=== PATIENT | male | born 1960 | race American Indian/Alaskan Native ===

== ENCOUNTER 2018-07-01 13:34 | Inpatient (IN) | payer MEDICARE ==
--- NOTE | 2018-07-01 13:43 | Emergency Department Report ---
ED General Adult HPI - General Stated complaint: HYPERTENSION Time Seen by Provider: 07/01/18 13:37 Source: patient, EMS Mode of arrival: Stretcher Limitations: No Limitations - History of Present Illness Initial comments: She is a 57-year-old male presents emergency room with complaints of high blood pressure. Patient states he was at dialysis and then notices blood pressure was elevated and he was sent to the emergency for evaluation and treatment. Patient denies chest pain or shortness of breath. Patient denies abdominal pain. Patient denies fever and chills. -: Sudden Improves with: none Worsens with: none Associated Symptoms: denies other symptoms. denies: confusion, chest pain, cough, diaphoresis, fever/chills, headaches, loss of appetite, malaise, nausea/vomiting, rash, seizure, shortness of breath, syncope, weakness Treatments Prior to Arrival: none - Related Data Home Medications Medication Instructions Recorded Confirmed Last Taken Apixaban [Eliquis] 5 mg PO BID 07/01/18 07/01/18 Unknown Pravastatin [Pravachol (Nf)] 40 mg PO QHS 07/01/18 07/01/18 Unknown cloNIDine-TTS PATCH [Catapres-Tts 1 patch TD Q7D 07/01/18 07/01/18 Unknown Patch] Previous Rx's Medication Instructions Recorded Last Taken Type Amiodarone [Cordarone 200 MG TAB] 200 mg PO DAILY #30 tablet 02/17/17 Unknown Rx Allergies Allergy/AdvReac Type Severity Reaction Status Date / Time piroxicam Allergy Unknown Verified 02/15/17 15:58 ED Review of Systems ROS: Stated complaint: HYPERTENSION Other details as noted in HPI Constitutional: denies: chills, fever Eyes: denies: eye pain, eye discharge, vision change ENT: denies: ear pain, throat pain Respiratory: denies: cough, shortness of breath, wheezing Cardiovascular: denies: chest pain, palpitations Endocrine: no symptoms reported Gastrointestinal: denies: abdominal pain, nausea, diarrhea Genitourinary: denies: urgency, dysuria Musculoskeletal: denies: back pain, joint swelling, arthralgia Skin: denies: rash, lesions Neurological: denies: headache, weakness, paresthesias Psychiatric: denies: anxiety, depression Hematological/Lymphatic: denies: easy bleeding, easy bruising ED Past Medical Hx - Past Medical History Previous Medical History?: Yes Hx Hypertension: No Hx CVA: No Hx Heart Attack/AMI: No Hx Congestive Heart Failure: Yes Hx Diabetes: Yes Hx Deep Vein Thrombosis: No Hx Pulmonary Embolism: No Hx GERD: No Hx Liver Disease: No Hx Renal Disease: Yes Hx Sickle Cell Disease: No Hx Arthritis: No Hx Headaches / Migraines: No Hx Seizures: No Hx Kidney Stones: No Hx Psychiatric Treatment: No Hx Asthma: No Hx COPD: No Hx Tuberculosis: No Hx Dementia: No Hx HIV: No Additional medical history: afib - Surgical History Past Surgical History?: Yes Hx Coronary Stent: No Hx Open Heart Surgery: No Hx Pacemaker: No Hx Internal Defibrillator: No Hx Cholecystectomy: No Hx Appendectomy: No Hx Breast Surgery: No Additional Surgical History: Right chest permacath, retinal detachment repair - Family History Family history: hypertension - Social History Smoking Status: Never Smoker Substance Use Type: None - Medications Home Medications: Home Medications Medication Instructions Recorded Confirmed Last Taken Type Amiodarone [Cordarone 200 MG TAB] 200 mg PO DAILY #30 tablet 02/17/17 07/01/18 Unknown Rx Apixaban [Eliquis] 5 mg PO BID 07/01/18 07/01/18 Unknown History Pravastatin [Pravachol (Nf)] 40 mg PO QHS 07/01/18 07/01/18 Unknown History cloNIDine-TTS PATCH [Catapres-Tts 1 patch TD Q7D 07/01/18 07/01/18 Unknown History Patch] ED Physical Exam - General Limitations: No Limitations General appearance: alert, in no apparent distress - Head Head exam: Present: atraumatic, normocephalic - Eye Eye exam: Present: normal appearance - ENT ENT exam: Present: mucous membranes dry - Neck Neck exam: Present: normal inspection - Respiratory Respiratory exam: Present: normal lung sounds bilaterally. Absent: respiratory distress - Cardiovascular Cardiovascular Exam: Present: regular rate, normal rhythm. Absent: systolic murmur, diastolic murmur, rubs, gallop - GI/Abdominal GI/Abdominal exam: Present: soft, normal bowel sounds - Rectal Rectal exam: Present: deferred - Extremities Exam Extremities exam: Present: normal inspection - Back Exam Back exam: Present: normal inspection - Neurological Exam Neurological exam: Present: alert, oriented X3 - Psychiatric Psychiatric exam: Present: normal affect, normal mood - Skin Skin exam: Present: warm, dry, intact, normal color. Absent: rash ED Course Vital Signs 07/01/18 07/01/18 07/01/18 13:40 13:49 13:50 Temperature 98.7 F Pulse Rate 76 77 Respiratory 20 12 Rate Blood Pressure 247/137 247/137 O2 Sat by Pulse 98 100 Oximetry - Reevaluation(s) Reevaluation #1: Blood pressure has improved., 170/90. Labs pertinent for hyperglycemia and DKA. Patient started on DKA protocol 07/01/18 14:58 discussed results with patient. Patient to be admitted to the hospitalist service. Patient agrees with the plan of care. 07/01/18 15:38 - Consultations Consultation #1: Hospitalist consult for admission. Hospitalist to admit patient and assume care of patient. Hospitalist to place orders and consult nephrology 07/01/18 15:39 ED Medical Decision Making - Lab Data Result diagrams: 07/01/18 13:50 07/01/18 15:09 - EKG Data -: EKG Interpreted by [facility] EKG shows normal: sinus rhythm, intervals, QRS complexes, ST-T waves - EKG Data Interpretation: LVH, other (left axis deviation) - Medical Decision Making Patient is a 57-year-old male presents emergency room with complaints of elevated blood pressure and blood sugar. Patient was sent over here by his dialysis clinic. Patient to be admitted to hospitalist service. Labs consistent with DKA due to elevated sugar and low bicarbonate and elevated gap. . Patient's EKG is negative for STEMI. Patient's troponin is elevated most like secondary to patient's chronic kidney disease. Patient did not get dialysis today and will require dialysis. - Differential Diagnosis hbp. hypertensive rebecca. hd. Noncompliant. dka. hyperglycemia Critical Care Time: Yes Critical care attestation.: If time is entered above; I have spent that time in minutes in the direct care of this critically ill patient, excluding procedure time. Critical Care Time: 45 minutes ED Disposition Clinical Impression: Hypertensive emergency, End stage renal disease, Elevated troponin I level DKA (diabetic ketoacidoses) Qualifiers: Diabetes mellitus type: type 2 Diabetes mellitus complication detail: without coma Qualified Code(s): E11.10 - Type 2 diabetes mellitus with ketoacidosis without coma Disposition: OP ADMIT IP TO THIS HOSP Is pt being admited?: Yes Does the pt Need Aspirin: No Condition: Critical Time of Disposition: 14:59
[2018-07-01] MEDS ORDERED: APRESOLINE IV ONE (13:47)
[2018-07-01 14:04] LABS: Hematocrit 37.8 % (35.5-45.6); Hemoglobin 11.7 gm/dl (11.8-15.2); Mean Corpuscular HGB Conc 31 % (32-34); Mean Corpuscular Volume 93 fl (84-94); Platelet Count 165 K/mm3 (140-440); Red Blood Count 4.06 M/mm3 (3.65-5.03); Red Cell Distribution Width 15.7 % (13.2-15.2)
[2018-07-01 14:27] LABS: Creatine Kinase MB 5.7 ng/mL (0.0-4.0)
[2018-07-01 14:28] LABS: Albumin 3.9 g/dL (3.9-5); Calcium 9.3 mg/dL (8.4-10.2)
[2018-07-01] MEDS ORDERED: D50W (25GM) Syringe IV PRN ×3 (14:54→23:36)
[2018-07-01] MEDS ORDERED: NACL 0.9% 1000 ML 1,000 ML IV ONE ×2 (14:54→18:00)
[2018-07-01] MEDS ORDERED: HumuLIN R 100 UNITS in NACL 0.9% 99 ML IV SCH ×2 (15:00→18:00)
[2018-07-01 15:04] LABS: Chol/HDL Ratio 3.12 %
[2018-07-01 15:49] LABS: Calcium 9.5 mg/dL (8.4-10.2)
[2018-07-01] MEDS ORDERED: SODIUM CHLORIDE FLUSH SYRINGE 10 ML IV PRN (16:45)
[2018-07-01] MEDS ORDERED: DILAUDID IV PRN (16:45)
[2018-07-01] MEDS ORDERED: ZOFRAN IV PRN (16:45)
[2018-07-01] MEDS ORDERED: TYLENOL PO PRN (16:45)
[2018-07-01] MEDS ORDERED: PERCOCET 5/325 PO PRN (16:45)
--- NOTE | 2018-07-01 16:45 | History and Physical Report ---
History of Present Illness Date of examination: 07/01/18 Date of admission: 07/01/18 Chief complaint: Feeling very weak and tired Blurred vision Eating excessively Feels hungry all the time and feels thirsty all the time History of present illness: 57-year-old -[place] male with past medical history significant for insulin-dependent diabetes hypertension and end-stage renal disease comes in for feeling very weak and shortness of breath. Patient has been doing his dialysis on a regular basis. Patient is not taking his insulin regularly. Patient feels very thirsty and weak. No fever or chills. In the ER his blood sugar was in the mid 750s. Past Medical History Previous Medical History?: Yes. Hx Congestive Heart Failure: Yes Hx Diabetes: Yes Hx Renal Disease: Yes Additional medical history: afib Surgical History Past Surgical History?: Yes Additional Surgical History: Right ct permacat. Family history: hypertension Social History Smoking Status: Never Smoker Substance Use Type: None [id number] [id number] Home Medications: Home Medications Medication Instructions Recorded Confirmed Last Taken Type Amiodarone [Cordarone 200 MG TAB] 200 mg PO DAILY #30 tablet 02/17/17 07/01/18 Unknown Rx Apixaban [Eliquis] 5 mg PO BID 07/01/18 07/01/18 Unknown History Pravastatin [Pravachol (Nf)] 40 mg PO QHS 07/01/18 07/01/18 Unknown History cloNIDine-TTS PATCH [Catapres-Tts 1 patch TD Q7D 07/01/18 07/01/18 Unknown History Patch] Review of Systems ROS: Stated complaint: HYPERTENSION Other details as noted in HPI Constitutional: denies: chills, fever Eyes: denies: eye pain, eye discharge, vision change ENT: denies: ear pain, throat pain Respiratory: denies: cough, shortness of breath, wheezing Cardiovascular: denies: chest pain, palpitations Endocrine: no symptoms reported Gastrointestinal: denies: abdominal pain, nausea, diarrhea Genitourinary: denies: urgency, dysuria Musculoskeletal: denies: back pain, joint swelling, arthralgia Skin: denies: rash, lesions Neurological: denies: headache, weakness, paresthesias Psychiatric: denies: anxiety, depression Hematological/Lymphatic: denies: easy bleeding, easy bruising Medications and Allergies Allergies Allergy/AdvReac Type Severity Reaction Status Date / Time piroxicam Allergy Unknown Verified 02/15/17 15:58 Home Medications Medication Instructions Recorded Confirmed Last Taken Type Amiodarone [Cordarone 200 MG TAB] 200 mg PO DAILY #30 tablet 02/17/17 07/01/18 Unknown Rx Apixaban [Eliquis] 5 mg PO BID 07/01/18 07/01/18 Unknown History Pravastatin [Pravachol (Nf)] 40 mg PO QHS 07/01/18 07/01/18 Unknown History cloNIDine-TTS PATCH [Catapres-Tts 1 patch TD Q7D 07/01/18 07/01/18 Unknown History Patch] Active Meds: Active Medications Dextrose (D50w (25gm) Syringe) 0 ml IV PRN PRN PRN Reason: Hypoglycemia Insulin Human Regular 100 (units/ Sodium Chloride) 100 mls @ 1 mls/hr IV TITR [facility]; Protocol Exam - Constitutional Vitals: Temp Pulse Resp BP Pulse Ox 98.7 F 77 12 247/137 100 07/01/18 13:40 07/01/18 13:50 07/01/18 13:49 07/01/18 13:50 07/01/18 13:49 General appearance: Present: no acute distress, well-nourished - EENT Eyes: Present: PERRL ENT: hearing intact, clear oral mucosa - Neck Neck: Present: supple, normal ROM - Respiratory Respiratory effort: normal Respiratory: bilateral: CTA - Cardiovascular Heart rate: 76 Rhythm: regular Heart Sounds: Present: S1 & S2. Absent: rub, click - Extremities Extremities: no ischemia, pulses intact, pulses symmetrical, No edema Peripheral Pulses: within normal limits - Abdominal General gastrointestinal: Present: soft, non-tender, non-distended, normal bowel sounds Male genitourinary: Present: normal - Rectal Rectal Exam: deferred - Integumentary Integumentary: Present: clear, warm, dry - Musculoskeletal Musculoskeletal: gait normal, strength equal bilaterally - Psychiatric Psychiatric: appropriate mood/affect, intact judgment & insight - Neurologic Neurologic: CNII-XII intact, moves all extremities - Allied Health Allied health notes reviewed: nursing, case management Results - Labs CBC & Chem 7: 07/01/18 13:50 07/01/18 15:09 Labs: Laboratory Last Values WBC 4.4 K/mm3 (4.5-11.0) L 07/01/18 13:50 RBC 4.06 M/mm3 (3.65-5.03) 07/01/18 13:50 Hgb 11.7 gm/dl (11.8-15.2) L 07/01/18 13:50 Hct 37.8 % (35.5-45.6) 07/01/18 13:50 MCV 93 fl (84-94) 07/01/18 13:50 MCH 29 pg (28-32) 07/01/18 13:50 MCHC 31 % (32-34) L 07/01/18 13:50 RDW 15.7 % (13.2-15.2) H 07/01/18 13:50 Plt Count 165 K/mm3 (140-440) 07/01/18 13:50 Sodium 133 mmol/L (137-145) L 07/01/18 15:09 Potassium 4.7 mmol/L (3.6-5.0) 07/01/18 15:09 Chloride 94.7 mmol/L (98-107) L 07/01/18 15:09 Carbon Dioxide 23 mmol/L (22-30) 07/01/18 15:09 Anion Gap 20 mmol/L 07/01/18 15:09 BUN 36 mg/dL (9-20) H 07/01/18 15:09 Creatinine 4.5 mg/dL (0.8-1.5) H 07/01/18 15:09 Estimated GFR 16 ml/min 07/01/18 15:09 BUN/Creatinine Ratio 8 % 07/01/18 15:09 Glucose 764 mg/dL (75-100) H* 07/01/18 15:09 POC Glucose > 500 (70-105) H 07/01/18 13:42 Calcium 9.5 mg/dL (8.4-10.2) 07/01/18 15:09 Phosphorus 3.50 mg/dL (2.5-4.5) 07/01/18 15:09 Magnesium 2.20 mg/dL (1.7-2.3) 07/01/18 15:09 Total Bilirubin 0.40 mg/dL (0.1-1.2) 07/01/18 13:50 AST 23 units/L (5-40) 07/01/18 13:50 ALT 13 units/L (7-56) 07/01/18 13:50 Alkaline Phosphatase 84 units/L (35-129) 07/01/18 13:50 Total Creatine Kinase 179 units/L (55-170) H 07/01/18 13:50 CK-MB (CK-2) 5.7 ng/mL (0.0-4.0) H 07/01/18 13:50 CK-MB (CK-2) Rel Index 3.1 (0-4) 07/01/18 13:50 Troponin T 0.193 ng/mL (0.00-0.029) H* 07/01/18 13:50 Total Protein 7.4 g/dL (6.3-8.2) 07/01/18 13:50 Albumin 3.9 g/dL (3.9-5) 07/01/18 13:50 Albumin/Globulin Ratio 1.1 % 07/01/18 13:50 Triglycerides 182 mg/dL (2-149) H 07/01/18 13:50 Cholesterol 178 mg/dL (50-199) 07/01/18 13:50 LDL Cholesterol Direct 101 mg/dL (50-130) 07/01/18 13:50 HDL Cholesterol 57 mg/dL (40-59) 07/01/18 13:50 Cholesterol/HDL Ratio 3.12 % 07/01/18 13:50 - Imaging and Cardiology EKG: report reviewed (NSR LAFB LVH with secondary repolarization abnormality Ant q waves) Assessment and Plan Advance Directives: Yes (full code) VTE prophylaxis?: Chemical Plan of care discussed with patient/family: Yes - Patient Problems (1) Hyperosmolar non-ketotic state in patient with type 2 diabetes mellitus Current Visit: Yes Status: Acute Plan to address problem: IV Insulin and IV fluids per DKA protocol (2) ESRD (end stage renal disease) on dialysis Current Visit: Yes Status: Chronic Plan to address problem: Cont HD (3) HTN (hypertension) Current Visit: Yes Status: Chronic Qualifiers: Hypertension type: essential hypertension Qualified Code(s): I10 - Essential (primary) hypertension Plan to address problem: Cont antihypertensives (4) HLD (hyperlipidemia) Current Visit: Yes Status: Chronic Qualifiers: Hyperlipidemia type: mixed hyperlipidemia Qualified Code(s): E78.2 - Mixed hyperlipidemia Plan to address problem: Cont Statins (5) Elevated troponin I level Current Visit: Yes Status: Acute Plan to address problem: Sec to ESRd (6) DVT prophylaxis Current Visit: No Status: Acute Plan to address problem: Cont Heparin and Gi ptophylaxis
[2018-07-01 17:36] LABS: Calcium 9.4 mg/dL (8.4-10.2)
[2018-07-01] MEDS ORDERED: CATAPRES-TTS PATCH TD SCH (18:00)
[2018-07-01] MEDS ORDERED: NACL 0.9% 1000 ML 1,000 ML ONE (19:30)
[2018-07-01] MEDS: CORDARONE PO SCH (19:44)
[2018-07-01 21:03] LABS: Calcium 8.8 mg/dL (8.4-10.2)
[2018-07-01] MEDS: KCL 10MEQ/100ML 10 MEQ/100 ML BAG IV SCH ×3 (21:44→23:55)
[2018-07-01] MEDS ORDERED: D5W/0.45% NACL/KCL 20 MEQ 20 MEQ/1,000 ML BAG IV SCH (23:00)
[2018-07-01 23:11] LABS: Calcium 9.1 mg/dL (8.4-10.2)
[2018-07-02] MEDS ORDERED: APRESOLINE IV ONE
[2018-07-02] MEDS ORDERED: APRESOLINE ONE (00:04)
[2018-07-02] MEDS: ELIQUIS PO SCH ×3 (01:24→22:23)
[2018-07-02] MEDS: PRAVACHOL PO SCH ×2 (01:24→22:23)
[2018-07-02] MEDS: KCL 10MEQ/100ML 10 MEQ/100 ML BAG IV SCH (01:25)
[2018-07-02] MEDS: SODIUM CHLORIDE FLUSH SYRINGE 10 ML IV SCH ×3 (01:25→22:24)
[2018-07-02 06:27] LABS: Basophils % (Auto) 0.5 % (0.0-1.8); Eosinophils # (Auto) 0.1 K/mm3 (0.0-0.4); Eosinophils % (Auto) 1.8 % (0.0-4.3); Hematocrit 37.4 % (35.5-45.6); Hemoglobin 11.8 gm/dl (11.8-15.2); Lymphocytes % (Auto) 18.1 % (13.4-35.0); Mean Corpuscular HGB Conc 32 % (32-34); Mean Corpuscular Volume 91 fl (84-94); Monocytes # (Auto) 0.4 K/mm3 (0.0-0.8); Monocytes % (Auto) 6.5 % (0.0-7.3); Platelet Count 177 K/mm3 (140-440); Red Blood Count 4.12 M/mm3 (3.65-5.03); Red Cell Distribution Width 15.7 % (13.2-15.2)
[2018-07-02 06:49] LABS: Calcium 9.2 mg/dL (8.4-10.2)
[2018-07-02] MEDS: HumuLIN R SUB-Q SCH ×4 (08:44→22:29)
--- NOTE | 2018-07-02 09:02 | Consultation ---
History of Present Illness - History of Present Illness Thank you for the consultation ! Patient was evaluated today My assessment and plan are as follows; End-stage renal disease: Patient is currently on maintenance hemodialysis and will need to be dialyzed 3 times a week Upon admission sodium 133 with a blood sugar of 764 corrected sodium in mid 140s, Anemia in end-stage renal disease: To monitor and follow current hemoglobin is around 11.7 Mild leukopenia white cell count 4.4 thousand, Admitted with the hyperosmolar nonketotic state History of fall poorly controlled long-standing diabetes admitted with blood sugar of more than 700 Has had uncontrolled hypertension at the dialysis facility? Compliance with diet ? Blood pressure is well controlled here Medications needs follow-up Abnormal troponin patient is high risk due to end-stage renal disease, may benefit from cardiology evaluation Secondary hyperparathyroidism and bone mineral disorder to monitor and follow Patient was adequately counseled and educated regarding multiple renal related issues. Renal prognosis remains guarded at this time All renal related questions were answered and simple Maori pertinent lab studies as well as imaging results were also discussed with patient We will continue to follow and make recommendations from renal standpoint. Thank you for the consultation Author: Jovanny Bhardwaj M.D. [facility], [address] [place] [address] Tel; [phone] Source of information: From patient as well as old chart History of present illness Patient is a 57-year-old -Filipino male who is currently in hemodialysis and was admitted with uncontrolled diabetes blood sugar was more than 750, patient stated that she was having some difficulty getting his insulin. Due to elevated blood sugar he was also having periods of dry mouth as well as frequency of urination no compressive and dizziness chest pain pressure or shortness of breath. Patient has been admitted for management of uncontrolled diabetes, nonketotic hyperosmolar state he does suffer from blindness and does have history of long-standing diabetes patient currently dialyzes at [facility] 3 times a week he was also noted to have uncontrolled hypertension is currently on anticoagulation for atrial fibrillation Past medical history significant for: End-stage renal disease Anemia and end-stage renal disease Secondary hyperparathyroidism Atrial fibrillation Chronic anticoagulation Legally blind Current allergies: Piroxicam Home medications present medication: Reviewed Social history: Reviewed from the chart Family history: Reviewed from the chart Review of system: Uncontrolled blood sugar blood pressure was elevated frequency of urination dry mouth All other review of systems negative. Physical examination Vitals: Reviewed General: No acute distress HEENT: Oral mucosa moist no pallor or icterus Neck: Supple without any JVD thyromegaly or nodular mass Chest: Clear to auscultation Heart: Regular rate and rhythm S1-S2 heard no S3-S4 Abdomen: Soft nontender, bowel sounds present no renal bruit no suprapubic masses no CVA tenderness noted Extremity: Minimal edema dry skin no peripheral cyanosis Endocrine: Thyroid not enlarged Psychiatric: No agitation and aggression noted Musculoskeletal: No joint effusion noted Labs and x-rays: Reviewed from this admission Medications and Allergies Allergies Allergy/AdvReac Type Severity Reaction Status Date / Time piroxicam Allergy Unknown Verified 02/15/17 15:58 Home Medications Medication Instructions Recorded Confirmed Last Taken Type Apixaban [Eliquis] 5 mg PO BID 07/01/18 07/01/18 Unknown History cloNIDine-TTS PATCH [Catapres-Tts 1 patch TD Q7D 07/01/18 07/01/18 Unknown History Patch] Amiodarone [Cordarone 200 MG TAB] 200 mg PO DAILY #30 tablet 07/03/18 Unknown Rx Lisinopril [Zestril TAB] 20 mg PO QDAY #30 tablet 07/03/18 Unknown Rx Pravastatin [Pravachol (Nf)] 40 mg PO QHS #30 tablet 07/03/18 Unknown Rx hydrALAZINE [Apresoline TAB] 25 mg PO Q8HR #90 tab 07/03/18 Unknown Rx Active Meds: Active Medications Acetaminophen (Tylenol) 650 mg PO Q4H PRN PRN Reason: Pain MILD(1-3)/Fever >100.5/PEREZ Amiodarone HCl (Cordarone) 200 mg PO DAILY [facility] Last Admin: 07/01/18 19:44 Dose: 200 mg Documented by: Apixaban (Eliquis) 5 mg PO BID [facility]; Protocol Last Admin: 07/02/18 01:24 Dose: 5 mg Documented by: Clonidine HCl (Catapres-Tts Patch) 0.1 mg TD Q7D [facility] Last Admin: 07/01/18 19:43 Dose: 0.1 mg Documented by: Dextrose (D50w (25gm) Syringe) 0 ml IV PRN PRN PRN Reason: Hypoglycemia Dextrose (D50w (25gm) Syringe) 50 ml IV PRN PRN PRN Reason: Hypoglycemia Hydromorphone HCl (Dilaudid) 0.5 mg IV Q3H PRN PRN Reason: Pain , Severe (7-10) Insulin Human Regular 100 (units/ Sodium Chloride) 100 mls @ 1 mls/hr IV TITR [facility]; Protocol Last Titration: 07/01/18 21:03 Dose: 8 units/hr, 8 mls/hr Documented by: Potassium Chloride/Dextrose/Sod Cl (D5w/0.45% Nacl/Kcl 20 Meq) 20 meq in 1,000 mls @ 75 mls/hr IV DIRECT [facility] Last Admin: 07/02/18 01:26 Dose: 75 mls/hr Documented by: Insulin Human Isoph/Insulin Regular (Humulin 70/30) 20 unit SUB-Q BIDDIAB [facility] Insulin Human Regular (Humulin R) 0 units SUB-Q ACHS [facility]; Protocol Last Admin: 07/02/18 08:44 Dose: 4 units Documented by: Ondansetron HCl (Zofran) 4 mg IV Q8H PRN PRN Reason: Nausea And Vomiting Oxycodone/Acetaminophen (Percocet 5/325) 1 tab PO Q6H PRN PRN Reason: Pain, Moderate (4-6) Pravastatin Sodium (Pravachol) 40 mg PO QHS [facility] Last Admin: 07/02/18 01:24 Dose: 40 mg Documented by: Sodium Chloride (Sodium Chloride Flush Syringe 10 Ml) 10 ml IV BID [facility] Last Admin: 07/02/18 01:25 Dose: 10 ml Documented by: Sodium Chloride (Sodium Chloride Flush Syringe 10 Ml) 10 ml IV PRN PRN PRN Reason: LINE FLUSH Exam - Vital Signs Vital signs: Vital Signs Temp Pulse Resp BP Pulse Ox 98.7 F 76 20 247/137 98 07/01/18 13:40 07/01/18 13:40 07/01/18 13:40 07/01/18 13:40 07/01/18 13:40 Results - Lab Results 07/02/18 05:58 07/03/18 06:19 Most recent lab results Calcium 9.0 mg/dL (8.4-10.2) 07/02/18 07:19 Phosphorus 3.60 mg/dL (2.5-4.5) 07/01/18 16:59 Magnesium 2.30 mg/dL (1.7-2.3) 07/01/18 16:59
[2018-07-02 09:46] LABS: Blood Urea Nitrogen TNR mg/dL (9-20)
[2018-07-02 09:47] LABS: BUN/Creatinine Ratio TNR; Calcium TNR mg/dL (8.4-10.2); Hemolysis Index TNR
[2018-07-02] MEDS: CORDARONE PO SCH (12:39)
--- NOTE | 2018-07-02 15:11 | Progress Note ---
Assessment and Plan Assessment and plan: Diabetes mellitus his hyperglycemia, suspected HHS - Patient is treated with insulin drip initially and later transitioned to long- acting insulin and sliding scale insulin - Accu check, ADA diet, adjust insulin as needed End-stage renal disease on hemodialysis -Continue hemodialysis -Nephrology is following Uncontrolled hypertension -adjusted his blood pressure medications - We'll monitor History of A. fib - Eliquis and amiodarone Disposition - according to the clinical course History Interval history: Patient was seen and evaluated this morning, Patient is legally blind. Didn't have any complaints. Hospitalist Physical - Physical exam Narrative exam: Not in cardiopulmonary distress. legally blind. The patient appeared well nourished and normally developed. Vital signs as documented. Head exam is unremarkable. No scleral icterus . Neck is without jugular venous distension, thyromegaly, or carotid bruits. Lungs are clear to auscultation. Cardiac exam reveals regular rate and Rhythm. Abdominal exam reveals normal bowel sounds, no masses, no organomegaly and no aortic enlargement. Extremities are nonedematous and both femoral and pedal pulses are normal. MANAGEMENT RECRUITER: Alert and oriented 3. No focal weakness. - Constitutional Vitals: Temp Pulse Resp BP Pulse Ox 98.2 F 80 18 197/110 98 07/02/18 09:32 07/02/18 09:29 07/02/18 09:29 07/02/18 09:29 07/02/18 09:29 General appearance: Present: no acute distress, well-nourished Results - Labs CBC & Chem 7: 07/02/18 05:58 07/02/18 10:15 Labs: Laboratory Last Values WBC 5.6 K/mm3 (4.5-11.0) 07/02/18 05:58 RBC 4.12 M/mm3 (3.65-5.03) 07/02/18 05:58 Hgb 11.8 gm/dl (11.8-15.2) 07/02/18 05:58 Hct 37.4 % (35.5-45.6) 07/02/18 05:58 MCV 91 fl (84-94) 07/02/18 05:58 MCH 29 pg (28-32) 07/02/18 05:58 MCHC 32 % (32-34) 07/02/18 05:58 RDW 15.7 % (13.2-15.2) H 07/02/18 05:58 Plt Count 177 K/mm3 (140-440) 07/02/18 05:58 Lymph % (Auto) 18.1 % (13.4-35.0) 07/02/18 05:58 Grand % (Auto) 6.5 % (0.0-7.3) 07/02/18 05:58 Eos % (Auto) 1.8 % (0.0-4.3) 07/02/18 05:58 Baso % (Auto) 0.5 % (0.0-1.8) 07/02/18 05:58 Lymph # 1.0 K/mm3 (1.2-5.4) L 07/02/18 05:58 Grand # 0.4 K/mm3 (0.0-0.8) 07/02/18 05:58 Eos # 0.1 K/mm3 (0.0-0.4) 07/02/18 05:58 Baso # 0.0 K/mm3 (0.0-0.1) 07/02/18 05:58 Seg Neutrophils % 73.1 % (40.0-70.0) H 07/02/18 05:58 Seg Neutrophils # 4.1 K/mm3 (1.8-7.7) 07/02/18 05:58 Sodium 137 mmol/L (137-145) 07/02/18 10:15 Potassium 4.6 mmol/L (3.6-5.0) 07/02/18 10:15 Chloride 105.6 mmol/L (98-107) 07/02/18 10:15 Carbon Dioxide 18 mmol/L (22-30) L 07/02/18 10:15 Anion Gap 18 mmol/L 07/02/18 10:15 BUN 35 mg/dL (9-20) H 07/02/18 10:15 Creatinine 4.3 mg/dL (0.8-1.5) H 07/02/18 10:15 Estimated GFR 17 ml/min 07/02/18 10:15 BUN/Creatinine Ratio 8 % 07/02/18 10:15 Glucose 370 mg/dL (75-100) H 07/02/18 10:15 POC Glucose 310 (70-105) H 07/02/18 05:53 Hemoglobin A1c 15.4 % (4-6) H 07/01/18 16:59 Calcium 9.0 mg/dL (8.4-10.2) 07/02/18 10:15 Phosphorus 3.60 mg/dL (2.5-4.5) 07/01/18 16:59 Magnesium 2.30 mg/dL (1.7-2.3) 07/01/18 16:59 Total Bilirubin 0.40 mg/dL (0.1-1.2) 07/01/18 13:50 AST 23 units/L (5-40) 07/01/18 13:50 ALT 13 units/L (7-56) 07/01/18 13:50 Alkaline Phosphatase 84 units/L (35-129) 07/01/18 13:50 Total Creatine Kinase 179 units/L (55-170) H 07/01/18 13:50 CK-MB (CK-2) 5.7 ng/mL (0.0-4.0) H 07/01/18 13:50 CK-MB (CK-2) Rel Index 3.1 (0-4) 07/01/18 13:50 Troponin T 0.193 ng/mL (0.00-0.029) H* 07/01/18 13:50 Total Protein 7.4 g/dL (6.3-8.2) 07/01/18 13:50 Albumin 3.9 g/dL (3.9-5) 07/01/18 13:50 Albumin/Globulin Ratio 1.1 % 07/01/18 13:50 Triglycerides 182 mg/dL (2-149) H 07/01/18 13:50 Cholesterol 178 mg/dL (50-199) 07/01/18 13:50 LDL Cholesterol Direct 101 mg/dL (50-130) 07/01/18 13:50 HDL Cholesterol 57 mg/dL (40-59) 07/01/18 13:50 Cholesterol/HDL Ratio 3.12 % 07/01/18 13:50
[2018-07-02] MEDS: NORVASC PO SCH (15:36)
[2018-07-02] MEDS: APRESOLINE PO SCH ×2 (15:36→22:23)
[2018-07-02] MEDS ORDERED: HumuLIN R IV ONE (17:47)
[2018-07-03 07:13] LABS: Calcium 9.1 mg/dL (8.4-10.2)
[2018-07-03] MEDS ORDERED: NACL 0.9% 100 ML IV PRN (08:49)
--- NOTE | 2018-07-03 08:49 | Progress Note ---
Subjective Interval history: Patient was seen today for follow-up of multiple renal related issues No complaints of any chest pain pressure or shortness of breath blood sugar better, wants dialysis today Interdisciplinary notes that also reviewed Events of 24 hours vitals labs intake output medications were reviewed Past medical history: Reviewed Family history: Reviewed Social history: Reviewed Allergies: Reviewed Physical examination: Vitals: Reviewed HEENT: No pallor or icterus oral mucosa moist Neck: Supple no JVD no thyromegaly Chest: Bilateral clear to auscultation anteriorly Heart: Regular rate and rhythm S1-S2 heard no S3-S4 Abdomen: Soft nontender no voluntary guarding rigidity rebound Extremity: Dry skin less than 1+ peripheral edema Psychiatric: No evidence of agitation and aggression noted Dermatology: No petechial rashes Labs and x-rays: Reviewed from today Assessment and plan End-stage renal disease: Patient is currently being dialyzed at [facility] he will receive his hemodialysis treatment today Admitted with hyperosmolar nonketotic state with symptoms of hyperglycemia and dry mild polyuria which is currently improving with some IV fluid dialysis and treatment Anemia and end-stage renal disease: To monitor and follow Secondary hyperparathyroidism patient needs ongoing monitoring and follow-up Uncontrolled diabetes: Counseled and educated, patient stated that she was having some problem getting his insulin in outpatient setting Hypertension: Adequately controlled currently Mild metabolic acidosis that should correct with hemodialysis today As of this admission today his hemoglobin is around 11.8 as of yesterday potassium 4.1 bicarbonate 20 calcium is 9.1 with phosphorus of 3.6 Patient is overall stable and can be considered for discharge from renal standpoint He can resume his outpatient dialysis in the outpatient setting Adequately counseled and educated regarding multiple related issues Laboratory studies, pertinent for discussed with patient All questions were answered and simple Haitian We'll continue to follow and make recommendation for renal standpoint Objective - Vital Signs Vital signs: Vital Signs - 12hr 07/03/18 07/03/18 00:13 04:00 Temperature 98.4 F 98.2 F Pulse Rate 70 76 Respiratory 18 18 Rate Blood Pressure 162/85 Blood Pressure 152/86 [Right] O2 Sat by Pulse 100 100 Oximetry - Lab 07/02/18 05:58 07/03/18 06:19 Most recent lab results Calcium 9.1 mg/dL (8.4-10.2) 07/03/18 06:19 Phosphorus 3.60 mg/dL (2.5-4.5) 07/01/18 16:59 Magnesium 2.30 mg/dL (1.7-2.3) 07/01/18 16:59 Medications & Allergies - Medications Allergies/Adverse Reactions: Allergies piroxicam Allergy (Verified 02/15/17 15:58) Unknown Home Medications: Home Medications Medication Instructions Recorded Confirmed Last Taken Type Apixaban [Eliquis] 5 mg PO BID 07/01/18 07/01/18 Unknown History cloNIDine-TTS PATCH [Catapres-Tts 1 patch TD Q7D 07/01/18 07/01/18 Unknown History Patch] Amiodarone [Cordarone 200 MG TAB] 200 mg PO DAILY #30 tablet 07/03/18 Unknown Rx Lisinopril [Zestril TAB] 20 mg PO QDAY #30 tablet 07/03/18 Unknown Rx Pravastatin [Pravachol (Nf)] 40 mg PO QHS #30 tablet 07/03/18 Unknown Rx hydrALAZINE [Apresoline TAB] 25 mg PO Q8HR #90 tab 07/03/18 Unknown Rx Active Medications: Generic Name Dose Route Start Last Admin Trade Name Freq PRN Reason Stop Dose Admin Acetaminophen 650 mg 07/01/18 16:45 Tylenol PO Q4H PRN Pain MILD(1-3)/Fever >100.5/PEREZ Amiodarone HCl 200 mg 07/01/18 18:00 07/02/18 12:39 Cordarone PO 200 mg DAILY RICH Administration Amlodipine Besylate 10 mg 07/02/18 15:02 07/02/18 15:36 Norvasc PO 10 mg QDAY RICH Administration Apixaban 5 mg 07/01/18 22:00 07/02/18 22:23 Eliquis PO 5 mg BID RICH Administration Protocol Clonidine HCl 0.1 mg 07/01/18 18:00 07/01/18 19:43 Catapres-Tts Patch TD 0.1 mg Q7D RICH Administration Dextrose 0 ml 07/01/18 16:54 D50w (25gm) Syringe IV PRN PRN Hypoglycemia Dextrose 50 ml 07/01/18 23:36 D50w (25gm) Syringe IV PRN PRN Hypoglycemia Hydralazine HCl 100 mg 07/02/18 15:02 07/02/18 22:23 Apresoline PO 100 mg TID RICH Administration Hydromorphone HCl 0.5 mg 07/01/18 16:45 Dilaudid IV Q3H PRN Pain , Severe (7-10) Insulin Human Regular 100 100 mls @ 1 mls/hr 07/01/18 18:00 07/01/18 21:03 units/ Sodium Chloride IV 8 units/hr TITR RICH 8 mls/hr Titration Protocol 1 UNITS/HR Insulin Human Isoph/Insulin Regular 20 unit 07/02/18 09:30 07/02/18 17:13 Humulin 70/30 SUB-Q 20 unit BIDDIAB RICH Administration Insulin Human Regular 0 units 07/02/18 07:30 07/02/18 22:29 Humulin R SUB-Q Not Given ACHS RICH Protocol Ondansetron HCl 4 mg 07/01/18 16:45 Zofran IV Q8H PRN Nausea And Vomiting Oxycodone/Acetaminophen 1 tab 07/01/18 16:45 Percocet 5/325 PO Q6H PRN Pain, Moderate (4-6) Pravastatin Sodium 40 mg 07/01/18 22:00 07/02/18 22:23 Pravachol PO 40 mg QHS RICH Administration Sodium Chloride 10 ml 07/01/18 22:00 07/02/18 22:24 Sodium Chloride Flush Syringe 10 Ml IV 10 ml BID RICH Administration Sodium Chloride 10 ml 07/01/18 16:45 Sodium Chloride Flush Syringe 10 Ml IV PRN PRN LINE FLUSH
[2018-07-03] MEDS: CORDARONE PO SCH (09:28)
[2018-07-03] MEDS: NORVASC PO SCH (09:28)
[2018-07-03] MEDS: APRESOLINE PO SCH (09:28)
[2018-07-03] MEDS: HumuLIN R SUB-Q SCH (09:29)
[2018-07-03] MEDS: SODIUM CHLORIDE FLUSH SYRINGE 10 ML IV SCH (09:29)
[2018-07-03] MEDS: ELIQUIS PO SCH (09:30)
[2018-07-03 14:10] LABS: Hepatitis B Surface Antigen Non-Reactive (Negative); Hepatitis C Virus Antibody Non-Reactive (NonReactive)
[2018-07-03 16:24] VITALS: BP 156/91
--- NOTE | 2018-07-03 16:43 | Discharge Summary ---
Providers - Providers Date of Admission: 07/01/18 16:45 Attending physician: MATA BABCOCK MD 07/01/18 Consult to Case Management [CONS] Routine Services Needed at Discharge: Home Health Services Notified:: case management 07/01/18 16:45 Consult to Physician [CONS] Routine Comment: Dr. Grover notified @ 195 Consulting Provider: KIERRA SANFORD Physician Instructions: Reason For Exam: end-stage renal disease 07/01/18 16:50 Consult to Dietitian/Nutrition [CONS] Routine Physician Instructions: Reason For Exam: Reason for Consult: Diet education Primary care physician: METAL BURRER Hospitalization Reason for admission: HHS, uncontrolled DM Condition: Stable Hospital course: Diabetes mellitus his hyperglycemia, suspected HHS;Patient is treated with insulin drip initially and later transitioned to long-acting insulin and sliding scale insulin. Diabetes was controlled and patient said he has enough of his medications and will take it as needed. End-stage renal disease on hemodialysis; nephrology was consulted and hemodialysis was done. Uncontrolled hypertension; continue home medications and adjusted his BP meds. History of A. fib; continue with eliquis and amiodarone patient said he has enough of his insulin medications at home. Patient was feeling ok. Patient was hemodynamically table at the time of discharge. patient's questions and concerns were addressed at the bedside. Disposition: -01 TO HOME OR SELFCARE Time spent for discharge: 32 minutes - Discharge Diagnoses (1) Hyperosmolar non-ketotic state in patient with type 2 diabetes mellitus Status: Acute (2) ESRD (end stage renal disease) on dialysis Status: Chronic (3) HLD (hyperlipidemia) Status: Chronic Qualifiers: Hyperlipidemia type: mixed hyperlipidemia Qualified Code(s): E78.2 - Mixed hyperlipidemia (4) HTN (hypertension) Status: Chronic Qualifiers: Hypertension type: essential hypertension Qualified Code(s): I10 - Essential (primary) hypertension (5) Diabetes Status: Acute Core Measure Documentation - Palliative Care Palliative Care/ Comfort Measures: Not Applicable - Core Measures Any of the following diagnoses?: none Exam - Physical Exam Narrative exam: Not in cardiopulmonary distress. legally blind. The patient appeared well nourished and normally developed. Vital signs as documented. Head exam is unremarkable. No scleral icterus . Neck is without jugular venous distension, thyromegaly, or carotid bruits. Lungs are clear to auscultation. Cardiac exam reveals regular rate and Rhythm. Abdominal exam reveals normal bowel sounds, no masses, no organomegaly and no aortic enlargement. Extremities are nonedematous and both femoral and pedal pulses are normal. CORPORATE QUALITY ENGINEER: Alert and oriented 3. No focal weakness. - Constitutional Vitals: Temp Pulse Resp BP Pulse Ox 98.0 F 77 16 156/91 97 07/03/18 16:23 07/03/18 16:23 07/03/18 16:23 07/03/18 16:23 07/03/18 16:23 Plan Activity: no restrictions Weight Bearing Status: Full Weight Bearing Diet: low salt, diabetic, renal Follow up with: PRIMARY CARE,MD [Primary Care Provider] - 3-5 Days Prescriptions: Pravastatin [Pravachol (Nf)] 40 mg PO QHS #30 tablet Amiodarone [Cordarone 200 MG TAB] 200 mg PO DAILY #30 tablet hydrALAZINE [Apresoline TAB] 25 mg PO Q8HR #90 tab Lisinopril [Zestril TAB] 20 mg PO QDAY #30 tablet
[2018-07-03] MEDS ORDERED: NACL 0.9 (PRIMING MACHINE ONLY DIALYSIS) MC ONE (18:01)
[2018-07-03] MEDS ORDERED: TRIPLE ANTIBIOTIC TP ONE (19:20)
== END 2018-07-03 18:00 | disposition home or self-care (01) | DRG 637 ==
LOC: ED 13:34 → CC1 16:45 → 4A 23:55
PROVIDERS: ADMIT Internal Medicine; ATTEND Internal Medicine
PROC: 5A1D70Z Performance of Urinary Filtration, Intermittent, Less than 6 Hours Per Day (ICD-10-PCS; principal; 2018-07-03)
DX: E11.00 Type 2 diabetes mellitus with hyperosmolarity without nonketotic hyperglycemic-hyperosmolar coma (NKHHC) (principal); N18.6 End stage renal disease; N25.81 Secondary hyperparathyroidism of renal origin; E87.2 Acidosis; I13.2 Hypertensive heart and chronic kidney disease with heart failure and with stage 5 chronic kidney disease, or end stage renal disease; I16.1 Hypertensive emergency; E11.22 Type 2 diabetes mellitus with diabetic chronic kidney disease; D64.9 Anemia, unspecified; E78.2 Mixed hyperlipidemia; I48.91 Unspecified atrial fibrillation; D63.1 Anemia in chronic kidney disease; D72.819 Decreased white blood cell count, unspecified; H54.8 Legal blindness, as defined in USA; I49.9 Cardiac arrhythmia, unspecified; I50.9 Heart failure, unspecified; E11.10 Type 2 diabetes mellitus with ketoacidosis without coma; Z79.899 Other long term (current) drug therapy; Z79.01 Long term (current) use of anticoagulants; Z82.49 Family history of ischemic heart disease and other diseases of the circulatory system
CPT/HCPCS: 36415; 80048; 80053; 80061; 80074; 82550; 82553; 82962; 83036; 83735; 84100; 84484; 85025; 85027; 87116; 93005; 93010; 96361; 96365; 96375; G0378; A6250; A9270-GY; J0360; J1815; J3480; J7030

== ENCOUNTER 2018-07-10 12:24 | Emergency (ER) | payer MEDICARE ==
--- NOTE | 2018-07-10 13:44 | XRay Report ---
ROUTINE CHEST, TWO VIEWS: HISTORY: Cough. The trachea, heart, mediastinal contour, lung moscoso and bony thorax are unremarkable. IMPRESSION: No acute cardiopulmonary process identified.
[2018-07-10 13:46] LABS: Basophils % (Auto) 0.8 % (0.0-1.8); Eosinophils # (Auto) 0.1 K/mm3 (0.0-0.4); Eosinophils % (Auto) 2.3 % (0.0-4.3); Hemoglobin 11.4 gm/dl (11.8-15.2); Lymphocytes # (Auto) 0.7 K/mm3 (1.2-5.4); Lymphocytes % (Auto) 18.4 % (13.4-35.0); Mean Corpuscular HGB Conc 32 % (32-34); Mean Corpuscular Volume 90 fl (84-94); Monocytes # (Auto) 0.5 K/mm3 (0.0-0.8); Monocytes % (Auto) 12.4 % (0.0-7.3); Platelet Count 178 K/mm3 (140-440); Red Blood Count 3.98 M/mm3 (3.65-5.03); Red Cell Distribution Width 15.4 % (13.2-15.2)
[2018-07-10 13:58] LABS: Calcium 9.1 mg/dL (8.4-10.2)
--- NOTE | 2018-07-10 14:23 | Emergency Department Report ---
- General Chief Complaint: Upper Respiratory Infection Stated Complaint: COUGH/HIGH BLOOD SUGAR Time Seen by Provider: 07/10/18 12:34 Source: EMS Mode of arrival: Stretcher Limitations: No Limitations - History of Present Illness Initial Comments: 57-year-old male with a past medical history of end-stage due for dialysis, diabetes and atrial fibrillation presents to hospital with presents to the hospital pain about cough 1 week. Cough is productive of yellowish sputum. Patient complains a lot of chest congestion. He denies pain, fever, or shortness of breath. He did not get a pneumonia or flu shot this. He was due for dialysis today he came here instead. His facilities maintenance manager is Dr. Bhardwaj - Related Data Home Medications Medication Instructions Recorded Confirmed Last Taken Apixaban [Eliquis] 5 mg PO BID 07/01/18 07/01/18 Unknown cloNIDine-TTS PATCH [Catapres-Tts 1 patch TD Q7D 07/01/18 07/01/18 Unknown Patch] Previous Rx's Medication Instructions Recorded Last Taken Type Amiodarone [Cordarone 200 MG TAB] 200 mg PO DAILY #30 tablet 07/03/18 Unknown Rx Lisinopril [Zestril TAB] 20 mg PO QDAY #30 tablet 07/03/18 Unknown Rx Pravastatin [Pravachol (Nf)] 40 mg PO QHS #30 tablet 07/03/18 Unknown Rx hydrALAZINE [Apresoline TAB] 25 mg PO Q8HR #90 tab 07/03/18 Unknown Rx Azithromycin [Zithromax TAB] 250 mg PO QDAY #4 tablet 07/10/18 Unknown Rx Benzonatate [Tessalon Perles] 100 mg PO Q8HR PRN #30 capsule 07/10/18 Unknown Rx Allergies Allergy/AdvReac Type Severity Reaction Status Date / Time piroxicam Allergy Unknown Verified 02/15/17 15:58 ED Review of Systems ROS: Stated complaint: COUGH/HIGH BLOOD SUGAR Other details as noted in HPI Comment: All other systems reviewed and negative ED Past Medical Hx - Past Medical History Hx Hypertension: Yes Hx CVA: No Hx Heart Attack/AMI: No Hx Congestive Heart Failure: Yes Hx Diabetes: Yes Hx Deep Vein Thrombosis: No Hx Pulmonary Embolism: No Hx GERD: Yes Hx Liver Disease: No Hx Renal Disease: Yes Hx Sickle Cell Disease: No Hx Arthritis: No Hx Headaches / Migraines: No Hx Seizures: No Hx Kidney Stones: No Hx Psychiatric Treatment: No Hx Asthma: No Hx COPD: No Hx Tuberculosis: No Hx Dementia: No Hx HIV: No Additional medical history: afib - Surgical History Hx Coronary Stent: No Hx Open Heart Surgery: No Hx Pacemaker: No Hx Internal Defibrillator: No Hx Cholecystectomy: No Hx Appendectomy: No Hx Breast Surgery: No Additional Surgical History: Right chest permacath, retinal detachment repair - Social History Smoking Status: Never Smoker - Medications Home Medications: Home Medications Medication Instructions Recorded Confirmed Last Taken Type Apixaban [Eliquis] 5 mg PO BID 07/01/18 07/01/18 Unknown History cloNIDine-TTS PATCH [Catapres-Tts 1 patch TD Q7D 07/01/18 07/01/18 Unknown History Patch] Amiodarone [Cordarone 200 MG TAB] 200 mg PO DAILY #30 tablet 07/03/18 Unknown Rx Lisinopril [Zestril TAB] 20 mg PO QDAY #30 tablet 07/03/18 Unknown Rx Pravastatin [Pravachol (Nf)] 40 mg PO QHS #30 tablet 07/03/18 Unknown Rx hydrALAZINE [Apresoline TAB] 25 mg PO Q8HR #90 tab 07/03/18 Unknown Rx Azithromycin [Zithromax TAB] 250 mg PO QDAY #4 tablet 07/10/18 Unknown Rx Benzonatate [Tessalon Perles] 100 mg PO Q8HR PRN #30 capsule 07/10/18 Unknown Rx ED Physical Exam - General Limitations: No Limitations - Other Other exam information: General: No limitations, patient is alert in no acute distress Head exam: Atraumatic, normocephalic Eyes exam: Patient has extremely poor vision in his right eye and Only see shadows and is unable to see out of that eye ENT: Moist mucous membrane, normal oropharynx Neck exam: Normal inspection, full range of motion, no meningismus nontender Respiratory exam: Mild rhonchi right(, no wheezing, tachypnea, accessory muscle use, or crackles Cardiovascular: Normal rate and rhythm Abdomen: Soft, nondistended, and nontender, with normal bowel sounds, no rebound, or guarding Extremity: Full range of motion normal inspection no deformity Back: Normal Inspection, full range of motion, no tenderness Neurologic: Alert, oriented x3, cranial nerves intact, no motor or sensory deficit Psychiatric: normal affect, normal mood Skin: Warm, dry, intact ED Course Vital Signs 07/10/18 07/10/18 07/10/18 12:32 12:38 12:46 Temperature 98.3 F Pulse Rate 75 Respiratory 16 Rate Blood Pressure 127/76 Blood Pressure 127/76 [Right] O2 Sat by Pulse 97 95 98 Oximetry 07/10/18 07/10/18 13:00 14:48 Temperature Pulse Rate Respiratory Rate Blood Pressure 144/81 176/93 Blood Pressure [Right] O2 Sat by Pulse 95 99 Oximetry - Consultations Consultation #1: 07/10/18 16:15 Case was discussed with Dr. Carballo national expansion recruiter facilities maintenance manager for Dr. Bhardwaj. Advised that patient should call his dialysis center today to arrange for dialysis. Nurse dialed the number for the patient and provided a phone for him to contact the dialysis center prior to closure to arrange for follow-up dialysis. ED Medical Decision Making - Lab Data Result diagrams: 07/10/18 13:19 07/10/18 13:28 Lab Results 07/10/18 07/10/18 07/10/18 Range/Units 13:02 13:19 13:28 WBC 3.8 L (4.5-11.0) K/mm3 RBC 3.98 (3.65-5.03) M/mm3 Hgb 11.4 L (11.8-15.2) gm/dl Hct 36.0 (35.5-45.6) % MCV 90 (84-94) fl MCH 29 (28-32) pg MCHC 32 (32-34) % RDW 15.4 H (13.2-15.2) % Plt Count 178 (140-440) K/mm3 Lymph % (Auto) 18.4 (13.4-35.0) % Harlan % (Auto) 12.4 H (0.0-7.3) % Eos % (Auto) 2.3 (0.0-4.3) % Baso % (Auto) 0.8 (0.0-1.8) % Lymph # 0.7 L (1.2-5.4) K/mm3 Harlan # 0.5 (0.0-0.8) K/mm3 Eos # 0.1 (0.0-0.4) K/mm3 Baso # 0.0 (0.0-0.1) K/mm3 Seg Neutrophils % 66.1 (40.0-70.0) % Seg Neutrophils # 2.5 (1.8-7.7) K/mm3 VBG pH (7.320-7.420) Sodium 137 (137-145) mmol/L Potassium 4.3 (3.6-5.0) mmol/L Chloride 101.1 (98-107) mmol/L Carbon Dioxide 23 (22-30) mmol/L Anion Gap 17 mmol/L BUN 40 H (9-20) mg/dL Creatinine 4.0 H (0.8-1.5) mg/dL Estimated GFR 19 ml/min BUN/Creatinine Ratio 10 % Glucose 289 H (75-100) mg/dL POC Glucose 305 H (70-105) Calcium 9.1 (8.4-10.2) mg/dL 07/10/18 Range/Units 13:28 WBC (4.5-11.0) K/mm3 RBC (3.65-5.03) M/mm3 Hgb (11.8-15.2) gm/dl Hct (35.5-45.6) % MCV (84-94) fl MCH (28-32) pg MCHC (32-34) % RDW (13.2-15.2) % Plt Count (140-440) K/mm3 Lymph % (Auto) (13.4-35.0) % Harlan % (Auto) (0.0-7.3) % Eos % (Auto) (0.0-4.3) % Baso % (Auto) (0.0-1.8) % Lymph # (1.2-5.4) K/mm3 Harlan # (0.0-0.8) K/mm3 Eos # (0.0-0.4) K/mm3 Baso # (0.0-0.1) K/mm3 Seg Neutrophils % (40.0-70.0) % Seg Neutrophils # (1.8-7.7) K/mm3 VBG pH 7.366 (7.320-7.420) Sodium (137-145) mmol/L Potassium (3.6-5.0) mmol/L Chloride (98-107) mmol/L Carbon Dioxide (22-30) mmol/L Anion Gap mmol/L BUN (9-20) mg/dL Creatinine (0.8-1.5) mg/dL Estimated GFR ml/min BUN/Creatinine Ratio % Glucose (75-100) mg/dL POC Glucose (70-105) Calcium (8.4-10.2) mg/dL - Radiology Data Radiology results: report reviewed Chest x-ray: No acute findings - Medical Decision Making Patient received azithromycin and Tessalon Perles in the ED with improvement in symptoms. Case discussed with Dr. Carballo. Patient called his dialysis center was told to come in tomorrow. Patient glucose is trending downward and he took his medications for diabetes and hypertension prior to arrival - Differential Diagnosis pneumonia, bronchitis, CHF, viral syndrome Critical Care Time: No Critical care attestation.: If time is entered above; I have spent that time in minutes in the direct care of this critically ill patient, excluding procedure time. ED Disposition Clinical Impression: Cough, ESRD on dialysis, Diabetes, HTN (hypertension) Disposition: TO HOME OR SELFCARE Is pt being admited?: No Condition: Stable Instructions: Upper Respiratory Infection (ED), Diabetes Mellitus Type 2 in Adults (ED), Hypertension (ED) Additional Instructions: You have been placed on antibiotics to cover for atypical pneumonia but you likely have an upper respiratory tract infection. Please take the medications as described. Go for tomorrow as discussed with your dialysis Center. Return if symptoms worsen as indicated by your discharge instructions. Prescriptions: Azithromycin [Zithromax TAB] 250 mg PO QDAY #4 tablet Benzonatate [Tessalon Perles] 100 mg PO Q8HR PRN #30 capsule PRN Reason: Cough Referrals: PRIMARY MD ROLANDO [Primary Care Provider] - 3-5 Days KIERRA BHARDWAJ MD [Staff Physician] - 3-5 Days Time of Disposition: 16:42
[2018-07-10] MEDS ORDERED: TESSALON PERLES PO ONE (14:38)
[2018-07-10] MEDS ORDERED: ZITHROMAX PO ONE (14:47)
[2018-07-10 16:28] VITALS: BP 199/103
== END 2018-07-10 18:17 | disposition home or self-care (01) ==
LOC: ED 12:24
DX: R05 Cough (principal); R09.89 Other specified symptoms and signs involving the circulatory and respiratory systems; I10 Essential (primary) hypertension; E11.22 Type 2 diabetes mellitus with diabetic chronic kidney disease; I13.2 Hypertensive heart and chronic kidney disease with heart failure and with stage 5 chronic kidney disease, or end stage renal disease; I50.9 Heart failure, unspecified; N18.6 End stage renal disease; Z99.2 Dependence on renal dialysis; K21.9 Gastro-esophageal reflux disease without esophagitis; I48.91 Unspecified atrial fibrillation; Z79.899 Other long term (current) drug therapy; Z88.8 Allergy status to other drugs, medicaments and biological substances
CPT/HCPCS: 36415; 71046; 80048; 82805; 82962; 85025

== ENCOUNTER 2019-05-08 09:51 | Inpatient (IN) | payer MEDICARE ==
[2019-05-08] MEDS ORDERED: CLINDAMYCIN 600 MG/50 mL 600 MG/50 ML BAG IV ONE (11:08)
--- NOTE | 2019-05-08 11:11 | Emergency Department Report ---
- General Chief complaint: Wound/Laceration Stated complaint: LEFT FOOT PAIN Time Seen by Provider: 05/08/19 11:07 Source: patient Mode of arrival: Ambulatory Limitations: No Limitations - History of Present Illness Initial comments: 58-year-old -[place] male with a history of diabetes, hypertension and end-stage renal disease with dialysis comes in for an ulcer to his left great toe times a few days. Patient reports that he had went to see his doctor which is her surgeon Dr. Haq and she is symptom to the emergency room for reevaluation. Patient states he is currently on no antibiotics for his foot ulcer. Patient reports that he goes to dialysis Friday and Friday last is Fer size on Friday and will go secondary to holidays. Patient reports that he is sees Dr. Bhardwaj on [address] and came straight in [place]. Patient states he is on the machine 3.5 hours. Patient denies any fevers. Onset/Timin -: days(s) Tetanus Up to Date: no Location: L foot Severity scale (0 -10): 0 Associated symptoms: denies other symptoms Treatments Prior to Arrival: bandages - Related Data Home Medications Medication Instructions Recorded Confirmed Last Taken Apixaban [Eliquis] 5 mg PO BID 07/01/18 07/29/18 Unknown cloNIDine-TTS PATCH [Catapres-Tts 1 patch TD Q7D 07/01/18 07/29/18 Unknown 0.1MG Patch] Insulin Aspart (Nf) [NovoLOG 100 10 unit SQ AC 07/31/18 07/31/18 Unknown UNITS/ML VIAL] Previous Rx's Medication Instructions Recorded Last Taken Type Amiodarone [Cordarone 200 MG TAB] 200 mg PO DAILY #30 tablet 07/03/18 Unknown Rx Lisinopril [Zestril TAB] 20 mg PO QDAY #30 tablet 07/03/18 Unknown Rx Pravastatin [Pravachol (Nf)] 40 mg PO QHS #30 tablet 07/03/18 Unknown Rx hydrALAZINE [Apresoline TAB] 25 mg PO Q8HR #90 tab 07/03/18 Unknown Rx Insulin Glargine [Lantus] 30 units SQ QHS #1 vial 07/31/18 Unknown Rx amLODIPine 5 mg PO QDAY #30 tablet 07/31/18 Unknown Rx Allergies Allergy/AdvReac Type Severity Reaction Status Date / Time piroxicam Allergy Unknown Verified 02/15/17 15:58 Abscess Boil HPI - HPI Chief Complaint: Wound/Laceration Stated Complaint: LEFT FOOT PAIN Time Seen by Provider: 05/08/19 11:07 Home Medications: Home Medications Medication Instructions Recorded Confirmed Last Taken Apixaban [Eliquis] 5 mg PO BID 07/01/18 07/29/18 Unknown cloNIDine-TTS PATCH [Catapres-Tts 1 patch TD Q7D 07/01/18 07/29/18 Unknown 0.1MG Patch] Insulin Aspart (Nf) [NovoLOG 100 10 unit SQ AC 07/31/18 07/31/18 Unknown UNITS/ML VIAL] Previous Rx's Medication Instructions Recorded Last Taken Type Amiodarone [Cordarone 200 MG TAB] 200 mg PO DAILY #30 tablet 07/03/18 Unknown Rx Lisinopril [Zestril TAB] 20 mg PO QDAY #30 tablet 07/03/18 Unknown Rx Pravastatin [Pravachol (Nf)] 40 mg PO QHS #30 tablet 07/03/18 Unknown Rx hydrALAZINE [Apresoline TAB] 25 mg PO Q8HR #90 tab 07/03/18 Unknown Rx Insulin Glargine [Lantus] 30 units SQ QHS #1 vial 07/31/18 Unknown Rx amLODIPine 5 mg PO QDAY #30 tablet 07/31/18 Unknown Rx Allergies/Adverse Reactions: Allergies Allergy/AdvReac Type Severity Reaction Status Date / Time piroxicam Allergy Unknown Verified 02/15/17 15:58 ED Review of Systems ROS: Stated complaint: LEFT FOOT PAIN Other details as noted in HPI Comment: All other systems reviewed and negative ED Past Medical Hx - Past Medical History Hx Hypertension: Yes Hx CVA: No Hx Heart Attack/AMI: No Hx Congestive Heart Failure: Yes Hx Diabetes: Yes Hx Deep Vein Thrombosis: No Hx Pulmonary Embolism: No Hx GERD: Yes Hx Liver Disease: No Hx Renal Disease: Yes Hx Sickle Cell Disease: No Hx Arthritis: No Hx Headaches / Migraines: No Hx Seizures: No Hx Kidney Stones: No Hx Psychiatric Treatment: No Hx Asthma: No Hx COPD: No Hx Tuberculosis: No Hx Dementia: No Hx HIV: No Additional medical history: afib - Surgical History Hx Coronary Stent: No Hx Open Heart Surgery: No Hx Pacemaker: No Hx Internal Defibrillator: No Hx Cholecystectomy: No Hx Appendectomy: No Hx Breast Surgery: No Additional Surgical History: Right chest permacath, retinal detachment repair - Social History Smoking Status: Never Smoker - Medications Home Medications: Home Medications Medication Instructions Recorded Confirmed Last Taken Type Apixaban [Eliquis] 5 mg PO BID 07/01/18 07/29/18 Unknown History cloNIDine-TTS PATCH [Catapres-Tts 1 patch TD Q7D 07/01/18 07/29/18 Unknown History 0.1MG Patch] Amiodarone [Cordarone 200 MG TAB] 200 mg PO DAILY #30 tablet 07/03/18 07/29/18 Unknown Rx Lisinopril [Zestril TAB] 20 mg PO QDAY #30 tablet 07/03/18 07/29/18 Unknown Rx Pravastatin [Pravachol (Nf)] 40 mg PO QHS #30 tablet 07/03/18 07/29/18 Unknown Rx hydrALAZINE [Apresoline TAB] 25 mg PO Q8HR #90 tab 07/03/18 07/29/18 Unknown Rx Insulin Aspart (Nf) [NovoLOG 100 10 unit SQ AC 07/31/18 07/31/18 Unknown History UNITS/ML VIAL] Insulin Glargine [Lantus] 30 units SQ QHS #1 vial 07/31/18 Unknown Rx amLODIPine 5 mg PO QDAY #30 tablet 07/31/18 Unknown Rx ED Physical Exam - General Limitations: No Limitations General appearance: alert, in no apparent distress - Head Head exam: Present: atraumatic, normocephalic - ENT ENT exam: Present: mucous membranes moist - Neurological Exam Neurological exam: Present: alert, oriented X3 - Psychiatric Psychiatric exam: Present: normal affect, normal mood - Expanded Skin Exam Expanded Distribution of rash: LLE (great toe) Description of rash: Present: crusting, other (dry eschar with underlying greenish thick film) ED Course Vital Signs 05/08/19 09:55 Temperature 98.3 F Pulse Rate 89 Respiratory 18 Rate Blood Pressure 146/79 O2 Sat by Pulse 99 Oximetry ED Medical Decision Making - Lab Data Result diagrams: 05/08/19 12:14 05/08/19 12:14 - Radiology Data Radiology results: report reviewed Ordering Physician: TUNG MANDUJANO Date of Service: 05/08/19 Procedure(s): XR toe(s) 2+V LT Accession Number(s): [id number] cc: TUNG MANDUJANO Fluoro Time In Minutes: LEFT FIRST TOE 5 VIEWS INDICATION / CLINICAL INFORMATION: left great toe ulcer COMPARISON: None available. FINDINGS: BONES and JOINT(S): No acute fracture or subluxation. No significant arthritis or suspicious destructive bony changes are seen. SOFT TISSUES: There is a questionable ulceration along the plantar surface of the first toe measuring 1.3 cm and located at the level of the interphalangeal joint. Mild edema is seen throughout the first toe. No soft tissue gas is seen. There is generalized atherosclerosis. ADDITIONAL FINDINGS: None. IMPRESSION: Questionable ulceration of the left first toe as above without radiographic evidence of osteomyelitis. Signer Name: Henrik Mcgee MD Signed: 05/08/2019 11:52 AM Workstation Name: [id number] Transcribed By: [place] Dictated By: Henrik Mcgee MD Electronically Authenticated By: Henrik Mcgee MD Signed Date/Time: 05/08/19 1152 DD/ 1151 TD/TT: - Medical Decision Making 58-year-old -[place] male with a history of diabetes, hypertension and end-stage renal disease with dialysis comes in for an ulcer to his left great toe times a few days. Patient reports that he had went to see his doctor which is her surgeon Dr. Haq and she is symptom to the emergency room for reevaluation. Patient states he is currently on no antibiotics for his foot ulcer. Dr. Clark for consult from surgery for debridement. Spoke with Dr. Carballo tire builder manager contract for Dr. Elaine to inform patient will be in patient and will need dialysis tomorrow. Patient has been started with vancomycin and Unasyn. Inform Dr. Kendrick of admission. Critical care attestation.: If time is entered above; I have spent that time in minutes in the direct care of this critically ill patient, excluding procedure time. ED Disposition Clinical Impression: Diabetic infection of left foot, Diabetic foot ulcer, ESRD (end stage renal disease) on dialysis Disposition: OP ADMIT IP TO THIS HOSP Condition: Stable Instructions: Diabetes Mellitus Type 2 in Adults (ED) Referrals: PRIMARY CARE, [Primary Care Provider] - 3-5 Days
--- NOTE | 2019-05-08 11:57 | XRay Report ---
LEFT FIRST TOE 5 VIEWS INDICATION / CLINICAL INFORMATION: left great toe ulcer COMPARISON: None available. FINDINGS: BONES and JOINT(S): No acute fracture or subluxation. No significant arthritis or suspicious destruct chan bony changes are seen. SOFT TISSUES: There is a questionable ulceration along the plantar surface of the first toe measuring 1.3 cm and located at the level of the interphalangeal joint. Mild edema is seen throughout the firs t toe. No soft tissue gas is seen. There is generalized atherosclerosis. ADDITIONAL FINDINGS: None. IMPRESSION: Questionable ulceration of the left first toe as above without radiographic evidence of osteomyelitis . Signer Name: Henrik Mcgee MD Signed: 05/08/2019 11:52 AM Workstation Name: [id number]
--- NOTE | 2019-05-08 12:24 | Event Note ---
Face to Face: For this encounter I have reviewed the PA/SECURITY OPERATIONS SPECIALIST documentation, treatment plan, medical decision making, and I had face to face time with this patient. I evaluated Mr. Gaines alongside my colleague Cristina Bhanu. Mr. Gaines has history of end-stage renal disease and diabetes mellitus. His PCP Dr. Benavidez referred him to the emergency department for evaluation of a left foot ulcer. His back pad inspector is Dr. Bhardwaj. On exam at the medial aspect of the left great toe he has a large 2 cm x 6 eschar. He has copious amount of purulence exuding from underneath and lateral to the eschar. I recommended consultation with general surgeon mass communications instructor as well as personal back pad inspector. He will be admitted to the hospital service. Also initiated antibiotic therapy. Radiographs images personally viewed by me, no fracture no radiographic evidence of osteomyelitis.
[2019-05-08 13:02] LABS: Hematocrit 29.8 % (35.5-45.6); Hemoglobin 9.6 gm/dl (11.8-15.2); Mean Corpuscular HGB Conc 32 % (32-34); Mean Corpuscular Volume 91 fl (84-94); Platelet Count 299 K/mm3 (140-440); Red Blood Count 3.26 M/mm3 (3.65-5.03); Red Cell Distribution Width 15.7 % (13.2-15.2)
[2019-05-08] MEDS ORDERED: VANCOMYCIN/NS 1 GM/250 ML 1 GM/250 ML BAG IV ONE (13:10)
[2019-05-08] MEDS ORDERED: AMPICILLIN/SULBACTA 3GM/100ML 3 GM/100 ML BAG IV ONE (13:10)
[2019-05-08 13:42] LABS: Albumin 3.4 g/dL (3.9-5); Anisocytosis Few; BUN/Creatinine Ratio 7; Band Neutrophils # (Manual) 0.2 K/mm3; Basophils % (Manual) 0 % (0.0-1.8); Blood Urea Nitrogen 38 mg/dL (9-20); Calcium 9.1 mg/dL (8.4-10.2); Hemolysis Index 2; Macrocytosis Few; Platelet Estimate Consistent w Auto; Total Cells Counted 100
[2019-05-08 13:45] LABS: Alanine Aminotransferase < 5 units/L (7-56); Bilirubin,Direct < 0.2 mg/dL (0-0.2)
--- NOTE | 2019-05-08 15:05 | Consultation ---
History of Present Illness - Reason for Consult Consult date: 05/08/19 end stage renal disease Requesting physician: AMERICA JOHN - History of Present Illness 58-year-old -[place]ag[place] male with a history of diabetes, hypertension and end-stage renal disease with dialysis comes in for an ulcer to his left great toe times a few days. Patient reports that he had went to see his doctor which is her surgeon Dr. Haq and she is symptom to the emergency room for reevaluation. Patient states he is currently on no antibiotics for his foot ulcer. Patient reports that he goes to dialysis Friday and Friday last is Fer size on Friday and will go secondary to holidays. Patient reports that he is sees Dr. Bhardwaj on [address] and came straight in [place]. Patient states he is on the machine 3.5 hours. Patient denies any fevers. ROS: Stated complaint: LEFT FOOT PAIN Other details as noted in HPI Comment: All other systems reviewed and negative - Past Medical History Hx Hypertension: Yes Hx CVA: No Hx Heart Attack/AMI: No Hx Congestive Heart Failure: Yes Hx Diabetes: Yes Hx Deep Vein Thrombosis: No Hx Pulmonary Embolism: No Hx GERD: Yes Hx Liver Disease: No Hx Renal Disease: Yes Hx Sickle Cell Disease: No Hx Arthritis: No Hx Headaches / Migraines: No Hx Seizures: No Hx Kidney Stones: No Hx Psychiatric Treatment: No Hx Asthma: No Hx COPD: No Hx Tuberculosis: No Hx Dementia: No Hx HIV: No Additional medical history: afib - Surgical History Hx Coronary Stent: No Hx Open Heart Surgery: No Hx Pacemaker: No Hx Internal Defibrillator: No Hx Cholecystectomy: No Hx Appendectomy: No Hx Breast Surgery: No Additional Surgical History: Right chest permacath, retinal detachment repair - Social History Smoking Status: Never Smoker Medications and Allergies Allergies Allergy/AdvReac Type Severity Reaction Status Date / Time piroxicam Allergy Unknown Verified 02/15/17 15:58 Home Medications Medication Instructions Recorded Confirmed Last Taken Type Apixaban [Eliquis] 5 mg PO BID 07/01/18 07/29/18 Unknown History cloNIDine-TTS PATCH [Catapres-Tts 1 patch TD Q7D 07/01/18 07/29/18 Unknown History 0.1MG Patch] Amiodarone [Cordarone 200 MG TAB] 200 mg PO DAILY #30 tablet 07/03/18 07/29/18 Unknown Rx Lisinopril [Zestril TAB] 20 mg PO QDAY #30 tablet 07/03/18 07/29/18 Unknown Rx Pravastatin [Pravachol (Nf)] 40 mg PO QHS #30 tablet 07/03/18 07/29/18 Unknown Rx hydrALAZINE [Apresoline TAB] 25 mg PO Q8HR #90 tab 07/03/18 07/29/18 Unknown Rx Insulin Aspart (Nf) [NovoLOG 100 10 unit SQ AC 07/31/18 07/31/18 Unknown History UNITS/ML VIAL] Insulin Glargine [Lantus] 30 units SQ QHS #1 vial 07/31/18 Unknown Rx amLODIPine 5 mg PO QDAY #30 tablet 07/31/18 Unknown Rx Exam - Vital Signs Vital signs: Vital Signs Temp Pulse Resp BP Pulse Ox 98.3 F 89 18 146/79 99 05/08/19 09:55 05/08/19 09:55 05/08/19 09:55 05/08/19 09:55 05/08/19 09:55 - Physical Exam Narrative exam: - General Limitations: No Limitations General appearance: alert, in no apparent distress - Head Head exam: Present: atraumatic, normocephalic - ENT ENT exam: Present: mucous membranes moist - Neurological Exam Neurological exam: Present: alert, oriented X3 - Psychiatric Psychiatric exam: Present: normal affect, normal mood - Expanded Skin Exam Expanded Distribution of rash: LLE (great toe) Description of rash: Present: crusting, other (dry eschar with underlying greenish thick film) Results - Lab Results 05/08/19 12:14 05/08/19 12:14 Most recent lab results Calcium 9.1 mg/dL (8.4-10.2) 05/08/19 12:14 Assessment and Plan Impression: * ESRD * accelerated HTN * Sec Hyperparathyroidism * anemia in esrd * Type 2 DM Plan: * HD q TTHSAT * stress compliance with meds and hd regiment * strict i.os * renal diet * ok to dc home today, follow up hd tomorrow
--- NOTE | 2019-05-08 21:11 | History and Physical Report ---
History of Present Illness Date of examination: 05/08/19 Date of admission: 05/08/19 14:42 Chief complaint: Left foot abscess History of present illness: 58-year-old -[place]ian male with a history of diabetes, hypertension and end-stage renal disease with dialysis comes in for an ulcer to his left great toe for a few days--- approximately 10 days. Patient reports that he had went to see his doctor who is his surgeon and was sent to emergency room for ree valuation. Patient states he is currently on no antibiotics for his foot ulcer. Patient reports that he goes to dialysis Friday and Friday. His last dialysis was on Friday and will go Friday secondary to holidays. Patient reports that he sees Dr. Bhardwaj on 05/24 Patient states he is on the machine 3.5 hours. Patient denies any fevers. No chills. Purulent discharge from the wound on the right great toe Past Medical History Hypertension: Yes Congestive Heart Failure: Yes Diabetes: Yes GERD: Yes Renal Disease: Yes Additional medical history: afib Surgical History Additional Surgical History: Right chest permacath, retinal detachment repair Social History Smoking Status: Never Smoker - Medications Home Medications: Home Medications Medication Instructions Recorded Confirmed Last Taken Type Apixaban [Eliquis] 5 mg PO BID 07/01/18 07/29/18 Unknown History cloNIDine-TTS PATCH [Catapres-Tts 1 patch TD Q7D 07/01/18 07/29/18 Unknown History 0.1MG Patch] Amiodarone [Cordarone 200 MG TAB] 200 mg PO DAILY #30 tablet 07/03/18 07/29/18 Unknown Rx Lisinopril [Zestril TAB] 20 mg PO QDAY #30 tablet 07/03/18 07/29/18 Unknown Rx Pravastatin [Pravachol (Nf)] 40 mg PO QHS #30 tablet 07/03/18 07/29/18 Unknown Rx hydrALAZINE [Apresoline TAB] 25 mg PO Q8HR #90 tab 07/03/18 07/29/18 Unknown Rx Insulin Aspart (Nf) [NovoLOG 100 10 unit SQ AC 07/31/18 07/31/18 Unknown History UNITS/ML VIAL] Insulin Glargine [Lantus] 30 units SQ QHS #1 vial 07/31/18 Unknown Rx amLODIPine 5 mg PO QDAY #30 tablet 07/31/18 Unknown Rx Review of Systems ROS: Stated complaint: LEFT FOOT PAIN and open ulcer on the right great toe as she is admitted 8. We'll Other details as noted in HPI Comment: All other systems reviewed and negative Medications and Allergies Allergies Allergy/AdvReac Type Severity Reaction Status Date / Time piroxicam Allergy Unknown Verified 02/15/17 15:58 Home Medications Medication Instructions Recorded Confirmed Last Taken Type Apixaban [Eliquis] 5 mg PO BID 07/01/18 05/08/19 Unknown History cloNIDine-TTS PATCH [Catapres-Tts 1 patch TD Q7D 07/01/18 05/08/19 Unknown History 0.1MG Patch] Amiodarone [Cordarone 200 MG TAB] 200 mg PO DAILY #30 tablet 07/03/18 05/08/19 Unknown Rx Lisinopril [Zestril TAB] 20 mg PO QDAY #30 tablet 07/03/18 05/08/19 Unknown Rx Pravastatin [Pravachol (Nf)] 40 mg PO QHS #30 tablet 07/03/18 05/08/19 Unknown Rx hydrALAZINE [Apresoline TAB] 25 mg PO Q8HR #90 tab 07/03/18 05/08/19 Unknown Rx Insulin Aspart (Nf) [NovoLOG 100 10 unit SQ AC 07/31/18 05/08/19 Unknown History UNITS/ML VIAL] Insulin Glargine [Lantus] 30 units SQ QHS #1 vial 07/31/18 05/08/19 Unknown Rx amLODIPine 5 mg PO QDAY #30 tablet 07/31/18 05/08/19 Unknown Rx Exam - Constitutional Vitals: Temp Pulse Resp BP Pulse Ox 98.2 F 76 18 179/92 96 05/08/19 17:31 05/08/19 17:31 05/08/19 17:31 05/08/19 17:31 05/08/19 17:31 General appearance: Present: no acute distress, well-nourished - EENT Eyes: Present: PERRL ENT: hearing intact, clear oral mucosa - Neck Neck: Present: supple, normal ROM - Respiratory Respiratory effort: normal Respiratory: bilateral: CTA - Cardiovascular Heart rate: 78 Rhythm: regular Heart Sounds: Present: S1 & S2. Absent: rub, click - Extremities Extremities: no ischemia, pulses intact, pulses symmetrical, No edema, abnormal (right great toe ulcer 4 cm x 2 cm with a depth of 2 mm. Purulent discharge present from the wound.) Extremity abnormal: other (left foot ulcer for centimeters 2 cm with 2 mm depth, purulent discharge present) Peripheral Pulses: within normal limits - Abdominal General gastrointestinal: Present: soft, non-tender, non-distended, normal bowel sounds Male genitourinary: Present: normal - Integumentary Integumentary: Present: clear, warm, dry - Musculoskeletal Musculoskeletal: gait normal, strength equal bilaterally - Psychiatric Psychiatric: appropriate mood/affect, intact judgment & insight - Neurologic Neurologic: CNII-XII intact, moves all extremities Results - Labs CBC & Chem 7: 05/08/19 12:14 05/08/19 12:14 Labs: Laboratory Last Values WBC 8.1 K/mm3 (4.5-11.0) 05/08/19 12:14 RBC 3.26 M/mm3 (3.65-5.03) L 05/08/19 12:14 Hgb 9.6 gm/dl (11.8-15.2) L 05/08/19 12:14 Hct 29.8 % (35.5-45.6) L 05/08/19 12:14 MCV 91 fl (84-94) 05/08/19 12:14 MCH 30 pg (28-32) 05/08/19 12:14 MCHC 32 % (32-34) 05/08/19 12:14 RDW 15.7 % (13.2-15.2) H 05/08/19 12:14 Plt Count 299 K/mm3 (140-440) 05/08/19 12:14 Add Manual Diff Complete 05/08/19 12:14 Total Counted 100 05/08/19 12:14 Seg Neuts % (Manual) 74.0 % (40.0-70.0) H 05/08/19 12:14 Band Neutrophils % 2.0 % 05/08/19 12:14 Lymphocytes % (Manual) 17.0 % (13.4-35.0) 05/08/19 12:14 Reactive Lymphs % (Man) 0 % 05/08/19 12:14 Monocytes % (Manual) 5.0 % (0.0-7.3) 05/08/19 12:14 Eosinophils % (Manual) 2.0 % (0.0-4.3) 05/08/19 12:14 Basophils % (Manual) 0 % (0.0-1.8) 05/08/19 12:14 Metamyelocytes % 0 % 05/08/19 12:14 Myelocytes % 0 % 05/08/19 12:14 Promyelocytes % 0 % 05/08/19 12:14 Blast Cells % 0 % 05/08/19 12:14 Nucleated RBC % Not Reportable 05/08/19 12:14 Seg Neutrophils # Man 6.0 K/mm3 (1.8-7.7) 05/08/19 12:14 Band Neutrophils # 0.2 K/mm3 05/08/19 12:14 Lymphocytes # (Manual) 1.4 K/mm3 (1.2-5.4) 05/08/19 12:14 Abs React Lymphs (Man) 0.0 K/mm3 05/08/19 12:14 Monocytes # (Manual) 0.4 K/mm3 (0.0-0.8) 05/08/19 12:14 Eosinophils # (Manual) 0.2 K/mm3 (0.0-0.4) 05/08/19 12:14 Basophils # (Manual) 0.0 K/mm3 (0.0-0.1) 05/08/19 12:14 Metamyelocytes # 0.0 K/mm3 05/08/19 12:14 Myelocytes # 0.0 K/mm3 05/08/19 12:14 Promyelocytes # 0.0 K/mm3 05/08/19 12:14 Blast Cells # 0.0 K/mm3 05/08/19 12:14 WBC Morphology Not Reportable 05/08/19 12:14 Hypersegmented Neuts Not Reportable 05/08/19 12:14 Hyposegmented Neuts Not Reportable 05/08/19 12:14 Hypogranular Neuts Not Reportable 05/08/19 12:14 Smudge Cells Not Reportable 05/08/19 12:14 Toxic Granulation Not Reportable 05/08/19 12:14 Toxic Vacuolation Not Reportable 05/08/19 12:14 Dohle Bodies Not Reportable 05/08/19 12:14 Pelger-Huet Anomaly Not Reportable 05/08/19 12:14 Pita Rods Not Reportable 05/08/19 12:14 Platelet Estimate Consistent w auto 05/08/19 12:14 Clumped Platelets Not Reportable 05/08/19 12:14 Plt Clumps, EDTA Not Reportable 05/08/19 12:14 Large Platelets Not Reportable 05/08/19 12:14 Giant Platelets Not Reportable 05/08/19 12:14 Platelet Satelliting Not Reportable 05/08/19 12:14 Plt Morphology Comment Not Reportable 05/08/19 12:14 RBC Morphology Not Reportable 05/08/19 12:14 Dimorphic RBCs Not Reportable 05/08/19 12:14 Polychromasia Not Reportable 05/08/19 12:14 Hypochromasia Not Reportable 05/08/19 12:14 Poikilocytosis Not Reportable 05/08/19 12:14 Anisocytosis Few 05/08/19 12:14 Microcytosis Not Reportable 05/08/19 12:14 Macrocytosis Few 05/08/19 12:14 Spherocytes Not Reportable 05/08/19 12:14 Pappenheimer Bodies Not Reportable 05/08/19 12:14 Sickle Cells Not Reportable 05/08/19 12:14 Target Cells Not Reportable 05/08/19 12:14 Tear Drop Cells Not Reportable 05/08/19 12:14 Ovalocytes Not Reportable 05/08/19 12:14 Helmet Cells Not Reportable 05/08/19 12:14 [place] Bodies Not Reportable 05/08/19 12:14 [place] Rings Not Reportable 05/08/19 12:14 [place] Cells Not Reportable 05/08/19 12:14 Bite Cells Not Reportable 05/08/19 12:14 Crenated Cell Not Reportable 05/08/19 12:14 Elliptocytes Not Reportable 05/08/19 12:14 Acanthocytes (Spur) Not Reportable 05/08/19 12:14 Rouleaux Not Reportable 05/08/19 12:14 Hemoglobin C Crystals Not Reportable 05/08/19 12:14 Schistocytes Not Reportable 05/08/19 12:14 Malaria parasites Not Reportable 05/08/19 12:14 Tushar Bodies Not Reportable 05/08/19 12:14 Hem Pathologist Commnt No 05/08/19 12:14 Sodium 140 mmol/L (137-145) 05/08/19 12:14 Potassium 3.8 mmol/L (3.6-5.0) 05/08/19 12:14 Chloride 100.5 mmol/L (98-107) 05/08/19 12:14 Carbon Dioxide 24 mmol/L (22-30) 05/08/19 12:14 Anion Gap 19 mmol/L 05/08/19 12:14 BUN 38 mg/dL (9-20) H 05/08/19 12:14 Creatinine 5.8 mg/dL (0.8-1.5) H 05/08/19 12:14 Estimated GFR 12 ml/min 05/08/19 12:14 BUN/Creatinine Ratio 7 % 05/08/19 12:14 Glucose 214 mg/dL (75-100) H 05/08/19 12:14 Calcium 9.1 mg/dL (8.4-10.2) 05/08/19 12:14 Total Bilirubin 0.20 mg/dL (0.1-1.2) 05/08/19 12:14 Direct Bilirubin < 0.2 mg/dL (0-0.2) 05/08/19 12:14 Indirect Bilirubin 0.0 mg/dL 05/08/19 12:14 AST 11 units/L (5-40) 05/08/19 12:14 ALT < 5 units/L (7-56) L 05/08/19 12:14 Alkaline Phosphatase 92 units/L (35-129) 05/08/19 12:14 Total Protein 8.1 g/dL (6.3-8.2) 05/08/19 12:14 Albumin 3.4 g/dL (3.9-5) L 05/08/19 12:14 Albumin/Globulin Ratio 0.7 % 05/08/19 12:14 Short CBC 05/08/19 Range/Units 12:14 WBC 8.1 (4.5-11.0) K/mm3 Hgb 9.6 L (11.8-15.2) gm/dl Hct 29.8 L (35.5-45.6) % Plt Count 299 (140-440) K/mm3 BMP 05/08/19 12:14 Sodium 140 Potassium 3.8 Chloride 100.5 Carbon Dioxide 24 BUN 38 H Creatinine 5.8 H Glucose 214 H Calcium 9.1 Liver Function 05/08/19 Range/Units 12:14 Total Bilirubin 0.20 (0.1-1.2) mg/dL Direct Bilirubin < 0.2 (0-0.2) mg/dL AST 11 (5-40) units/L ALT < 5 L (7-56) units/L Alkaline Phosphatase 92 (35-129) units/L Albumin 3.4 L (3.9-5) g/dL - Imaging and Cardiology Imaging and Cardiology: Left foot x-ray IMPRESSION: Questionable ulceration of the left first toe as above without radiographic evidence of osteomyelitis. Assessment and Plan Advance Directives: Yes (full code) VTE prophylaxis?: Chemical Plan of care discussed with patient/family: Yes - Patient Problems (1) Diabetic infection of left foot Current Visit: Yes Status: Acute Plan to address problem: Needs debridement Initiated on IV clindamycin ID consult requested Wound cultures sent (2) Paroxysmal atrial fibrillation Current Visit: No Status: Chronic Plan to address problem: Patient on amiodarone and on ELIQUIS (3) Insulin dependent diabetes mellitus Current Visit: Yes Status: Chronic Plan to address problem: Continue home insulin and coverage and adjust insulin dosage as per primary team Check hemoglobin A1c (4) HTN (hypertension) Current Visit: No Status: Chronic Qualifiers: Plan to address problem: Continue antihypertensives (5) HLD (hyperlipidemia) Current Visit: No Status: Chronic Qualifiers: Hyperlipidemia type: mixed hyperlipidemia Qualified Code(s): E78.2 - Mixed hyperlipidemia Plan to address problem: Continue statins (6) Arrhythmia Current Visit: Yes Status: Chronic Qualifiers: Atrial fibrillation type: paroxysmal Plan to address problem: Continue amiodarone (7) ESRD (end stage renal disease) on dialysis Current Visit: No Status: Chronic Plan to address problem: Continue hemodialysis as per schedule Due for dialysis on Friday/Friday (8) Anemia Current Visit: Yes Status: Chronic Qualifiers: Anemia type: due to chronic kidney disease Plan to address problem: Secondary to chronic kidney disease (9) DVT prophylaxis Current Visit: No Status: Acute Plan to address problem: Patient on ELIQUIS and GI prophylaxis
[2019-05-08] MEDS ORDERED: ONDANSETRON 4 MG/2 ML INJ IV PRN (21:40)
[2019-05-08] MEDS ORDERED: HYDROmorphone 1 MG/1 ML INJ IV PRN (21:40)
[2019-05-08] MEDS ORDERED: METOCLOPRAMIDE 10 MG/2 ML INJ IV PRN ×2 (21:40→22:02)
[2019-05-08] MEDS ORDERED: ACETAMINOPHEN 325 MG TAB PO PRN (21:40)
[2019-05-08] MEDS ORDERED: cloNIDine TTS 0.1 MG/24 HR PATCH TD SCH (22:00)
[2019-05-08] MEDS: FAMOTIDINE 10 MG TAB PO SCH (22:12)
[2019-05-08] MEDS: APIXABAN 5 MG TAB PO SCH (22:12)
[2019-05-08] MEDS: hydrALAZINE 25 MG TAB PO SCH (22:15)
[2019-05-08] MEDS: amLODIPine 5 MG TAB PO SCH (22:16)
[2019-05-08] MEDS: PRAVASTATIN 40 MG TAB PO SCH (22:26)
[2019-05-08] MEDS: LISINOPRIL 20 MG TAB PO SCH (22:27)
[2019-05-08] MEDS: AMIODARONE 200 MG TAB PO SCH (22:27)
[2019-05-08] MEDS: INSULIN LISPRO 100 UNIT/ML SUB-Q SCH (23:45)
[2019-05-08] MEDS: INSULIN GLARGINE 100 UNITS/ML SUB-Q SCH (23:46)
[2019-05-09] MEDS: hydrALAZINE 25 MG TAB PO SCH ×3 (05:40→22:10)
[2019-05-09 07:19] LABS: Hematocrit 28.3 % (35.5-45.6); Hemoglobin 9.3 gm/dl (11.8-15.2); Mean Corpuscular HGB Conc 33 % (32-34); Mean Corpuscular Volume 90 fl (84-94); Platelet Count 304 K/mm3 (140-440); Red Blood Count 3.13 M/mm3 (3.65-5.03); Red Cell Distribution Width 15.7 % (13.2-15.2)
[2019-05-09] MEDS ORDERED: INSULIN ASPART 10 UNIT SQ SCH (07:30)
[2019-05-09 07:39] LABS: Albumin 3.5 g/dL (3.9-5); Calcium 9.1 mg/dL (8.4-10.2)
[2019-05-09] MEDS: INSULIN LISPRO 100 UNIT/ML SUB-Q SCH ×7 (08:34→22:35)
[2019-05-09] MEDS: APIXABAN 5 MG TAB PO SCH ×2 (09:42→22:10)
[2019-05-09] MEDS: AMIODARONE 200 MG TAB PO SCH (09:42)
[2019-05-09] MEDS: FAMOTIDINE 10 MG TAB PO SCH ×2 (09:42→22:10)
[2019-05-09] MEDS: amLODIPine 5 MG TAB PO SCH (09:43)
[2019-05-09] MEDS: LISINOPRIL 20 MG TAB PO SCH (09:43)
[2019-05-09] MEDS ORDERED: CLINDAMYCIN 600 MG/50 mL 600 MG/50 ML BAG IV SCH (10:00)
--- NOTE | 2019-05-09 10:58 | Consultation ---
History of Present Illness - Reason for Consult Consult date: 05/09/19 - History of Present Illness Review of Systems: Bold if positive, otherwise negative General: fevers, chills, body aches HEENT: visual disturbance, diplopia, eye pain Respiratory: cough, sputum, hemoptysis, shortness of breath Cardiovascular: chest pain, syncope Gastrointestinal: nausea, vomiting, diarrhea, abdominal pain Genitourinary: dysuria, hematuria, flank pain Musculoskeletal: neck pain, back pain, joint pain, edema Neurologic: headaches, seizures Hematologic: easy bruising or bleeding Endocrine: night sweats, acute weight loss Skin: rash, jaundice, redness Psychiatric: suicidal, homicidal ideation Constitutional: Alert, cooperative. No acute distress Head, Ears, Nose: Normocephalic, atraumatic. External ears, nose normal Eyes: Conjunctivae/corneas clear. No icterus. No ptosis. Neck: Supple, no meningeal signs Oral: dentition fair, no thrush Cardiovascular: S1, S2 normal. Respiratory: Good air entry, clear to auscultation bilaterally GI: Soft, non-tender; uterus Musculoskeletal: No pedal edema, no cyanosis. b/l leg wounds Skin: no rash Hem/Lymphatic: No palpable cervical or supraclavicular nodes. No lymphangitis Psych: Mood ok. Affect normal Neurological: Awake, alert, oriented. paraplegic Cultures: Blood culture 05/02/2019 no growth so far Assessment: Recs: Will follow. Thanks for consultation Misty Orosco MD Infectious Diseases Superintendent Operating [facility] ([facility]) M [phone] O [phone] Medications and Allergies Allergies Allergy/AdvReac Type Severity Reaction Status Date / Time piroxicam Allergy Unknown Verified 02/15/17 15:58 Home Medications Medication Instructions Recorded Confirmed Last Taken Type Apixaban [Eliquis] 5 mg PO BID 07/01/18 05/08/19 Unknown History cloNIDine-TTS PATCH [Catapres-Tts 1 patch TD Q7D 07/01/18 05/08/19 Unknown History 0.1MG Patch] Amiodarone [Cordarone 200 MG TAB] 200 mg PO DAILY #30 tablet 07/03/18 05/08/19 Unknown Rx Lisinopril [Zestril TAB] 20 mg PO QDAY #30 tablet 07/03/18 05/08/19 Unknown Rx Pravastatin [Pravachol (Nf)] 40 mg PO QHS #30 tablet 07/03/18 05/08/19 Unknown Rx hydrALAZINE [Apresoline TAB] 25 mg PO Q8HR #90 tab 07/03/18 05/08/19 Unknown Rx Insulin Aspart (Nf) [NovoLOG 100 10 unit SQ AC 07/31/18 05/08/19 Unknown History UNITS/ML VIAL] Insulin Glargine [Lantus] 30 units SQ QHS #1 vial 07/31/18 05/08/19 Unknown Rx amLODIPine 5 mg PO QDAY #30 tablet 07/31/18 05/08/19 Unknown Rx Active Meds: Active Medications Acetaminophen (Tylenol) 650 mg PO Q4H PRN PRN Reason: Pain MILD(1-3)/Fever >100.5/PEREZ Amiodarone HCl (Cordarone) 200 mg PO DAILY [facility] Last Admin: 05/09/19 09:42 Dose: 200 mg Documented by: Amlodipine Besylate (Amlodipine) 5 mg PO QDAY [facility] Last Admin: 05/09/19 09:43 Dose: 5 mg Documented by: Apixaban (Eliquis) 5 mg PO BID [facility]; Protocol Last Admin: 05/09/19 09:42 Dose: 5 mg Documented by: Clonidine HCl (Catapres-Tts Patch) 0.1 mg TD Sa [facility] Last Admin: 05/08/19 22:33 Dose: 0.1 mg Documented by: Famotidine (Pepcid) 10 mg PO BID [facility] Last Admin: 05/09/19 09:42 Dose: 10 mg Documented by: Heparin Sodium (Porcine) (Heparin) 5,000 unit SUB-Q Q12HR [facility] Hydralazine HCl (Apresoline) 25 mg PO Q8HR [facility] Last Admin: 05/09/19 05:40 Dose: 25 mg Documented by: Hydromorphone HCl (Dilaudid) 0.5 mg IV Q3H PRN PRN Reason: Pain , Severe (7-10) Clindamycin HCl (Cleocin 600 Mg/50 Ml) 600 mg in 50 mls @ 100 mls/hr IV Q8HR [facility]; Protocol Insulin Glargine (Lantus) 30 units SUB-Q QHS [facility] Last Admin: 05/08/19 23:46 Dose: 30 units Documented by: Insulin Human Lispro (Humalog) 0 unit SUB-Q ACHS [facility]; Protocol Last Admin: 05/09/19 08:35 Dose: 4 unit Documented by: Insulin Human Lispro (Humalog) 10 unit SUB-Q AC [facility] Last Admin: 05/09/19 08:34 Dose: 10 unit Documented by: Lisinopril (Zestril) 20 mg PO QDAY [facility] Last Admin: 05/09/19 09:43 Dose: 20 mg Documented by: Metoclopramide HCl (Reglan) 5 mg IV Q6H PRN PRN Reason: Nausea And Vomiting Ondansetron HCl (Zofran) 4 mg IV Q3H PRN PRN Reason: Nausea And Vomiting Oxycodone/Acetaminophen (Percocet 5/325) 1 tab PO Q6H PRN PRN Reason: Pain, Moderate (4-6) Pravastatin Sodium (Pravachol) 40 mg PO QHS [facility] Last Admin: 05/08/19 22:26 Dose: 40 mg Documented by: Sodium Chloride (Sodium Chloride Flush Syringe 10 Ml) 10 ml IV BID [facility] Last Admin: 05/09/19 09:46 Dose: 10 ml Documented by: Sodium Chloride (Sodium Chloride Flush Syringe 10 Ml) 10 ml IV PRN PRN PRN Reason: LINE FLUSH Physical Examination - Constitutional Vitals: Vital Signs Temp Pulse Resp BP Pulse Ox 98.2 F 80 20 130/75 99 05/09/19 05:15 05/09/19 09:43 05/09/19 05:15 05/09/19 09:43 05/09/19 05:15 Temperature -Last 24 Hours Temperature 98.2 F Temperature 98.2 F Temperature 98.3 F Results - Labs CBC & Chem 7: 05/09/19 06:25 05/09/19 06:25 Labs: Abnormal lab results 05/08/19 05/08/19 05/08/19 Range/Units 12:14 12:14 22:03 RBC 3.26 L (3.65-5.03) M/mm3 Hgb 9.6 L (11.8-15.2) gm/dl Hct 29.8 L (35.5-45.6) % RDW 15.7 H (13.2-15.2) % Seg Neuts % (Manual) 74.0 H (40.0-70.0) % Carbon Dioxide (22-30) mmol/L BUN 38 H (9-20) mg/dL Creatinine 5.8 H (0.8-1.5) mg/dL Glucose 214 H (75-100) mg/dL POC Glucose (70-105) Hemoglobin A1c 8.9 H (4-6) % ALT < 5 L (7-56) units/L Albumin 3.4 L (3.9-5) g/dL 05/08/19 05/09/19 05/09/19 Range/Units 23:46 06:25 06:25 RBC 3.13 L (3.65-5.03) M/mm3 Hgb 9.3 L (11.8-15.2) gm/dl Hct 28.3 L (35.5-45.6) % RDW 15.7 H (13.2-15.2) % Seg Neuts % (Manual) (40.0-70.0) % Carbon Dioxide 20 L (22-30) mmol/L BUN 49 H (9-20) mg/dL Creatinine 6.1 H (0.8-1.5) mg/dL Glucose 239 H (75-100) mg/dL POC Glucose 366 H (70-105) Hemoglobin A1c (4-6) % ALT 6 L (7-56) units/L Albumin 3.5 L (3.9-5) g/dL 05/09/19 Range/Units 08:36 RBC (3.65-5.03) M/mm3 Hgb (11.8-15.2) gm/dl Hct (35.5-45.6) % RDW (13.2-15.2) % Seg Neuts % (Manual) (40.0-70.0) % Carbon Dioxide (22-30) mmol/L BUN (9-20) mg/dL Creatinine (0.8-1.5) mg/dL Glucose (75-100) mg/dL POC Glucose 269 H (70-105) Hemoglobin A1c (4-6) % ALT (7-56) units/L Albumin (3.9-5) g/dL
[2019-05-09] MEDS: HEPARIN 5,000 UNIT/1 ML VIAL SUB-Q SCH ×2 (11:31→22:11)
--- NOTE | 2019-05-09 12:30 | Event Note ---
Date: 05/09/19 Received consultation for left great toe wound of unknown duration. ESRD. Patient is not sepsis. Wound cx + GNR. XR no osteo. stop clindamycin, start renally adjusted cefepime. Dr Winter to see tomorrow.
--- NOTE | 2019-05-09 12:48 | Consultation ---
History of Present Illness Consult date: 05/09/19 Chief complaint: toe wound - History of present illness History of present illness: 58 yo M with DM, neuropathy presents to ER with left great toe wound. He states he was sent to ER by PCP. He does not know how the wound has been there. His family members stated that the patient had been wearing white socks and they noticed bloody drainage on the sock. This alerted them to the wound. It could have been there for >2-3 weeks. The patient states he has no feeling in that area. No f/c, cp, sob. He has never had wounds like this before. Past History Past Medical History: diabetes, dialysis, ESRD, hypertension, hyperlipidemia, other (neuropathy) Social history: no significant social history Family history: no significant family history Medications and Allergies Allergies Allergy/AdvReac Type Severity Reaction Status Date / Time piroxicam Allergy Unknown Verified 02/15/17 15:58 Home Medications Medication Instructions Recorded Confirmed Last Taken Type Apixaban [Eliquis] 5 mg PO BID 07/01/18 05/08/19 Unknown History cloNIDine-TTS PATCH [Catapres-Tts 1 patch TD Q7D 07/01/18 05/08/19 Unknown History 0.1MG Patch] Amiodarone [Cordarone 200 MG TAB] 200 mg PO DAILY #30 tablet 07/03/18 05/08/19 Unknown Rx Lisinopril [Zestril TAB] 20 mg PO QDAY #30 tablet 07/03/18 05/08/19 Unknown Rx Pravastatin [Pravachol (Nf)] 40 mg PO QHS #30 tablet 07/03/18 05/08/19 Unknown Rx hydrALAZINE [Apresoline TAB] 25 mg PO Q8HR #90 tab 07/03/18 05/08/19 Unknown Rx Insulin Aspart (Nf) [NovoLOG 100 10 unit SQ AC 07/31/18 05/08/19 Unknown History UNITS/ML VIAL] Insulin Glargine [Lantus] 30 units SQ QHS #1 vial 07/31/18 05/08/19 Unknown Rx amLODIPine 5 mg PO QDAY #30 tablet 07/31/18 05/08/19 Unknown Rx Active Meds: Active Medications Acetaminophen (Tylenol) 650 mg PO Q4H PRN PRN Reason: Pain MILD(1-3)/Fever >100.5/PEREZ Amiodarone HCl (Cordarone) 200 mg PO DAILY COUNTS INCLUDE 234 BEDS AT THE [facility] Last Admin: 05/09/19 09:42 Dose: 200 mg Documented by: Amlodipine Besylate (Amlodipine) 5 mg PO QDAY COUNTS INCLUDE 234 BEDS AT THE [facility] Last Admin: 05/09/19 09:43 Dose: 5 mg Documented by: Apixaban (Eliquis) 5 mg PO BID COUNTS INCLUDE 234 BEDS AT THE [facility]; Protocol Last Admin: 05/09/19 09:42 Dose: 5 mg Documented by: Clonidine HCl (Catapres-Tts Patch) 0.1 mg TD Sa COUNTS INCLUDE 234 BEDS AT THE [facility] Last Admin: 05/08/19 22:33 Dose: 0.1 mg Documented by: Famotidine (Pepcid) 10 mg PO BID COUNTS INCLUDE 234 BEDS AT THE [facility] Last Admin: 05/09/19 09:42 Dose: 10 mg Documented by: Heparin Sodium (Porcine) (Heparin) 5,000 unit SUB-Q Q12HR COUNTS INCLUDE 234 BEDS AT THE [facility] Last Admin: 05/09/19 11:31 Dose: 5,000 unit Documented by: Hydralazine HCl (Apresoline) 25 mg PO Q8HR COUNTS INCLUDE 234 BEDS AT THE [facility] Last Admin: 05/09/19 05:40 Dose: 25 mg Documented by: Hydromorphone HCl (Dilaudid) 0.5 mg IV Q3H PRN PRN Reason: Pain , Severe (7-10) Cefepime HCl (Cefepime/Ns 1 Gm/100 Ml) 1 gm in 100 mls @ 200 mls/hr IV Q24HR COUNTS INCLUDE 234 BEDS AT THE [facility]; Protocol Insulin Glargine (Lantus) 30 units SUB-Q QHS COUNTS INCLUDE 234 BEDS AT THE [facility] Last Admin: 05/08/19 23:46 Dose: 30 units Documented by: Insulin Human Lispro (Humalog) 0 unit SUB-Q ACHS COUNTS INCLUDE 234 BEDS AT THE [facility]; Protocol Last Admin: 05/09/19 08:35 Dose: 4 unit Documented by: Insulin Human Lispro (Humalog) 10 unit SUB-Q [facility] Last Admin: 05/09/19 08:34 Dose: 10 unit Documented by: Lisinopril (Zestril) 20 mg PO QDAY COUNTS INCLUDE 234 BEDS AT THE [facility] Last Admin: 05/09/19 09:43 Dose: 20 mg Documented by: Metoclopramide HCl (Reglan) 5 mg IV Q6H PRN PRN Reason: Nausea And Vomiting Ondansetron HCl (Zofran) 4 mg IV Q3H PRN PRN Reason: Nausea And Vomiting Oxycodone/Acetaminophen (Percocet 5/325) 1 tab PO Q6H PRN PRN Reason: Pain, Moderate (4-6) Pravastatin Sodium (Pravachol) 40 mg PO QHS COUNTS INCLUDE 234 BEDS AT THE [facility] Last Admin: 05/08/19 22:26 Dose: 40 mg Documented by: Sodium Chloride (Sodium Chloride Flush Syringe 10 Ml) 10 ml IV BID COUNTS INCLUDE 234 BEDS AT THE [facility] Last Admin: 05/09/19 09:46 Dose: 10 ml Documented by: Sodium Chloride (Sodium Chloride Flush Syringe 10 Ml) 10 ml IV PRN PRN PRN Reason: LINE FLUSH Review of Systems All systems: negative (10 pt ROS performed and negative except for that listed in HPI) Exam Vital Signs Temp Pulse Resp BP Pulse Ox 98.3 F 89 18 146/79 99 05/08/19 09:55 05/08/19 09:55 05/08/19 09:55 05/08/19 09:55 05/08/19 09:55 Narrative exam: Gen: AAOx3. NAD ENT: no scleral icterus CV: s1, S2+ resp; even and unlabored Abd: soft Ext: R great toe wound on lateral aspect foot. Necrotic eschar covering entire area with minimal purulent drainage. Foot is cool and distal pulses are not palpable. Minimal sensation to entire foot. Results - Labs 05/09/19 06:25 05/09/19 06:25 Abnormal lab results 05/08/19 05/08/19 05/08/19 Range/Units 12:14 12:14 22:03 RBC 3.26 L (3.65-5.03) M/mm3 Hgb 9.6 L (11.8-15.2) gm/dl Hct 29.8 L (35.5-45.6) % RDW 15.7 H (13.2-15.2) % Seg Neuts % (Manual) 74.0 H (40.0-70.0) % Carbon Dioxide (22-30) mmol/L BUN 38 H (9-20) mg/dL Creatinine 5.8 H (0.8-1.5) mg/dL Glucose 214 H (75-100) mg/dL POC Glucose (70-105) Hemoglobin A1c 8.9 H (4-6) % ALT < 5 L (7-56) units/L Albumin 3.4 L (3.9-5) g/dL 05/08/19 05/09/19 05/09/19 Range/Units 23:46 06:25 06:25 RBC 3.13 L (3.65-5.03) M/mm3 Hgb 9.3 L (11.8-15.2) gm/dl Hct 28.3 L (35.5-45.6) % RDW 15.7 H (13.2-15.2) % Seg Neuts % (Manual) (40.0-70.0) % Carbon Dioxide 20 L (22-30) mmol/L BUN 49 H (9-20) mg/dL Creatinine 6.1 H (0.8-1.5) mg/dL Glucose 239 H (75-100) mg/dL POC Glucose 366 H (70-105) Hemoglobin A1c (4-6) % ALT 6 L (7-56) units/L Albumin 3.5 L (3.9-5) g/dL 05/09/19 05/09/19 05/09/19 Range/Units 08:36 11:10 12:37 RBC (3.65-5.03) M/mm3 Hgb (11.8-15.2) gm/dl Hct (35.5-45.6) % RDW (13.2-15.2) % Seg Neuts % (Manual) (40.0-70.0) % Carbon Dioxide (22-30) mmol/L BUN (9-20) mg/dL Creatinine (0.8-1.5) mg/dL Glucose (75-100) mg/dL POC Glucose 269 H 48 L 119 H (70-105) Hemoglobin A1c (4-6) % ALT (7-56) units/L Albumin (3.9-5) g/dL Diabetes panel 05/08/19 05/08/19 05/09/19 Range/Units 12:14 22:03 06:25 Sodium 140 137 (137-145) mmol/L Potassium 3.8 4.4 (3.6-5.0) mmol/L Chloride 100.5 99.8 (98-107) mmol/L Carbon Dioxide 24 20 L (22-30) mmol/L BUN 38 H 49 H (9-20) mg/dL Creatinine 5.8 H 6.1 H (0.8-1.5) mg/dL Glucose 214 H 239 H (75-100) mg/dL Hemoglobin A1c 8.9 H (4-6) % Calcium 9.1 9.1 (8.4-10.2) mg/dL AST 11 10 (5-40) units/L ALT < 5 L 6 L (7-56) units/L Alkaline Phosphatase 92 90 (35-129) units/L Total Protein 8.1 7.7 (6.3-8.2) g/dL Albumin 3.4 L 3.5 L (3.9-5) g/dL Calcium panel 05/08/19 05/09/19 Range/Units 12:14 06:25 Calcium 9.1 9.1 (8.4-10.2) mg/dL Albumin 3.4 L 3.5 L (3.9-5) g/dL Pituitary panel 05/08/19 05/09/19 Range/Units 12:14 06:25 Sodium 140 137 (137-145) mmol/L Potassium 3.8 4.4 (3.6-5.0) mmol/L Chloride 100.5 99.8 (98-107) mmol/L Carbon Dioxide 24 20 L (22-30) mmol/L BUN 38 H 49 H (9-20) mg/dL Creatinine 5.8 H 6.1 H (0.8-1.5) mg/dL Glucose 214 H 239 H (75-100) mg/dL Calcium 9.1 9.1 (8.4-10.2) mg/dL Adrenal panel 05/08/19 05/09/19 Range/Units 12:14 06:25 Sodium 140 137 (137-145) mmol/L Potassium 3.8 4.4 (3.6-5.0) mmol/L Chloride 100.5 99.8 (98-107) mmol/L Carbon Dioxide 24 20 L (22-30) mmol/L BUN 38 H 49 H (9-20) mg/dL Creatinine 5.8 H 6.1 H (0.8-1.5) mg/dL Glucose 214 H 239 H (75-100) mg/dL Calcium 9.1 9.1 (8.4-10.2) mg/dL Total Bilirubin 0.20 0.20 (0.1-1.2) mg/dL AST 11 10 (5-40) units/L ALT < 5 L 6 L (7-56) units/L Alkaline Phosphatase 92 90 (35-129) units/L Total Protein 8.1 7.7 (6.3-8.2) g/dL Albumin 3.4 L 3.5 L (3.9-5) g/dL - Imaging Additional studies: XRAY L toe Assessment and Plan 58 yo M with 1. infected left great toe wound 2. DM Plan: 1. continue abx per ID 2. arterial duplex b/l LE 3. Will need debridement of wound, however will need arterial studies performed prior to any debridement to determine healing potential. 4. offloading 5. wound care consult 6. follow up wound cultures Thank you, please call with questions
[2019-05-09] MEDS ORDERED: ALBUMIN HUMAN 25% (25 GM/100 ML) INJ IV PRN (13:30)
[2019-05-09] MEDS ORDERED: SODIUM CHLORIDE 0.9% 100 ML IV PRN ×2 (13:30→18:12)
--- NOTE | 2019-05-09 13:30 | Progress Note ---
Assessment and Plan Impression: * ESRD * accelerated HTN * peripheral vascular disease * foot ulcer * Sec Hyperparathyroidism * anemia in esrd * Type 2 DM Plan: * HD q MWF, plans for hd in am * surgery input noted, needs pvd workup and I&D of foot wound * ID following * stress compliance with meds and hd regiment * strict i.os * renal diet Subjective Date of service: 05/09/19 Principal diagnosis: pvd Interval history: resting in bed today Objective - Exam Narrative Exam: - General Limitations: No Limitations General appearance: alert, in no apparent distress - Head Head exam: Present: atraumatic, normocephalic - ENT ENT exam: Present: mucous membranes moist - Neurological Exam Neurological exam: Present: alert, oriented X3 - Psychiatric Psychiatric exam: Present: normal affect, normal mood - Expanded Skin Exam Expanded Distribution of rash: LLE (great toe) Description of rash: Present: crusting, other (dry eschar with underlying greenish thick film) - Vital Signs Vital signs: Vital Signs - 12hr 05/09/19 05/09/19 05/09/19 05:15 05:40 09:39 Temperature 98.2 F Pulse Rate 79 80 Respiratory 20 Rate Blood Pressure 144/82 144/82 130/75 O2 Sat by Pulse 99 Oximetry 05/09/19 05/09/19 09:43 11:24 Temperature 97.7 F Pulse Rate 80 73 Respiratory 18 Rate Blood Pressure 130/75 120/63 O2 Sat by Pulse 98 Oximetry - Lab 05/09/19 06:25 05/09/19 06:25 Most recent lab results Calcium 9.1 mg/dL (8.4-10.2) 05/09/19 06:25 Medications & Allergies - Medications Allergies/Adverse Reactions: Allergies piroxicam Allergy (Verified 02/15/17 15:58) Unknown Home Medications: Home Medications Medication Instructions Recorded Confirmed Last Taken Type Apixaban [Eliquis] 5 mg PO BID 07/01/18 05/08/19 Unknown History cloNIDine-TTS PATCH [Catapres-Tts 1 patch TD Q7D 07/01/18 05/08/19 Unknown History 0.1MG Patch] Amiodarone [Cordarone 200 MG TAB] 200 mg PO DAILY #30 tablet 07/03/18 05/08/19 Unknown Rx Lisinopril [Zestril TAB] 20 mg PO QDAY #30 tablet 07/03/18 05/08/19 Unknown Rx Pravastatin [Pravachol (Nf)] 40 mg PO QHS #30 tablet 07/03/18 05/08/19 Unknown Rx hydrALAZINE [Apresoline TAB] 25 mg PO Q8HR #90 tab 07/03/18 05/08/19 Unknown Rx Insulin Aspart (Nf) [NovoLOG 100 10 unit SQ AC 07/31/18 05/08/19 Unknown History UNITS/ML VIAL] Insulin Glargine [Lantus] 30 units SQ QHS #1 vial 07/31/18 05/08/19 Unknown Rx amLODIPine 5 mg PO QDAY #30 tablet 07/31/18 05/08/19 Unknown Rx Active Medications: Generic Name Dose Route Start Last Admin Trade Name Freq PRN Reason Stop Dose Admin Acetaminophen 650 mg 05/08/19 21:40 Tylenol PO Q4H PRN Pain MILD(1-3)/Fever >100.5/PEREZ Amiodarone HCl 200 mg 05/08/19 22:00 05/09/19 09:42 Cordarone PO 200 mg DAILY RICH Administration Amlodipine Besylate 5 mg 05/08/19 22:00 05/09/19 09:43 Amlodipine PO 5 mg QDAY RICH Administration Apixaban 5 mg 05/08/19 22:00 05/09/19 09:42 Eliquis PO 5 mg BID RICH Administration Protocol Clonidine HCl 0.1 mg 05/08/19 22:00 05/08/19 22:33 Catapres-Tts Patch TD 0.1 mg Sa RICH Administration Famotidine 10 mg 05/08/19 22:00 05/09/19 09:42 Pepcid PO 10 mg BID RICH Administration Heparin Sodium (Porcine) 5,000 unit 05/09/19 10:00 05/09/19 11:31 Heparin SUB-Q 5,000 unit Q12HR RICH Administration Hydralazine HCl 25 mg 05/08/19 22:00 05/09/19 05:40 Apresoline PO 25 mg Q8HR RICH Administration Hydromorphone HCl 0.5 mg 05/08/19 21:40 Dilaudid IV Q3H PRN Pain , Severe (7-10) Cefepime HCl 1 gm in 100 mls @ 200 mls/hr 05/09/19 13:00 Cefepime/Ns 1 Gm/100 Ml IV Q24HR [facility] Protocol Insulin Glargine 30 units 05/08/19 22:00 05/08/19 23:46 Lantus SUB-Q 30 units QHS RICH Administration Insulin Human Lispro 0 unit 05/08/19 22:00 05/09/19 08:35 Humalog SUB-Q 4 unit ACHS RICH Administration Protocol Insulin Human Lispro 10 unit 05/09/19 07:30 05/09/19 08:34 Humalog SUB-Q 10 unit AC RICH Administration Lisinopril 20 mg 05/08/19 22:00 05/09/19 09:43 Zestril PO 20 mg QDAY RICH Administration Metoclopramide HCl 5 mg 05/08/19 22:02 Reglan IV Q6H PRN Nausea And Vomiting Ondansetron HCl 4 mg 05/08/19 21:40 Zofran IV Q3H PRN Nausea And Vomiting Oxycodone/Acetaminophen 1 tab 05/08/19 21:40 Percocet 5/325 PO Q6H PRN Pain, Moderate (4-6) Pravastatin Sodium 40 mg 05/08/19 22:00 05/08/19 22:26 Pravachol PO 40 mg QHS RICH Administration Sodium Chloride 10 ml 05/08/19 22:00 05/09/19 09:46 Sodium Chloride Flush Syringe 10 Ml IV 10 ml BID RICH Administration Sodium Chloride 10 ml 05/08/19 21:40 Sodium Chloride Flush Syringe 10 Ml IV PRN PRN LINE FLUSH
--- NOTE | 2019-05-09 13:41 | Progress Note ---
Assessment and Plan / Diabetic infection of left foot Needs debridement, GS consulted ID consult requested, Wound cultures noted Wound cx + GNR. XR no osteo. stop clindamycin, started renally adjusted cefepime. / Paroxysmal atrial fibrillation Patient on amiodarone and on ELIQUIS / Insulin dependent diabetes mellitus Continue home insulin and coverage and adjust insulin dosage as per primary team hemoglobin A1c - 8.9 / HTN (hypertension), Continue antihypertensives /HLD (hyperlipidemia), Continue statins / ESRD (end stage renal disease) on dialysis Continue hemodialysis as per schedule Due for dialysis on Friday/Friday / Anemia, Secondary to chronic kidney disease, Monitor h/h / DVT prophylaxis Patient on ELIQUIS and GI prophylaxis Subjective Date of service: 05/09/19 Principal diagnosis: pvd Interval history: Patient seen and examined. Medical records and medication list reviewed. No acute event overnight noted by the RN. Patient denies any chest pain or difficulty breathing. Patient is tolerating diet. Complaints left great toe pain Discussed plan of care at bedside with patient. Objective - Exam Narrative Exam: - Extremities Extremities: no ischemia, pulses intact, pulses symmetrical, No edema, abnormal (right great toe ulcer 4 cm x 2 cm with a depth of 2 mm. Purulent discharge present from the wound.) Extremity abnormal: other (left foot ulcer for centimeters 2 cm with 2 mm depth, purulent discharge present) Peripheral Pulses: within normal limits - Constitutional Vitals: Vital Signs - 12hr 05/09/19 05/09/19 05/09/19 05:15 05:40 09:39 Temperature 98.2 F Pulse Rate 79 80 Respiratory 20 Rate Blood Pressure 144/82 144/82 130/75 O2 Sat by Pulse 99 Oximetry 05/09/19 05/09/19 09:43 11:24 Temperature 97.7 F Pulse Rate 80 73 Respiratory 18 Rate Blood Pressure 130/75 120/63 O2 Sat by Pulse 98 Oximetry General appearance: Present: no acute distress - EENT Eyes: PERRL, EOM intact ENT: hearing intact, clear oral mucosa Ears: bilateral: normal - Neck Neck: supple, normal ROM - Respiratory Respiratory effort: normal Respiratory: bilateral: CTA - Cardiovascular Rhythm: regular Heart Sounds: Present: S1 & S2. Absent: gallop, rub - Gastrointestinal General gastrointestinal: Present: soft, non-tender, non-distended, normal bowel sounds - Genitourinary Male genitourinary: normal - Integumentary Integumentary: clear, warm, dry - Musculoskeletal Musculoskeletal: 1, strength equal bilaterally - Neurologic Neurologic: moves all extremities - Psychiatric Psychiatric: memory intact, appropriate mood/affect, intact judgment & insight - Labs CBC & Chem 7: 05/09/19 06:25 05/09/19 06:25 Labs: Abnormal lab results 05/08/19 05/08/19 05/08/19 Range/Units 12:14 12:14 22:03 RBC (3.65-5.03) M/mm3 Hgb (11.8-15.2) gm/dl Hct (35.5-45.6) % RDW (13.2-15.2) % Seg Neuts % (Manual) 74.0 H (40.0-70.0) % Carbon Dioxide (22-30) mmol/L BUN 38 H (9-20) mg/dL Creatinine 5.8 H (0.8-1.5) mg/dL Glucose 214 H (75-100) mg/dL POC Glucose (70-105) Hemoglobin A1c 8.9 H (4-6) % ALT < 5 L (7-56) units/L Albumin 3.4 L (3.9-5) g/dL 05/08/19 05/09/19 05/09/19 Range/Units 23:46 06:25 06:25 RBC 3.13 L (3.65-5.03) M/mm3 Hgb 9.3 L (11.8-15.2) gm/dl Hct 28.3 L (35.5-45.6) % RDW 15.7 H (13.2-15.2) % Seg Neuts % (Manual) (40.0-70.0) % Carbon Dioxide 20 L (22-30) mmol/L BUN 49 H (9-20) mg/dL Creatinine 6.1 H (0.8-1.5) mg/dL Glucose 239 H (75-100) mg/dL POC Glucose 366 H (70-105) Hemoglobin A1c (4-6) % ALT 6 L (7-56) units/L Albumin 3.5 L (3.9-5) g/dL 05/09/19 05/09/19 05/09/19 Range/Units 08:36 11:10 12:37 RBC (3.65-5.03) M/mm3 Hgb (11.8-15.2) gm/dl Hct (35.5-45.6) % RDW (13.2-15.2) % Seg Neuts % (Manual) (40.0-70.0) % Carbon Dioxide (22-30) mmol/L BUN (9-20) mg/dL Creatinine (0.8-1.5) mg/dL Glucose (75-100) mg/dL POC Glucose 269 H 48 L 119 H (70-105) Hemoglobin A1c (4-6) % ALT (7-56) units/L Albumin (3.9-5) g/dL
[2019-05-09] MEDS: CEFEPIME/NS 1 GM/100 ML 1 GM/100 ML BAG IV SCH (16:00)
[2019-05-09 22:07] LABS: Hepatitis B Surface Antigen Non-Reactive (Negative); Hepatitis C Virus Antibody Non-Reactive (NonReactive)
[2019-05-09] MEDS: PRAVASTATIN 40 MG TAB PO SCH (22:10)
[2019-05-09] MEDS: INSULIN GLARGINE 100 UNITS/ML SUB-Q SCH (22:34)
[2019-05-10] MEDS: hydrALAZINE 25 MG TAB PO SCH ×3 (05:56→22:19)
[2019-05-10] MEDS: INSULIN LISPRO 100 UNIT/ML SUB-Q SCH ×8 (09:15→22:20)
[2019-05-10] MEDS: FAMOTIDINE 10 MG TAB PO SCH ×2 (09:35→22:22)
[2019-05-10] MEDS: CEFEPIME/NS 1 GM/100 ML 1 GM/100 ML BAG IV SCH (09:37)
--- NOTE | 2019-05-10 09:40 | Progress Note ---
Assessment and Plan Impression: * ESRD * Accelerated HTN: BP at goal * Peripheral vascular disease * Foot ulcer * Secondary Hyperparathyroidism * Anemia in esrd * Type 2 DM Plan: * will continue HD MWF, due today * if patient is discharged in next 1-2 days, may need extra HD session off schedule as his dialysis unit changed HD schedule this week for Thanksgiving * Surgery input appreciated,follow up PVD workup and potential I&D of foot wound * ID following, recommendations appreciated * Epogen with HD for goal hemoglobin 10-11; no IV iron given infection * Continue current BP regimen * Renal diet * Renally dose medications * Avoid nephrotoxins * Strict i/os Subjective Date of service: 05/10/19 Principal diagnosis: pvd Interval history: No acute events noted overnight. Denies any complaints this AM. Waiting to hear about plan for foot infection. No dyspnea, no chest pain. Objective - Exam Narrative Exam: General appearance: alert, pleasant, in no apparent distress, chronically ill appearing Head: atraumatic, normocephalic ENT: mucous membranes moist CV: regular rate and rhythm, S1/S2, no edema Lungs: clear to auscultation bilaterally Neuro: alert, oriented X3, no focal deficits noted Psych: normal affect, normal mood Skin: rash of LLE (great toe) with crusting, dry eschar noted - Vital Signs Vital signs: Vital Signs - 12hr 05/09/19 05/09/19 05/10/19 22:00 22:10 04:47 Pulse Rate 74 75 Respiratory 17 Rate Respiratory 17 Rate [Denies] Blood Pressure 113/63 148/80 O2 Sat by Pulse 99 Oximetry 05/10/19 05:56 Pulse Rate 75 Respiratory Rate Respiratory Rate [Denies] Blood Pressure 139/80 O2 Sat by Pulse Oximetry - Lab 05/09/19 06:25 05/09/19 06:25 Most recent lab results Calcium 9.1 mg/dL (8.4-10.2) 05/09/19 06:25 Medications & Allergies - Medications Allergies/Adverse Reactions: Allergies piroxicam Allergy (Verified 02/15/17 15:58) Unknown Home Medications: Home Medications Medication Instructions Recorded Confirmed Last Taken Type Apixaban [Eliquis] 5 mg PO BID 07/01/18 05/08/19 Unknown History cloNIDine-TTS PATCH [Catapres-Tts 1 patch TD Q7D 07/01/18 05/08/19 Unknown History 0.1MG Patch] Amiodarone [Cordarone 200 MG TAB] 200 mg PO DAILY #30 tablet 07/03/18 05/08/19 Unknown Rx Lisinopril [Zestril TAB] 20 mg PO QDAY #30 tablet 07/03/18 05/08/19 Unknown Rx Pravastatin [Pravachol (Nf)] 40 mg PO QHS #30 tablet 07/03/18 05/08/19 Unknown Rx hydrALAZINE [Apresoline TAB] 25 mg PO Q8HR #90 tab 07/03/18 05/08/19 Unknown Rx Insulin Aspart (Nf) [NovoLOG 100 10 unit SQ AC 07/31/18 05/08/19 Unknown History UNITS/ML VIAL] Insulin Glargine [Lantus] 30 units SQ QHS #1 vial 07/31/18 05/08/19 Unknown Rx amLODIPine 5 mg PO QDAY #30 tablet 07/31/18 05/08/19 Unknown Rx Active Medications: Generic Name Dose Route Start Last Admin Trade Name Freq PRN Reason Stop Dose Admin Acetaminophen 650 mg 05/08/19 21:40 Tylenol PO Q4H PRN Pain MILD(1-3)/Fever >100.5/PEREZ Albumin Human 25 gm 05/09/19 13:30 Alburx 25% (Albumin) IV PATEL PRN Hypotension Amiodarone HCl 200 mg 05/08/19 22:00 05/09/19 09:42 Cordarone PO 200 mg DAILY RICH Administration Amlodipine Besylate 5 mg 05/08/19 22:00 05/09/19 09:43 Amlodipine PO 5 mg QDAY RICH Administration Apixaban 5 mg 05/08/19 22:00 05/09/19 22:10 Eliquis PO 5 mg BID RICH Administration Protocol Clonidine HCl 0.1 mg 05/08/19 22:00 05/08/19 22:33 Catapres-Tts Patch TD 0.1 mg Sa RICH Administration Epoetin Chet 10,000 unit 05/09/19 13:30 Procrit IV PATEL PRN hemodialysis Famotidine 10 mg 05/08/19 22:00 05/10/19 09:35 Pepcid PO 10 mg BID RICH Administration Heparin Sodium (Porcine) 5,000 unit 05/09/19 10:00 05/09/19 22:11 Heparin SUB-Q 5,000 unit Q12HR RICH Administration Hydralazine HCl 25 mg 05/08/19 22:00 05/10/19 05:56 Apresoline PO 25 mg Q8HR RICH Administration Hydromorphone HCl 0.5 mg 05/08/19 21:40 Dilaudid IV Q3H PRN Pain , Severe (7-10) Cefepime HCl 1 gm in 100 mls @ 200 mls/hr 05/09/19 13:00 05/10/19 09:37 Cefepime/Ns 1 Gm/100 Ml IV 200 mls/hr Q24HR RICH Administration Protocol Sodium Chloride 100 mls @ 999 mls/hr 05/09/19 13:30 Nacl 0.9% IV PATEL PRN Hypotension Sodium Chloride 100 mls @ 999 mls/hr 05/09/19 18:12 Nacl 0.9% IV PATEL PRN Hypotension Insulin Glargine 30 units 05/08/19 22:00 05/09/19 22:34 Lantus SUB-Q 30 units QHS RICH Administration Insulin Human Lispro 0 unit 05/08/19 22:00 05/09/19 22:35 Humalog SUB-Q 2 unit ACHS RICH Administration Protocol Insulin Human Lispro 10 unit 05/09/19 07:30 05/10/19 09:15 Humalog SUB-Q 10 unit AC RICH Administration Lisinopril 20 mg 05/08/19 22:00 05/09/19 09:43 Zestril PO 20 mg QDAY RICH Administration Metoclopramide HCl 5 mg 05/08/19 22:02 Reglan IV Q6H PRN Nausea And Vomiting Ondansetron HCl 4 mg 05/08/19 21:40 Zofran IV Q3H PRN Nausea And Vomiting Oxycodone/Acetaminophen 1 tab 05/08/19 21:40 Percocet 5/325 PO Q6H PRN Pain, Moderate (4-6) Pravastatin Sodium 40 mg 05/08/19 22:00 05/09/19 22:10 Pravachol PO 40 mg QHS RICH Administration Sodium Chloride 10 ml 05/08/19 22:00 05/10/19 09:37 Sodium Chloride Flush Syringe 10 Ml IV 10 ml BID RICH Administration Sodium Chloride 10 ml 05/08/19 21:40 Sodium Chloride Flush Syringe 10 Ml IV PRN PRN LINE FLUSH
--- NOTE | 2019-05-10 10:34 | Consultation ---
History of Present Illness - Reason for Consult Consult date: 05/10/19 - History of Present Illness 58 yo M PMHx Dm2, HTn, ESRD on HD admitted for a left grea toe ulcer. The family is unclear as to how long it has been there, only that they noticed blood on the sock at home approximately 10 days prior to admission. He went to see his surgeon who directed him to the emergency room. He was not given any antibiotics prior to being admitted for the wound. He otherwise denies fevers, sweats, ch ills. Afebrile since admission with a normal white count. Currently on cefepime. Cultures with GNRx2 pending identification. Seen in dialysis Imaging personally reviewed: Toe XR: ulceration of L great toe, no evidence of osteomyelitis. Review of systems: Bold if positive; otherwise negative GENERAL: fever, chills, weight loss, fatigue, night sweats EYES: blurry vision, eye pain HENT: headache, hearing loss, sore throat, dysphagia, sinus pain CARDIO: chest pain, palpitations, orthopnea PULM: shortness of breath, wheezing, cough, sputum, hemoptysis GI: nausea, vomiting, diarrhea, abdominal pain, blood in stool : urinary frequency, urgency, dysuria, urethral discharge MSK: joint pain, back pain, swelling SKIN: rash, redness HEME: easy bruising, bleeding Past History Past Medical History: diabetes, dialysis, ESRD, hypertension, hyperlipidemia, other (neuropathy) Social history: no significant social history Family history: no significant family history Medications and Allergies Allergies Allergy/AdvReac Type Severity Reaction Status Date / Time piroxicam Allergy Unknown Verified 02/15/17 15:58 Home Medications Medication Instructions Recorded Confirmed Last Taken Type Apixaban [Eliquis] 5 mg PO BID 07/01/18 05/08/19 Unknown History cloNIDine-TTS PATCH [Catapres-Tts 1 patch TD Q7D 07/01/18 05/08/19 Unknown History 0.1MG Patch] Amiodarone [Cordarone 200 MG TAB] 200 mg PO DAILY #30 tablet 07/03/18 05/08/19 Unknown Rx Lisinopril [Zestril TAB] 20 mg PO QDAY #30 tablet 07/03/18 05/08/19 Unknown Rx Pravastatin [Pravachol (Nf)] 40 mg PO QHS #30 tablet 07/03/18 05/08/19 Unknown Rx hydrALAZINE [Apresoline TAB] 25 mg PO Q8HR #90 tab 07/03/18 05/08/19 Unknown Rx Insulin Aspart (Nf) [NovoLOG 100 10 unit SQ AC 07/31/18 05/08/19 Unknown History UNITS/ML VIAL] Insulin Glargine [Lantus] 30 units SQ QHS #1 vial 07/31/18 05/08/19 Unknown Rx amLODIPine 5 mg PO QDAY #30 tablet 07/31/18 05/08/19 Unknown Rx Active Meds: Active Medications Acetaminophen (Tylenol) 650 mg PO Q4H PRN PRN Reason: Pain MILD(1-3)/Fever >100.5/PEREZ Albumin Human (Alburx 25% (Albumin)) 25 gm IV PATEL PRN PRN Reason: Hypotension Amiodarone HCl (Cordarone) 200 mg PO DAILY [facility] Last Admin: 05/09/19 09:42 Dose: 200 mg Documented by: Amlodipine Besylate (Amlodipine) 5 mg PO QDAY [facility] Last Admin: 05/09/19 09:43 Dose: 5 mg Documented by: Apixaban (Eliquis) 5 mg PO BID [facility]; Protocol Last Admin: 05/09/19 22:10 Dose: 5 mg Documented by: Clonidine HCl (Catapres-Tts Patch) 0.1 mg TD Sa [facility] Last Admin: 05/08/19 22:33 Dose: 0.1 mg Documented by: Epoetin Chet (Procrit) 10,000 unit IV PATEL PRN PRN Reason: hemodialysis Famotidine (Pepcid) 10 mg PO BID [facility] Last Admin: 05/10/19 09:35 Dose: 10 mg Documented by: Heparin Sodium (Porcine) (Heparin) 5,000 unit SUB-Q Q12HR [facility] Last Admin: 05/09/19 22:11 Dose: 5,000 unit Documented by: Hydralazine HCl (Apresoline) 25 mg PO Q8HR [facility] Last Admin: 05/10/19 05:56 Dose: 25 mg Documented by: Hydromorphone HCl (Dilaudid) 0.5 mg IV Q3H PRN PRN Reason: Pain , Severe (7-10) Cefepime HCl (Cefepime/Ns 1 Gm/100 Ml) 1 gm in 100 mls @ 200 mls/hr IV Q24HR [facility]; Protocol Last Admin: 05/10/19 09:37 Dose: 200 mls/hr Documented by: Sodium Chloride (Nacl 0.9%) 100 mls @ 999 mls/hr IV PATEL PRN PRN Reason: Hypotension Sodium Chloride (Nacl 0.9%) 100 mls @ 999 mls/hr IV PATEL PRN PRN Reason: Hypotension Insulin Glargine (Lantus) 30 units SUB-Q QHS [facility] Last Admin: 05/09/19 22:34 Dose: 30 units Documented by: Insulin Human Lispro (Humalog) 0 unit SUB-Q ACHS [facility]; Protocol Last Admin: 05/09/19 22:35 Dose: 2 unit Documented by: Insulin Human Lispro (Humalog) 10 unit SUB-Q AC [facility] Last Admin: 05/10/19 09:15 Dose: 10 unit Documented by: Lisinopril (Zestril) 20 mg PO QDAY [facility] Last Admin: 05/09/19 09:43 Dose: 20 mg Documented by: Metoclopramide HCl (Reglan) 5 mg IV Q6H PRN PRN Reason: Nausea And Vomiting Ondansetron HCl (Zofran) 4 mg IV Q3H PRN PRN Reason: Nausea And Vomiting Oxycodone/Acetaminophen (Percocet 5/325) 1 tab PO Q6H PRN PRN Reason: Pain, Moderate (4-6) Pravastatin Sodium (Pravachol) 40 mg PO QHS [facility] Last Admin: 05/09/19 22:10 Dose: 40 mg Documented by: Sodium Chloride (Sodium Chloride Flush Syringe 10 Ml) 10 ml IV BID [facility] Last Admin: 05/10/19 09:37 Dose: 10 ml Documented by: Sodium Chloride (Sodium Chloride Flush Syringe 10 Ml) 10 ml IV PRN PRN PRN Reason: LINE FLUSH Physical Examination - Physical Exam Narrative exam: General Normal appearance, well developed, no acute distress Eyes - PERRLA, EOM intact ENT - Moist mucous membranes, no lymphadenopathy Neck - No noticeable or palpable swelling, redness or rash around throat or on face Lymph Nodes - No lymphadenopathy Cardiovascular - RRR no m/r/g, no JVD, no carotid bruits Lungs - Clear to auscultation, no use of accessory muscles, no crackles or wheezes. Skin - No rashes, skin warm and dry, no erythematous areas Abdomen - Normal bowel sounds, abdomen soft and nontender Extremities - No edema, cyanosis or clubbing Musculoskeletal - L great toe ulceration Neurological Alert and oriented x 3, CN 2-12 grossly intact. - Constitutional Vitals: Vital Signs Temp Pulse Resp BP Pulse Ox 98.4 F 75 17 139/80 99 05/09/19 20:45 05/10/19 05:56 05/09/19 22:00 05/10/19 05:56 05/10/19 04:47 Temperature -Last 24 Hours Temperature 98.4 F Temperature 97.7 F Results - Labs CBC & Chem 7: 05/09/19 06:25 05/09/19 06:25 Labs: Abnormal lab results 05/09/19 05/09/19 05/09/19 Range/Units 11:10 12:37 16:22 POC Glucose 48 L 119 H 156 H (70-105) 05/09/19 05/10/19 Range/Units 20:57 07:51 POC Glucose 150 H 214 H (70-105) Assessment and Plan Cultures Blood culture 05/08/19 no growth to date Wound culture 05/08/19 GNR#1, GNR#2 Assessment: 58 yo M PMHx DM2, ESRD on HD admitted with great toe ulceration, possible osteomyelitis. 1. L great toe ulceration - concern for osteomyelitis. Would obtain MRI to determine if bone involvement as this would extend antibiotic course significantly. Continue cefepime for polymicrobial GNR infection pending ID and MICs of isolates. Pending potential debridement by Dr. Clakr 2. DM2 - Tight glycemic control for optimal wound healing. 3. ESRD on HD - renally dose antibiotics as appropriate. Recs: - continue cefepime 2g q24h - obtain MRI of the L great toe - follow up cultures - follow up debridement. [facility] M: [phone] O: [phone] F: [phone]
--- NOTE | 2019-05-10 12:43 | Progress Note ---
Assessment and Plan 58 yo M with 1. infected left great toe wound 2. DM Plan: 1. continue abx per ID 2. arterial duplex b/l LE - performed today at bedside. Vascular surgery consult 3. Discussed wound debridement with patient. Consent obtained. Will plan for debridement at bedside tomorrow. 4. offloading 5. wound care consult 6. follow up wound cultures Thank you, please call with questions Subjective Date of service: 05/10/19 Narrative: Patient seen and examined. He has no complaints. Objective Vital Signs - 12hr 05/10/19 05/10/19 04:47 05:56 Pulse Rate 75 75 Blood Pressure 148/80 139/80 O2 Sat by Pulse 99 Oximetry - General physical appearance Narrative Exam: Gen: Awake, alert, oriented 3. No apparent distress CV: S1, S2 present Respiratory: No audible wheezes Extremities: left lower extremity dressing clean dry and intact - Labs 05/09/19 06:25 05/09/19 06:25
--- NOTE | 2019-05-10 13:01 | Vascular Lab Report ---
DUPLEX DOPPLER LOWER EXTREMITY ARTERIAL, BILATERAL INDICATION: PAD, left toe wound. TECHNIQUE: Arterial duplex examination of both lower extremities performed using B-mode, color flow and spectral Doppler assessment. FINDINGS: There are scattered atherosclerotic plaque RIGHT: Common Femoral Artery: PSV 79 cm/sec. Triphasic waveform. Proximal SFA: PSV 113 cm/sec. Triphasic waveform. Mid SFA: PSV 88 cm/sec. Triphasic waveform. Distal SFA: PSV 103 cm/sec. Triphasic waveform. Popliteal artery: PSV 98 cm/sec. Triphasic waveform. Posterior tibial artery: PSV 69 cm/sec. Triphasic waveform. Dorsalis Pedis Artery: PSV 93 cm/sec. Biphasic waveform. LEFT: Common Femoral Artery: PSV 107 cm/sec. Triphasic waveform. Proximal SFA: PSV 111 cm/sec. Triphasic waveform. Mid SFA: PSV 106 cm/sec. Triphasic waveform. Distal SFA: PSV 90 cm/sec. Triphasic waveform. Popliteal artery: PSV 82 cm/sec. Triphasic waveform. Posterior tibial artery: PSV 98 cm/sec. Biphasic waveform. Dorsalis Pedis Artery: PSV 22 cm/sec. Monophasic waveform. IMPRESSION: 1. There is evidence of distal disease in the runoff vessels bilaterally prominent on the left. This is based mostly upon waveforms changes. No discrete velocity elevation is identified. Ankle-Brachial Index (SYBIL): * Calcified arteries > 1.4 * Normal = 0.9-1.4 * Mild PAD = 0.7-0.89 * Moderate PAD = 0.51-0.69 * Severe PAD < 0.5 Doppler Waveform: * Triphasic is normal. * Biphasic is abnormal if clear transition from triphasic signal along vascular tree. * Monophasic is abnormal. Signer Name: Vimal Barrios MD Signed: 05/10/2019 12:56 PM Workstation Name: [id number]
[2019-05-10] MEDS ORDERED: SODIUM CHLORIDE*PRIMING MACHINE ONLY FOR DIALYSIS MC ONE ×2 (14:16→14:56)
--- NOTE | 2019-05-10 14:20 | Progress Note ---
Assessment and Plan / Diabetic infection of left foot Needs debridement, GS consulted - plan for I and D tomorrow ID consult requested, Wound cultures noted Wound cx + GNR. XR no osteo. stop clindamycin, started renally adjusted cefepime. Ordered for MRI foot for possible osteo / Paroxysmal atrial fibrillation Patient on amiodarone and on ELIQUIS - hold eliquis for I and D tomorrow / Insulin dependent diabetes mellitus Continue home insulin and coverage and adjust insulin dosage hemoglobin A1c - 8.9 / HTN (hypertension), Continue antihypertensives /HLD (hyperlipidemia), Continue statins / ESRD (end stage renal disease) on dialysis Continue hemodialysis as per schedule Due for dialysis on Friday/Friday / Anemia, Secondary to chronic kidney disease, Monitor h/h /Legally blind, supportive care / DVT prophylaxis Patient on ELIQUIS and GI prophylaxis Brief history: Patient with a history of end-stage renal disease on hemodialysis, diabetes and peripheral vascular disease who presents with nonhealing left first toe wound for 2 weeks. Arterial ultrasound demonstrates monophasic tibial flow - vascular consulted. Cx growing gm -ve rods, MRI foot ordered. Plan for debridement tomorrow. Subjective Date of service: 05/10/19 Principal diagnosis: pvd Interval history: Patient seen and examined. Medical records and medication list reviewed. No acute event overnight noted by the RN. Patient denies any chest pain or difficulty breathing. Patient is tolerating diet. Complaints left great toe pain, getting HD, MRI foot pending Discussed plan of care at bedside with patient. Objective - Exam Narrative Exam: - Extremities Extremities: no ischemia, pulses intact, pulses symmetrical, No edema, abnormal (right great toe ulcer 4 cm x 2 cm with a depth of 2 mm. Purulent discharge present from the wound.) Extremity abnormal: other (left foot ulcer for centimeters 2 cm with 2 mm depth, purulent discharge present) Peripheral Pulses: within normal limits General appearance: Present: no acute distress - EENT Eyes: EOM intact, legally blind ENT: hearing intact, clear oral mucosa Ears: bilateral: normal - Neck Neck: supple, normal ROM - Respiratory Respiratory effort: normal Respiratory: bilateral: CTA - Cardiovascular Rhythm: regular Heart Sounds: Present: S1 & S2. Absent: gallop, rub - Gastrointestinal General gastrointestinal: Present: soft, non-tender, non-distended, normal bowel sounds - Genitourinary Male genitourinary: normal - Integumentary Integumentary: clear, warm, dry - Musculoskeletal Musculoskeletal: 1, strength equal bilaterally - Neurologic Neurologic: moves all extremities - Psychiatric Psychiatric: memory intact, appropriate mood/affect, intact judgment & insight - Constitutional Vitals: Vital Signs - 12hr 05/10/19 05/10/19 05/10/19 04:47 05:56 12:50 Temperature 97.8 F Pulse Rate 75 75 72 Respiratory 18 Rate Blood Pressure 148/80 139/80 136/77 O2 Sat by Pulse 99 Oximetry 05/10/19 05/10/19 05/10/19 13:00 13:15 13:30 Temperature Pulse Rate 73 74 75 Respiratory Rate Blood Pressure 151/85 142/79 131/46 O2 Sat by Pulse Oximetry - Labs CBC & Chem 7: 05/09/19 06:25 05/09/19 06:25 Labs: Abnormal lab results 05/09/19 05/09/19 05/10/19 Range/Units 16:22 20:57 07:51 POC Glucose 156 H 150 H 214 H (70-105) 05/10/19 Range/Units 11:42 POC Glucose 204 H (70-105)
[2019-05-10] MEDS: APIXABAN 5 MG TAB PO SCH (15:07)
[2019-05-10] MEDS: HEPARIN 5,000 UNIT/1 ML VIAL SUB-Q SCH (16:13)
[2019-05-10] MEDS: EPOETIN ALFA 10,000 UNIT/1 ML INJ IV PRN (16:16)
--- NOTE | 2019-05-10 16:55 | Consultation ---
History of Present Illness - Reason for Consult Consult date: 05/10/19 peripheral vascular disease with nonhealing wound - History of Present Illness Patient with a history of end-stage renal disease on hemodialysis, diabetes and peripheral vascular disease who presents with nonhealing left first toe wound for 2 weeks. Arterial ultrasound demonstrates monophasic tibial flow. Past History Past Medical History: diabetes, dialysis, ESRD, hypertension, hyperlipidemia, PVD, other (neuropathy) Past Surgical History: Other (left upper arm AV fistula) Social history: no significant social history Family history: no significant family history Medications and Allergies Allergies Allergy/AdvReac Type Severity Reaction Status Date / Time piroxicam Allergy Unknown Verified 02/15/17 15:58 Home Medications Medication Instructions Recorded Confirmed Last Taken Type Apixaban [Eliquis] 5 mg PO BID 07/01/18 05/08/19 Unknown History cloNIDine-TTS PATCH [Catapres-Tts 1 patch TD Q7D 07/01/18 05/08/19 Unknown History 0.1MG Patch] Amiodarone [Cordarone 200 MG TAB] 200 mg PO DAILY #30 tablet 07/03/18 05/08/19 Unknown Rx Lisinopril [Zestril TAB] 20 mg PO QDAY #30 tablet 07/03/18 05/08/19 Unknown Rx Pravastatin [Pravachol (Nf)] 40 mg PO QHS #30 tablet 07/03/18 05/08/19 Unknown Rx hydrALAZINE [Apresoline TAB] 25 mg PO Q8HR #90 tab 07/03/18 05/08/19 Unknown Rx Insulin Aspart (Nf) [NovoLOG 100 10 unit SQ AC 07/31/18 05/08/19 Unknown History UNITS/ML VIAL] Insulin Glargine [Lantus] 30 units SQ QHS #1 vial 07/31/18 05/08/19 Unknown Rx amLODIPine 5 mg PO QDAY #30 tablet 07/31/18 05/08/19 Unknown Rx Active Meds: Active Medications Acetaminophen (Tylenol) 650 mg PO Q4H PRN PRN Reason: Pain MILD(1-3)/Fever >100.5/PEREZ Albumin Human (Alburx 25% (Albumin)) 25 gm IV PATEL PRN PRN Reason: Hypotension Amiodarone HCl (Cordarone) 200 mg PO DAILY [facility] Last Admin: 05/09/19 09:42 Dose: 200 mg Documented by: Amlodipine Besylate (Amlodipine) 5 mg PO QDAY [facility] Last Admin: 05/09/19 09:43 Dose: 5 mg Documented by: Clonidine HCl (Catapres-Tts Patch) 0.1 mg TD Sa [facility] Last Admin: 05/08/19 22:33 Dose: 0.1 mg Documented by: Epoetin Chet (Procrit) 10,000 unit IV PATEL PRN PRN Reason: hemodialysis Last Admin: 05/10/19 16:16 Dose: 10,000 unit Documented by: Famotidine (Pepcid) 10 mg PO BID [facility] Last Admin: 05/10/19 09:35 Dose: 10 mg Documented by: Hydralazine HCl (Apresoline) 25 mg PO Q8HR [facility] Last Admin: 05/10/19 05:56 Dose: 25 mg Documented by: Hydromorphone HCl (Dilaudid) 0.5 mg IV Q3H PRN PRN Reason: Pain , Severe (7-10) Cefepime HCl (Cefepime/Ns 1 Gm/100 Ml) 1 gm in 100 mls @ 200 mls/hr IV Q24HR [facility]; Protocol Last Admin: 05/10/19 09:37 Dose: 200 mls/hr Documented by: Sodium Chloride (Nacl 0.9%) 100 mls @ 999 mls/hr IV PATEL PRN PRN Reason: Hypotension Insulin Glargine (Lantus) 30 units SUB-Q QHS [facility] Last Admin: 05/09/19 22:34 Dose: 30 units Documented by: Insulin Human Lispro (Humalog) 0 unit SUB-Q ACHS [facility]; Protocol Last Admin: 05/10/19 15:07 Dose: Not Given Documented by: Insulin Human Lispro (Humalog) 10 unit SUB-Q [facility] Last Admin: 05/10/19 14:18 Dose: Not Given Documented by: Lisinopril (Zestril) 20 mg PO QDAY [facility] Last Admin: 05/09/19 09:43 Dose: 20 mg Documented by: Metoclopramide HCl (Reglan) 5 mg IV Q6H PRN PRN Reason: Nausea And Vomiting Ondansetron HCl (Zofran) 4 mg IV Q3H PRN PRN Reason: Nausea And Vomiting Oxycodone/Acetaminophen (Percocet 5/325) 1 tab PO Q6H PRN PRN Reason: Pain, Moderate (4-6) Pravastatin Sodium (Pravachol) 40 mg PO QHS [facility] Last Admin: 05/09/19 22:10 Dose: 40 mg Documented by: Sodium Chloride (Sodium Chloride Flush Syringe 10 Ml) 10 ml IV BID [facility] Last Admin: 05/10/19 09:37 Dose: 10 ml Documented by: Sodium Chloride (Sodium Chloride Flush Syringe 10 Ml) 10 ml IV PRN PRN PRN Reason: LINE FLUSH Review of Systems All systems: negative Exam - Constitutional Vitals: Temp Pulse Resp BP Pulse Ox 97.8 F 77 18 97/60 99 05/10/19 12:50 05/10/19 15:15 05/10/19 12:50 05/10/19 15:15 05/10/19 04:47 General appearance: Present: no acute distress - EENT ENT: hearing intact - Neck Neck: Present: supple - Respiratory Respiratory effort: normal - Extremities Extremities: abnormal Peripheral Pulses: abnormal - Abdominal Male genitourinary: Present: deferred - Rectal Rectal Exam: deferred - Psychiatric Psychiatric: appropriate mood/affect, cooperative Results - Labs CBC & Chem 7: 05/09/19 06:25 05/09/19 06:25 Labs: Abnormal lab results 05/09/19 05/10/19 05/10/19 Range/Units 20:57 07:51 11:42 POC Glucose 150 H 214 H 204 H (70-105) Assessment and Plan Patient scheduled for land bedside debridement tomorrow. Patient made nothing by mouth after midnight for angiography with possible revascularization tomorrow as well.
[2019-05-10] MEDS: amLODIPine 5 MG TAB PO SCH (17:15)
[2019-05-10] MEDS: AMIODARONE 200 MG TAB PO SCH (17:15)
[2019-05-10] MEDS: LISINOPRIL 20 MG TAB PO SCH (17:15)
[2019-05-10] MEDS ORDERED: INSULIN LISPRO 100 UNIT/ML SUB-Q SCH (17:47)
[2019-05-10] MEDS: INSULIN GLARGINE 100 UNITS/ML SUB-Q SCH (22:21)
[2019-05-10] MEDS: PRAVASTATIN 40 MG TAB PO SCH (22:22)
[2019-05-11] MEDS: hydrALAZINE 25 MG TAB PO SCH ×3 (05:37→21:56)
[2019-05-11 07:22] LABS: Hematocrit 30.9 % (35.5-45.6); Hemoglobin 9.9 gm/dl (11.8-15.2); Mean Corpuscular HGB Conc 32 % (32-34); Mean Corpuscular Volume 91 fl (84-94); Platelet Count 305 K/mm3 (140-440); Red Cell Distribution Width 15.8 % (13.2-15.2)
[2019-05-11] MEDS: INSULIN LISPRO 100 UNIT/ML SUB-Q SCH ×7 (07:30→21:57)
[2019-05-11] MEDS ORDERED: HEPARIN 10,000 UNITS/10 ML VIAL ONE (09:41)
[2019-05-11] MEDS ORDERED: HEPARIN/NS 5000 UNIT/500ML 1,000 ML IR ONE (09:41)
[2019-05-11] MEDS ORDERED: LIDOCAINE 1%/EPINEPHRINE 1:100,000 VIAL (20 ML) INFILTRATI ONE (09:41)
[2019-05-11] MEDS ORDERED: SODIUM CHLORIDE 0.9% 250ML 250 ML ONE (09:58)
[2019-05-11] MEDS ORDERED: HEPARIN 5,000 UNIT/1 ML VIAL SUB-Q SCH (10:00)
[2019-05-11] MEDS: MIDAZOLAM 2 MG/2 ML INJ ONE ×4 (10:13→11:01)
[2019-05-11] MEDS: fentaNYL 100 MCG/2 ML INJ ONE ×4 (10:13→11:01)
[2019-05-11] MEDS ORDERED: MIDAZOLAM 2 MG/2 ML INJ ONE (10:27)
[2019-05-11] MEDS ORDERED: fentaNYL 100 MCG/2 ML INJ ONE (10:27)
[2019-05-11] MEDS ORDERED: NITROGLYCERIN SYRINGE 6 ML ONE (10:53)
[2019-05-11] MEDS ORDERED: CLOPIDOGREL 300 MG TAB ONE (11:11)
[2019-05-11] MEDS ORDERED: ALUM-MAG HYDROXIDE-SIMETHICONE 200-200-20MG/5ML ORAL LIQD 30 ML ONE (11:12)
[2019-05-11] MEDS ORDERED: CLOPIDOGREL 300 MG TAB PO ONE (11:19)
--- NOTE | 2019-05-11 11:22 | Operative Report ---
Operative Report Operative Report: EXAM: 1. Ultrasound guided access of the right common femoral artery 2. Angiography of the right lower extremity 3. Selection of the abdominal aorta with angiography 4. Selection of the left external iliac artery, superficial femoral artery, popliteal artery and posterior tibial artery with angiography 5. Placement of a 5 mm spider EPD in the left posterior tibial artery 6. Atherectomy of the left tibioperoneal trunk and proximal posterior tibial artery with a Hawkone S device with angioplasty with a 4 mm x 80 mm iNPACT DCB 7. Closure of the right common femoral artery with 6 Fr proglide DATE: 05/11/19 WATCH ELECTRICIAN: LALITA ALONZO MD INDICATION: Critical limb ischemia of the left lower extremity MEDICATIONS: Please see nursing report for full details. DEVICES: 5 mm spider embolic protection device 4 mm x 80 mm iNPACT DCB Hawkone S device CONTRAST: Please see finishing lab technician report for full details PROCEDURE: The risks, benefits, and alternatives were discussed the patient; written informed consent was obtained. The patient was brought to the angiography suite and his groins were prepped and draped in a sterile fashion. Ultrasound was used to evaluate the right common femoral artery which was patent. Under direct ultrasound guidance, the right common femoral artery was accessed with a 21-gauge micropuncture needle. 0.018 inch wire was passed into the aorta. Needle was exchanged for transitional dilator. Wire was exchanged for 0.035 inch wire. Transitional dilator was exchanged for a 5 Angolan sheath. Digital subtraction angiography was performed demonstrating an appropriate puncture, above the bifurcation and below the inferior epigastric artery. The right external iliac artery, common femoral artery, superficial femoral artery (proximally), and profunda femoral artery were patent. The abdominal aorta was selected and digital subtraction angiography was performed demonstrating patency of the abdominal aorta, bilateral common iliac arteries, internal iliac arteries, and external iliac arteries. The left external iliac artery, superficial femoral artery, and popliteal artery were selected and digital subtraction angiography was performed. Digital subtraction angiography demonstrated patency of the left common femoral artery, profunda femoral artery, superficial femoral artery, and popliteal artery. The tibial peroneal trunk had a focal 50% narrowing along the midportion, and the anterior tibial artery was occluded after approximately 15 cm and multifocal 99% dulce rowings. The anterior tibial artery was reconstituted from the peroneal artery at the level of the distal calf and was atretic. The dorsalis pedis reconstitution was atretic. The peroneal artery had a 60% ostial stenosis. Rest the peroneal artery was grossly patent except for one or two 30% narrowings distally. The posterior tibial artery had a ostial 80-90% stenosis for a few centimeters. The rest the posterior tibial artery was patent except for one or two 30% narrowings distally. At this point, I decided the patient required intervention. The patient was heparinized. Sheath was exchanged for 6 Angolan 90 cm [place] destination positioned in the left popliteal artery. The posterior tibial artery was selected and digital subtraction angiography was performed confirming position. 5 mm spider embolic protection device was deployed in the proximal to midportion of the vessel. Atherectomy was then performed of the tibioperoneal trunk and proximal posterior tibial artery with a [employer] S device. After less than 30% residual narrowing was obtained, a 4 mm x 80 mm iNPACT DCB was inflated and brought to 3 ike for 3 minutes. Digital subtraction angiography was performed demonstrating a nonflow limiting tiny dissection in the proximal posterior tibial artery, but otherwise excellent flow with no residual narrowing in the tibio peroneal trunk or proximal posterior tibial artery. The embolic protection device was then retrieved. Nitroglycerin was administered. Digital subtraction angiography was performed demonstrating no change in the runoff. There is no embolization. At this point, all wires, catheters, and sheaths retracted to the right external iliac artery and the site was closed with a 6 Angolan Pro-glide device. Patient tolerated the procedure well. No immediate postprocedural complication. Pressure bandage applied. FINDINGS: Please see procedure note above. IMPRESSION: Successful atherectomy and angioplasty of the left tibial peroneal trunk and posterior tibial artery.
--- NOTE | 2019-05-11 11:25 | Post Operative Note ---
Date of procedure: 05/11/19 Pre-op diagnosis: CLI LLE Post-op diagnosis: same Findings: Occlusion of the left anterior tibial artery with reconstitution from the peroneal artery with atretic dorsalis pedis. Tibioperoneal trunk with 50% narrowing. Peroneal artery with 60% ostial steno sis. Posterior tibial artery with 80-90% ostial stenosis. Procedure: 1. Ultrasound guided access of the right common femoral artery 2. Angiography of the right lower extremity 3. Selection of the abdominal aorta with angiography 4. Selection of the left external iliac artery, superficial femoral artery, popliteal artery and posterior tibial artery with angiography 5. Placement of a 5 mm spider EPD in the left posterior tibial artery 6. Atherectomy of the left tibioperoneal trunk and proximal posterior tibial artery with a [id number] S device with angioplasty with a 4 mm x 80 mm iNPACT DCB 7. Closure of the right common femoral artery with 6 Fr proglide Anesthesia: local (w/ conscious sedation) Surgeon: LALITA ALONZO Estimated blood loss: minimal Condition: stable Disposition: floor
--- NOTE | 2019-05-11 11:44 | Progress Note ---
Assessment and Plan Cultures Blood culture 05/08/19 no growth to date Wound culture 05/08/19 K pneumoniae, S marcescens, P aeruginosa Assessment: 58 yo M PMHx DM2, ESRD on HD admitted with great toe ulceration, possible osteomyelitis. 1. L great toe ulceration - concern for osteomyelitis. Would obtain MRI to determine if bone involvement as this would extend antibiotic course significantly. Continue cefepime for polymicrobial GNR infection pending ID and MICs of isolates. Pending potential debridement by Dr. Clark 2. DM2 - Tight glycemic control for optimal wound healing. 3. ESRD on HD - renally dose antibiotics as appropriate. Recs: - continue cefepime 2g q24h - obtain MRI of the L great toe - duration pending MRI and debridement findings. - follow up debridement. [facility] ([facility] M: [phone] O: [phone] F: [phone] Subjective Date of service: 05/11/19 Principal diagnosis: pvd Interval history: Feels well, no complaints today. Afebrile, normal white count. Objective - Exam Narrative Exam: General Normal appearance, well developed, no acute distress Eyes - PERRLA, EOM intact ENT - Moist mucous membranes, no lymphadenopathy Neck - No noticeable or palpable swelling, redness or rash around throat or on face Lymph Nodes - No lymphadenopathy Cardiovascular - RRR no m/r/g, no JVD, no carotid bruits Lungs - Clear to auscultation, no use of accessory muscles, no crackles or wheezes. Skin - No rashes, skin warm and dry, no erythematous areas Abdomen - Normal bowel sounds, abdomen soft and nontender Extremities - No edema, cyanosis or clubbing Musculoskeletal - L great toe ulceration Neurological Alert and oriented x 3, CN 2-12 grossly intact. - Constitutional Vitals: Vital Signs Temp Pulse Resp BP Pulse Ox 98.9 F 84 18 132/78 97 05/11/19 05:36 05/11/19 05:37 05/11/19 05:36 05/11/19 05:37 05/11/19 05:36 Temperature -Last 24 Hours Temperature 98.9 F Temperature 98.8 F Temperature 98.6 F Temperature 98.4 F Temperature 97.8 F - Labs CBC & Chem 7: 05/11/19 06:43 05/09/19 06:25 Labs: Abnormal lab results 05/10/19 05/10/19 05/10/19 Range/Units 11:42 17:21 21:36 RBC (3.65-5.03) M/mm3 Hgb (11.8-15.2) gm/dl Hct (35.5-45.6) % RDW (13.2-15.2) % POC Glucose 204 H 146 H 181 H (70-105) 05/11/19 05/11/19 Range/Units 06:43 08:19 RBC 3.40 L (3.65-5.03) M/mm3 Hgb 9.9 L (11.8-15.2) gm/dl Hct 30.9 L (35.5-45.6) % RDW 15.8 H (13.2-15.2) % POC Glucose 234 H (70-105)
[2019-05-11] MEDS ORDERED: LIDOCAINE (4%) 40 MG/ML TOPICAL SOLN 50 ML BOTTLE TP ONE (12:00)
--- NOTE | 2019-05-11 12:24 | Progress Note ---
Assessment and Plan Assessment and plan: Patient with a history of end-stage renal disease on hemodialysis, diabetes and peripheral vascular disease who presents with nonhealing left first toe wound for 2 weeks. Arterial ultrasound demonstrates monophasic tibial flow - vascular consulted. Cx growing gm -ve rods, MRI foot ordered. Diabetic infection of left foot Needs debridement, GS consulted - plan for I and D tomorrow ID consult requested, Wound cultures noted Wound cx + GNR. XR no osteo. stop clindamycin, started renally adjusted cef epime. Peripheral arterial disease s/p angioplasty today Paroxysmal atrial fibrillation Patient on amiodarone and on ELIQUIS - hold eliquis for I and D tomorrow Insulin dependent diabetes mellitus Continue home insulin and coverage and adjust insulin dosage hemoglobin A1c - 8.9 HTN (hypertension), Continue antihypertensives HLD (hyperlipidemia), Continue statins ESRD (end stage renal disease) on dialysis Continue hemodialysis as per schedule Due for dialysis on Friday/Friday Anemia, Secondary to chronic kidney disease, Monitor h/h Legally blind, supportive care DVT prophylaxis Patient on ELIQUIS and GI prophylaxis History Interval history: vascular procedure today Hospitalist Physical - Physical exam Narrative exam: Gen: Not in acute distress, lying in bed HEENT: Normocephalic, atraumatic Neck: supple, no JVD Heart: S1 and S2 reg, no murmurs, rubs or gallop Lungs: Clear to auscultation bilaterally, Abd: soft, non tender, non distended, normal BS, Ext: No edema, no clubbing, no cyanosis Neuro: Awake, alert, oriented X 3, - Constitutional Vitals: Temp Pulse Resp BP Pulse Ox 98.9 F 84 18 132/78 97 05/11/19 05:36 05/11/19 05:37 05/11/19 05:36 05/11/19 05:37 05/11/19 05:36 General appearance: Present: no acute distress Results - Labs CBC & Chem 7: 05/11/19 06:43 05/09/19 06:25 Labs: Laboratory Last Values WBC 6.4 K/mm3 (4.5-11.0) 05/11/19 06:43 RBC 3.40 M/mm3 (3.65-5.03) L 05/11/19 06:43 Hgb 9.9 gm/dl (11.8-15.2) L 05/11/19 06:43 Hct 30.9 % (35.5-45.6) L 05/11/19 06:43 MCV 91 fl (84-94) 05/11/19 06:43 MCH 29 pg (28-32) 05/11/19 06:43 MCHC 32 % (32-34) 05/11/19 06:43 RDW 15.8 % (13.2-15.2) H 05/11/19 06:43 Plt Count 305 K/mm3 (140-440) 05/11/19 06:43 Lymph % (Auto) Chicken Tender 05/09/19 06:25 Hood % (Auto) Chicken Tender 05/09/19 06:25 Eos % (Auto) Chicken Tender 05/09/19 06:25 Baso % (Auto) Chicken Tender 05/09/19 06:25 Lymph # Chicken Tender 05/09/19 06:25 Hood # Chicken Tender 05/09/19 06:25 Eos # Chicken Tender 05/09/19 06:25 Baso # Chicken Tender 05/09/19 06:25 Add Manual Diff Complete 05/08/19 12:14 Total Counted 100 05/08/19 12:14 Seg Neutrophils % Chicken Tender 05/09/19 06:25 Seg Neuts % (Manual) 74.0 % (40.0-70.0) H 05/08/19 12:14 Band Neutrophils % 2.0 % 05/08/19 12:14 Lymphocytes % (Manual) 17.0 % (13.4-35.0) 05/08/19 12:14 Reactive Lymphs % (Man) 0 % 05/08/19 12:14 Monocytes % (Manual) 5.0 % (0.0-7.3) 05/08/19 12:14 Eosinophils % (Manual) 2.0 % (0.0-4.3) 05/08/19 12:14 Basophils % (Manual) 0 % (0.0-1.8) 05/08/19 12:14 Metamyelocytes % 0 % 05/08/19 12:14 Myelocytes % 0 % 05/08/19 12:14 Promyelocytes % 0 % 05/08/19 12:14 Blast Cells % 0 % 05/08/19 12:14 Nucleated RBC % Not Reportable 05/08/19 12:14 Seg Neutrophils # Chicken Tender 05/09/19 06:25 Seg Neutrophils # Man 6.0 K/mm3 (1.8-7.7) 05/08/19 12:14 Band Neutrophils # 0.2 K/mm3 05/08/19 12:14 Lymphocytes # (Manual) 1.4 K/mm3 (1.2-5.4) 05/08/19 12:14 Abs React Lymphs (Man) 0.0 K/mm3 05/08/19 12:14 Monocytes # (Manual) 0.4 K/mm3 (0.0-0.8) 05/08/19 12:14 Eosinophils # (Manual) 0.2 K/mm3 (0.0-0.4) 05/08/19 12:14 Basophils # (Manual) 0.0 K/mm3 (0.0-0.1) 05/08/19 12:14 Metamyelocytes # 0.0 K/mm3 05/08/19 12:14 Myelocytes # 0.0 K/mm3 05/08/19 12:14 Promyelocytes # 0.0 K/mm3 05/08/19 12:14 Blast Cells # 0.0 K/mm3 05/08/19 12:14 WBC Morphology Not Reportable 05/08/19 12:14 Hypersegmented Neuts Not Reportable 05/08/19 12:14 Hyposegmented Neuts Not Reportable 05/08/19 12:14 Hypogranular Neuts Not Reportable 05/08/19 12:14 Smudge Cells Not Reportable 05/08/19 12:14 Toxic Granulation Not Reportable 05/08/19 12:14 Toxic Vacuolation Not Reportable 05/08/19 12:14 Dohle Bodies Not Reportable 05/08/19 12:14 Pelger-Huet Anomaly Not Reportable 05/08/19 12:14 Pita Rods Not Reportable 05/08/19 12:14 Platelet Estimate Consistent w auto 05/08/19 12:14 Clumped Platelets Not Reportable 05/08/19 12:14 Plt Clumps, EDTA Not Reportable 05/08/19 12:14 Large Platelets Not Reportable 05/08/19 12:14 Giant Platelets Not Reportable 05/08/19 12:14 Platelet Satelliting Not Reportable 05/08/19 12:14 Plt Morphology Comment Not Reportable 05/08/19 12:14 RBC Morphology Not Reportable 05/08/19 12:14 Dimorphic RBCs Not Reportable 05/08/19 12:14 Polychromasia Not Reportable 05/08/19 12:14 Hypochromasia Not Reportable 05/08/19 12:14 Poikilocytosis Not Reportable 05/08/19 12:14 Anisocytosis Few 05/08/19 12:14 Microcytosis Not Reportable 05/08/19 12:14 Macrocytosis Few 05/08/19 12:14 Spherocytes Not Reportable 05/08/19 12:14 Pappenheimer Bodies Not Reportable 05/08/19 12:14 Sickle Cells Not Reportable 05/08/19 12:14 Target Cells Not Reportable 05/08/19 12:14 Tear Drop Cells Not Reportable 05/08/19 12:14 Ovalocytes Not Reportable 05/08/19 12:14 Helmet Cells Not Reportable 05/08/19 12:14 Salgado-Delmar Bodies Not Reportable 05/08/19 12:14 Bone Gap Rings Not Reportable 05/08/19 12:14 [place] Cells Not Reportable 05/08/19 12:14 Bite Cells Not Reportable 05/08/19 12:14 Crenated Cell Not Reportable 05/08/19 12:14 Elliptocytes Not Reportable 05/08/19 12:14 Acanthocytes (Spur) Not Reportable 05/08/19 12:14 Rouleaux Not Reportable 05/08/19 12:14 Hemoglobin C Crystals Not Reportable 05/08/19 12:14 Schistocytes Not Reportable 05/08/19 12:14 Malaria parasites Not Reportable 05/08/19 12:14 Tushar Bodies Not Reportable 05/08/19 12:14 Hem Pathologist Commnt No 05/08/19 12:14 PT 13.1 Sec. (12.2-14.9) 05/11/19 06:43 INR 1.00 (0.87-1.13) 05/11/19 06:43 Sodium 137 mmol/L (137-145) 05/09/19 06:25 Potassium 4.4 mmol/L (3.6-5.0) 05/09/19 06:25 Chloride 99.8 mmol/L (98-107) 05/09/19 06:25 Carbon Dioxide 20 mmol/L (22-30) L 05/09/19 06:25 Anion Gap 22 mmol/L 05/09/19 06:25 BUN 49 mg/dL (9-20) H 05/09/19 06:25 Creatinine 6.1 mg/dL (0.8-1.5) H 05/09/19 06:25 Estimated GFR 12 ml/min 05/09/19 06:25 BUN/Creatinine Ratio 8 % 05/09/19 06:25 Glucose 239 mg/dL (75-100) H 05/09/19 06:25 POC Glucose 234 (70-105) H 05/11/19 08:19 Hemoglobin A1c 8.9 % (4-6) H 05/08/19 22:03 Calcium 9.1 mg/dL (8.4-10.2) 05/09/19 06:25 Total Bilirubin 0.20 mg/dL (0.1-1.2) 05/09/19 06:25 Direct Bilirubin < 0.2 mg/dL (0-0.2) 05/08/19 12:14 Indirect Bilirubin 0.0 mg/dL 05/08/19 12:14 AST 10 units/L (5-40) 05/09/19 06:25 ALT 6 units/L (7-56) L 05/09/19 06:25 Alkaline Phosphatase 90 units/L (35-129) 05/09/19 06:25 Total Protein 7.7 g/dL (6.3-8.2) 05/09/19 06:25 Albumin 3.5 g/dL (3.9-5) L 05/09/19 06:25 Albumin/Globulin Ratio 0.8 % 05/09/19 06:25 Hepatitis A IgM Ab Non-reactive (NonReactive) 05/09/19 21:14 Hep Bs Antigen Non-reactive (Negative) 05/09/19 21:14 Hep B Core IgM Ab Non-reactive (NonReactive) 05/09/19 21:14 Hepatitis C Antibody Non-reactive (NonReactive) 05/09/19 21:14 Active Medications - Current Medications Current Medications: Generic Name Dose Route Start Last Admin Trade Name Freq PRN Reason Stop Dose Admin Acetaminophen 650 mg 05/08/19 21:40 Tylenol PO Q4H PRN Pain MILD(1-3)/Fever >100.5/PEREZ Albumin Human 25 gm 11/24/19 13:30 Alburx 25% (Albumin) IV PATEL PRN Hypotension Amiodarone HCl 200 mg 05/08/19 22:00 05/10/19 17:15 Cordarone PO 200 mg DAILY RICH Administration Amlodipine Besylate 5 mg 05/08/19 22:00 05/10/19 17:15 Amlodipine PO 5 mg QDAY RICH Administration Apixaban 5 mg 05/11/19 14:00 Eliquis PO Q12HR [facility] Protocol Clonidine HCl 0.1 mg 05/08/19 22:00 05/08/19 22:33 Catapres-Tts Patch TD 0.1 mg Sa RICH Administration Clopidogrel Bisulfate 75 mg 05/12/19 10:00 Plavix PO QDAY RICH Epoetin Chet 10,000 unit 05/09/19 13:30 05/10/19 16:16 Procrit IV 10,000 unit PATEL PRN Administration hemodialysis Famotidine 10 mg 05/08/19 22:00 05/10/19 22:22 Pepcid PO 10 mg BID RICH Administration Hydralazine HCl 25 mg 05/08/19 22:00 05/11/19 05:37 Apresoline PO 25 mg Q8HR RICH Administration Hydromorphone HCl 0.5 mg 05/08/19 21:40 Dilaudid IV Q3H PRN Pain , Severe (7-10) Cefepime HCl 1 gm in 100 mls @ 200 mls/hr 05/09/19 13:00 05/10/19 09:37 Cefepime/Ns 1 Gm/100 Ml IV 200 mls/hr Q24HR RICH Administration Protocol Sodium Chloride 100 mls @ 999 mls/hr 05/09/19 18:12 Nacl 0.9% IV PATEL PRN Hypotension Insulin Glargine 30 units 05/08/19 22:00 05/10/19 22:21 Lantus SUB-Q 30 units QHS RICH Administration Insulin Human Lispro 0 unit 05/08/19 22:00 05/11/19 07:30 Humalog SUB-Q 3 unit ACHS RICH Administration Protocol Insulin Human Lispro 5 unit 05/10/19 18:00 05/10/19 18:01 Humalog SUB-Q 5 unit AC RICH Administration Lisinopril 20 mg 05/08/19 22:00 05/10/19 17:15 Zestril PO 20 mg QDAY RICH Administration Metoclopramide HCl 5 mg 05/08/19 22:02 Reglan IV Q6H PRN Nausea And Vomiting Ondansetron HCl 4 mg 05/08/19 21:40 Zofran IV Q3H PRN Nausea And Vomiting Oxycodone/Acetaminophen 1 tab 05/08/19 21:40 Percocet 5/325 PO Q6H PRN Pain, Moderate (4-6) Pantoprazole Sodium 20 mg 05/11/19 12:00 Protonix PO QDAY RICH Pravastatin Sodium 40 mg 05/08/19 22:00 05/10/19 22:22 Pravachol PO 40 mg QHS RICH Administration Sodium Chloride 10 ml 05/08/19 22:00 05/10/19 22:23 Sodium Chloride Flush Syringe 10 Ml IV 10 ml BID RICH Administration Sodium Chloride 10 ml 05/08/19 21:40 Sodium Chloride Flush Syringe 10 Ml IV PRN PRN LINE FLUSH Nutrition/Malnutrition Assess - Dietary Evaluation Nutrition/Malnutrition Findings: Nutrition Notes Start: 05/09/19 10:58 Freq: Status: Active Protocol: Document 05/09/19 10:58 LP (Rec: 05/09/19 11:07 LP [id number]) Nutrition Notes Need for Assessment generated from: template fitter Initial or Follow up Assessment Current Diagnosis CKD (stage V CKD),Diabetes, Hypertension,Heart Failure Other Pertinent Diagnosis on HD, toe wound Current Diet Renal Labs/Tests BUN 49 Cr 6.1 A1c8.9 BG 239,269 Pertinent Medications Reviewed Height 5 ft 11 in Weight 84.7 kg Usual Body Weight 3 kg Wheeler Body Weight (kg) 78.18 BMI 26.0 Subjective/Other Information Screen for skin risk (19). 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 Denies wt changes. Pt states he would like more food . Pt denies need for diet education. Burn Absent Trauma Absent Current % PO Good (75-100%) Minimum of two criteria No physical signs of malnutrition #1 Nutrition Diagnosis Increased nutrient needs ( specify in comment below) Comments: Protein Etiology Wound healing As Evidenced by Signs and Symptoms Pt has toe wound Is patient on ventilator? No Is Patient Ambulatory and/or Out of Bed No REE-([facility]-confined to bed) [phone] Calculation Used for Recommendations Miguel Frost Additional Notes Protein needs are 85-102g (1-1 .2g/kg) Fluid needs are 1ml/kcal Nutrition Intervention Change Diet Order: Renal consistent CHO Add Supplement/Snack (indicate name/kcal Double protein and non starchy /protein ) vegetables each meal. Goal #1 Meet at least 80% of kcal and protein needs Goal #2 Wound healing Anticipated Discharge Needs: Renal consistent CHO Follow-Up By: 05/12/19 Additional Comments Follow for intakes
--- NOTE | 2019-05-11 13:47 | Progress Note ---
Assessment and Plan Impression: * ESRD on HD * Accelerated HTN: BP at goal * Peripheral vascular disease * Foot ulcer * Secondary Hyperparathyroidism * Anemia in ESRD * Type 2 DM Plan: * continue HD MWF, due tomorrow * if patient is discharged in next 1-2 days, may need extra HD session off schedule as his dialysis unit changed HD schedule this week for Thanksgiving * Surgery input appreciated, follow up PVD workup and potential I&D of foot wound * ID following, recommendations appreciated * Epogen with HD for goal hemoglobin 10-11; no IV iron given infection * Continue current BP regimen * Renal diet * Renally dose medications * Avoid nephrotoxins * Strict i/os Subjective Date of service: 05/11/19 Principal diagnosis: pvd Interval history: Had vascular procedure done this AM. Still feels groggy this afternoon but in good spirits. Denies any complaints currently. No dyspnea, no chest pain. No issues with dialysis. Objective - Exam Narrative Exam: General appearance: alert, pleasant, in no apparent distress Head: atraumatic, normocephalic ENT: mucous membranes moist CV: regular rate and rhythm, S1/S2, no edema Lungs: clear to auscultation bilaterally Neuro: alert, oriented X3, no focal deficits noted Psych: normal affect, normal mood Skin: lower extremity bandage/wrapping noted - Vital Signs Vital signs: Vital Signs - 12hr 05/11/19 05/11/19 05:36 05:37 Temperature 98.9 F Pulse Rate 84 84 Respiratory 18 Rate Blood Pressure 132/78 132/78 O2 Sat by Pulse 97 Oximetry - Lab 05/11/19 06:43 05/09/19 06:25 Most recent lab results Calcium 9.1 mg/dL (8.4-10.2) 05/09/19 06:25 Medications & Allergies - Medications Allergies/Adverse Reactions: Allergies piroxicam Allergy (Verified 05/11/19 08:34) Unknown Home Medications: Home Medications Medication Instructions Recorded Confirmed Last Taken Type Apixaban [Eliquis] 5 mg PO BID 07/01/18 05/08/19 Unknown History cloNIDine-TTS PATCH [Catapres-Tts 1 patch TD Q7D 07/01/18 05/08/19 Unknown History 0.1MG Patch] Amiodarone [Cordarone 200 MG TAB] 200 mg PO DAILY #30 tablet 07/03/18 05/08/19 Unknown Rx Lisinopril [Zestril TAB] 20 mg PO QDAY #30 tablet 07/03/18 05/08/19 Unknown Rx Pravastatin [Pravachol (Nf)] 40 mg PO QHS #30 tablet 07/03/18 05/08/19 Unknown Rx hydrALAZINE [Apresoline TAB] 25 mg PO Q8HR #90 tab 07/03/18 05/08/19 Unknown Rx Insulin Aspart (Nf) [NovoLOG 100 10 unit SQ AC 07/31/18 05/08/19 Unknown History UNITS/ML VIAL] Insulin Glargine [Lantus] 30 units SQ QHS #1 vial 07/31/18 05/08/19 Unknown Rx amLODIPine 5 mg PO QDAY #30 tablet 07/31/18 05/08/19 Unknown Rx Clopidogrel [Plavix] 75 mg PO QDAY #30 tablet 05/11/19 Unknown Rx Pantoprazole [Protonix TAB] 20 mg PO QDAY #30 tablet. 05/11/19 Unknown Rx Active Medications: Generic Name Dose Route Start Last Admin Trade Name Freq PRN Reason Stop Dose Admin Acetaminophen 650 mg 05/08/19 21:40 Tylenol PO Q4H PRN Pain MILD(1-3)/Fever >100.5/PEREZ Albumin Human 25 gm 05/09/19 13:30 Alburx 25% (Albumin) IV PATEL PRN Hypotension Amiodarone HCl 200 mg 05/08/19 22:00 05/10/19 17:15 Cordarone PO 200 mg DAILY RICH Administration Amlodipine Besylate 5 mg 05/08/19 22:00 05/10/19 17:15 Amlodipine PO 5 mg QDAY RICH Administration Apixaban 5 mg 05/11/19 14:00 Eliquis PO Q12HR RICH Protocol Clonidine HCl 0.1 mg 05/08/19 22:00 05/08/19 22:33 Catapres-Tts Patch TD 0.1 mg Sa RICH Administration Clopidogrel Bisulfate 75 mg 05/12/19 10:00 Plavix PO QDAY RICH Epoetin Chet 10,000 unit 05/09/19 13:30 05/10/19 16:16 Procrit IV 10,000 unit PATEL PRN Administration hemodialysis Famotidine 10 mg 05/08/19 22:00 05/10/19 22:22 Pepcid PO 10 mg BID RICH Administration Hydralazine HCl 25 mg 05/08/19 22:00 05/11/19 05:37 Apresoline PO 25 mg Q8HR RICH Administration Hydromorphone HCl 0.5 mg 05/08/19 21:40 Dilaudid IV Q3H PRN Pain , Severe (7-10) Cefepime HCl 1 gm in 100 mls @ 200 mls/hr 05/09/19 13:00 05/10/19 09:37 Cefepime/Ns 1 Gm/100 Ml IV 200 mls/hr Q24HR RICH Administration Protocol Sodium Chloride 100 mls @ 999 mls/hr 05/09/19 18:12 Nacl 0.9% IV PATEL PRN Hypotension Insulin Glargine 30 units 05/08/19 22:00 05/10/19 22:21 Lantus SUB-Q 30 units QHS RICH Administration Insulin Human Lispro 0 unit 05/08/19 22:00 05/11/19 07:30 Humalog SUB-Q 3 unit ACHS RICH Administration Protocol Insulin Human Lispro 5 unit 05/10/19 18:00 05/10/19 18:01 Humalog SUB-Q 5 unit AC RICH Administration Lisinopril 20 mg 05/08/19 22:00 05/10/19 17:15 Zestril PO 20 mg QDAY RICH Administration Metoclopramide HCl 5 mg 05/08/19 22:02 Reglan IV Q6H PRN Nausea And Vomiting Ondansetron HCl 4 mg 05/08/19 21:40 Zofran IV Q3H PRN Nausea And Vomiting Oxycodone/Acetaminophen 1 tab 05/08/19 21:40 Percocet 5/325 PO Q6H PRN Pain, Moderate (4-6) Pantoprazole Sodium 20 mg 05/11/19 12:00 Protonix PO QDAY RICH Pravastatin Sodium 40 mg 05/08/19 22:00 05/10/19 22:22 Pravachol PO 40 mg QHS RICH Administration Sodium Chloride 10 ml 05/08/19 22:00 05/10/19 22:23 Sodium Chloride Flush Syringe 10 Ml IV 10 ml BID RICH Administration Sodium Chloride 10 ml 05/08/19 21:40 Sodium Chloride Flush Syringe 10 Ml IV PRN PRN LINE FLUSH
[2019-05-11] MEDS: PANTOPRAZOLE 20 MG TAB PO SCH (14:09)
[2019-05-11] MEDS: CEFEPIME/NS 1 GM/100 ML 1 GM/100 ML BAG IV SCH (14:09)
[2019-05-11] MEDS: amLODIPine 5 MG TAB PO SCH (14:11)
[2019-05-11] MEDS: AMIODARONE 200 MG TAB PO SCH (14:12)
[2019-05-11] MEDS: APIXABAN 5 MG TAB PO SCH ×2 (14:12→21:55)
[2019-05-11] MEDS: FAMOTIDINE 10 MG TAB PO SCH ×2 (14:34→21:55)
[2019-05-11] MEDS: LISINOPRIL 20 MG TAB PO SCH (14:35)
--- NOTE | 2019-05-11 17:57 | Procedure Note ---
Date of procedure: 05/11/19 Pre-op diagnosis: necrotic, infected left great toe wound Post-op diagnosis: same Procedure: excisional debridement of necrotic left great toe wound Findings: Time out performed. 4% topical lidocaine applied to the wound and left on for several minutes. The area was then prepped with sterile fashion with betadine. The necrotic skin and subcutaneous tissue was excised with a forecep and 15 blade. The entire eschar was removed. There was pinpoint bleeding from the wound bed which was healthy in appearance. No purulent drainage. No tunneling. No tendon or bone exposed. The wound was cleansed with wound cleanser and pressure held to achieve hemostasis. Once hemostasis was ensures, the wound was covered with alginate, dry 4x4 gauze and wrapped with kerlix. The patient tolerated the procedure well. All sharps were disposed of appropriately. Wound measurement predebridement: 7.6x3.8x0.1cm Wound mesurement post debridement: 7.6x3.8x0.5cm Anesthesia: local (topical 4% lidocaine) Surgeon: FATEMEH KIM Estimated blood loss: minimal Pathology: none Condition: stable Disposition: no change
--- NOTE | 2019-05-11 18:03 | Event Note ---
Date: 05/11/19 Patient s/p LLE angiogram with revascularization by Dr. Crain today. He is also s/p debridement of left great toe wound. MRI pending per ID to r/o osteomyelitis and determine course of abx. From surgical standpoint, patient is stable for dc. I discussed follow up in the wound care center upon discharge and will have appointment set up for him prior to dc. The patient will benefit from hyperbaric oxygen therapy as outpatient. Patient is agreeable.
[2019-05-11] MEDS: INSULIN GLARGINE 100 UNITS/ML SUB-Q SCH (21:56)
[2019-05-11] MEDS: PRAVASTATIN 40 MG TAB PO SCH (21:58)
[2019-05-12] MEDS: oxyCODONE /ACETAMINOPHEN 5-325MG TAB PO PRN ×2 (00:11→15:53)
[2019-05-12] MEDS: hydrALAZINE 25 MG TAB PO SCH ×3 (06:27→21:13)
[2019-05-12] MEDS: INSULIN LISPRO 100 UNIT/ML SUB-Q SCH ×7 (07:30→22:57)
[2019-05-12] MEDS: LISINOPRIL 20 MG TAB PO SCH (10:00)
[2019-05-12] MEDS: amLODIPine 5 MG TAB PO SCH (10:00)
[2019-05-12] MEDS: CLOPIDOGREL 75 MG TAB PO SCH (10:00)
[2019-05-12] MEDS: APIXABAN 5 MG TAB PO SCH ×2 (10:00→21:12)
[2019-05-12] MEDS: FAMOTIDINE 10 MG TAB PO SCH ×2 (10:00→21:12)
[2019-05-12] MEDS: AMIODARONE 200 MG TAB PO SCH (10:00)
[2019-05-12] MEDS: PANTOPRAZOLE 20 MG TAB PO SCH (10:00)
--- NOTE | 2019-05-12 11:07 | Progress Note ---
Assessment and Plan Impression: * ESRD on HD * Accelerated HTN: BP at goal * Peripheral vascular disease * Foot ulcer * Secondary Hyperparathyroidism * Anemia in ESRD * Type 2 DM Plan: * continue HD MWF, due today, seen on HD * UF as tolerated * Surgery input appreciated, follow up PVD workup and potential I&D of foot wound * ID following, recommendations appreciated * Epogen with HD for goal hemoglobin 10-11; no IV iron given infection * Continue current BP regimen * Renal diet * Renally dose medications * Avoid nephrotoxins * Strict i/os Subjective Date of service: 05/12/19 Principal diagnosis: pvd Interval history: Had vascular procedure yesterday, feels well since procedure. Seen on HD this AM. No dyspnea, no chest pain. No issues with dialysis including cramping and dizziness. Objective - Exam Narrative Exam: General appearance: alert, pleasant, in no apparent distress Head: atraumatic, normocephalic ENT: mucous membranes moist CV: regular rate and rhythm, S1/S2, no edema Lungs: clear to auscultation bilaterally Neuro: alert, oriented X3, no focal deficits noted Psych: normal affect, normal mood Skin: lower extremity bandage/wrapping noted - Vital Signs Vital signs: Vital Signs - 12hr 05/12/19 05/12/19 04:54 06:27 Temperature 98.4 F Pulse Rate 74 74 Respiratory 20 Rate Blood Pressure 144/80 144/80 O2 Sat by Pulse 98 Oximetry Qb 400ml/min vai AVF - Lab 05/11/19 06:43 05/09/19 06:25 Most recent lab results Calcium 9.1 mg/dL (8.4-10.2) 05/09/19 06:25 Medications & Allergies - Medications Allergies/Adverse Reactions: Allergies piroxicam Allergy (Verified 05/11/19 08:34) Unknown Home Medications: Home Medications Medication Instructions Recorded Confirmed Last Taken Type Apixaban [Eliquis] 5 mg PO BID 07/01/18 05/08/19 Unknown History cloNIDine-TTS PATCH [Catapres-Tts 1 patch TD Q7D 07/01/18 05/08/19 Unknown History 0.1MG Patch] Amiodarone [Cordarone 200 MG TAB] 200 mg PO DAILY #30 tablet 07/03/18 05/08/19 Unknown Rx Lisinopril [Zestril TAB] 20 mg PO QDAY #30 tablet 07/03/18 05/08/19 Unknown Rx Pravastatin [Pravachol (Nf)] 40 mg PO QHS #30 tablet 07/03/18 05/08/19 Unknown Rx hydrALAZINE [Apresoline TAB] 25 mg PO Q8HR #90 tab 07/03/18 05/08/19 Unknown Rx Insulin Aspart (Nf) [NovoLOG 100 10 unit SQ AC 07/31/18 05/08/19 Unknown History UNITS/ML VIAL] Insulin Glargine [Lantus] 30 units SQ QHS #1 vial 07/31/18 05/08/19 Unknown Rx amLODIPine 5 mg PO QDAY #30 tablet 07/31/18 05/08/19 Unknown Rx Clopidogrel [Plavix] 75 mg PO QDAY #30 tablet 05/11/19 Unknown Rx Pantoprazole [Protonix TAB] 20 mg PO QDAY #30 tablet. 05/11/19 Unknown Rx Active Medications: Generic Name Dose Route Start Last Admin Trade Name Freq PRN Reason Stop Dose Admin Acetaminophen 650 mg 05/08/19 21:40 Tylenol PO Q4H PRN Pain MILD(1-3)/Fever >100.5/PEREZ Albumin Human 25 gm 05/09/19 13:30 Alburx 25% (Albumin) IV PATEL PRN Hypotension Amiodarone HCl 200 mg 05/08/19 22:00 05/11/19 14:12 Cordarone PO 200 mg DAILY RICH Administration Amlodipine Besylate 5 mg 05/08/19 22:00 05/11/19 14:11 Amlodipine PO 5 mg QDAY RICH Administration Apixaban 5 mg 05/11/19 14:00 05/11/19 21:55 Eliquis PO 5 mg Q12HR RICH Administration Protocol Clonidine HCl 0.1 mg 05/08/19 22:00 05/08/19 22:33 Catapres-Tts Patch TD 0.1 mg Sa RICH Administration Clopidogrel Bisulfate 75 mg 05/12/19 10:00 Plavix PO QDAY RICH Epoetin Chet 10,000 unit 05/09/19 13:30 05/10/19 16:16 Procrit IV 10,000 unit PATEL PRN Administration hemodialysis Famotidine 10 mg 05/08/19 22:00 05/11/19 21:55 Pepcid PO 10 mg BID RICH Administration Hydralazine HCl 25 mg 05/08/19 22:00 05/12/19 06:27 Apresoline PO 25 mg Q8HR RICH Administration Hydromorphone HCl 0.5 mg 05/08/19 21:40 Dilaudid IV Q3H PRN Pain , Severe (7-10) Cefepime HCl 1 gm in 100 mls @ 200 mls/hr 05/09/19 13:00 05/11/19 14:09 Cefepime/Ns 1 Gm/100 Ml IV 200 mls/hr Q24HR RICH Administration Protocol Sodium Chloride 100 mls @ 999 mls/hr 05/09/19 18:12 Nacl 0.9% IV PATEL PRN Hypotension Insulin Glargine 30 units 05/08/19 22:00 05/11/19 21:56 Lantus SUB-Q 30 units QHS RICH Administration Insulin Human Lispro 0 unit 05/08/19 22:00 05/12/19 07:30 Humalog SUB-Q 2 unit ACHS RICH Administration Protocol Insulin Human Lispro 5 unit 05/10/19 18:00 05/11/19 16:30 Humalog SUB-Q 5 unit AC RICH Administration Lisinopril 20 mg 05/08/19 22:00 05/11/19 14:35 Zestril PO 20 mg QDAY RICH Administration Metoclopramide HCl 5 mg 05/08/19 22:02 Reglan IV Q6H PRN Nausea And Vomiting Ondansetron HCl 4 mg 05/08/19 21:40 Zofran IV Q3H PRN Nausea And Vomiting Oxycodone/Acetaminophen 1 tab 05/08/19 21:40 05/12/19 00:11 Percocet 5/325 PO 1 tab Q6H PRN Administration Pain, Moderate (4-6) Pantoprazole Sodium 20 mg 05/11/19 12:00 05/11/19 14:09 Protonix PO 20 mg QDAY RICH Administration Pravastatin Sodium 40 mg 05/08/19 22:00 05/11/19 21:58 Pravachol PO 40 mg QHS RICH Administration Sodium Chloride 10 ml 05/08/19 22:00 05/11/19 21:58 Sodium Chloride Flush Syringe 10 Ml IV 10 ml BID RICH Administration Sodium Chloride 10 ml 05/08/19 21:40 Sodium Chloride Flush Syringe 10 Ml IV PRN PRN LINE FLUSH
--- NOTE | 2019-05-12 12:20 | Progress Note ---
Assessment and Plan Cultures Blood culture 05/08/19 no growth to date Wound culture 05/08/19 K pneumoniae, S marcescens, P aeruginosa Assessment: 58 yo M PMHx DM2, ESRD on HD admitted with great toe ulceration, possible osteomyelitis. 1. L great toe ulceration - concern for osteomyelitis. Would obtain MRI to determine if bone involvement as this would extend antibiotic course significantly. Continue cefepime for polymicrobial GNR infection pending ID and MICs of isolates. s/p debridement by Dr. Clark 2. DM2 - Tight glycemic control for optimal wound healing. 3. ESRD on HD - renally dose antibiotics as appropriate. Recs: - continue cefepime 2g q24h - follow up MRI of the L great toe - duration pending MRI and debridement findings. [facility] ([facility] M: [phone] O: [phone] F: [phone] Subjective Date of service: 05/12/19 Principal diagnosis: pvd Interval history: Feels well, no complaints today. Afebrile, normal white count. Seen in dialysis Objective - Exam Narrative Exam: General Normal appearance, well developed, no acute distress Eyes - PERRLA, EOM intact ENT - Moist mucous membranes, no lymphadenopathy Neck - No noticeable or palpable swelling, redness or rash around throat or on face Lymph Nodes - No lymphadenopathy Cardiovascular - RRR no m/r/g, no JVD, no carotid bruits Lungs - Clear to auscultation, no use of accessory muscles, no crackles or wheezes. Skin - No rashes, skin warm and dry, no erythematous areas Abdomen - Normal bowel sounds, abdomen soft and nontender Extremities - No edema, cyanosis or clubbing Musculoskeletal - L great toe ulceration Neurological Alert and oriented x 3, CN 2-12 grossly intact. - Constitutional Vitals: Vital Signs Temp Pulse Resp BP Pulse Ox 98.5 F 72 18 141/76 98 05/12/19 09:45 05/12/19 11:30 05/12/19 09:45 05/12/19 11:30 05/12/19 04:54 Temperature -Last 24 Hours Temperature 98.5 F Temperature 98.4 F Temperature 97.4 F Temperature 98.1 F - Labs CBC & Chem 7: 05/11/19 06:43 05/09/19 06:25 Labs: Abnormal lab results 05/11/19 05/11/19 05/11/19 Range/Units 13:36 17:19 21:23 POC Glucose 167 H 251 H 151 H (70-105) 05/12/19 Range/Units 08:07 POC Glucose 162 H (70-105)
--- NOTE | 2019-05-12 12:50 | Progress Note ---
Assessment and Plan Assessment and plan: Patient with a history of end-stage renal disease on hemodialysis, diabetes and peripheral vascular disease who presents with nonhealing left first toe wound for 2 weeks. Arterial ultrasound demonstrates monophasic tibial flow - vascular consulted. Cx growing gm -ve rods, MRI foot ordered. Diabetic infection of left foot ID consult requested, Wound cultures noted Wound cx + GNR. XR no osteo. stop clindamycin, started renally adjusted cefepime. Peripheral arterial disease s/p angioplasty 05/11 Paroxysmal atrial fibrillation Patient on amiodarone and on ELIQUIS - Insulin dependent diabetes mellitus Continue home insulin and coverage and adjust insulin dosage hemoglobin A1c - 8.9 HTN (hypertension), Continue antihypertensives HLD (hyperlipidemia), Continue statins ESRD (end stage renal disease) on dialysis Continue hemodialysis as per schedule Seen in doalysis unit today Anemia, Secondary to chronic kidney disease, Monitor h/h Legally blind, supportive care DVT prophylaxis Patient on ELIQUIS and GI prophylaxis History Interval history: vascular procedure yesterday, 05/11 Hospitalist Physical - Physical exam Narrative exam: Gen: Not in acute distress, lying in bed HEENT: Normocephalic, atraumatic Neck: supple, no JVD Heart: S1 and S2 reg, no murmurs, rubs or gallop Lungs: Clear to auscultation bilaterally, Abd: soft, non tender, non distended, normal BS, Ext: Dressing over left foot ulcer, no clubbing, no cyanosis Neuro: Awake, alert, oriented X 3, - Constitutional Vitals: Temp Pulse Resp BP Pulse Ox 98.5 F 72 18 141/76 98 05/12/19 09:45 05/12/19 11:30 05/12/19 09:45 05/12/19 11:30 05/12/19 04:54 General appearance: Present: no acute distress Results - Labs CBC & Chem 7: 05/11/19 06:43 05/09/19 06:25 Labs: Laboratory Last Values WBC 6.4 K/mm3 (4.5-11.0) 05/11/19 06:43 RBC 3.40 M/mm3 (3.65-5.03) L 05/11/19 06:43 Hgb 9.9 gm/dl (11.8-15.2) L 05/11/19 06:43 Hct 30.9 % (35.5-45.6) L 05/11/19 06:43 MCV 91 fl (84-94) 05/11/19 06:43 MCH 29 pg (28-32) 05/11/19 06:43 MCHC 32 % (32-34) 05/11/19 06:43 RDW 15.8 % (13.2-15.2) H 05/11/19 06:43 Plt Count 305 K/mm3 (140-440) 05/11/19 06:43 Lymph % (Auto) Management Retail Intern 05/09/19 06:25 [place] % (Auto) Management Retail Intern 05/09/19 06:25 Eos % (Auto) Management Retail Intern 05/09/19 06:25 Baso % (Auto) Management Retail Intern 05/09/19 06:25 Lymph # Management Retail Intern 05/09/19 06:25 [place] # Management Retail Intern 05/09/19 06:25 Eos # Management Retail Intern 05/09/19 06:25 Baso # Management Retail Intern 05/09/19 06:25 Add Manual Diff Complete 05/08/19 12:14 Total Counted 100 05/08/19 12:14 Seg Neutrophils % Management Retail Intern 05/09/19 06:25 Seg Neuts % (Manual) 74.0 % (40.0-70.0) H 05/08/19 12:14 Band Neutrophils % 2.0 % 05/08/19 12:14 Lymphocytes % (Manual) 17.0 % (13.4-35.0) 05/08/19 12:14 Reactive Lymphs % (Man) 0 % 05/08/19 12:14 Monocytes % (Manual) 5.0 % (0.0-7.3) 05/08/19 12:14 Eosinophils % (Manual) 2.0 % (0.0-4.3) 05/08/19 12:14 Basophils % (Manual) 0 % (0.0-1.8) 05/08/19 12:14 Metamyelocytes % 0 % 05/08/19 12:14 Myelocytes % 0 % 05/08/19 12:14 Promyelocytes % 0 % 05/08/19 12:14 Blast Cells % 0 % 05/08/19 12:14 Nucleated RBC % Not Reportable 05/08/19 12:14 Seg Neutrophils # Management Retail Intern 05/09/19 06:25 Seg Neutrophils # Man 6.0 K/mm3 (1.8-7.7) 05/08/19 12:14 Band Neutrophils # 0.2 K/mm3 05/08/19 12:14 Lymphocytes # (Manual) 1.4 K/mm3 (1.2-5.4) 05/08/19 12:14 Abs React Lymphs (Man) 0.0 K/mm3 05/08/19 12:14 Monocytes # (Manual) 0.4 K/mm3 (0.0-0.8) 05/08/19 12:14 Eosinophils # (Manual) 0.2 K/mm3 (0.0-0.4) 05/08/19 12:14 Basophils # (Manual) 0.0 K/mm3 (0.0-0.1) 05/08/19 12:14 Metamyelocytes # 0.0 K/mm3 05/08/19 12:14 Myelocytes # 0.0 K/mm3 05/08/19 12:14 Promyelocytes # 0.0 K/mm3 05/08/19 12:14 Blast Cells # 0.0 K/mm3 05/08/19 12:14 WBC Morphology Not Reportable 05/08/19 12:14 Hypersegmented Neuts Not Reportable 05/08/19 12:14 Hyposegmented Neuts Not Reportable 05/08/19 12:14 Hypogranular Neuts Not Reportable 05/08/19 12:14 Smudge Cells Not Reportable 05/08/19 12:14 Toxic Granulation Not Reportable 05/08/19 12:14 Toxic Vacuolation Not Reportable 05/08/19 12:14 Dohle Bodies Not Reportable 05/08/19 12:14 Pelger-Huet Anomaly Not Reportable 05/08/19 12:14 Pita Rods Not Reportable 05/08/19 12:14 Platelet Estimate Consistent w auto 05/08/19 12:14 Clumped Platelets Not Reportable 05/08/19 12:14 Plt Clumps, EDTA Not Reportable 05/08/19 12:14 Large Platelets Not Reportable 05/08/19 12:14 Giant Platelets Not Reportable 05/08/19 12:14 Platelet Satelliting Not Reportable 05/08/19 12:14 Plt Morphology Comment Not Reportable 05/08/19 12:14 RBC Morphology Not Reportable 05/08/19 12:14 Dimorphic RBCs Not Reportable 05/08/19 12:14 Polychromasia Not Reportable 05/08/19 12:14 Hypochromasia Not Reportable 05/08/19 12:14 Poikilocytosis Not Reportable 05/08/19 12:14 Anisocytosis Few 05/08/19 12:14 Microcytosis Not Reportable 05/08/19 12:14 Macrocytosis Few 05/08/19 12:14 Spherocytes Not Reportable 05/08/19 12:14 Pappenheimer Bodies Not Reportable 05/08/19 12:14 Sickle Cells Not Reportable 05/08/19 12:14 Target Cells Not Reportable 05/08/19 12:14 Tear Drop Cells Not Reportable 05/08/19 12:14 Ovalocytes Not Reportable 05/08/19 12:14 Helmet Cells Not Reportable 05/08/19 12:14 Salgado-Yetter Bodies Not Reportable 05/08/19 12:14 Bynum Rings Not Reportable 05/08/19 12:14 Azalea Cells Not Reportable 05/08/19 12:14 Bite Cells Not Reportable 05/08/19 12:14 Crenated Cell Not Reportable 05/08/19 12:14 Elliptocytes Not Reportable 05/08/19 12:14 Acanthocytes (Spur) Not Reportable 05/08/19 12:14 Rouleaux Not Reportable 05/08/19 12:14 Hemoglobin C Crystals Not Reportable 05/08/19 12:14 Schistocytes Not Reportable 05/08/19 12:14 Malaria parasites Not Reportable 05/08/19 12:14 Tushar Bodies Not Reportable 05/08/19 12:14 Hem Pathologist Commnt No 05/08/19 12:14 PT 13.1 Sec. (12.2-14.9) 05/11/19 06:43 INR 1.00 (0.87-1.13) 05/11/19 06:43 Sodium 137 mmol/L (137-145) 05/09/19 06:25 Potassium 4.4 mmol/L (3.6-5.0) 05/09/19 06:25 Chloride 99.8 mmol/L (98-107) 05/09/19 06:25 Carbon Dioxide 20 mmol/L (22-30) L 05/09/19 06:25 Anion Gap 22 mmol/L 05/09/19 06:25 BUN 49 mg/dL (9-20) H 05/09/19 06:25 Creatinine 6.1 mg/dL (0.8-1.5) H 05/09/19 06:25 Estimated GFR 12 ml/min 05/09/19 06:25 BUN/Creatinine Ratio 8 % 05/09/19 06:25 Glucose 239 mg/dL (75-100) H 05/09/19 06:25 POC Glucose 162 (70-105) H 05/12/19 08:07 Hemoglobin A1c 8.9 % (4-6) H 05/08/19 22:03 Calcium 9.1 mg/dL (8.4-10.2) 05/09/19 06:25 Total Bilirubin 0.20 mg/dL (0.1-1.2) 05/09/19 06:25 Direct Bilirubin < 0.2 mg/dL (0-0.2) 05/08/19 12:14 Indirect Bilirubin 0.0 mg/dL 05/08/19 12:14 AST 10 units/L (5-40) 05/09/19 06:25 ALT 6 units/L (7-56) L 05/09/19 06:25 Alkaline Phosphatase 90 units/L (35-129) 05/09/19 06:25 Total Protein 7.7 g/dL (6.3-8.2) 05/09/19 06:25 Albumin 3.5 g/dL (3.9-5) L 05/09/19 06:25 Albumin/Globulin Ratio 0.8 % 05/09/19 06:25 Hepatitis A IgM Ab Non-reactive (NonReactive) 05/09/19 21:14 Hep Bs Antigen Non-reactive (Negative) 05/09/19 21:14 Hep B Core IgM Ab Non-reactive (NonReactive) 05/09/19 21:14 Hepatitis C Antibody Non-reactive (NonReactive) 05/09/19 21:14 Active Medications - Current Medications Current Medications: Generic Name Dose Route Start Last Admin Trade Name Freq PRN Reason Stop Dose Admin Acetaminophen 650 mg 05/08/19 21:40 Tylenol PO Q4H PRN Pain MILD(1-3)/Fever >100.5/PEREZ Albumin Human 25 gm 05/09/19 13:30 Alburx 25% (Albumin) IV PATEL PRN Hypotension Amiodarone HCl 200 mg 05/08/19 22:00 05/11/19 14:12 Cordarone PO 200 mg DAILY RICH Administration Amlodipine Besylate 5 mg 05/08/19 22:00 05/11/19 14:11 Amlodipine PO 5 mg QDAY RICH Administration Apixaban 5 mg 05/11/19 14:00 05/11/19 21:55 Eliquis PO 5 mg Q12HR RICH Administration Protocol Clonidine HCl 0.1 mg 05/08/19 22:00 05/08/19 22:33 Catapres-Tts Patch TD 0.1 mg Sa RICH Administration Clopidogrel Bisulfate 75 mg 05/12/19 10:00 Plavix PO QDAY RICH Epoetin Chet 10,000 unit 05/09/19 13:30 05/10/19 16:16 Procrit IV 10,000 unit PATEL PRN Administration hemodialysis Famotidine 10 mg 05/08/19 22:00 05/11/19 21:55 Pepcid PO 10 mg BID RICH Administration Hydralazine HCl 25 mg 05/08/19 22:00 05/12/19 06:27 Apresoline PO 25 mg Q8HR RICH Administration Hydromorphone HCl 0.5 mg 05/08/19 21:40 Dilaudid IV Q3H PRN Pain , Severe (7-10) Cefepime HCl 1 gm in 100 mls @ 200 mls/hr 05/09/19 13:00 05/11/19 14:09 Cefepime/Ns 1 Gm/100 Ml IV 200 mls/hr Q24HR RICH Administration Protocol Sodium Chloride 100 mls @ 999 mls/hr 05/09/19 18:12 Nacl 0.9% IV PATEL PRN Hypotension Insulin Glargine 30 units 05/08/19 22:00 05/11/19 21:56 Lantus SUB-Q 30 units QHS RICH Administration Insulin Human Lispro 0 unit 05/08/19 22:00 05/12/19 07:30 Humalog SUB-Q 2 unit ACHS RICH Administration Protocol Insulin Human Lispro 5 unit 05/10/19 18:00 05/11/19 16:30 Humalog SUB-Q 5 unit AC RICH Administration Lisinopril 20 mg 05/08/19 22:00 05/11/19 14:35 Zestril PO 20 mg QDAY RICH Administration Metoclopramide HCl 5 mg 05/08/19 22:02 Reglan IV Q6H PRN Nausea And Vomiting Ondansetron HCl 4 mg 05/08/19 21:40 Zofran IV Q3H PRN Nausea And Vomiting Oxycodone/Acetaminophen 1 tab 05/08/19 21:40 05/12/19 00:11 Percocet 5/325 PO 1 tab Q6H PRN Administration Pain, Moderate (4-6) Pantoprazole Sodium 20 mg 05/11/19 12:00 05/11/19 14:09 Protonix PO 20 mg QDAY RICH Administration Pravastatin Sodium 40 mg 05/08/19 22:00 05/11/19 21:58 Pravachol PO 40 mg QHS RICH Administration Sodium Chloride 10 ml 05/08/19 22:00 05/11/19 21:58 Sodium Chloride Flush Syringe 10 Ml IV 10 ml BID RICH Administration Sodium Chloride 10 ml 05/08/19 21:40 Sodium Chloride Flush Syringe 10 Ml IV PRN PRN LINE FLUSH Nutrition/Malnutrition Assess - Dietary Evaluation Nutrition/Malnutrition Findings: Nutrition Notes Start: 05/09/19 10:58 Freq: Status: Active Protocol: Document 05/12/19 09:28 LP (Rec: 05/12/19 09:36 LP [id number]) Nutrition Notes Initial or Follow up Reassessment Current Diagnosis CKD (stage V CKD),Diabetes, Hypertension,Heart Failure Other Pertinent Diagnosis on HD, toe wound Current Diet Renal Labs/Tests Reviewed Pertinent Medications Reviewed Height 5 ft 11 in Weight 87.5 kg [place] Body Weight (kg) 78.18 BMI 26.9 Subjective/Other Information Pt eating well, consuming 100% of meals. Percent of energy/protein needs met: 100% / 100% Burn Absent Trauma Absent Current % PO Good (75-100%) Minimum of two criteria No physical signs of malnutrition #1 Nutrition Diagnosis Increased nutrient needs ( specify in comment below) Diagnosis Progress(for reassessment Continues documentation) Is patient on ventilator? No Is Patient Ambulatory and/or Out of Bed No REE-([facility] [place]-confined to bed) [phone] Calculation Used for Recommendations [facility] Additional Notes Protein needs are 85-102g (1-1 .2g/kg) Fluid needs are 1ml/kcal Nutrition Intervention Change Diet Order: Renal consistent CHO Add Supplement/Snack (indicate name/kcal Double protein and non starchy /protein ) vegetables each meal. Goal #1 Continue to meet at least 80% of kcal and protein needs Goal #2 Wound healing Anticipated Discharge Needs: Renal consistent CHO Follow-Up By: 05/19/19 Additional Comments Follow for stable intakes, wound healing
[2019-05-12] MEDS ORDERED: SODIUM CHLORIDE*PRIMING MACHINE ONLY FOR DIALYSIS MC ONE (12:55)
[2019-05-12] MEDS: EPOETIN ALFA 10,000 UNIT/1 ML INJ IV PRN (13:28)
[2019-05-12] MEDS: CEFEPIME/NS 1 GM/100 ML 1 GM/100 ML BAG IV SCH (15:07)
[2019-05-12] MEDS: PRAVASTATIN 40 MG TAB PO SCH (22:57)
[2019-05-12] MEDS: INSULIN GLARGINE 100 UNITS/ML SUB-Q SCH (22:58)
[2019-05-13] MEDS: oxyCODONE /ACETAMINOPHEN 5-325MG TAB PO PRN ×2 (02:22→14:59)
[2019-05-13] MEDS: hydrALAZINE 25 MG TAB PO SCH ×3 (05:18→21:45)
[2019-05-13] MEDS: INSULIN LISPRO 100 UNIT/ML SUB-Q SCH ×7 (08:06→21:47)
[2019-05-13] MEDS: PANTOPRAZOLE 20 MG TAB PO SCH (10:21)
[2019-05-13] MEDS: APIXABAN 5 MG TAB PO SCH ×2 (10:21→21:46)
[2019-05-13] MEDS: LISINOPRIL 20 MG TAB PO SCH (10:21)
[2019-05-13] MEDS: FAMOTIDINE 10 MG TAB PO SCH ×2 (10:21→21:54)
[2019-05-13] MEDS: CLOPIDOGREL 75 MG TAB PO SCH (10:21)
[2019-05-13] MEDS: CEFEPIME/NS 1 GM/100 ML 1 GM/100 ML BAG IV SCH (10:22)
[2019-05-13] MEDS: amLODIPine 5 MG TAB PO SCH (10:22)
[2019-05-13] MEDS: AMIODARONE 200 MG TAB PO SCH (10:22)
--- NOTE | 2019-05-13 13:56 | Progress Note ---
Assessment and Plan Assessment and plan: Patient with a history of end-stage renal disease on hemodialysis, diabetes and peripheral vascular disease who presents with nonhealing left first toe wound for 2 weeks. Arterial ultrasound demonstrates monophasic tibial flow - vascular consulted. Cx growing gm -ve rods, MRI foot ordered. Diabetic infection of left foot ID consult requested, Wound cultures noted Wound cx + GNR. XR no osteo. stop clindamycin, started renally adjusted cefepime. For MRI foot Peripheral arterial disease s/p angioplasty 05/11 Paroxysmal atrial fibrillation Patient on amiodarone and on ELIQUIS - Insulin dependent diabetes mellitus Continue home insulin and coverage and adjust insulin dosage hemoglobin A1c - 8.9 HTN (hypertension), Continue antihypertensives HLD (hyperlipidemia), Continue statins ESRD (end stage renal disease) on dialysis Continue hemodialysis as per schedule Anemia, Secondary to chronic kidney disease, Monitor h/h Legally blind, supportive care DVT prophylaxis Patient on ELIQUIS and GI prophylaxis History Interval history: vascular procedure 05/11 Hospitalist Physical - Physical exam Narrative exam: Gen: Not in acute distress, lying in bed HEENT: Normocephalic, atraumatic Neck: supple, no JVD Heart: S1 and S2 reg, no murmurs, rubs or gallop Lungs: Clear to auscultation bilaterally, Abd: soft, non tender, non distended, normal BS, Ext: Dressing over left foot ulcer, no clubbing, no cyanosis Neuro: Awake, alert, oriented X 3, - Constitutional Vitals: Temp Pulse Resp BP Pulse Ox 99.5 F 86 22 144/76 95 05/13/19 11:59 05/13/19 11:59 05/13/19 11:59 05/13/19 11:59 05/13/19 11:59 General appearance: Present: no acute distress Results - Labs CBC & Chem 7: 05/11/19 06:43 05/09/19 06:25 Labs: Laboratory Last Values WBC 6.4 K/mm3 (4.5-11.0) 05/11/19 06:43 RBC 3.40 M/mm3 (3.65-5.03) L 05/11/19 06:43 Hgb 9.9 gm/dl (11.8-15.2) L 05/11/19 06:43 Hct 30.9 % (35.5-45.6) L 05/11/19 06:43 MCV 91 fl (84-94) 05/11/19 06:43 MCH 29 pg (28-32) 05/11/19 06:43 MCHC 32 % (32-34) 05/11/19 06:43 RDW 15.8 % (13.2-15.2) H 05/11/19 06:43 Plt Count 305 K/mm3 (140-440) 05/11/19 06:43 Lymph % (Auto) Director Center 05/09/19 06:25 [place] % (Auto) Director Center 05/09/19 06:25 Eos % (Auto) Director Center 05/09/19 06:25 Baso % (Auto) Director Center 05/09/19 06:25 Lymph # Director Center 05/09/19 06:25 [place] # Director Center 05/09/19 06:25 Eos # Director Center 05/09/19 06:25 Baso # Director Center 05/09/19 06:25 Add Manual Diff Complete 05/08/19 12:14 Total Counted 100 05/08/19 12:14 Seg Neutrophils % Director Center 05/09/19 06:25 Seg Neuts % (Manual) 74.0 % (40.0-70.0) H 05/08/19 12:14 Band Neutrophils % 2.0 % 05/08/19 12:14 Lymphocytes % (Manual) 17.0 % (13.4-35.0) 05/08/19 12:14 Reactive Lymphs % (Man) 0 % 05/08/19 12:14 Monocytes % (Manual) 5.0 % (0.0-7.3) 05/08/19 12:14 Eosinophils % (Manual) 2.0 % (0.0-4.3) 05/08/19 12:14 Basophils % (Manual) 0 % (0.0-1.8) 05/08/19 12:14 Metamyelocytes % 0 % 05/08/19 12:14 Myelocytes % 0 % 05/08/19 12:14 Promyelocytes % 0 % 05/08/19 12:14 Blast Cells % 0 % 05/08/19 12:14 Nucleated RBC % Not Reportable 05/08/19 12:14 Seg Neutrophils # Director Center 05/09/19 06:25 Seg Neutrophils # Man 6.0 K/mm3 (1.8-7.7) 05/08/19 12:14 Band Neutrophils # 0.2 K/mm3 05/08/19 12:14 Lymphocytes # (Manual) 1.4 K/mm3 (1.2-5.4) 05/08/19 12:14 Abs React Lymphs (Man) 0.0 K/mm3 05/08/19 12:14 Monocytes # (Manual) 0.4 K/mm3 (0.0-0.8) 05/08/19 12:14 Eosinophils # (Manual) 0.2 K/mm3 (0.0-0.4) 05/08/19 12:14 Basophils # (Manual) 0.0 K/mm3 (0.0-0.1) 05/08/19 12:14 Metamyelocytes # 0.0 K/mm3 05/08/19 12:14 Myelocytes # 0.0 K/mm3 05/08/19 12:14 Promyelocytes # 0.0 K/mm3 05/08/19 12:14 Blast Cells # 0.0 K/mm3 05/08/19 12:14 WBC Morphology Not Reportable 05/08/19 12:14 Hypersegmented Neuts Not Reportable 05/08/19 12:14 Hyposegmented Neuts Not Reportable 05/08/19 12:14 Hypogranular Neuts Not Reportable 05/08/19 12:14 Smudge Cells Not Reportable 05/08/19 12:14 Toxic Granulation Not Reportable 05/08/19 12:14 Toxic Vacuolation Not Reportable 05/08/19 12:14 Dohle Bodies Not Reportable 05/08/19 12:14 Pelger-Huet Anomaly Not Reportable 05/08/19 12:14 Pita Rods Not Reportable 05/08/19 12:14 Platelet Estimate Consistent w auto 05/08/19 12:14 Clumped Platelets Not Reportable 05/08/19 12:14 Plt Clumps, EDTA Not Reportable 05/08/19 12:14 Large Platelets Not Reportable 05/08/19 12:14 Giant Platelets Not Reportable 05/08/19 12:14 Platelet Satelliting Not Reportable 05/08/19 12:14 Plt Morphology Comment Not Reportable 05/08/19 12:14 RBC Morphology Not Reportable 05/08/19 12:14 Dimorphic RBCs Not Reportable 05/08/19 12:14 Polychromasia Not Reportable 05/08/19 12:14 Hypochromasia Not Reportable 05/08/19 12:14 Poikilocytosis Not Reportable 05/08/19 12:14 Anisocytosis Few 05/08/19 12:14 Microcytosis Not Reportable 05/08/19 12:14 Macrocytosis Few 05/08/19 12:14 Spherocytes Not Reportable 05/08/19 12:14 Pappenheimer Bodies Not Reportable 05/08/19 12:14 Sickle Cells Not Reportable 05/08/19 12:14 Target Cells Not Reportable 05/08/19 12:14 Tear Drop Cells Not Reportable 05/08/19 12:14 Ovalocytes Not Reportable 05/08/19 12:14 Helmet Cells Not Reportable 05/08/19 12:14 [place] Bodies Not Reportable 05/08/19 12:14 [place] Rings Not Reportable 05/08/19 12:14 Azalea Cells Not Reportable 05/08/19 12:14 Bite Cells Not Reportable 05/08/19 12:14 Crenated Cell Not Reportable 05/08/19 12:14 Elliptocytes Not Reportable 05/08/19 12:14 Acanthocytes (Spur) Not Reportable 05/08/19 12:14 Rouleaux Not Reportable 05/08/19 12:14 Hemoglobin C Crystals Not Reportable 05/08/19 12:14 Schistocytes Not Reportable 05/08/19 12:14 Malaria parasites Not Reportable 05/08/19 12:14 Tushar Bodies Not Reportable 05/08/19 12:14 Hem Pathologist Commnt No 05/08/19 12:14 PT 13.1 Sec. (12.2-14.9) 05/11/19 06:43 INR 1.00 (0.87-1.13) 05/11/19 06:43 Sodium 137 mmol/L (137-145) 05/09/19 06:25 Potassium 4.4 mmol/L (3.6-5.0) 05/09/19 06:25 Chloride 99.8 mmol/L (98-107) 05/09/19 06:25 Carbon Dioxide 20 mmol/L (22-30) L 05/09/19 06:25 Anion Gap 22 mmol/L 05/09/19 06:25 BUN 49 mg/dL (9-20) H 05/09/19 06:25 Creatinine 6.1 mg/dL (0.8-1.5) H 05/09/19 06:25 Estimated GFR 12 ml/min 05/09/19 06:25 BUN/Creatinine Ratio 8 % 05/09/19 06:25 Glucose 239 mg/dL (75-100) H 05/09/19 06:25 POC Glucose 96 (70-105) 05/13/19 11:25 Hemoglobin A1c 8.9 % (4-6) H 05/08/19 22:03 Calcium 9.1 mg/dL (8.4-10.2) 05/09/19 06:25 Total Bilirubin 0.20 mg/dL (0.1-1.2) 05/09/19 06:25 Direct Bilirubin < 0.2 mg/dL (0-0.2) 05/08/19 12:14 Indirect Bilirubin 0.0 mg/dL 05/08/19 12:14 AST 10 units/L (5-40) 05/09/19 06:25 ALT 6 units/L (7-56) L 05/09/19 06:25 Alkaline Phosphatase 90 units/L (35-129) 05/09/19 06:25 Total Protein 7.7 g/dL (6.3-8.2) 05/09/19 06:25 Albumin 3.5 g/dL (3.9-5) L 05/09/19 06:25 Albumin/Globulin Ratio 0.8 % 05/09/19 06:25 Hepatitis A IgM Ab Non-reactive (NonReactive) 05/09/19 21:14 Hep Bs Antigen Non-reactive (Negative) 05/09/19 21:14 Hep B Core IgM Ab Non-reactive (NonReactive) 05/09/19 21:14 Hepatitis C Antibody Non-reactive (NonReactive) 05/09/19 21:14 Active Medications - Current Medications Current Medications: Generic Name Dose Route Start Last Admin Trade Name Freq PRN Reason Stop Dose Admin Acetaminophen 650 mg 05/08/19 21:40 Tylenol PO Q4H PRN Pain MILD(1-3)/Fever >100.5/PEREZ Albumin Human 25 gm 05/09/19 13:30 Alburx 25% (Albumin) IV PATEL PRN Hypotension Amiodarone HCl 200 mg 05/08/19 22:00 05/13/19 10:22 Cordarone PO 200 mg DAILY RICH Administration Amlodipine Besylate 5 mg 05/08/19 22:00 05/13/19 10:22 Amlodipine PO 5 mg QDAY RICH Administration Apixaban 5 mg 05/11/19 14:00 05/13/19 10:21 Eliquis PO 5 mg Q12HR RICH Administration Protocol Clonidine HCl 0.1 mg 05/08/19 22:00 05/08/19 22:33 Catapres-Tts Patch TD 0.1 mg Sa RICH Administration Clopidogrel Bisulfate 75 mg 05/12/19 10:00 05/13/19 10:21 Plavix PO 75 mg QDAY [facility] Administration Epoetin Chet 10,000 unit 05/09/19 13:30 05/12/19 13:28 Procrit IV 10,000 unit PATEL PRN Administration hemodialysis Famotidine 10 mg 05/08/19 22:00 05/13/19 10:21 Pepcid PO 10 mg BID RICH Administration Hydralazine HCl 25 mg 05/08/19 22:00 05/13/19 05:18 Apresoline PO 25 mg Q8HR RICH Administration Hydromorphone HCl 0.5 mg 05/08/19 21:40 Dilaudid IV Q3H PRN Pain , Severe (7-10) Cefepime HCl 1 gm in 100 mls @ 200 mls/hr 05/09/19 13:00 05/13/19 10:22 Cefepime/Ns 1 Gm/100 Ml IV 200 mls/hr Q24HR [facility] Administration Protocol Sodium Chloride 100 mls @ 999 mls/hr 05/09/19 18:12 Nacl 0.9% IV PATEL PRN Hypotension Insulin Glargine 30 units 05/08/19 22:00 05/12/19 22:58 Lantus SUB-Q 30 units QHS RICH Administration Insulin Human Lispro 0 unit 05/08/19 22:00 05/13/19 13:22 Humalog SUB-Q Not Given ACHS [facility] Protocol Insulin Human Lispro 5 unit 05/10/19 18:00 05/13/19 13:22 Humalog SUB-Q Not Given AC [facility] Lisinopril 20 mg 05/08/19 22:00 05/13/19 10:21 Zestril PO 20 mg QDAY RICH Administration Metoclopramide HCl 5 mg 05/08/19 22:02 Reglan IV Q6H PRN Nausea And Vomiting Ondansetron HCl 4 mg 05/08/19 21:40 05/12/19 17:43 Zofran IV 4 mg Q3H PRN Administration Nausea And Vomiting Oxycodone/Acetaminophen 1 tab 05/08/19 21:40 05/13/19 02:22 Percocet 5/325 PO 1 tab Q6H PRN Administration Pain, Moderate (4-6) Pantoprazole Sodium 20 mg 05/11/19 12:00 05/13/19 10:21 Protonix PO 20 mg QDAY RICH Administration Pravastatin Sodium 40 mg 05/08/19 22:00 05/12/19 22:57 Pravachol PO 40 mg QHS RICH Administration Sodium Chloride 10 ml 05/08/19 22:00 05/13/19 10:22 Sodium Chloride Flush Syringe 10 Ml IV 10 ml BID RICH Administration Sodium Chloride 10 ml 05/08/19 21:40 Sodium Chloride Flush Syringe 10 Ml IV PRN PRN LINE FLUSH Nutrition/Malnutrition Assess - Dietary Evaluation Nutrition/Malnutrition Findings: Nutrition Notes Start: 05/09/19 10:58 Freq: Status: Active Protocol: Document 05/12/19 09:28 LP (Rec: 05/12/19 09:36 LP [id number]) Nutrition Notes Initial or Follow up Reassessment Current Diagnosis CKD (stage V CKD),Diabetes, Hypertension,Heart Failure Other Pertinent Diagnosis on HD, toe wound Current Diet Renal Labs/Tests Reviewed Pertinent Medications Reviewed Height 5 ft 11 in Weight 87.5 kg [place] Body Weight (kg) 78.18 BMI 26.9 Subjective/Other Information Pt eating well, consuming 100% of meals. Percent of energy/protein needs met: 100% / 100% Burn Absent Trauma Absent Current % PO Good (75-100%) Minimum of two criteria No physical signs of malnutrition #1 Nutrition Diagnosis Increased nutrient needs ( specify in comment below) Diagnosis Progress(for reassessment Continues documentation) Is patient on ventilator? No Is Patient Ambulatory and/or Out of Bed No REE-([facility]-confined to bed) [phone] Calculation Used for Recommendations [facility] Additional Notes Protein needs are 85-102g (1-1 .2g/kg) Fluid needs are 1ml/kcal Nutrition Intervention Change Diet Order: Renal consistent CHO Add Supplement/Snack (indicate name/kcal Double protein and non starchy /protein ) vegetables each meal. Goal #1 Continue to meet at least 80% of kcal and protein needs Goal #2 Wound healing Anticipated Discharge Needs: Renal consistent CHO Follow-Up By: 05/19/19 Additional Comments Follow for stable intakes, wound healing
--- NOTE | 2019-05-13 16:39 | Progress Note ---
Assessment and Plan Impression: * ESRD on HD * Accelerated HTN: BP at goal * Peripheral vascular disease * Foot ulcer * Secondary Hyperparathyroidism * Anemia in ESRD * Type 2 DM Plan: * continue HD MWF, due tomorrow * UF as tolerated * Surgery input appreciated, follow up PVD workup and potential I&D of foot wound * ID following, recommendations appreciated * Epogen with HD for goal hemoglobin 10-11; no IV iron given infection * Continue current BP regimen * Renal diet * Renally dose medications * Avoid nephrotoxins * Strict i/os Subjective Date of service: 05/13/19 Principal diagnosis: pvd Interval history: Doing well today; awaiting MRI but likely not to be done today. No dyspnea, no chest pain. No issues with dialysis including cramping and dizziness. Objective - Exam Narrative Exam: General appearance: alert, pleasant, in no apparent distress Head: atraumatic, normocephalic ENT: mucous membranes moist CV: regular rate and rhythm, S1/S2, no edema Lungs: clear to auscultation bilaterally Neuro: alert, oriented X3, no focal deficits noted Psych: normal affect, normal mood Skin: lower extremity bandage/wrapping noted - Vital Signs Vital signs: Vital Signs - 12hr 05/13/19 05/13/19 05/13/19 05:09 05:18 10:20 Temperature 99.5 F 98.3 F Pulse Rate 84 84 87 Respiratory 20 18 Rate Blood Pressure 156/83 153/83 155/82 O2 Sat by Pulse 96 100 Oximetry 05/13/19 05/13/19 05/13/19 10:21 11:59 14:03 Temperature 99.5 F Pulse Rate 87 86 86 Respiratory 22 Rate Blood Pressure 155/82 144/76 144/76 O2 Sat by Pulse 95 Oximetry - Lab 05/11/19 06:43 05/09/19 06:25 Most recent lab results Calcium 9.1 mg/dL (8.4-10.2) 05/09/19 06:25 Medications & Allergies - Medications Allergies/Adverse Reactions: Allergies piroxicam Allergy (Verified 05/11/19 08:34) Unknown Home Medications: Home Medications Medication Instructions Recorded Confirmed Last Taken Type Apixaban [Eliquis] 5 mg PO BID 07/01/18 05/08/19 Unknown History cloNIDine-TTS PATCH [Catapres-Tts 1 patch TD Q7D 07/01/18 05/08/19 Unknown History 0.1MG Patch] Amiodarone [Cordarone 200 MG TAB] 200 mg PO DAILY #30 tablet 07/03/18 05/08/19 Unknown Rx Lisinopril [Zestril TAB] 20 mg PO QDAY #30 tablet 07/03/18 05/08/19 Unknown Rx Pravastatin [Pravachol (Nf)] 40 mg PO QHS #30 tablet 07/03/18 05/08/19 Unknown Rx hydrALAZINE [Apresoline TAB] 25 mg PO Q8HR #90 tab 07/03/18 05/08/19 Unknown Rx Insulin Aspart (Nf) [NovoLOG 100 10 unit SQ AC 07/31/18 05/08/19 Unknown History UNITS/ML VIAL] Insulin Glargine [Lantus] 30 units SQ QHS #1 vial 07/31/18 05/08/19 Unknown Rx amLODIPine 5 mg PO QDAY #30 tablet 07/31/18 05/08/19 Unknown Rx Clopidogrel [Plavix] 75 mg PO QDAY #30 tablet 05/11/19 Unknown Rx Pantoprazole [Protonix TAB] 20 mg PO QDAY #30 tablet. 05/11/19 Unknown Rx Active Medications: Generic Name Dose Route Start Last Admin Trade Name Freq PRN Reason Stop Dose Admin Acetaminophen 650 mg 05/08/19 21:40 Tylenol PO Q4H PRN Pain MILD(1-3)/Fever >100.5/PEREZ Albumin Human 25 gm 05/09/19 13:30 Alburx 25% (Albumin) IV PATEL PRN Hypotension Amiodarone HCl 200 mg 05/08/19 22:00 05/13/19 10:22 Cordarone PO 200 mg DAILY RICH Administration Amlodipine Besylate 5 mg 05/08/19 22:00 05/13/19 10:22 Amlodipine PO 5 mg QDAY RICH Administration Apixaban 5 mg 05/11/19 14:00 05/13/19 10:21 Eliquis PO 5 mg Q12HR RICH Administration Protocol Clonidine HCl 0.1 mg 05/08/19 22:00 05/08/19 22:33 Catapres-Tts Patch TD 0.1 mg Sa RICH Administration Clopidogrel Bisulfate 75 mg 05/12/19 10:00 05/13/19 10:21 Plavix PO 75 mg QDAY RICH Administration Epoetin Chet 10,000 unit 05/09/19 13:30 05/12/19 13:28 Procrit IV 10,000 unit PATEL PRN Administration hemodialysis Famotidine 10 mg 05/08/19 22:00 05/13/19 10:21 Pepcid PO 10 mg BID RICH Administration Hydralazine HCl 25 mg 05/08/19 22:00 05/13/19 14:03 Apresoline PO 25 mg Q8HR RICH Administration Hydromorphone HCl 0.5 mg 05/08/19 21:40 Dilaudid IV Q3H PRN Pain , Severe (7-10) Cefepime HCl 1 gm in 100 mls @ 200 mls/hr 05/09/19 13:00 05/13/19 10:22 Cefepime/Ns 1 Gm/100 Ml IV 200 mls/hr Q24HR RICH Administration Protocol Sodium Chloride 100 mls @ 999 mls/hr 05/09/19 18:12 Nacl 0.9% IV PATEL PRN Hypotension Insulin Glargine 30 units 05/08/19 22:00 05/12/19 22:58 Lantus SUB-Q 30 units QHS RICH Administration Insulin Human Lispro 0 unit 05/08/19 22:00 05/13/19 13:22 [facility]alog [facility]Q [facility] Protocol Insulin Human Lispro 5 unit 05/10/19 18:00 05/13/19 13:22 Humalog SUB-Q Not Given [facility] Lisinopril 20 mg 05/08/19 22:00 05/13/19 10:21 Zestril PO 20 mg QDAY [facility] Administration Metoclopramide HCl 5 mg 05/08/19 22:02 Reglan IV Q6H PRN Nausea And Vomiting Ondansetron HCl 4 mg 05/08/19 21:40 05/12/19 17:43 Zofran IV 4 mg Q3H PRN Administration Nausea And Vomiting Oxycodone/Acetaminophen 1 tab 05/08/19 21:40 05/13/19 14:59 Percocet 5/325 PO 1 tab Q6H PRN Administration Pain, Moderate (4-6) Pantoprazole Sodium 20 mg 05/11/19 12:00 05/13/19 10:21 Protonix PO 20 mg QDAY [facility] Administration Pravastatin Sodium 40 mg 05/08/19 22:00 05/12/19 22:57 Pravachol PO 40 mg QHS RICH Administration Sodium Chloride 10 ml 05/08/19 22:00 05/13/19 10:22 Sodium Chloride Flush Syringe 10 Ml IV 10 ml BID RICH Administration Sodium Chloride 10 ml 05/08/19 21:40 Sodium Chloride Flush Syringe 10 Ml IV PRN PRN LINE FLUSH
[2019-05-13] MEDS: INSULIN GLARGINE 100 UNITS/ML SUB-Q SCH (21:47)
[2019-05-13] MEDS: PRAVASTATIN 40 MG TAB PO SCH (21:57)
[2019-05-14] MEDS: hydrALAZINE 25 MG TAB PO SCH ×3 (06:58→22:13)
[2019-05-14] MEDS: INSULIN LISPRO 100 UNIT/ML SUB-Q SCH ×7 (07:30→22:17)
--- NOTE | 2019-05-14 08:51 | Progress Note ---
Assessment and Plan Impression: * ESRD on HD * Accelerated HTN: BP has been at goal, little high today * Peripheral vascular disease * Foot ulcer * Secondary Hyperparathyroidism * Anemia in ESRD * Type 2 DM Plan: * continue HD MWF, due today * UF as tolerated * Surgery input appreciated, follow up PVD workup and potential I&D of foot wound. Awaiting MRI- avoid use of gadolinium due to risk of NSF * ID following, recommendations appreciated * Epogen with HD for goal hemoglobin 10-11; no IV iron given infection * Continue current BP regimen, will monitor BP * Renal diet * Renally dose medications * Avoid nephrotoxins * Strict i/os Subjective Date of service: 05/14/19 Principal diagnosis: pvd Interval history: Doing well today; awaiting MRI still. No dyspnea, no chest pain. No issues with dialysis including cramping and dizziness. About to eat breakfast, good appetite. Objective - Exam Narrative Exam: General appearance: alert, pleasant, in no apparent distress Head: atraumatic, normocephalic ENT: mucous membranes moist CV: regular rate and rhythm, S1/S2, no edema Lungs: clear to auscultation bilaterally Neuro: alert, oriented X3, no focal deficits noted Psych: normal affect, normal mood Skin: lower extremity bandage/wrapping noted - Vital Signs Vital signs: Vital Signs - 12hr 05/13/19 05/13/19 05/14/19 21:35 21:45 05:42 Temperature 97.7 F 97.7 F Pulse Rate 75 88 78 Respiratory 16 16 Rate Blood Pressure 144/84 144/84 166/94 O2 Sat by Pulse 100 98 Oximetry 05/14/19 06:58 Temperature Pulse Rate 96 H Respiratory Rate Blood Pressure 166/94 O2 Sat by Pulse Oximetry - Lab 05/11/19 06:43 05/09/19 06:25 Most recent lab results Calcium 9.1 mg/dL (8.4-10.2) 05/09/19 06:25 Medications & Allergies - Medications Allergies/Adverse Reactions: Allergies piroxicam Allergy (Verified 05/11/19 08:34) Unknown Home Medications: Home Medications Medication Instructions Recorded Confirmed Last Taken Type Apixaban [Eliquis] 5 mg PO BID 07/01/18 05/08/19 Unknown History cloNIDine-TTS PATCH [Catapres-Tts 1 patch TD Q7D 07/01/18 05/08/19 Unknown H istory 0.1MG Patch] Amiodarone [Cordarone 200 MG TAB] 200 mg PO DAILY #30 tablet 07/03/18 05/08/19 Unknown Rx Lisinopril [Zestril TAB] 20 mg PO QDAY #30 tablet 07/03/18 05/08/19 Unknown Rx Pravastatin [Pravachol (Nf)] 40 mg PO QHS #30 tablet 07/03/18 05/08/19 Unknown Rx hydrALAZINE [Apresoline TAB] 25 mg PO Q8HR #90 tab 07/03/18 05/08/19 Unknown Rx Insulin Aspart (Nf) [NovoLOG 100 10 unit SQ AC 07/31/18 05/08/19 Unknown History UNITS/ML VIAL] Insulin Glargine [Lantus] 30 units SQ QHS #1 vial 07/31/18 05/08/19 Unknown Rx amLODIPine 5 mg PO QDAY #30 tablet 07/31/18 05/08/19 Unknown Rx Clopidogrel [Plavix] 75 mg PO QDAY #30 tablet 05/11/19 Unknown Rx Pantoprazole [Protonix TAB] 20 mg PO QDAY #30 tablet. 05/11/19 Unknown Rx Active Medications: Generic Name Dose Route Start Last Admin Trade Name Freq PRN Reason Stop Dose Admin Acetaminophen 650 mg 05/08/19 21:40 Tylenol PO Q4H PRN Pain MILD(1-3)/Fever >100.5/PEREZ Albumin Human 25 gm 05/09/19 13:30 Alburx 25% (Albumin) IV PATEL PRN Hypotension Amiodarone HCl 200 mg 05/08/19 22:00 05/13/19 10:22 Cordarone PO 200 mg DAILY RICH Administration Amlodipine Besylate 5 mg 05/08/19 22:00 05/13/19 10:22 Amlodipine PO 5 mg QDAY RICH Administration Apixaban 5 mg 05/11/19 14:00 05/13/19 21:46 Eliquis PO 5 mg Q12HR RICH Administration Protocol Clonidine HCl 0.1 mg 05/08/19 22:00 05/08/19 22:33 Catapres-Tts Patch TD 0.1 mg Sa RICH Administration Clopidogrel Bisulfate 75 mg 05/12/19 10:00 05/13/19 10:21 Plavix PO 75 mg QDAY RICH Administration Epoetin Chet 10,000 unit 05/09/19 13:30 05/12/19 13:28 Procrit IV 10,000 unit PATEL PRN Administration hemodialysis Famotidine 10 mg 05/08/19 22:00 05/13/19 21:54 Pepcid PO 10 mg BID RICH Administration Hydralazine HCl 25 mg 05/08/19 22:00 05/14/19 06:58 Apresoline PO 25 mg Q8HR RICH Administration Hydromorphone HCl 0.5 mg 05/08/19 21:40 Dilaudid IV Q3H PRN Pain , Severe (7-10) Cefepime HCl 1 gm in 100 mls @ 200 mls/hr 05/09/19 13:00 05/13/19 10:22 Cefepime/Ns 1 Gm/100 Ml IV 200 mls/hr Q24HR [facility] Administration Protocol Sodium Chloride 100 mls @ 999 mls/hr 05/09/19 18:12 Nacl 0.9% IV PATEL PRN Hypotension Insulin Glargine 30 units 05/08/19 22:00 05/13/19 21:47 Lantus SUB-Q Not Given QHS [facility] Insulin Human Lispro 0 unit 05/08/19 22:00 05/13/19 21:47 Humalog SUB-Q Not Given [facility] Protocol Insulin Human Lispro 5 unit 05/10/19 18:00 05/13/19 17:26 Humalog SUB-Q Not Given [facility] Lisinopril 20 mg 05/08/19 22:00 05/13/19 10:21 Zestril PO 20 mg QDAY [facility] Administration Metoclopramide HCl 5 mg 05/08/19 22:02 Reglan IV Q6H PRN Nausea And Vomiting Ondansetron HCl 4 mg 05/08/19 21:40 05/12/19 17:43 Zofran IV 4 mg Q3H PRN Administration Nausea And Vomiting Oxycodone/Acetaminophen 1 tab 05/08/19 21:40 05/13/19 14:59 Percocet 5/325 PO 1 tab Q6H PRN Administration Pain, Moderate (4-6) Pantoprazole Sodium 20 mg 05/11/19 12:00 05/13/19 10:21 Protonix PO 20 mg QDAY [facility] Administration Pravastatin Sodium 40 mg 05/08/19 22:00 05/13/19 21:57 Pravachol PO 40 mg QHS RICH Administration Sodium Chloride 10 ml 05/08/19 22:00 05/13/19 21:48 Sodium Chloride Flush Syringe 10 Ml IV 10 ml BID RICH Administration Sodium Chloride 10 ml 05/08/19 21:40 Sodium Chloride Flush Syringe 10 Ml IV PRN PRN LINE FLUSH
[2019-05-14] MEDS: APIXABAN 5 MG TAB PO SCH ×2 (09:09→22:13)
[2019-05-14] MEDS: CLOPIDOGREL 75 MG TAB PO SCH (09:09)
[2019-05-14] MEDS: CEFEPIME/NS 1 GM/100 ML 1 GM/100 ML BAG IV SCH (09:09)
[2019-05-14] MEDS: FAMOTIDINE 10 MG TAB PO SCH ×2 (09:09→22:12)
[2019-05-14] MEDS: amLODIPine 5 MG TAB PO SCH (09:10)
[2019-05-14] MEDS: AMIODARONE 200 MG TAB PO SCH (09:10)
[2019-05-14] MEDS: LISINOPRIL 20 MG TAB PO SCH (09:10)
[2019-05-14] MEDS: PANTOPRAZOLE 20 MG TAB PO SCH (09:10)
--- NOTE | 2019-05-14 09:17 | Progress Note ---
Assessment and Plan Cultures Blood culture 05/08/19 no growth to date Wound culture 05/08/19 K pneumoniae, S marcescens, P aeruginosa Assessment: 58 yo M PMHx DM2, ESRD on HD admitted with great toe ulceration, possible osteomyelitis. 1. L great toe ulceration - concern for osteomyelitis. Would obtain MRI to determine if bone involvement as this would extend antibiotic course significantly. Continue cefepime for polymicrobial GNR infection pending ID and MICs of isolates. s/p debridement by Dr. Clark 2. DM2 - Tight glycemic control for optimal wound healing. 3. ESRD on HD - renally dose antibiotics as appropriate. Recs: - continue cefepime 2g q24h - Awaiting MRI of the L great toe - duration pending MRI and debridement findings. [facility] ([facility] M: [phone] O: [phone] F: [phone] Subjective Date of service: 05/14/19 Principal diagnosis: pvd Interval history: Feels well, no complaints today. Afebrile, normal white count. Objective - Exam Narrative Exam: General Normal appearance, well developed, no acute distress Eyes - PERRLA, EOM intact ENT - Moist mucous membranes, no lymphadenopathy Neck - No noticeable or palpable swelling, redness or rash around throat or on face Lymph Nodes - No lymphadenopathy Cardiovascular - RRR no m/r/g, no JVD, no carotid bruits Lungs - Clear to auscultation, no use of accessory muscles, no crackles or wheezes. Skin - No rashes, skin warm and dry, no erythematous areas Abdomen - Normal bowel sounds, abdomen soft and nontender Extremities - No edema, cyanosis or clubbing Musculoskeletal - L great toe ulceration Neurological Alert and oriented x 3, CN 2-12 grossly intact. - Constitutional Vitals: Vital Signs Temp Pulse Resp BP Pulse Ox 97.7 F 96 H 16 166/94 98 05/14/19 05:42 05/14/19 06:58 05/14/19 05:42 05/14/19 06:58 05/14/19 05:42 Temperature -Last 24 Hours Temperature 97.7 F Temperature 97.7 F Temperature 99.5 F Temperature 99.5 F Temperature 98.3 F - Labs CBC & Chem 7: 05/11/19 06:43 05/09/19 06:25 Labs: Abnormal lab results 05/14/19 Range/Units 07:35 POC Glucose 66 L (70-105)
--- NOTE | 2019-05-14 10:32 | Progress Note ---
Assessment and Plan Assessment and plan: Patient with a history of end-stage renal disease on hemodialysis, diabetes and peripheral vascular disease who presents with nonhealing left first toe wound for 2 weeks. Arterial ultrasound demonstrates monophasic tibial flow - vascular consulted. Cx growing gm -ve rods, MRI foot ordered. Diabetic infection of left foot ID consult requested, Wound cultures noted Wound cx + GNR. XR no osteo. stop clindamycin, started renally adjusted cefepime. For MRI foot Peripheral arterial disease s/p angioplasty 05/11 Paroxysmal atrial fibrillation Patient on amiodarone and on ELIQUIS - Insulin dependent diabetes mellitus Continue home insulin and coverage and adjust insulin dosage hemoglobin A1c - 8.9 HTN (hypertension), Continue antihypertensives HLD (hyperlipidemia), Continue statins ESRD (end stage renal disease) on dialysis Continue hemodialysis as per schedule Anemia, Secondary to chronic kidney disease, Monitor h/h Legally blind, supportive care DVT prophylaxis Patient on ELIQUIS and GI prophylaxis History Interval history: Foot ulcer No SOB currently Hospitalist Physical - Physical exam Narrative exam: Gen: Not in acute distress, lying in bed HEENT: Normocephalic, atraumatic Neck: supple, no JVD Heart: S1 and S2 reg, no murmurs, rubs or gallop Lungs: Clear to auscultation bilaterally, Abd: soft, non tender, non distended, normal BS, Ext: Dressing over left foot ulcer, no clubbing, no cyanosis Neuro: Awake, alert, oriented X 3, - Constitutional Vitals: Temp Pulse Resp BP Pulse Ox 97.7 F 96 H 16 166/94 98 05/14/19 05:42 05/14/19 06:58 05/14/19 05:42 05/14/19 06:58 05/14/19 05:42 General appearance: Present: no acute distress Results - Labs CBC & Chem 7: 05/11/19 06:43 05/09/19 06:25 Labs: Laboratory Last Values WBC 6.4 K/mm3 (4.5-11.0) 05/11/19 06:43 RBC 3.40 M/mm3 (3.65-5.03) L 05/11/19 06:43 Hgb 9.9 gm/dl (11.8-15.2) L 05/11/19 06:43 Hct 30.9 % (35.5-45.6) L 05/11/19 06:43 MCV 91 fl (84-94) 05/11/19 06:43 MCH 29 pg (28-32) 05/11/19 06:43 MCHC 32 % (32-34) 05/11/19 06:43 RDW 15.8 % (13.2-15.2) H 05/11/19 06:43 Plt Count 305 K/mm3 (140-440) 05/11/19 06:43 Lymph % (Auto) Handle Assembler 05/09/19 06:25 [place] % (Auto) Handle Assembler 05/09/19 06:25 Eos % (Auto) Handle Assembler 05/09/19 06:25 Baso % (Auto) Handle Assembler 05/09/19 06:25 Lymph # Handle Assembler 05/09/19 06:25 [place] # Handle Assembler 05/09/19 06:25 Eos # Handle Assembler 05/09/19 06:25 Baso # Handle Assembler 05/09/19 06:25 Add Manual Diff Complete 05/08/19 12:14 Total Counted 100 05/08/19 12:14 Seg Neutrophils % Handle Assembler 05/09/19 06:25 Seg Neuts % (Manual) 74.0 % (40.0-70.0) H 05/08/19 12:14 Band Neutrophils % 2.0 % 05/08/19 12:14 Lymphocytes % (Manual) 17.0 % (13.4-35.0) 05/08/19 12:14 Reactive Lymphs % (Man) 0 % 05/08/19 12:14 Monocytes % (Manual) 5.0 % (0.0-7.3) 05/08/19 12:14 Eosinophils % (Manual) 2.0 % (0.0-4.3) 05/08/19 12:14 Basophils % (Manual) 0 % (0.0-1.8) 05/08/19 12:14 Metamyelocytes % 0 % 05/08/19 12:14 Myelocytes % 0 % 05/08/19 12:14 Promyelocytes % 0 % 05/08/19 12:14 Blast Cells % 0 % 05/08/19 12:14 Nucleated RBC % Not Reportable 05/08/19 12:14 Seg Neutrophils # Handle Assembler 05/09/19 06:25 Seg Neutrophils # Man 6.0 K/mm3 (1.8-7.7) 05/08/19 12:14 Band Neutrophils # 0.2 K/mm3 05/08/19 12:14 Lymphocytes # (Manual) 1.4 K/mm3 (1.2-5.4) 05/08/19 12:14 Abs React Lymphs (Man) 0.0 K/mm3 05/08/19 12:14 Monocytes # (Manual) 0.4 K/mm3 (0.0-0.8) 05/08/19 12:14 Eosinophils # (Manual) 0.2 K/mm3 (0.0-0.4) 05/08/19 12:14 Basophils # (Manual) 0.0 K/mm3 (0.0-0.1) 05/08/19 12:14 Metamyelocytes # 0.0 K/mm3 05/08/19 12:14 Myelocytes # 0.0 K/mm3 05/08/19 12:14 Promyelocytes # 0.0 K/mm3 05/08/19 12:14 Blast Cells # 0.0 K/mm3 05/08/19 12:14 WBC Morphology Not Reportable 05/08/19 12:14 Hypersegmented Neuts Not Reportable 05/08/19 12:14 Hyposegmented Neuts Not Reportable 05/08/19 12:14 Hypogranular Neuts Not Reportable 05/08/19 12:14 Smudge Cells Not Reportable 05/08/19 12:14 Toxic Granulation Not Reportable 05/08/19 12:14 Toxic Vacuolation Not Reportable 05/08/19 12:14 Dohle Bodies Not Reportable 05/08/19 12:14 Pelger-Huet Anomaly Not Reportable 05/08/19 12:14 Pita Rods Not Reportable 05/08/19 12:14 Platelet Estimate Consistent w auto 05/08/19 12:14 Clumped Platelets Not Reportable 05/08/19 12:14 Plt Clumps, EDTA Not Reportable 05/08/19 12:14 Large Platelets Not Reportable 05/08/19 12:14 Giant Platelets Not Reportable 05/08/19 12:14 Platelet Satelliting Not Reportable 05/08/19 12:14 Plt Morphology Comment Not Reportable 05/08/19 12:14 RBC Morphology Not Reportable 05/08/19 12:14 Dimorphic RBCs Not Reportable 05/08/19 12:14 Polychromasia Not Reportable 05/08/19 12:14 Hypochromasia Not Reportable 05/08/19 12:14 Poikilocytosis Not Reportable 05/08/19 12:14 Anisocytosis Few 05/08/19 12:14 Microcytosis Not Reportable 05/08/19 12:14 Macrocytosis Few 05/08/19 12:14 Spherocytes Not Reportable 05/08/19 12:14 Pappenheimer Bodies Not Reportable 05/08/19 12:14 Sickle Cells Not Reportable 05/08/19 12:14 Target Cells Not Reportable 05/08/19 12:14 Tear Drop Cells Not Reportable 05/08/19 12:14 Ovalocytes Not Reportable 05/08/19 12:14 Helmet Cells Not Reportable 05/08/19 12:14 [place] Bodies Not Reportable 05/08/19 12:14 [place] Rings Not Reportable 05/08/19 12:14 [place] Cells Not Reportable 05/08/19 12:14 Bite Cells Not Reportable 05/08/19 12:14 Crenated Cell Not Reportable 05/08/19 12:14 Elliptocytes Not Reportable 05/08/19 12:14 Acanthocytes (Spur) Not Reportable 05/08/19 12:14 Rouleaux Not Reportable 05/08/19 12:14 Hemoglobin C Crystals Not Reportable 05/08/19 12:14 Schistocytes Not Reportable 05/08/19 12:14 Malaria parasites Not Reportable 05/08/19 12:14 T[place]ar Bodies Not Reportable 05/08/19 12:14 Hem Pathologist Commnt No 05/08/19 12:14 PT 13.1 Sec. (12.2-14.9) 05/11/19 06:43 INR 1.00 (0.87-1.13) 05/11/19 06:43 Sodium 137 mmol/L (137-145) 05/09/19 06:25 Potassium 4.4 mmol/L (3.6-5.0) 05/09/19 06:25 Chloride 99.8 mmol/L (98-107) 05/09/19 06:25 Carbon Dioxide 20 mmol/L (22-30) L 05/09/19 06:25 Anion Gap 22 mmol/L 05/09/19 06:25 BUN 49 mg/dL (9-20) H 05/09/19 06:25 Creatinine 6.1 mg/dL (0.8-1.5) H 05/09/19 06:25 Estimated GFR 12 ml/min 05/09/19 06:25 BUN/Creatinine Ratio 8 % 05/09/19 06:25 Glucose 239 mg/dL (75-100) H 05/09/19 06:25 POC Glucose 66 (70-105) L 05/14/19 07:35 Hemoglobin A1c 8.9 % (4-6) H 05/08/19 22:03 Calcium 9.1 mg/dL (8.4-10.2) 05/09/19 06:25 Total Bilirubin 0.20 mg/dL (0.1-1.2) 05/09/19 06:25 Direct Bilirubin < 0.2 mg/dL (0-0.2) 05/08/19 12:14 Indirect Bilirubin 0.0 mg/dL 05/08/19 12:14 AST 10 units/L (5-40) 05/09/19 06:25 ALT 6 units/L (7-56) L 05/09/19 06:25 Alkaline Phosphatase 90 units/L (35-129) 05/09/19 06:25 Total Protein 7.7 g/dL (6.3-8.2) 05/09/19 06:25 Albumin 3.5 g/dL (3.9-5) L 05/09/19 06:25 Albumin/Globulin Ratio 0.8 % 05/09/19 06:25 Hepatitis A IgM Ab Non-reactive (NonReactive) 05/09/19 21:14 Hep Bs Antigen Non-reactive (Negative) 05/09/19 21:14 Hep B Core IgM Ab Non-reactive (NonReactive) 05/09/19 21:14 Hepatitis C Antibody Non-reactive (NonReactive) 05/09/19 21:14 Active Medications - Current Medications Current Medications: Generic Name Dose Route Start Last Admin Trade Name Freq PRN Reason Stop Dose Admin Acetaminophen 650 mg 05/08/19 21:40 Tylenol PO Q4H PRN Pain MILD(1-3)/Fever >100.5/PEREZ Albumin Human 25 gm 05/09/19 13:30 Alburx 25% (Albumin) IV PATEL PRN Hypotension Amiodarone HCl 200 mg 05/08/19 22:00 05/14/19 09:10 Cordarone PO 200 mg DAILY RICH Administration Amlodipine Besylate 5 mg 05/08/19 22:00 05/14/19 09:10 Amlodipine PO 5 mg QDAY RICH Administration Apixaban 5 mg 05/11/19 14:00 05/14/19 09:09 Eliquis PO 5 mg Q12HR RICH Administration Protocol Clonidine HCl 0.1 mg 05/08/19 22:00 05/08/19 22:33 Catapres-Tts Patch TD 0.1 mg Sa RICH Administration Clopidogrel Bisulfate 75 mg 05/12/19 10:00 05/14/19 09:09 Plavix PO 75 mg QDAY REPLACED BY [facility] Administration Epoetin Chet 10,000 unit 05/09/19 13:30 05/12/19 13:28 Procrit IV 10,000 unit PATEL PRN Administration hemodialysis Famotidine 10 mg 05/08/19 22:00 05/14/19 09:09 Pepcid PO 10 mg BID RICH Administration Hydralazine HCl 25 mg 05/08/19 22:00 05/14/19 06:58 Apresoline PO 25 mg Q8HR RICH Administration Hydromorphone HCl 0.5 mg 05/08/19 21:40 Dilaudid IV Q3H PRN Pain , Severe (7-10) Cefepime HCl 1 gm in 100 mls @ 200 mls/hr 05/09/19 13:00 05/14/19 09:09 Cefepime/Ns 1 Gm/100 Ml IV 200 mls/hr Q24HR REPLACED BY [facility] Administration Protocol Sodium Chloride 100 mls @ 999 mls/hr 05/09/19 18:12 Nacl 0.9% IV PATEL PRN Hypotension Insulin Glargine 30 units 05/08/19 22:00 05/13/19 21:47 Lantus SUB-Q Not Given QHS REPLACED BY [facility] Insulin Human Lispro 0 unit 05/08/19 22:00 05/14/19 07:30 Humalog SUB-Q Not Given ACHS REPLACED BY [facility] Protocol Insulin Human Lispro 5 unit 05/10/19 18:00 05/14/19 07:30 Humalog SUB-Q Not Given AC REPLACED BY [facility] Lisinopril 20 mg 05/08/19 22:00 05/14/19 09:10 Zestril PO 20 mg QDAY RICH Administration Metoclopramide HCl 5 mg 05/08/19 22:02 Reglan IV Q6H PRN Nausea And Vomiting Ondansetron HCl 4 mg 05/08/19 21:40 05/12/19 17:43 Zofran IV 4 mg Q3H PRN Administration Nausea And Vomiting Oxycodone/Acetaminophen 1 tab 05/08/19 21:40 05/13/19 14:59 Percocet 5/325 PO 1 tab Q6H PRN Administration Pain, Moderate (4-6) Pantoprazole Sodium 20 mg 05/11/19 12:00 05/14/19 09:10 Protonix PO 20 mg QDAY RICH Administration Pravastatin Sodium 40 mg 05/08/19 22:00 05/13/19 21:57 Pravachol PO 40 mg QHS RICH Administration Sodium Chloride 10 ml 05/08/19 22:00 05/14/19 09:12 Sodium Chloride Flush Syringe 10 Ml IV 10 ml BID RICH Administration Sodium Chloride 10 ml 05/08/19 21:40 Sodium Chloride Flush Syringe 10 Ml IV PRN PRN LINE FLUSH Nutrition/Malnutrition Assess - Dietary Evaluation Nutrition/Malnutrition Findings: Nutrition Notes Start: 05/09/19 10:58 Freq: Status: Active Protocol: Document 05/12/19 09:28 LP (Rec: 05/12/19 09:36 LP [id number]) Nutrition Notes Initial or Follow up Reassessment Current Diagnosis CKD (stage V CKD),Diabetes, Hypertension,Heart Failure Other Pertinent Diagnosis on HD, toe wound Current Diet Renal Labs/Tests Reviewed Pertinent Medications Reviewed Height 5 ft 11 in Weight 87.5 kg [place] Body Weight (kg) 78.18 BMI 26.9 Subjective/Other Information Pt eating well, consuming 100% of meals. Percent of energy/protein needs met: 100% / 100% Burn Absent Trauma Absent Current % PO Good (75-100%) Minimum of two criteria No physical signs of malnutrition #1 Nutrition Diagnosis Increased nutrient needs ( specify in comment below) Diagnosis Progress(for reassessment Continues documentation) Is patient on ventilator? No Is Patient Ambulatory and/or Out of Bed No REE-([facility]-confined to bed) 2069.97 Calculation Used for Recommendations [facility] Additional Notes Protein needs are 85-102g (1-1 .2g/kg) Fluid needs are 1ml/kcal Nutrition Intervention Change Diet Order: Renal consistent CHO Add Supplement/Snack (indicate name/kcal Double protein and non starchy /protein ) vegetables each meal. Goal #1 Continue to meet at least 80% of kcal and protein needs Goal #2 Wound healing Anticipated Discharge Needs: Renal consistent CHO Follow-Up By: 05/19/19 Additional Comments Follow for stable intakes, wound healing
[2019-05-14] MEDS: EPOETIN ALFA 10,000 UNIT/1 ML INJ IV PRN (13:45)
[2019-05-14] MEDS ORDERED: SODIUM CHLORIDE*PRIMING MACHINE ONLY FOR DIALYSIS MC ONE (14:00)
--- NOTE | 2019-05-14 17:02 | Magnetic Resonance Report ---
MRI LEFT FOOT WITHOUT CONTRAST INDICATION / CLINICAL INFORMATION: Possible osteo of L 1st toe. TECHNIQUE: Multiplanar, multisequence MR images were obtained. Images of the left forefoot were obtained. COMPARISON: Left toe radiographs on 05/08/2019 FINDINGS: BONES: No significant bone marrow edema. No fracture. No osseous lesion. JOINTS: No significant arthritis. No significant joint effusion or synovitis. SUBCUTANEOUS SOFT TISSUES: No fluid collection identified. Questionable ulceration of the medial grea t toe. MUSCLES: No significant abnormality. FLEXOR TENDONS: There is increased signal in the intrinsic flexor foot musculature. EXTENSOR TENDONS: No significant abnormality. LIGAMENTS: No significant abnormality. ADDITIONAL FINDINGS: None. IMPRESSION: 1. No MRI findings to suggest osteomyelitis. No soft tissue fluid collection identified. 2. Increased signal in the intrinsic foot musculature which is typically due to neuropathic change. Signer Name: Americo Mays MD Signed: 05/14/2019 4:57 PM Workstation Name: [id number]
[2019-05-14] MEDS: PRAVASTATIN 40 MG TAB PO SCH (22:14)
[2019-05-14] MEDS: INSULIN GLARGINE 100 UNITS/ML SUB-Q SCH (22:14)
[2019-05-14] MEDS ORDERED: cloNIDine TTS 0.1 MG/24 HR PATCH TD SCH (23:00)
[2019-05-15] MEDS: hydrALAZINE 25 MG TAB PO SCH ×3 (05:45→22:14)
[2019-05-15] MEDS: INSULIN LISPRO 100 UNIT/ML SUB-Q SCH ×7 (09:21→22:14)
--- NOTE | 2019-05-15 10:24 | Progress Note ---
Assessment and Plan Assessment and plan: Patient with a history of end-stage renal disease on hemodialysis, diabetes and peripheral vascular disease who presents with nonhealing left first toe wound for 2 weeks. Arterial ultrasound demonstrates monophasic tibial flow - vascular consulted. Cx growing gm -ve rods, MRI foot ordered. Diabetic infection of left foot ID consult requested, Wound cultures noted Wound cx + GNR. XR no osteo. On Cefepime. MRI foot negative for osteomyelitis Peripheral arterial disease s/p angioplasty 05/11 Paroxysmal atrial fibrillation Patient on amiodarone and on ELIQUIS - Insulin dependent diabetes mellitus Continue home insulin and coverage and adjust insulin dosage hemoglobin A1c - 8.9 HTN (hypertension), Continue antihypertensives HLD (hyperlipidemia), Continue statins ESRD (end stage renal disease) on dialysis Continue hemodialysis as per schedule Anemia, Secondary to chronic kidney disease, Monitor h/h Legally blind, supportive care DVT prophylaxis Patient on ELIQUIS and GI prophylaxis History Interval history: Foot ulcer No SOB currently Hospitalist Physical - Physical exam Narrative exam: Gen: Not in acute distress, lying in bed HEENT: Normocephalic, atraumatic Neck: supple, no JVD Heart: S1 and S2 reg, no murmurs, rubs or gallop Lungs: Clear to auscultation bilaterally, Abd: soft, non tender, non distended, normal BS, Ext: Dressing over left foot ulcer, no clubbing, no cyanosis Neuro: Awake, alert, oriented X 3, - Constitutional Vitals: Temp Pulse Resp BP Pulse Ox 98.8 F 77 20 150/78 94 05/15/19 05:48 05/15/19 05:48 05/15/19 05:48 05/15/19 05:48 05/15/19 05:48 General appearance: Present: no acute distress Results - Labs CBC & Chem 7: 05/11/19 06:43 05/09/19 06:25 Labs: Laboratory Last Values WBC 6.4 K/mm3 (4.5-11.0) 05/11/19 06:43 RBC 3.40 M/mm3 (3.65-5.03) L 05/11/19 06:43 Hgb 9.9 gm/dl (11.8-15.2) L 05/11/19 06:43 Hct 30.9 % (35.5-45.6) L 05/11/19 06:43 MCV 91 fl (84-94) 05/11/19 06:43 MCH 29 pg (28-32) 05/11/19 06:43 MCHC 32 % (32-34) 05/11/19 06:43 RDW 15.8 % (13.2-15.2) H 05/11/19 06:43 Plt Count 305 K/mm3 (140-440) 05/11/19 06:43 Lymph % (Auto) Sales And Catering Coordinator 05/09/19 06:25 Labette % (Auto) Sales And Catering Coordinator 05/09/19 06:25 Eos % (Auto) Sales And Catering Coordinator 05/09/19 06:25 Baso % (Auto) Sales And Catering Coordinator 05/09/19 06:25 Lymph # Sales And Catering Coordinator 05/09/19 06:25 Labette # Sales And Catering Coordinator 05/09/19 06:25 Eos # Sales And Catering Coordinator 05/09/19 06:25 Baso # Sales And Catering Coordinator 05/09/19 06:25 Add Manual Diff Complete 05/08/19 12:14 Total Counted 100 05/08/19 12:14 Seg Neutrophils % Sales And Catering Coordinator 05/09/19 06:25 Seg Neuts % (Manual) 74.0 % (40.0-70.0) H 05/08/19 12:14 Band Neutrophils % 2.0 % 05/08/19 12:14 Lymphocytes % (Manual) 17.0 % (13.4-35.0) 05/08/19 12:14 Reactive Lymphs % (Man) 0 % 05/08/19 12:14 Monocytes % (Manual) 5.0 % (0.0-7.3) 05/08/19 12:14 Eosinophils % (Manual) 2.0 % (0.0-4.3) 05/08/19 12:14 Basophils % (Manual) 0 % (0.0-1.8) 05/08/19 12:14 Metamyelocytes % 0 % 05/08/19 12:14 Myelocytes % 0 % 05/08/19 12:14 Promyelocytes % 0 % 05/08/19 12:14 Blast Cells % 0 % 05/08/19 12:14 Nucleated RBC % Not Reportable 05/08/19 12:14 Seg Neutrophils # Sales And Catering Coordinator 05/09/19 06:25 Seg Neutrophils # Man 6.0 K/mm3 (1.8-7.7) 05/08/19 12:14 Band Neutrophils # 0.2 K/mm3 05/08/19 12:14 Lymphocytes # (Manual) 1.4 K/mm3 (1.2-5.4) 05/08/19 12:14 Abs React Lymphs (Man) 0.0 K/mm3 05/08/19 12:14 Monocytes # (Manual) 0.4 K/mm3 (0.0-0.8) 05/08/19 12:14 Eosinophils # (Manual) 0.2 K/mm3 (0.0-0.4) 05/08/19 12:14 Basophils # (Manual) 0.0 K/mm3 (0.0-0.1) 05/08/19 12:14 Metamyelocytes # 0.0 K/mm3 05/08/19 12:14 Myelocytes # 0.0 K/mm3 05/08/19 12:14 Promyelocytes # 0.0 K/mm3 05/08/19 12:14 Blast Cells # 0.0 K/mm3 05/08/19 12:14 WBC Morphology Not Reportable 05/08/19 12:14 Hypersegmented Neuts Not Reportable 05/08/19 12:14 Hyposegmented Neuts Not Reportable 05/08/19 12:14 Hypogranular Neuts Not Reportable 05/08/19 12:14 Smudge Cells Not Reportable 05/08/19 12:14 Toxic Granulation Not Reportable 05/08/19 12:14 Toxic Vacuolation Not Reportable 05/08/19 12:14 Dohle Bodies Not Reportable 05/08/19 12:14 Pelger-Huet Anomaly Not Reportable 05/08/19 12:14 Pita Rods Not Reportable 05/08/19 12:14 Platelet Estimate Consistent w auto 05/08/19 12:14 Clumped Platelets Not Reportable 05/08/19 12:14 Plt Clumps, EDTA Not Reportable 05/08/19 12:14 Large Platelets Not Reportable 05/08/19 12:14 Giant Platelets Not Reportable 05/08/19 12:14 Platelet Satelliting Not Reportable 05/08/19 12:14 Plt Morphology Comment Not Reportable 05/08/19 12:14 RBC Morphology Not Reportable 05/08/19 12:14 Dimorphic RBCs Not Reportable 05/08/19 12:14 Polychromasia Not Reportable 05/08/19 12:14 Hypochromasia Not Reportable 05/08/19 12:14 Poikilocytosis Not Reportable 05/08/19 12:14 Anisocytosis Few 05/08/19 12:14 Microcytosis Not Reportable 05/08/19 12:14 Macrocytosis Few 05/08/19 12:14 Spherocytes Not Reportable 05/08/19 12:14 Pappenheimer Bodies Not Reportable 05/08/19 12:14 Sickle Cells Not Reportable 05/08/19 12:14 Target Cells Not Reportable 05/08/19 12:14 Tear Drop Cells Not Reportable 05/08/19 12:14 Ovalocytes Not Reportable 05/08/19 12:14 Helmet Cells Not Reportable 05/08/19 12:14 [place] Bodies Not Reportable 05/08/19 12:14 [place] Rings Not Reportable 05/08/19 12:14 [place] Cells Not Reportable 05/08/19 12:14 Bite Cells Not Reportable 05/08/19 12:14 Crenated Cell Not Reportable 05/08/19 12:14 Elliptocytes Not Reportable 05/08/19 12:14 Acanthocytes (Spur) Not Reportable 05/08/19 12:14 Rouleaux Not Reportable 05/08/19 12:14 Hemoglobin C Crystals Not Reportable 05/08/19 12:14 Schistocytes Not Reportable 05/08/19 12:14 Malaria parasites Not Reportable 05/08/19 12:14 Tushar Bodies Not Reportable 05/08/19 12:14 Hem Pathologist Commnt No 05/08/19 12:14 PT 13.1 Sec. (12.2-14.9) 05/11/19 06:43 INR 1.00 (0.87-1.13) 05/11/19 06:43 Sodium 137 mmol/L (137-145) 05/09/19 06:25 Potassium 4.4 mmol/L (3.6-5.0) 05/09/19 06:25 Chloride 99.8 mmol/L (98-107) 05/09/19 06:25 Carbon Dioxide 20 mmol/L (22-30) L 05/09/19 06:25 Anion Gap 22 mmol/L 05/09/19 06:25 BUN 49 mg/dL (9-20) H 05/09/19 06:25 Creatinine 6.1 mg/dL (0.8-1.5) H 05/09/19 06:25 Estimated GFR 12 ml/min 05/09/19 06:25 BUN/Creatinine Ratio 8 % 05/09/19 06:25 Glucose 239 mg/dL (75-100) H 05/09/19 06:25 POC Glucose 101 (70-105) 05/15/19 07:50 Hemoglobin A1c 8.9 % (4-6) H 05/08/19 22:03 Calcium 9.1 mg/dL (8.4-10.2) 05/09/19 06:25 Total Bilirubin 0.20 mg/dL (0.1-1.2) 05/09/19 06:25 Direct Bilirubin < 0.2 mg/dL (0-0.2) 05/08/19 12:14 Indirect Bilirubin 0.0 mg/dL 05/08/19 12:14 AST 10 units/L (5-40) 05/09/19 06:25 ALT 6 units/L (7-56) L 05/09/19 06:25 Alkaline Phosphatase 90 units/L (35-129) 05/09/19 06:25 Total Protein 7.7 g/dL (6.3-8.2) 05/09/19 06:25 Albumin 3.5 g/dL (3.9-5) L 05/09/19 06:25 Albumin/Globulin Ratio 0.8 % 05/09/19 06:25 Hepatitis A IgM Ab Non-reactive (NonReactive) 05/09/19 21:14 Hep Bs Antigen Non-reactive (Negative) 05/09/19 21:14 Hep B Core IgM Ab Non-reactive (NonReactive) 05/09/19 21:14 Hepatitis C Antibody Non-reactive (NonReactive) 05/09/19 21:14 Active Medications - Current Medications Current Medications: Generic Name Dose Route Start Last Admin Trade Name Freq PRN Reason Stop Dose Admin Acetaminophen 650 mg 05/08/19 21:40 Tylenol PO Q4H PRN Pain MILD(1-3)/Fever >100.5/PEREZ Albumin Human 25 gm 05/09/19 13:30 Alburx 25% (Albumin) IV PATEL PRN Hypotension Amiodarone HCl 200 mg 05/08/19 22:00 05/14/19 09:10 Cordarone PO 200 mg DAILY RICH Administration Amlodipine Besylate 5 mg 05/08/19 22:00 05/14/19 09:10 Amlodipine PO 5 mg QDAY RICH Administration Apixaban 5 mg 05/11/19 14:00 05/14/19 22:13 Eliquis PO 5 mg Q12HR RICH Administration Protocol Clonidine HCl 0.1 mg 05/14/19 23:00 05/14/19 22:50 Catapres-Tts Patch TD 0.1 mg Fr RICH Administration Clopidogrel Bisulfate 75 mg 05/12/19 10:00 05/14/19 09:09 Plavix PO 75 mg QDAY REPLACED BY [facility] Administration Epoetin Chet 10,000 unit 05/09/19 13:30 05/14/19 13:45 Procrit IV 10,000 unit PATEL PRN Administration hemodialysis Famotidine 10 mg 05/08/19 22:00 05/14/19 22:12 Pepcid PO 10 mg BID RICH Administration Hydralazine HCl 25 mg 05/08/19 22:00 05/15/19 05:45 Apresoline PO 25 mg Q8HR RICH Administration Hydromorphone HCl 0.5 mg 05/08/19 21:40 Dilaudid IV Q3H PRN Pain , Severe (7-10) Cefepime HCl 1 gm in 100 mls @ 200 mls/hr 05/09/19 13:00 05/14/19 09:09 Cefepime/Ns 1 Gm/100 Ml IV 200 mls/hr Q24HR RICH Administration Protocol Sodium Chloride 100 mls @ 999 mls/hr 05/09/19 18:12 Nacl 0.9% IV PATEL PRN Hypotension Insulin Glargine 30 units 05/08/19 22:00 05/14/19 22:14 Lantus SUB-Q 30 units QHS RICH Administration Insulin Human Lispro 0 unit 05/08/19 22:00 05/15/19 09:21 Humalog SUB-Q Not Given ACHS REPLACED BY [facility] Protocol Insulin Human Lispro 5 unit 05/10/19 18:00 05/15/19 09:21 Humalog SUB-Q Not Given AC REPLACED BY [facility] Lisinopril 20 mg 05/08/19 22:00 05/14/19 09:10 Zestril PO 20 mg QDAY RICH Administration Metoclopramide HCl 5 mg 05/08/19 22:02 Reglan IV Q6H PRN Nausea And Vomiting Ondansetron HCl 4 mg 05/08/19 21:40 05/12/19 17:43 Zofran IV 4 mg Q3H PRN Administration Nausea And Vomiting Oxycodone/Acetaminophen 1 tab 05/08/19 21:40 05/13/19 14:59 Percocet 5/325 PO 1 tab Q6H PRN Administration Pain, Moderate (4-6) Pantoprazole Sodium 20 mg 05/11/19 12:00 05/14/19 09:10 Protonix PO 20 mg QDAY RICH Administration Pravastatin Sodium 40 mg 05/08/19 22:00 05/14/19 22:14 Pravachol PO 40 mg QHS RICH Administration Sodium Chloride 10 ml 05/08/19 22:00 05/14/19 22:16 Sodium Chloride Flush Syringe 10 Ml IV 10 ml BID RICH Administration Sodium Chloride 10 ml 05/08/19 21:40 Sodium Chloride Flush Syringe 10 Ml IV PRN PRN LINE FLUSH Nutrition/Malnutrition Assess - Dietary Evaluation Nutrition/Malnutrition Findings: Nutrition Notes Start: 05/09/19 10:58 Freq: Status: Active Protocol: Document 05/12/19 09:28 LP (Rec: 05/12/19 09:36 LP [email or web address]) Nutrition Notes Initial or Follow up Reassessment Current Diagnosis CKD (stage V CKD),Diabetes, Hypertension,Heart Failure Other Pertinent Diagnosis on HD, toe wound Current Diet Renal Labs/Tests Reviewed Pertinent Medications Reviewed Height 5 ft 11 in Weight 87.5 kg [place] Body Weight (kg) 78.18 BMI 26.9 Subjective/Other Information Pt eating well, consuming 100% of meals. Percent of energy/protein needs met: 100% / 100% Burn Absent Trauma Absent Current % PO Good (75-100%) Minimum of two criteria No physical signs of malnutrition #1 Nutrition Diagnosis Increased nutrient needs ( specify in comment below) Diagnosis Progress(for reassessment Continues documentation) Is patient on ventilator? No Is Patient Ambulatory and/or Out of Bed No REE-([facility]-confined to bed) 2069.97 Calculation Used for Recommendations [facility] Additional Notes Protein needs are 85-102g (1-1 .2g/kg) Fluid needs are 1ml/kcal Nutrition Intervention Change Diet Order: Renal consistent CHO Add Supplement/Snack (indicate name/kcal Double protein and non starchy /protein ) vegetables each meal. Goal #1 Continue to meet at least 80% of kcal and protein needs Goal #2 Wound healing Anticipated Discharge Needs: Renal consistent CHO Follow-Up By: 05/19/19 Additional Comments Follow for stable intakes, wound healing
[2019-05-15] MEDS: CEFEPIME/NS 1 GM/100 ML 1 GM/100 ML BAG IV SCH (11:48)
[2019-05-15] MEDS: amLODIPine 5 MG TAB PO SCH (11:51)
[2019-05-15] MEDS: FAMOTIDINE 10 MG TAB PO SCH ×2 (11:51→22:14)
[2019-05-15] MEDS: CLOPIDOGREL 75 MG TAB PO SCH (11:51)
[2019-05-15] MEDS: AMIODARONE 200 MG TAB PO SCH (11:52)
[2019-05-15] MEDS: APIXABAN 5 MG TAB PO SCH ×2 (11:52→22:14)
[2019-05-15] MEDS: LISINOPRIL 20 MG TAB PO SCH (11:58)
[2019-05-15] MEDS: PANTOPRAZOLE 20 MG TAB PO SCH (12:02)
--- NOTE | 2019-05-15 15:07 | Progress Note ---
Assessment and Plan Impression: * ESRD on HD * Accelerated HTN: BP has been at goal * Peripheral vascular disease * Foot ulcer * Secondary Hyperparathyroidism * Anemia in ESRD * Type 2 DM Plan: * continue HD MWF, due on 05/17 * UF as tolerated * Surgery input appreciated, follow up PVD workup and potential I&D of foot wound. F/u MRI- avoid use of gadolinium due to risk of NSF * ID following, recommendations appreciated * Epogen with HD for goal hemoglobin 10-11; no IV iron given infection * Continue current BP regimen, will monitor BP * Renal diet * Renally dose medications * Avoid nephrotoxins * Strict i/os Subjective Date of service: 05/15/19 Principal diagnosis: pvd Interval history: Doing well today. No dyspnea, no chest pain. No issues with dialysis including cramping and dizziness yesterday. In good spirits Objective - Exam Narrative Exam: General appearance: alert, pleasant, in no apparent distress Head: atraumatic, normocephalic ENT: mucous membranes moist CV: regular rate and rhythm, S1/S2, no edema Lungs: clear to auscultation bilaterally Neuro: alert, oriented X3, no focal deficits noted Psych: normal affect, normal mood Skin: lower extremity bandage/wrapping noted - Vital Signs Vital signs: Vital Signs - 12hr 05/15/19 05/15/19 05/15/19 05:45 05:48 11:51 Temperature 98.8 F 99.0 F Pulse Rate 77 77 80 Respiratory 20 22 Rate Blood Pressure 150/78 150/78 160/91 O2 Sat by Pulse 94 98 Oximetry 05/15/19 11:58 Temperature Pulse Rate 81 Respiratory Rate Blood Pressure 160/91 O2 Sat by Pulse Oximetry - Lab 05/11/19 06:43 05/09/19 06:25 Most recent lab results Calcium 9.1 mg/dL (8.4-10.2) 05/09/19 06:25 Medications & Allergies - Medications Allergies/Adverse Reactions: Allergies piroxicam Allergy (Verified 05/11/19 08:34) Unknown Home Medications: Home Medications Medication Instructions Recorded Confirmed Last Taken Type Apixaban [Eliquis] 5 mg PO BID 07/01/18 05/08/19 Unknown History cloNIDine-TTS PATCH [Catapres-Tts 1 patch TD Q7D 07/01/18 05/08/19 Unknown History 0.1MG Patch] Amiodarone [Cordarone 200 MG TAB] 200 mg PO DAILY #30 tablet 07/03/18 05/08/19 Unknown Rx Lisinopril [Zestril TAB] 20 mg PO QDAY #30 tablet 07/03/18 05/08/19 Unknown Rx Pravastatin [Pravachol (Nf)] 40 mg PO QHS #30 tablet 07/03/18 05/08/19 Unknown Rx hydrALAZINE [Apresoline TAB] 25 mg PO Q8HR #90 tab 07/03/18 05/08/19 Unknown Rx Insulin Aspart (Nf) [NovoLOG 100 10 unit SQ AC 07/31/18 05/08/19 Unknown History UNITS/ML VIAL] Insulin Glargine [Lantus] 30 units SQ QHS #1 vial 07/31/18 05/08/19 Unknown Rx amLODIPine 5 mg PO QDAY #30 tablet 07/31/18 05/08/19 Unknown Rx Clopidogrel [Plavix] 75 mg PO QDAY #30 tablet 05/11/19 Unknown Rx Pantoprazole [Protonix TAB] 20 mg PO QDAY #30 tablet. 05/11/19 Unknown Rx Active Medications: Generic Name Dose Route Start Last Admin Trade Name Freq PRN Reason Stop Dose Admin Acetaminophen 650 mg 05/08/19 21:40 Tylenol PO Q4H PRN Pain MILD(1-3)/Fever >100.5/PEREZ Albumin Human 25 gm 05/09/19 13:30 Alburx 25% (Albumin) IV PATEL PRN Hypotension Amiodarone HCl 200 mg 05/08/19 22:00 05/15/19 11:52 Cordarone PO 200 mg DAILY RICH Administration Amlodipine Besylate 5 mg 05/08/19 22:00 05/15/19 11:51 Amlodipine PO 5 mg QDAY RICH Administration Apixaban 5 mg 05/11/19 14:00 05/15/19 11:52 Eliquis PO 5 mg Q12HR RICH Administration Protocol Clonidine HCl 0.1 mg 05/14/19 23:00 05/14/19 22:50 Catapres-Tts Patch TD 0.1 mg Fr RICH Administration Clopidogrel Bisulfate 75 mg 05/12/19 10:00 05/15/19 11:51 Plavix PO 75 mg QDAY RICH Administration Epoetin Chet 10,000 unit 05/09/19 13:30 05/14/19 13:45 Procrit IV 10,000 unit PATEL PRN Administration hemodialysis Famotidine 10 mg 05/08/19 22:00 05/15/19 11:51 Pepcid PO 10 mg BID RICH Administration Hydralazine HCl 25 mg 05/08/19 22:00 05/15/19 05:45 Apresoline PO 25 mg Q8HR RICH Administration Hydromorphone HCl 0.5 mg 05/08/19 21:40 Dilaudid IV Q3H PRN Pain , Severe (7-10) Cefepime HCl 1 gm in 100 mls @ 200 mls/hr 05/09/19 13:00 05/15/19 11:48 Cefepime/Ns 1 Gm/100 Ml IV 200 mls/hr Q24HR RICH Administration Protocol Sodium Chloride 100 mls @ 999 mls/hr 05/09/19 18:12 Nacl 0.9% IV PATEL PRN Hypotension Insulin Glargine 30 units 05/08/19 22:00 05/14/19 22:14 Lantus SUB-Q 30 units QHS RICH Administration Insulin Human Lispro 0 unit 05/08/19 22:00 05/15/19 13:27 Humalog SUB-Q 3 unit ACHS RICH Administration Protocol Insulin Human Lispro 5 unit 05/10/19 18:00 05/15/19 13:27 Humalog SUB-Q 5 unit AC RICH Administration Lisinopril 20 mg 05/08/19 22:00 05/15/19 11:58 Zestril PO 20 mg QDAY RICH Administration Metoclopramide HCl 5 mg 05/08/19 22:02 Reglan IV Q6H PRN Nausea And Vomiting Ondansetron HCl 4 mg 05/08/19 21:40 05/12/19 17:43 Zofran IV 4 mg Q3H PRN Administration Nausea And Vomiting Oxycodone/Acetaminophen 1 tab 05/08/19 21:40 05/13/19 14:59 Percocet 5/325 PO 1 tab Q6H PRN Administration Pain, Moderate (4-6) Pantoprazole Sodium 20 mg 05/11/19 12:00 05/15/19 12:02 Protonix PO 20 mg QDAY RICH Administration Pravastatin Sodium 40 mg 05/08/19 22:00 05/14/19 22:14 Pravachol PO 40 mg QHS RICH Administration Sodium Chloride 10 ml 05/08/19 22:00 05/15/19 11:54 Sodium Chloride Flush Syringe 10 Ml IV 10 ml BID RICH Administration Sodium Chloride 10 ml 05/08/19 21:40 Sodium Chloride Flush Syringe 10 Ml IV PRN PRN LINE FLUSH
[2019-05-15] MEDS: PRAVASTATIN 40 MG TAB PO SCH (22:14)
[2019-05-15] MEDS: INSULIN GLARGINE 100 UNITS/ML SUB-Q SCH (22:18)
[2019-05-16] MEDS: hydrALAZINE 25 MG TAB PO SCH ×3 (06:00→23:18)
[2019-05-16] MEDS: INSULIN LISPRO 100 UNIT/ML SUB-Q SCH ×7 (09:05→23:13)
[2019-05-16] MEDS: FAMOTIDINE 10 MG TAB PO SCH ×2 (09:28→23:10)
[2019-05-16] MEDS: APIXABAN 5 MG TAB PO SCH ×2 (09:28→23:10)
[2019-05-16] MEDS: LISINOPRIL 20 MG TAB PO SCH (09:28)
[2019-05-16] MEDS: CLOPIDOGREL 75 MG TAB PO SCH (09:28)
[2019-05-16] MEDS: amLODIPine 5 MG TAB PO SCH (09:29)
[2019-05-16] MEDS: AMIODARONE 200 MG TAB PO SCH (09:29)
[2019-05-16] MEDS: PANTOPRAZOLE 20 MG TAB PO SCH (09:29)
--- NOTE | 2019-05-16 09:52 | Progress Note ---
Assessment and Plan Cultures Blood culture 05/08/19 no growth to date Wound culture 05/08/19 K pneumoniae, S marcescens, P aeruginosa Assessment: 58 yo M PMHx DM2, ESRD on HD admitted with great toe ulceration, possible osteomyelitis. 1. L great toe ulceration - concern for osteomyelitis. Would obtain MRI to determine if bone involvement as this would extend antibiotic course significantly. Continue cefepime for polymicrobial GNR infection pending ID and MICs of isolates. s/p debridement by Dr. Clark. MRI without osteomyelitis. 2. DM2 - Tight glycemic control for optimal wound healing. 3. ESRD on HD - renally dose antibiotics as appropriate. Recs: - continue cefepime 2g q24h - Ok for discharge from infectious disease perspective. Would discharge with levofloxacin 500mg q48h to complete 10 total days of therapy from debridement. Stop date 05/20 Dr. Delatorre will be taking over tomorrow. [facility] M: [phone] O: [phone] F: [phone] Subjective Date of service: 05/16/19 Principal diagnosis: pvd Interval history: Afebrile, normal white count. Objective - Exam Narrative Exam: General Normal appearance, well developed, no acute distress Eyes - PERRLA, EOM intact ENT - Moist mucous membranes, no lymphadenopathy Neck - No noticeable or palpable swelling, redness or rash around throat or on face Lymph Nodes - No lymphadenopathy Cardiovascular - RRR no m/r/g, no JVD, no carotid bruits Lungs - Clear to auscultation, no use of accessory muscles, no crackles or wheezes. Skin - No rashes, skin warm and dry, no erythematous areas Abdomen - Normal bowel sounds, abdomen soft and nontender Extremities - No edema, cyanosis or clubbing Musculoskeletal - L great toe ulceration Neurological Alert and oriented x 3, CN 2-12 grossly intact. - Constitutional Vitals: Vital Signs Temp Pulse Resp BP Pulse Ox 98.2 F 81 16 126/77 96 05/16/19 05:01 05/16/19 09:28 05/16/19 05:01 05/16/19 09:28 05/16/19 05:01 Temperature -Last 24 Hours Temperature 98.2 F Temperature 98.7 F Temperature 99.0 F Temperature 99.0 F - Labs CBC & Chem 7: 05/11/19 06:43 05/09/19 06:25 Labs: Abnormal lab results 05/15/19 05/15/19 05/16/19 Range/Units 12:04 21:40 08:41 POC Glucose 217 H 179 H 125 H (70-105)
[2019-05-16] MEDS: CEFEPIME/NS 1 GM/100 ML 1 GM/100 ML BAG IV SCH (10:46)
[2019-05-16] MEDS: oxyCODONE /ACETAMINOPHEN 5-325MG TAB PO PRN (10:46)
--- NOTE | 2019-05-16 17:08 | Progress Note ---
Assessment and Plan Assessment and plan: Patient with a history of end-stage renal disease on hemodialysis, diabetes and peripheral vascular disease who presents with nonhealing left first toe wound for 2 weeks. Arterial ultrasound demonstrates monophasic tibial flow - vascular consulted. Cx growing gm -ve rods, MRI foot negative for osteo. Diabetic infection of left foot ID consult requested, following Wound cultures noted Wound cx + GNR. XR no osteo. On Cefepime. MRI foot negative for osteomyelitis ID to re-evaluate to determine Antibiotic choice since no osteomyelitis. Peripheral arterial disease s/p angioplasty 05/11 Paroxysmal atrial fibrillation Patient on amiodarone and on ELIQUIS - Insulin dependent diabetes mellitus Continue home insulin and coverage and adjust insulin dosage hemoglobin A1c - 8.9 HTN (hypertension), Continue antihypertensives HLD (hyperlipidemia), Continue statins ESRD (end stage renal disease) on dialysis Continue hemodialysis as per schedule Anemia, Secondary to chronic kidney disease, Monitor h/h Legally blind, supportive care DVT prophylaxis Patient on ELIQUIS and GI prophylaxis History Interval history: Foot ulcer No SOB currently Hospitalist Physical - Physical exam Narrative exam: Gen: Not in acute distress, lying in bed HEENT: Normocephalic, atraumatic Neck: supple, no JVD Heart: S1 and S2 reg, no murmurs, rubs or gallop Lungs: Clear to auscultation bilaterally, Abd: soft, non tender, non distended, normal BS, Ext: Dressing over left foot ulcer, no clubbing, no cyanosis Neuro: Awake, alert, oriented X 3, - Constitutional Vitals: Temp Pulse Resp BP Pulse Ox 98.0 F 78 16 117/74 98 05/16/19 12:09 05/16/19 12:09 05/16/19 12:09 05/16/19 12:09 05/16/19 12:09 General appearance: Present: no acute distress Results - Labs CBC & Chem 7: 05/11/19 06:43 05/09/19 06:25 Labs: Laboratory Last Values WBC 6.4 K/mm3 (4.5-11.0) 05/11/19 06:43 RBC 3.40 M/mm3 (3.65-5.03) L 05/11/19 06:43 Hgb 9.9 gm/dl (11.8-15.2) L 05/11/19 06:43 Hct 30.9 % (35.5-45.6) L 05/11/19 06:43 MCV 91 fl (84-94) 05/11/19 06:43 MCH 29 pg (28-32) 05/11/19 06:43 MCHC 32 % (32-34) 05/11/19 06:43 RDW 15.8 % (13.2-15.2) H 05/11/19 06:43 Plt Count 305 K/mm3 (140-440) 05/11/19 06:43 Lymph % (Auto) Dance Choreographer 05/09/19 06:25 Shoshone % (Auto) Dance Choreographer 05/09/19 06:25 Eos % (Auto) Dance Choreographer 05/09/19 06:25 Baso % (Auto) Dance Choreographer 05/09/19 06:25 Lymph # Dance Choreographer 05/09/19 06:25 Shoshone # Dance Choreographer 05/09/19 06:25 Eos # Dance Choreographer 05/09/19 06:25 Baso # Dance Choreographer 05/09/19 06:25 Add Manual Diff Complete 05/08/19 12:14 Total Counted 100 05/08/19 12:14 Seg Neutrophils % Dance Choreographer 05/09/19 06:25 Seg Neuts % (Manual) 74.0 % (40.0-70.0) H 05/08/19 12:14 Band Neutrophils % 2.0 % 05/08/19 12:14 Lymphocytes % (Manual) 17.0 % (13.4-35.0) 05/08/19 12:14 Reactive Lymphs % (Man) 0 % 05/08/19 12:14 Monocytes % (Manual) 5.0 % (0.0-7.3) 05/08/19 12:14 Eosinophils % (Manual) 2.0 % (0.0-4.3) 05/08/19 12:14 Basophils % (Manual) 0 % (0.0-1.8) 05/08/19 12:14 Metamyelocytes % 0 % 05/08/19 12:14 Myelocytes % 0 % 05/08/19 12:14 Promyelocytes % 0 % 05/08/19 12:14 Blast Cells % 0 % 05/08/19 12:14 Nucleated RBC % Not Reportable 05/08/19 12:14 Seg Neutrophils # Dance Choreographer 05/09/19 06:25 Seg Neutrophils # Man 6.0 K/mm3 (1.8-7.7) 05/08/19 12:14 Band Neutrophils # 0.2 K/mm3 05/08/19 12:14 Lymphocytes # (Manual) 1.4 K/mm3 (1.2-5.4) 05/08/19 12:14 Abs React Lymphs (Man) 0.0 K/mm3 05/08/19 12:14 Monocytes # (Manual) 0.4 K/mm3 (0.0-0.8) 05/08/19 12:14 Eosinophils # (Manual) 0.2 K/mm3 (0.0-0.4) 05/08/19 12:14 Basophils # (Manual) 0.0 K/mm3 (0.0-0.1) 05/08/19 12:14 Metamyelocytes # 0.0 K/mm3 05/08/19 12:14 Myelocytes # 0.0 K/mm3 05/08/19 12:14 Promyelocytes # 0.0 K/mm3 05/08/19 12:14 Blast Cells # 0.0 K/mm3 05/08/19 12:14 WBC Morphology Not Reportable 05/08/19 12:14 Hypersegmented Neuts Not Reportable 05/08/19 12:14 Hyposegmented Neuts Not Reportable 05/08/19 12:14 Hypogranular Neuts Not Reportable 05/08/19 12:14 Smudge Cells Not Reportable 05/08/19 12:14 Toxic Granulation Not Reportable 05/08/19 12:14 Toxic Vacuolation Not Reportable 05/08/19 12:14 Dohle Bodies Not Reportable 05/08/19 12:14 Pelger-Huet Anomaly Not Reportable 05/08/19 12:14 Pita Rods Not Reportable 05/08/19 12:14 Platelet Estimate Consistent w auto 05/08/19 12:14 Clumped Platelets Not Reportable 05/08/19 12:14 Plt Clumps, EDTA Not Reportable 05/08/19 12:14 Large Platelets Not Reportable 05/08/19 12:14 Giant Platelets Not Reportable 05/08/19 12:14 Platelet Satelliting Not Reportable 05/08/19 12:14 Plt Morphology Comment Not Reportable 05/08/19 12:14 RBC Morphology Not Reportable 05/08/19 12:14 Dimorphic RBCs Not Reportable 05/08/19 12:14 Polychromasia Not Reportable 05/08/19 12:14 Hypochromasia Not Reportable 05/08/19 12:14 Poikilocytosis Not Reportable 05/08/19 12:14 Anisocytosis Few 05/08/19 12:14 Microcytosis Not Reportable 05/08/19 12:14 Macrocytosis Few 05/08/19 12:14 Spherocytes Not Reportable 05/08/19 12:14 Pappenheimer Bodies Not Reportable 05/08/19 12:14 Sickle Cells Not Reportable 05/08/19 12:14 Target Cells Not Reportable 05/08/19 12:14 Tear Drop Cells Not Reportable 05/08/19 12:14 Ovalocytes Not Reportable 05/08/19 12:14 Helmet Cells Not Reportable 05/08/19 12:14 Salgado-Disautel Bodies Not Reportable 05/08/19 12:14 Waldorf Rings Not Reportable 05/08/19 12:14 Azalea Cells Not Reportable 05/08/19 12:14 Bite Cells Not Reportable 05/08/19 12:14 Crenated Cell Not Reportable 05/08/19 12:14 Elliptocytes Not Reportable 05/08/19 12:14 Acanthocytes (Spur) Not Reportable 05/08/19 12:14 Rouleaux Not Reportable 05/08/19 12:14 Hemoglobin C Crystals Not Reportable 05/08/19 12:14 Schistocytes Not Reportable 05/08/19 12:14 Malaria parasites Not Reportable 05/08/19 12:14 Tushar Bodies Not Reportable 05/08/19 12:14 Hem Pathologist Commnt No 05/08/19 12:14 PT 13.1 Sec. (12.2-14.9) 05/11/19 06:43 INR 1.00 (0.87-1.13) 05/11/19 06:43 Sodium 137 mmol/L (137-145) 05/09/19 06:25 Potassium 4.4 mmol/L (3.6-5.0) 05/09/19 06:25 Chloride 99.8 mmol/L (98-107) 05/09/19 06:25 Carbon Dioxide 20 mmol/L (22-30) L 05/09/19 06:25 Anion Gap 22 mmol/L 05/09/19 06:25 BUN 49 mg/dL (9-20) H 05/09/19 06:25 Creatinine 6.1 mg/dL (0.8-1.5) H 05/09/19 06:25 Estimated GFR 12 ml/min 05/09/19 06:25 BUN/Creatinine Ratio 8 % 05/09/19 06:25 Glucose 239 mg/dL (75-100) H 05/09/19 06:25 POC Glucose 157 (70-105) H 05/16/19 16:57 Hemoglobin A1c 8.9 % (4-6) H 05/08/19 22:03 Calcium 9.1 mg/dL (8.4-10.2) 05/09/19 06:25 Total Bilirubin 0.20 mg/dL (0.1-1.2) 05/09/19 06:25 Direct Bilirubin < 0.2 mg/dL (0-0.2) 05/08/19 12:14 Indirect Bilirubin 0.0 mg/dL 05/08/19 12:14 AST 10 units/L (5-40) 05/09/19 06:25 ALT 6 units/L (7-56) L 05/09/19 06:25 Alkaline Phosphatase 90 units/L (35-129) 05/09/19 06:25 Total Protein 7.7 g/dL (6.3-8.2) 05/09/19 06:25 Albumin 3.5 g/dL (3.9-5) L 05/09/19 06:25 Albumin/Globulin Ratio 0.8 % 05/09/19 06:25 Hepatitis A IgM Ab Non-reactive (NonReactive) 05/09/19 21:14 Hep Bs Antigen Non-reactive (Negative) 05/09/19 21:14 Hep B Core IgM Ab Non-reactive (NonReactive) 05/09/19 21:14 Hepatitis C Antibody Non-reactive (NonReactive) 05/09/19 21:14 Active Medications - Current Medications Current Medications: Generic Name Dose Route Start Last Admin Trade Name Freq PRN Reason Stop Dose Admin Acetaminophen 650 mg 05/08/19 21:40 Tylenol PO Q4H PRN Pain MILD(1-3)/Fever >100.5/PEREZ Albumin Human 25 gm 05/09/19 13:30 Alburx 25% (Albumin) IV PATEL PRN Hypotension Amiodarone HCl 200 mg 05/08/19 22:00 05/16/19 09:29 Cordarone PO 200 mg DAILY RICH Administration Amlodipine Besylate 5 mg 05/08/19 22:00 05/16/19 09:29 Amlodipine PO 5 mg QDAY RICH Administration Apixaban 5 mg 05/11/19 14:00 05/16/19 09:28 Eliquis PO 5 mg Q12HR RICH Administration Protocol Clonidine HCl 0.1 mg 05/14/19 23:00 05/14/19 22:50 Catapres-Tts Patch TD 0.1 mg Fr RICH Administration Clopidogrel Bisulfate 75 mg 05/12/19 10:00 05/16/19 09:28 Plavix PO 75 mg QDAY RICH Administration Epoetin Chet 10,000 unit 05/09/19 13:30 05/14/19 13:45 Procrit IV 10,000 unit PATEL PRN Administration hemodialysis Famotidine 10 mg 05/08/19 22:00 05/16/19 09:28 Pepcid PO 10 mg BID RICH Administration Hydralazine HCl 25 mg 05/08/19 22:00 05/16/19 14:09 Apresoline PO 25 mg Q8HR RICH Administration Hydromorphone HCl 0.5 mg 05/08/19 21:40 Dilaudid IV Q3H PRN Pain , Severe (7-10) Cefepime HCl 1 gm in 100 mls @ 200 mls/hr 05/09/19 13:00 05/16/19 10:46 Cefepime/Ns 1 Gm/100 Ml IV 200 mls/hr Q24HR RICH Administration Protocol Sodium Chloride 100 mls @ 999 mls/hr 05/09/19 18:12 Nacl 0.9% IV PATEL PRN Hypotension Insulin Glargine 30 units 05/08/19 22:00 05/15/19 22:18 Lantus SUB-Q 30 units QHS RICH Administration Insulin Human Lispro 0 unit 05/08/19 22:00 05/16/19 12:29 Humalog SUB-Q 2 unit ACHS RICH Administration Protocol Insulin Human Lispro 5 unit 05/10/19 18:00 05/16/19 12:29 Humalog SUB-Q 5 unit AC RICH Administration Lisinopril 20 mg 05/08/19 22:00 05/16/19 09:28 Zestril PO 20 mg QDAY RICH Administration Metoclopramide HCl 5 mg 05/08/19 22:02 Reglan IV Q6H PRN Nausea And Vomiting Ondansetron HCl 4 mg 05/08/19 21:40 05/12/19 17:43 Zofran IV 4 mg Q3H PRN Administration Nausea And Vomiting Oxycodone/Acetaminophen 1 tab 05/08/19 21:40 05/16/19 10:46 Percocet 5/325 PO 1 tab Q6H PRN Administration Pain, Moderate (4-6) Pantoprazole Sodium 20 mg 05/11/19 12:00 05/16/19 09:29 Protonix PO 20 mg QDAY RICH Administration Pravastatin Sodium 40 mg 05/08/19 22:00 05/15/19 22:14 Pravachol PO 40 mg QHS RICH Administration Sodium Chloride 10 ml 05/08/19 22:00 05/16/19 09:30 Sodium Chloride Flush Syringe 10 Ml IV 10 ml BID RICH Administration Sodium Chloride 10 ml 05/08/19 21:40 Sodium Chloride Flush Syringe 10 Ml IV PRN PRN LINE FLUSH Nutrition/Malnutrition Assess - Dietary Evaluation Nutrition/Malnutrition Findings: Nutrition Notes Start: 05/09/19 10:58 Freq: Status: Active Protocol: Document 05/12/19 09:28 LP (Rec: 05/12/19 09:36 LP [id number]) Nutrition Notes Initial or Follow up Reassessment Current Diagnosis CKD (stage V CKD),Diabetes, Hypertension,Heart Failure Other Pertinent Diagnosis on HD, toe wound Current Diet Renal Labs/Tests Reviewed Pertinent Medications Reviewed Height 5 ft 11 in Weight 87.5 kg [place] Body Weight (kg) 78.18 BMI 26.9 Subjective/Other Information Pt eating well, consuming 100% of meals. Percent of energy/protein needs met: 100% / 100% Burn Absent Trauma Absent Current % PO Good (75-100%) Minimum of two criteria No physical signs of malnutrition #1 Nutrition Diagnosis Increased nutrient needs ( specify in comment below) Diagnosis Progress(for reassessment Continues documentation) Is patient on ventilator? No Is Patient Ambulatory and/or Out of Bed No REE-(L[place]-St. Jeor-confined to bed) Calculation Used for Recommendations [place]-St Jeor Additional Notes Protein needs are 85-102g (1-1 .2g/kg) Fluid needs are 1ml/kcal Nutrition Intervention Change Diet Order: Renal consistent CHO Add Supplement/Snack (indicate name/kcal Double protein and non starchy /protein ) vegetables each meal. Goal #1 Continue to meet at least 80% of kcal and protein needs Goal #2 Wound healing Anticipated Discharge Needs: Renal consistent CHO Follow-Up By: 05/19/19 Additional Comments Follow for stable intakes, wound healing
[2019-05-16] MEDS: PRAVASTATIN 40 MG TAB PO SCH (23:09)
[2019-05-16] MEDS: INSULIN GLARGINE 100 UNITS/ML SUB-Q SCH (23:12)
[2019-05-17] MEDS: hydrALAZINE 25 MG TAB PO SCH ×2 (05:46→14:00)
[2019-05-17] MEDS: INSULIN LISPRO 100 UNIT/ML SUB-Q SCH ×6 (07:30→16:30)
[2019-05-17] MEDS: PANTOPRAZOLE 20 MG TAB PO SCH (10:00)
[2019-05-17] MEDS: amLODIPine 5 MG TAB PO SCH (10:00)
[2019-05-17] MEDS: CLOPIDOGREL 75 MG TAB PO SCH (10:00)
[2019-05-17] MEDS: LISINOPRIL 20 MG TAB PO SCH (10:30)
--- NOTE | 2019-05-17 11:42 | Progress Note ---
Assessment and Plan Impression: * End stage renal disease * Foot ulcer, left --MRI (May 14): no evidence of osteomyelitis --s/p Excisional debridement of necrotic left great toe wound (May 11) * Peripheral artery disease --s/p LLE revascularization (May 11) * Accelerated HTN * Type 2 DM * Secondary Hyperparathyroidism * Anemia in ESRD Plan: * Hemodialysis today - UF as tolerated * Continue MWF schedule * Continue antiHTN medications * Abx per ID * Epogen TIW prn * Renal diet * Dose medications for renal function Subjective Date of service: 05/17/19 Principal diagnosis: pvd Interval history: Patient seen on dialysis. He reports that left foot/leg pain is improved. Objective - Vital Signs Vital signs: Vital Signs - 12hr 05/17/19 05/17/19 05/17/19 05:27 05:46 08:49 Temperature 98.7 F Pulse Rate 80 80 Respiratory 18 Rate Blood Pressure 132/77 132/77 O2 Sat by Pulse 96 96 Oximetry 05/17/19 09:10 Temperature 98.7 F Pulse Rate 81 Respiratory 18 Rate Blood Pressure 136/78 O2 Sat by Pulse Oximetry - General Appearance General appearance: well-developed, well-nourished EENT: ATNC Respiratory: Present: Clear to Ascultation Cardiology: regular, S1S2 Gastrointestinal: normal Integumentary: no rash, warm and dry Neurologic: alert and oriented x3 Musculoskeletal: other (LLE bandaged) Psychiatric: cooperative - Lab 05/11/19 06:43 05/09/19 06:25 Most recent lab results Calcium 9.1 mg/dL (8.4-10.2) 05/09/19 06:25 Medications & Allergies - Medications Allergies/Adverse Reactions: Allergies piroxicam Allergy (Verified 05/11/19 08:34) Unknown Home Medications: Home Medications Medication Instructions Recorded Confirmed Last Taken Type Apixaban [Eliquis] 5 mg PO BID 07/01/18 05/08/19 Unknown History cloNIDine-TTS PATCH [Catapres-Tts 1 patch TD Q7D 07/01/18 05/08/19 Unknown History 0.1MG Patch] Amiodarone [Cordarone 200 MG TAB] 200 mg PO DAILY #30 tablet 07/03/18 05/08/19 Unknown Rx Lisinopril [Zestril TAB] 20 mg PO QDAY #30 tablet 07/03/18 05/08/19 Unknown Rx Pravastatin [Pravachol (Nf)] 40 mg PO QHS #30 tablet 07/03/18 05/08/19 Unknown Rx hydrALAZINE [Apresoline TAB] 25 mg PO Q8HR #90 tab 07/03/18 05/08/19 Unknown Rx Insulin Aspart (Nf) [NovoLOG 100 10 unit SQ AC 07/31/18 05/08/19 Unknown History UNITS/ML VIAL] Insulin Glargine [Lantus] 30 units SQ QHS #1 vial 07/31/18 05/08/19 Unknown Rx amLODIPine 5 mg PO QDAY #30 tablet 07/31/18 05/08/19 Unknown Rx Clopidogrel [Plavix] 75 mg PO QDAY #30 tablet 05/11/19 Unknown Rx Pantoprazole [Protonix TAB] 20 mg PO QDAY #30 tablet. 05/11/19 Unknown Rx Active Medications: Generic Name Dose Route Start Last Admin Trade Name Freq PRN Reason Stop Dose Admin Acetaminophen 650 mg 05/08/19 21:40 Tylenol PO Q4H PRN Pain MILD(1-3)/Fever >100.5/PEREZ Albumin Human 25 gm 05/09/19 13:30 Alburx 25% (Albumin) IV PATEL PRN Hypotension Amiodarone HCl 200 mg 05/08/19 22:00 05/16/19 09:29 Cordarone PO 200 mg DAILY RICH Administration Amlodipine Besylate 5 mg 05/08/19 22:00 05/16/19 09:29 Amlodipine PO 5 mg QDAY RICH Administration Apixaban 5 mg 05/11/19 14:00 05/16/19 23:10 Eliquis PO 5 mg Q12HR RICH Administration Protocol Clonidine HCl 0.1 mg 05/14/19 23:00 05/14/19 22:50 Catapres-Tts Patch TD 0.1 mg Fr RICH Administration Clopidogrel Bisulfate 75 mg 05/12/19 10:00 05/16/19 09:28 Plavix PO 75 mg QDAY RICH Administration Epoetin Chet 10,000 unit 05/09/19 13:30 05/14/19 13:45 Procrit IV 10,000 unit PATEL PRN Administration hemodialysis Famotidine 10 mg 05/08/19 22:00 05/16/19 23:10 Pepcid PO 10 mg BID RICH Administration Hydralazine HCl 25 mg 05/08/19 22:00 05/17/19 05:46 Apresoline PO 25 mg Q8HR RICH Administration Hydromorphone HCl 0.5 mg 05/08/19 21:40 Dilaudid IV Q3H PRN Pain , Severe (7-10) Cefepime HCl 1 gm in 100 mls @ 200 mls/hr 05/09/19 13:00 05/16/19 10:46 Cefepime/Ns 1 Gm/100 Ml IV 05/20/19 10:29 200 mls/hr Q24HR RICH Administration Protocol Sodium Chloride 100 mls @ 999 mls/hr 05/09/19 18:12 Nacl 0.9% IV PATEL PRN Hypotension Insulin Glargine 30 units 05/08/19 22:00 05/16/19 23:12 Lantus SUB-Q 30 units QHS RICH Administration Insulin Human Lispro 0 unit 05/08/19 22:00 05/17/19 07:30 [facility]-Q [facility] Protocol Insulin Human Lispro 5 unit 05/10/19 18:00 05/17/19 07:30 Humalog SUB-Q Not Given [facility] Lisinopril 20 mg 05/08/19 22:00 05/16/19 09:28 Zestril PO 20 mg QDAY RICH Administration Metoclopramide HCl 5 mg 05/08/19 22:02 Reglan IV Q6H PRN Nausea And Vomiting Ondansetron HCl 4 mg 05/08/19 21:40 05/12/19 17:43 Zofran IV 4 mg Q3H PRN Administration Nausea And Vomiting Oxycodone/Acetaminophen 1 tab 05/08/19 21:40 05/16/19 10:46 Percocet 5/325 PO 1 tab Q6H PRN Administration Pain, Moderate (4-6) Pantoprazole Sodium 20 mg 05/11/19 12:00 05/16/19 09:29 Protonix PO 20 mg QDAY RICH Administration Pravastatin Sodium 40 mg 05/08/19 22:00 05/16/19 23:09 Pravachol PO 40 mg QHS RICH Administration Sodium Chloride 10 ml 05/08/19 22:00 05/16/19 23:19 Sodium Chloride Flush Syringe 10 Ml IV 10 ml BID RICH Administration Sodium Chloride 10 ml 05/08/19 21:40 Sodium Chloride Flush Syringe 10 Ml IV PRN PRN LINE FLUSH
[2019-05-17] MEDS ORDERED: SODIUM CHLORIDE*PRIMING MACHINE ONLY FOR DIALYSIS MC ONE (12:04)
[2019-05-17] MEDS: EPOETIN ALFA 10,000 UNIT/1 ML INJ IV PRN (12:40)
--- NOTE | 2019-05-17 13:53 | Progress Note ---
Assessment and Plan 58-year-old male with wound of the left first digit. Patient has already been revascularized. Palpable posterior tibial pulse. Discussed with wound care that first digit appears desiccated. Recommend hydrating wound care. Recommend follow-up in 2 weeks. Subjective Date of service: 05/17/19 Principal diagnosis: pvd Interval history: Palpable left posterior tibial pulse. Evaluated wound, wound appears slightly desiccated. Discussed with wound care. Will need treatment that hydrates the wound as there is absorbent material on the wound. Objective - Constitutional Vitals: Vital Signs - 12hr 05/17/19 05/17/19 05/17/19 05:27 05:46 08:49 Temperature 98.7 F Pulse Rate 80 80 Respiratory 18 Rate Blood Pressure 132/77 132/77 O2 Sat by Pulse 96 96 Oximetry 05/17/19 05/17/19 05/17/19 09:10 09:15 09:30 Temperature 98.7 F Pulse Rate 81 80 82 Respiratory 18 Rate Blood Pressure 136/78 125/80 117/73 O2 Sat by Pulse Oximetry 05/17/19 05/17/19 05/17/19 09:45 10:00 10:15 Temperature Pulse Rate 80 79 79 Respiratory Rate Blood Pressure 120/70 116/69 117/70 O2 Sat by Pulse Oximetry 05/17/19 05/17/19 05/17/19 10:30 10:45 11:00 Temperature Pulse Rate 79 77 77 Respiratory Rate Blood Pressure 119/72 120/75 113/69 O2 Sat by Pulse Oximetry 05/17/19 11:15 Temperature Pulse Rate 79 Respiratory Rate Blood Pressure 110/50 O2 Sat by Pulse Oximetry General appearance: Present: no acute distress - EENT ENT: hearing intact Extremities: pulses intact (left posterior tibial pulse palpable), normal temperature, normal color, abnormal (left first digit wound) - Psychiatric Psychiatric: appropriate mood/affect, cooperative - Labs CBC & Chem 7: 05/11/19 06:43 05/09/19 06:25 Labs: Abnormal lab results 05/16/19 05/16/19 Range/Units 16:57 21:36 POC Glucose 157 H 128 H (70-105) Medications & Allergies - Medications Allergies/Adverse Reactions: Allergies piroxicam Allergy (Verified 05/11/19 08:34) Unknown Home Medications: Home Medications Medication Instructions Recorded Confirmed Last Taken Type Apixaban [Eliquis] 5 mg PO BID 07/01/18 05/08/19 Unknown History cloNIDine-TTS PATCH [Catapres-Tts 1 patch TD Q7D 07/01/18 05/08/19 Unknown History 0.1MG Patch] Amiodarone [Cordarone 200 MG TAB] 200 mg PO DAILY #30 tablet 07/03/18 05/08/19 Unknown Rx Lisinopril [Zestril TAB] 20 mg PO QDAY #30 tablet 07/03/18 05/08/19 Unknown Rx Pravastatin [Pravachol (Nf)] 40 mg PO QHS #30 tablet 07/03/18 05/08/19 Unknown Rx hydrALAZINE [Apresoline TAB] 25 mg PO Q8HR #90 tab 07/03/18 05/08/19 Unknown Rx Insulin Aspart (Nf) [NovoLOG 100 10 unit SQ AC 07/31/18 05/08/19 Unknown History UNITS/ML VIAL] Insulin Glargine [Lantus] 30 units SQ QHS #1 vial 07/31/18 05/08/19 Unknown Rx amLODIPine 5 mg PO QDAY #30 tablet 07/31/18 05/08/19 Unknown Rx Clopidogrel [Plavix] 75 mg PO QDAY #30 tablet 05/11/19 Unknown Rx Pantoprazole [Protonix TAB] 20 mg PO QDAY #30 tablet. 05/11/19 Unknown Rx Active Medications: Generic Name Dose Route Start Last Admin Trade Name Freq PRN Reason Stop Dose Admin Acetaminophen 650 mg 05/08/19 21:40 Tylenol PO Q4H PRN Pain MILD(1-3)/Fever >100.5/PEREZ Albumin Human 25 gm 05/09/19 13:30 Alburx 25% (Albumin) IV PATEL PRN Hypotension Amiodarone HCl 200 mg 05/08/19 22:00 05/16/19 09:29 Cordarone PO 200 mg DAILY RICH Administration Amlodipine Besylate 5 mg 05/08/19 22:00 05/16/19 09:29 Amlodipine PO 5 mg QDAY RICH Administration Apixaban 5 mg 05/11/19 14:00 05/16/19 23:10 Eliquis PO 5 mg Q12HR RICH Administration Protocol Clonidine HCl 0.1 mg 05/14/19 23:00 05/14/19 22:50 Catapres-Tts Patch TD 0.1 mg Fr RICH Administration Clopidogrel Bisulfate 75 mg 05/12/19 10:00 05/16/19 09:28 Plavix PO 75 mg QDAY [facility] Administration Epoetin Chet 10,000 unit 05/09/19 13:30 05/14/19 13:45 Procrit IV 10,000 unit PATEL PRN Administration hemodialysis Famotidine 10 mg 05/08/19 22:00 05/16/19 23:10 Pepcid PO 10 mg BID RICH Administration Hydralazine HCl 25 mg 05/08/19 22:00 05/17/19 05:46 Apresoline PO 25 mg Q8HR [facility] Administration Hydromorphone HCl 0.5 mg 05/08/19 21:40 Dilaudid IV Q3H PRN Pain , Severe (7-10) Cefepime HCl 1 gm in 100 mls @ 200 mls/hr 05/09/19 13:00 05/16/19 10:46 Cefepime/Ns 1 Gm/100 Ml IV 05/20/19 10:29 200 mls/hr Q24HR [facility] Administration Protocol Sodium Chloride 100 mls @ 999 mls/hr 05/09/19 18:12 Nacl 0.9% IV PATEL PRN Hypotension Insulin Glargine 30 units 05/08/19 22:00 05/16/19 23:12 Lantus SUB-Q 30 units QHS [facility] Administration Insulin Human Lispro 0 unit 05/08/19 22:00 05/17/19 07:30 Humalog SUB-Q Not Given [facility] Protocol Insulin Human Lispro 5 unit 05/10/19 18:00 05/17/19 07:30 Humalog SUB-Q Not Given [facility] Lisinopril 20 mg 05/08/19 22:00 05/16/19 09:28 Zestril PO 20 mg QDAY [facility] Administration Metoclopramide HCl 5 mg 05/08/19 22:02 Reglan IV Q6H PRN Nausea And Vomiting Ondansetron HCl 4 mg 05/08/19 21:40 05/12/19 17:43 Zofran IV 4 mg Q3H PRN Administration Nausea And Vomiting Oxycodone/Acetaminophen 1 tab 05/08/19 21:40 05/16/19 10:46 Percocet 5/325 PO 1 tab Q6H PRN Administration Pain, Moderate (4-6) Pantoprazole Sodium 20 mg 05/11/19 12:00 05/16/19 09:29 Protonix PO 20 mg QDAY RICH Administration Pravastatin Sodium 40 mg 05/08/19 22:00 05/16/19 23:09 Pravachol PO 40 mg QHS RICH Administration Sodium Chloride 10 ml 05/08/19 22:00 05/16/19 23:19 Sodium Chloride Flush Syringe 10 Ml IV 10 ml BID RICH Administration Sodium Chloride 10 ml 05/08/19 21:40 Sodium Chloride Flush Syringe 10 Ml IV PRN PRN LINE FLUSH
[2019-05-17 14:13] LABS: Hematocrit 30.6 % (35.5-45.6); Hemoglobin 9.8 gm/dl (11.8-15.2); Mean Corpuscular HGB Conc 32 % (32-34); Mean Corpuscular Volume 91 fl (84-94); Platelet Count 349 K/mm3 (140-440); Red Blood Count 3.36 M/mm3 (3.65-5.03); Red Cell Distribution Width 15.9 % (13.2-15.2)
--- NOTE | 2019-05-17 14:24 | Discharge Summary ---
Providers - Providers Date of Admission: 05/09/19 13:28 Date of discharge: 05/17/19 Attending physician: VALENTÍN SHORT 05/08/19 14:35 Consult to Physician [CONS] Urgent Comment: Consulting Provider: FATEMEH KIM Physician Instructions: Reason For Exam: diabetic ulcer on left toe 05/08/19 21:40 Consult to Physician [CONS] Routine Comment: Consulting Provider: KIERRA SANFORD Physician Instructions: Reason For Exam: ESRD 05/09/19 09:42 Consult to Physician [CONS] Routine Comment: Consulting Provider: EDER CAGLE Physician Instructions: Reason For Exam: Lt Great toe ulcer 05/10/19 07:20 Consult to Wound/ET Nurse [CONS] Routine Reason For Exam: wound eval 05/10/19 13:05 Consult to Physician [CONS] Routine Comment: Consulting Provider: FAISAL SILVA Physician Instructions: Reason For Exam: PVD, L toe wound. ?need for angio Primary care physician: PROSTHODONTIST/OWNER Hospitalization Condition: Stable Pertinent studies: LLE MRI LE duplex US Left toe xry Hospital course: Patient with a history of end-stage renal disease on hemodialysis, diabetes and peripheral vascular disease who presents with nonhealing left first toe wound for 2 weeks. Arterial ultrasound demonstrates monophasic tibial flow - vascular consulted. Cx growing gm -ve rods, MRI foot negative for osteo. Discharge diagnosis and mx: / Diabetic infection and abscess of left foot great toe GS consulted - s/p I and D ID consult requested, Wound cultures noted Wound cx + GNR. XR no osteo. Ordered for MRI foot for possible osteo - was negative for osteo ID recommended to discharge with levofloxacin 500mg q48h to complete 10 total days of therapy from debridement. Stop date 05/20 Patient was discharged hoem in stable condition with outpt f/u /Peripheral arterial disease s/p angioplasty 05/11 / Paroxysmal atrial fibrillation Patient on amiodarone and on ELIQUIS / Insulin dependent diabetes mellitus Mx with home insulin and coverage and adjust insulin dosage hemoglobin A1c - 8.9 / HTN (hypertension), Continue antihypertensives /HLD (hyperlipidemia), Continue statins / ESRD (end stage renal disease) on dialysis Continue hemodialysis as per schedule / Anemia, Secondary to chronic kidney disease, Monitored h/h /Legally blind, provided supportive care / DVT prophylaxis Patient on ELIQUIS and GI prophylaxis Physical exam - Extremities Extremities: no ischemia, pulses intact, pulses symmetrical, No edema, abnormal (right great toe ulcer) Extremity abnormal: other (left foot ulcer for centimeters 2 cm with 2 mm depth with dressing) Peripheral Pulses: within normal limits General appearance: Present: no acute distress - EENT Eyes: EOM intact, legally blind ENT: hearing intact, clear oral mucosa Ears: bilateral: normal - Neck Neck: supple, normal ROM - Respiratory Respiratory effort: normal Respiratory: bilateral: CTA - Cardiovascular Rhythm: regular Heart Sounds: Present: S1 & S2. Absent: gallop, rub - Gastrointestinal General gastrointestinal: Present: soft, non-tender, non-distended, normal bowel sounds - Genitourinary Male genitourinary: normal - Integumentary Integumentary: clear, warm, dry - Musculoskeletal Musculoskeletal: 1, strength equal bilaterally - Neurologic Neurologic: moves all extremities - Psychiatric Psychiatric: memory intact, appropriate mood/affect, intact judgment & insight Disposition: [id number] HOME UNDER HOME [facility] Time spent for discharge: 34 minutes Core Measure Documentation - Palliative Care Palliative Care/ Comfort Measures: Not Applicable - Core Measures Any of the following diagnoses?: none Exam - Constitutional Vitals: Temp Pulse Resp BP Pulse Ox 98.7 F 79 18 110/50 96 05/17/19 09:10 05/17/19 11:15 05/17/19 09:10 05/17/19 11:15 05/17/19 08:49 Plan Activity: up only with assistance, fall precautions Weight Bearing Status: Non-Weight Bearing Diet: diabetic, renal Wound: per wound nurse instructions Special Instructions: restrict fluid intake to (1.2 L per day) Follow up with: PRIMARY CARE, [Primary Care Provider] - 3-5 Days Prescriptions: levoFLOXacin [Levaquin TAB] 500 mg PO Q48H #3 tablet Clopidogrel [Plavix] 75 mg PO QDAY #30 tablet Pantoprazole [Protonix TAB] 20 mg PO QDAY #30 tablet.
[2019-05-17 14:25] LABS: Calcium 8.7 mg/dL (8.4-10.2)
--- NOTE | 2019-05-17 14:58 | Progress Note ---
Assessment and Plan Cultures Blood culture 05/08/19 no growth to date Wound culture 05/08/19 K pneumoniae, S marcescens, P aeruginosa Assessment: 58 yo M PMHx DM2, ESRD on HD admitted with great toe ulceration: 1. L great toe ulceration - No concern for osteomyelitis based on MRI. s/p debridement by Dr. Clark. 2. DM2 - Tight glycemic control for optimal wound healing. 3. ESRD on HD - renally dose antibiotics as appropriate. Recs: - continue cefepime renally adjusted while inpatient - Ok for discharge from infectious disease perspective. Would discharge with levofloxacin 500mg q48h to complete 10 total days of therapy from debridement. Stop date 05/20 Annamarie Delatorre MD, FACP [facility] ([facility]) C: [phone] O: [phone] F: [phone] Subjective Date of service: 05/17/19 Principal diagnosis: pvd Interval history: Reports no complaints. No fever. No pain. Objective - Exam Narrative Exam: Physical Exam: Constitutional: Alert, cooperative. No acute distress Head, Ears, Nose: Normocephalic, atraumatic. External ears, nose normal Eyes: No icterus. No ptosis. Neck: Supple, no meningeal signs Cardiovascular: S1, S2 normal. Respiratory: Good air entry, clear to auscultation bilaterally GI: Soft, non-tender; bowel sounds normal. No peritoneal signs Musculoskeletal: No pedal edema, no cyanosis. Left great toe ulceration with dressing. AVF with thrill Skin: No rash or abscess Hem/Lymphatic: No palpable cervical or supraclavicular nodes. No lymphangitis Psych: Mood ok. Affect normal Neurological: Awake, alert, oriented. No gross abnormality - Constitutional Vitals: Vital Signs Temp Pulse Resp BP Pulse Ox 98.7 F 79 18 110/50 96 05/17/19 09:10 05/17/19 11:15 05/17/19 09:10 05/17/19 11:15 05/17/19 08:49 Temperature -Last 24 Hours Temperature 98.7 F Temperature 98.7 F Temperature 98.0 F Temperature 98.6 F - Labs CBC & Chem 7: 05/17/19 13:43 05/17/19 13:43 Labs: Abnormal lab results 05/16/19 05/16/19 05/17/19 Range/Units 16:57 21:36 13:43 RBC 3.36 L (3.65-5.03) M/mm3 Hgb 9.8 L (11.8-15.2) gm/dl Hct 30.6 L (35.5-45.6) % RDW 15.9 H (13.2-15.2) % Potassium (3.6-5.0) mmol/L Chloride (98-107) mmol/L Creatinine (0.8-1.5) mg/dL Glucose (75-100) mg/dL POC Glucose 157 H 128 H (70-105) 05/17/19 Range/Units 13:43 RBC (3.65-5.03) M/mm3 Hgb (11.8-15.2) gm/dl Hct (35.5-45.6) % RDW (13.2-15.2) % Potassium 3.2 L (3.6-5.0) mmol/L Chloride 97.0 L (98-107) mmol/L Creatinine 4.0 H (0.8-1.5) mg/dL Glucose 128 H (75-100) mg/dL POC Glucose (70-105)
[2019-05-17 17:39] VITALS: BP 120/66
[2019-05-17] MEDS: AMIODARONE 200 MG TAB PO SCH (18:06)
[2019-05-17] MEDS: FAMOTIDINE 10 MG TAB PO SCH (18:07)
[2019-05-17] MEDS: APIXABAN 5 MG TAB PO SCH (18:07)
[2019-05-17] MEDS: CEFEPIME/NS 1 GM/100 ML 1 GM/100 ML BAG IV SCH (18:17)
== END 2019-05-17 18:30 | disposition home health service (06) | DRG 270 ==
LOC: ED 09:51 → 3A 14:42 → OBSVTOIN 05-09 13:28
PROVIDERS: ADMIT Internal Medicine; ATTEND Internal Medicine
PROC: 5A1D70Z Performance of Urinary Filtration, Intermittent, Less than 6 Hours Per Day (ICD-10-PCS; 2019-05-10)
PROC: 0JBR0ZZ Excision of Left Foot Subcutaneous Tissue and Fascia, Open Approach (ICD-10-PCS; principal; 2019-05-11)
PROC: 04CU3ZZ Extirpation of Matter from Left Peroneal Artery, Percutaneous Approach (ICD-10-PCS; 2019-05-11)
PROC: 047S3Z1 Dilation of Left Posterior Tibial Artery using Drug-Coated Balloon, Percutaneous Approach (ICD-10-PCS; 2019-05-11)
PROC: 047U3Z1 Dilation of Left Peroneal Artery using Drug-Coated Balloon, Percutaneous Approach (ICD-10-PCS; 2019-05-11)
PROC: 04CS3ZZ Extirpation of Matter from Left Posterior Tibial Artery, Percutaneous Approach (ICD-10-PCS; 2019-05-11)
PROC: B44LZZZ Ultrasonography of Femoral Artery (ICD-10-PCS; 2019-05-11)
PROC: B41F1ZZ Fluoroscopy of Right Lower Extremity Arteries using Low Osmolar Contrast (ICD-10-PCS; 2019-05-11)
PROC: B4101ZZ Fluoroscopy of Abdominal Aorta using Low Osmolar Contrast (ICD-10-PCS; 2019-05-11)
PROC: B41J1ZZ Fluoroscopy of Other Lower Arteries using Low Osmolar Contrast (ICD-10-PCS; 2019-05-11)
PROC: B41G1ZZ Fluoroscopy of Left Lower Extremity Arteries using Low Osmolar Contrast (ICD-10-PCS; 2019-05-11)
PROC: 5A1D70Z Performance of Urinary Filtration, Intermittent, Less than 6 Hours Per Day (ICD-10-PCS; 2019-05-12)
PROC: 5A1D70Z Performance of Urinary Filtration, Intermittent, Less than 6 Hours Per Day (ICD-10-PCS; 2019-05-14)
PROC: 5A1D70Z Performance of Urinary Filtration, Intermittent, Less than 6 Hours Per Day (ICD-10-PCS; 2019-05-17)
DX: E11.51 Type 2 diabetes mellitus with diabetic peripheral angiopathy without gangrene (principal); N18.6 End stage renal disease; L02.416 Cutaneous abscess of left lower limb; L97.528 Non-pressure chronic ulcer of other part of left foot with other specified severity; I13.2 Hypertensive heart and chronic kidney disease with heart failure and with stage 5 chronic kidney disease, or end stage renal disease; N25.81 Secondary hyperparathyroidism of renal origin; E11.621 Type 2 diabetes mellitus with foot ulcer; I77.1 Stricture of artery; I48.0 Paroxysmal atrial fibrillation; E11.22 Type 2 diabetes mellitus with diabetic chronic kidney disease; D63.1 Anemia in chronic kidney disease; H54.8 Legal blindness, as defined in USA; I50.9 Heart failure, unspecified; K21.9 Gastro-esophageal reflux disease without esophagitis; E78.2 Mixed hyperlipidemia; Z99.2 Dependence on renal dialysis; Z79.4 Long term (current) use of insulin; Z79.899 Other long term (current) drug therapy
CPT/HCPCS: 36415; 37229; 75625; 75710; 76937; 80048; 80053; 80074; 80076; 82962; 83036; 85007; 85025; 85027; 85610; 87040; 87076; 87116; 87186; 93925; 96374; G0378; A9270-GY; C1714; C1760; C1769; C1884; C1887; C2623; J0295; J0692; J0885; J1644; J1815; J2250; J2405; J3010; J3370; J7030; J7050; Q9967

== ENCOUNTER 2019-06-29 09:17 | Outpatient (CLI) | payer MEDICARE ==
[2019-06-29] MEDS ORDERED: LIDOCAINE (4%) 40 MG/ML TOPICAL SOLN 50 ML BOTTLE TP ONE (10:00)
== END 2019-06-29 09:18 | disposition home or self-care (01) ==
LOC: WOUND 09:17
PROVIDERS: ATTEND Surgery
DX: E11.621 Type 2 diabetes mellitus with foot ulcer (principal); L97.522 Non-pressure chronic ulcer of other part of left foot with fat layer exposed; E11.622 Type 2 diabetes mellitus with other skin ulcer; L97.223 Non-pressure chronic ulcer of left calf with necrosis of muscle; E11.22 Type 2 diabetes mellitus with diabetic chronic kidney disease; I12.0 Hypertensive chronic kidney disease with stage 5 chronic kidney disease or end stage renal disease; N18.6 End stage renal disease; E11.51 Type 2 diabetes mellitus with diabetic peripheral angiopathy without gangrene; I11.0 Hypertensive heart disease with heart failure; I50.9 Heart failure, unspecified; E78.5 Hyperlipidemia, unspecified; I48.0 Paroxysmal atrial fibrillation; Z87.891 Personal history of nicotine dependence; Z99.2 Dependence on renal dialysis
CPT/HCPCS: 11042; 11043; G0463; 82962; 99205; 99215

== ENCOUNTER 2019-07-01 11:49 | Outpatient (CLI) | payer MEDICARE ==
--- NOTE | 2019-07-01 12:25 | XRay Report ---
CHEST 2 VIEWS INDICATION / CLINICAL INFORMATION: HBO CLEARANCE/NONPRESSURE CHRONIC ULCER OF LEFT CALFW NECROSIS OF. COMPARISON: Chest x-ray on 07/29/2018 FINDINGS: SUPPORT DEVICES: None. HEART / MEDIASTINUM: No significant abnormality. LUNGS / PLEURA: No significant pulmonary or pleural abnormality. No pneumothorax. ADDITIONAL FINDINGS: No significant additional findings. IMPRESSION: 1. No acute findings. Signer Name: Americo Masy MD Signed: 07/01/2019 12:21 PM Workstation Name: [id number]
== END 2019-07-01 11:50 | disposition home or self-care (01) ==
LOC: XRAY 11:49
PROVIDERS: ATTEND Surgery
DX: L97.223 Non-pressure chronic ulcer of left calf with necrosis of muscle (principal)
CPT/HCPCS: 71046

== ENCOUNTER 2019-07-05 08:03 | Inpatient (IN) | payer MEDICARE ==
--- NOTE | 2019-07-05 09:25 | Emergency Department Report ---
ED General Adult HPI - General Chief complaint: Hypoglycemia Stated complaint: LOW BLOOD SUGAR Time Seen by Provider: 07/05/19 09:13 Source: EMS Mode of arrival: Stretcher Limitations: No Limitations - History of Present Illness Initial comments: Patient is 58 years old male with history of end-stage renal disease on hemodialysis. Patient brought to the emergency room from dialysis center for hypoglycemia. Patient stated that when they started checking for dialysis the found that his left arm fistula is clotted and he was about to discharge home w hen he passed out. Dialysis staff check his blood sugar and it was 30. Patient stated that he ate breakfast last and he took his 10 units of NovoLog after he ate. Upon arrival to the ER patient's blood sugar is 46 patient given apple juice and peanut butter and jelly. Patient is alert and oriented 3 in no acute distress and answering all questions appropriately. -: Sudden, This morning - Related Data Home Medications Medication Instructions Recorded Confirmed Last Taken Apixaban [Eliquis] 5 mg PO BID 07/01/18 05/08/19 07/04/19 cloNIDine-TTS PATCH [Catapres-Tts 1 patch TD Q7D 07/01/18 05/08/19 07/02/19 0.1MG Patch] Insulin Aspart (Nf) [NovoLOG 100 10 unit SQ AC 07/31/18 07/05/19 07/04/19 UNITS/ML VIAL] Iron Sucrose [Venofer] 50 mg IV MO 07/05/19 07/05/19 Unknown Lidocain2.5%/Prilocai2.5% [Emla] 1 applic TP PRN 07/05/19 07/05/19 07/02/19 Mirtazapine [Remeron 15mg TAB] 15 mg PO QDAY 07/05/19 07/05/19 07/04/19 Sevelamer Carbonate [Renvela] 800 mg PO TIDWM 07/05/19 07/05/19 Unknown carvediloL [Coreg] 25 mg PO BID 07/05/19 07/05/19 07/04/19 Previous Rx's Medication Instructions Recorded Last Taken Type Amiodarone [Cordarone 200 MG TAB] 200 mg PO DAILY #30 tablet 07/03/18 07/04/19 Rx Pravastatin [Pravachol (Nf)] 40 mg PO QHS #30 tablet 07/03/18 07/04/19 Rx hydrALAZINE [Apresoline TAB] 25 mg PO Q8HR #90 tab 07/03/18 07/04/19 Rx lisinopriL [Zestril TAB] 20 mg PO QDAY #30 tablet 07/03/18 07/04/19 Rx Insulin Glargine [Lantus VIAL] 30 units SQ QHS #1 vial 07/31/18 07/04/19 Rx amLODIPine 5 mg PO QDAY #30 tablet 07/31/18 07/04/19 Rx Clopidogrel [Plavix] 75 mg PO QDAY #30 tablet 05/11/19 07/04/19 Rx Pantoprazole [Protonix TAB] 20 mg PO QDAY #30 tablet. 05/11/19 07/04/19 Rx Acetaminophen [Acetaminophen TAB] 650 mg PO Q4H PRN tablet 05/17/19 Unknown Rx levoFLOXacin [Levaquin TAB] 500 mg PO Q48H #3 tablet 05/17/19 Unknown Rx Allergies Allergy/AdvReac Type Severity Reaction Status Date / Time piroxicam Allergy Unknown Verified 05/11/19 08:34 ED Review of Systems ROS: Stated complaint: LOW BLOOD SUGAR Other details as noted in HPI Comment: All other systems reviewed and negative Constitutional: denies: chills, fever Respiratory: denies: cough, shortness of breath, SOB with exertion, SOB at rest Cardiovascular: denies: chest pain, palpitations Gastrointestinal: denies: abdominal pain, nausea, vomiting Musculoskeletal: denies: back pain Neurological: denies: headache, weakness, numbness, paresthesias, confusion, abnormal gait ED Past Medical Hx - Past Medical History Previous Medical History?: Yes Hx Hypertension: Yes Hx CVA: No Hx Heart Attack/AMI: No Hx Congestive Heart Failure: Yes Hx Diabetes: Yes (Type 2 insulin dependent) Hx Deep Vein Thrombosis: No Hx Pulmonary Embolism: No Hx GERD: Yes Hx Liver Disease: No Hx Renal Disease: Yes (MWF Hemodialysis) Hx Sickle Cell Disease: No Hx Arthritis: No Hx Headaches / Migraines: No Hx Seizures: No Hx Kidney Stones: No Hx Psychiatric Treatment: No Hx Asthma: No Hx COPD: No Hx Tuberculosis: No Hx Dementia: No Hx HIV: No Additional medical history: afib - Surgical History Past Surgical History?: Yes Hx Coronary Stent: No Hx Open Heart Surgery: No Hx Pacemaker: No Hx Internal Defibrillator: No Hx Cholecystectomy: No Hx Appendectomy: No Hx Breast Surgery: No Additional Surgical History: Right chest permacath, retinal detachment repair, LUE fistula - Social History Smoking Status: Unknown if ever smoked Substance Use Type: None - Medications Home Medications: Home Medications Medication Instructions Recorded Confirmed Last Taken Type Apixaban [Eliquis] 5 mg PO BID 07/01/18 05/08/19 07/04/19 History cloNIDine-TTS PATCH [Catapres-Tts 1 patch TD Q7D 07/01/18 05/08/19 07/02/19 History 0.1MG Patch] Amiodarone [Cordarone 200 MG TAB] 200 mg PO DAILY #30 tablet 07/03/18 05/08/19 07/04/19 Rx Pravastatin [Pravachol (Nf)] 40 mg PO QHS #30 tablet 07/03/18 05/08/19 07/04/19 Rx hydrALAZINE [Apresoline TAB] 25 mg PO Q8HR #90 tab 07/03/18 05/08/19 07/04/19 Rx lisinopriL [Zestril TAB] 20 mg PO QDAY #30 tablet 07/03/18 05/08/19 07/04/19 Rx Insulin Aspart (Nf) [NovoLOG 100 10 unit SQ AC 07/31/18 07/05/19 07/04/19 History UNITS/ML VIAL] Insulin Glargine [Lantus VIAL] 30 units SQ QHS #1 vial 07/31/18 07/05/19 07/04/19 Rx amLODIPine 5 mg PO QDAY #30 tablet 07/31/18 05/08/19 07/04/19 Rx Clopidogrel [Plavix] 75 mg PO QDAY #30 tablet 05/11/19 07/04/19 Rx Pantoprazole [Protonix TAB] 20 mg PO QDAY #30 tablet. 05/11/19 07/04/19 Rx Acetaminophen [Acetaminophen TAB] 650 mg PO Q4H PRN tablet 05/17/19 07/05/19 Unknown Rx levoFLOXacin [Levaquin TAB] 500 mg PO Q48H #3 tablet 05/17/19 Unknown Rx Iron Sucrose [Venofer] 50 mg IV MO 07/05/19 07/05/19 Unknown History Lidocain2.5%/Prilocai2.5% [Emla] 1 applic TP PRN 07/05/19 07/05/19 07/02/19 History Mirtazapine [Remeron 15mg TAB] 15 mg PO QDAY 07/05/19 07/05/19 07/04/19 History Sevelamer Carbonate [Renvela] 800 mg PO TIDWM 07/05/19 07/05/19 Unknown History carvediloL [Coreg] 25 mg PO BID 07/05/19 07/05/19 07/04/19 History ED Physical Exam - General Limitations: No Limitations General appearance: alert, in no apparent distress - Head Head exam: Present: atraumatic, normocephalic, normal inspection - ENT ENT exam: Present: normal exam, normal orophraynx, mucous membranes moist - Neck Neck exam: Present: normal inspection, full ROM. Absent: tenderness, meningismus, lymphadenopathy, thyromegaly - Respiratory Respiratory exam: Present: normal lung sounds bilaterally - Cardiovascular Cardiovascular Exam: Present: regular rate, normal rhythm, normal heart sounds - GI/Abdominal GI/Abdominal exam: Present: soft, normal bowel sounds. Absent: distended, tenderness, guarding, rebound, rigid, diminished bowel sounds, organomegaly, mass, bruit, pulsatile mass, hernia - Extremities Exam Extremities exam: Present: normal inspection, full ROM, normal capillary refill - Back Exam Back exam: Present: normal inspection, full ROM. Absent: CVA tenderness (R), CVA tenderness (L) - Neurological Exam Neurological exam: Present: alert, oriented X3 - Psychiatric Psychiatric exam: Present: normal mood - Skin Skin exam: Present: warm, intact, normal color ED Course Vital Signs 07/05/19 07/05/19 07/05/19 08:05 09:05 10:00 Temperature 98.3 F Pulse Rate 89 81 85 Respiratory 16 12 16 Rate Blood Pressure 184/106 Blood Pressure 167/89 177/96 [Right] O2 Sat by Pulse 99 100 100 Oximetry 07/05/19 07/05/19 07/05/19 11:18 11:31 11:45 Temperature Pulse Rate 77 75 80 Respiratory 14 14 14 Rate Blood Pressure 173/95 173/95 Blood Pressure [Right] O2 Sat by Pulse 96 99 99 Oximetry 07/05/19 07/05/19 07/05/19 12:00 12:15 12:31 Temperature Pulse Rate 83 77 74 Respiratory 14 12 12 Rate Blood Pressure 168/80 168/80 168/80 Blood Pressure [Right] O2 Sat by Pulse 99 100 100 Oximetry 07/05/19 07/05/19 07/05/19 12:45 13:01 13:15 Temperature Pulse Rate 76 Respiratory 11 L 15 16 Rate Blood Pressure 168/80 168/80 168/80 Blood Pressure [Right] O2 Sat by Pulse 100 100 100 Oximetry 07/05/19 07/05/19 07/05/19 13:31 13:45 14:01 Temperature Pulse Rate Respiratory 10 L 12 13 Rate Blood Pressure 168/80 168/80 187/109 Blood Pressure [Right] O2 Sat by Pulse 99 100 98 Oximetry 07/05/19 07/05/19 07/05/19 14:15 14:31 14:45 Temperature Pulse Rate Respiratory 11 L 12 13 Rate Blood Pressure 187/109 187/109 187/109 Blood Pressure [Right] O2 Sat by Pulse 99 99 99 Oximetry 07/05/19 07/05/19 07/05/19 15:00 15:15 15:31 Temperature Pulse Rate Respiratory 14 13 15 Rate Blood Pressure 200/113 200/113 200/113 Blood Pressure [Right] O2 Sat by Pulse 100 100 98 Oximetry 07/05/19 07/05/19 07/05/19 15:45 16:00 16:15 Temperature Pulse Rate Respiratory 14 14 11 L Rate Blood Pressure 200/113 193/111 193/111 Blood Pressure [Right] O2 Sat by Pulse 100 99 98 Oximetry 07/05/19 16:31 Temperature Pulse Rate Respiratory 16 Rate Blood Pressure 193/111 Blood Pressure [Right] O2 Sat by Pulse 100 Oximetry ED Medical Decision Making - Lab Data Result diagrams: 07/05/19 09:35 07/05/19 09:35 - Radiology Data Radiology results: report reviewed - Medical Decision Making Patient is 58 years old male with history of end-stage renal disease on hemodialysis. Patient brought to the emergency room from dialysis center for hypoglycemia. Patient stated that when they started checking for dialysis the found that his left arm fistula is clotted and he was about to discharge home when he passed out. Dialysis staff check his blood sugar and it was 30. Patient stated that he ate breakfast last and he took his 10 units of NovoLog after he ate. Upon arrival to the ER patient's blood sugar is 46 patient given apple juice and peanut butter and jelly. Patient is alert and oriented 3 in no acute distress and answering all questions appropriately. Patient remained stable in the ER. Left AV fistula ultrasound showed occluded fistula. I discussed the patient with Dr. Walls, furniture manager [employer] consultant for Dr. Bhardwaj, agreed with the admission and the need for the consultation for vascular surgery for new access. Dr. WALLS spoke to Dr. Crain from vascular. I discussed the patient with Dr. Kendrick, he agreed to admit the patient to medical service for further management. Critical Care Time: Yes Critical care time in (mins) excluding proc time.: 30 Critical care attestation.: If time is entered above; I have spent that time in minutes in the direct care o f this critically ill patient, excluding procedure time. ED Disposition Clinical Impression: Dialysis catheter clot or failure, End-stage renal disease needing dialysis, Hypoglycemia Disposition: OP ADMIT IP TO THIS HOSP Is pt being admited?: Yes Condition: Stable
[2019-07-05 10:08] LABS: Basophils # (Auto) 0.1 K/mm3 (0.0-0.1); Basophils % (Auto) 0.8 % (0.0-1.8); Eosinophils # (Auto) 0.1 K/mm3 (0.0-0.4); Eosinophils % (Auto) 1.9 % (0.0-4.3); Hematocrit 31.6 % (35.5-45.6); Hemoglobin 10.1 gm/dl (11.8-15.2); Lymphocytes # (Auto) 0.8 K/mm3 (1.2-5.4); Lymphocytes % (Auto) 11.3 % (13.4-35.0); Mean Corpuscular HGB Conc 32 % (32-34); Mean Corpuscular Volume 91 fl (84-94); Monocytes # (Auto) 0.7 K/mm3 (0.0-0.8); Monocytes % (Auto) 10.3 % (0.0-7.3); Platelet Count 266 K/mm3 (140-440); Red Blood Count 3.46 M/mm3 (3.65-5.03); Red Cell Distribution Width 16.7 % (13.2-15.2)
[2019-07-05 10:18] LABS: INR 1.06 (0.87-1.13)
[2019-07-05 10:28] LABS: Calcium 8.7 mg/dL (8.4-10.2)
[2019-07-05] MEDS: DEXTROSE 10% IN WATER 1,000 ML IV SCH (10:48)
--- NOTE | 2019-07-05 11:02 | Vascular Lab Report ---
VL HEMODIALYSIS ACCESS HISTORY: Left AV fistula clotted/thrombosed. TECHNIQUE: Grayscale ultrasound with color and spectral Doppler evaluation. FINDINGS: Flow velocity at the left brachial artery inflow proximal to the fistula measure 91 cm/s. Flow veloci ties at the AV fistula inflow measures 16 cm/s. The AV fistula graft is occluded in its mid and distal segments with no significant outflow. Flow velocities in the left axillary vein measures 16 cm/s. IMPRESSION: The AV fistula is occluded as described. Signer Name: Mariano Jackson Jr, MD Signed: 07/05/2019 10:57 AM Workstation Name: [id number]
--- NOTE | 2019-07-05 13:13 | Event Note ---
Date: 07/05/19 Reviewed notes. Patient had hypoglycemia earlier today requiring by mouth intake. Since patient is not NPO and has issues with hypoglycemia, I'll make plans for dialysis access intervention tomorrow. Nothing by mouth after midnight except sips of water with meds. Limited Radiology Technician tomorrow.
--- NOTE | 2019-07-05 16:47 | Consultation ---
History of Present Illness - Reason for Consult end stage renal disease - History of Present Illness 58-year-old gentleman with medical history significant for Hypertension end- stage renal disease on hemodialysisN friday AT [facility] LEFT av FISTULA ADMITTED WITH COMPLAINTS OF HYPOGLYCEMI And clotted AV access patient denies any worsening shortness of breath denies any lower extremity edema denies any fever or chill last dialysis was Fridaye denies any ongoing chest atientreports compliance with his medications he is anxious to get a kidney transplant denies any headache nausea or vomiting Past History Past Medical History: No medical history Medications and Allergies Allergies Allergy/AdvReac Type Severity Reaction Status Date / Time piroxicam Allergy Unknown Verified 05/11/19 08:34 Home Medications Medication Instructions Recorded Confirmed Last Taken Type Apixaban [Eliquis] 5 mg PO BID 07/01/18 05/08/19 07/04/19 History cloNIDine-TTS PATCH [Catapres-Tts 1 patch TD Q7D 07/01/18 05/08/19 07/02/19 History 0.1MG Patch] Amiodarone [Cordarone 200 MG TAB] 200 mg PO DAILY #30 tablet 07/03/18 05/08/19 07/04/19 Rx Pravastatin [Pravachol (Nf)] 40 mg PO QHS #30 tablet 07/03/18 05/08/19 07/04/19 Rx hydrALAZINE [Apresoline TAB] 25 mg PO Q8HR #90 tab 07/03/18 05/08/19 07/04/19 Rx lisinopriL [Zestril TAB] 20 mg PO QDAY #30 tablet 07/03/18 05/08/19 07/04/19 Rx Insulin Aspart (Nf) [NovoLOG 100 10 unit SQ AC 07/31/18 07/05/19 07/04/19 History UNITS/ML VIAL] Insulin Glargine [Lantus VIAL] 30 units SQ QHS #1 vial 07/31/18 07/05/19 07/04/19 Rx amLODIPine 5 mg PO QDAY #30 tablet 07/31/18 05/08/19 07/04/19 Rx Clopidogrel [Plavix] 75 mg PO QDAY #30 tablet 05/11/19 07/04/19 Rx Pantoprazole [Protonix TAB] 20 mg PO QDAY #30 tablet. 05/11/19 07/04/19 Rx Acetaminophen [Acetaminophen TAB] 650 mg PO Q4H PRN tablet 05/17/19 07/05/19 Unknown Rx levoFLOXacin [Levaquin TAB] 500 mg PO Q48H #3 tablet 05/17/19 Unknown Rx Iron Sucrose [Venofer] 50 mg IV MO 07/05/19 07/05/19 Unknown History Lidocain2.5%/Prilocai2.5% [Emla] 1 applic TP PRN 07/05/19 07/05/19 07/02/19 History Mirtazapine [Remeron 15mg TAB] 15 mg PO QDAY 07/05/19 07/05/19 07/04/19 History Sevelamer Carbonate [Renvela] 800 mg PO TIDWM 07/05/19 07/05/19 Unknown History carvediloL [Coreg] 25 mg PO BID 07/05/19 07/05/19 07/04/19 History Active Meds: Active Medications Dextrose (D10w) 1,000 mls @ 125 mls/hr IV DIRECT RICH Last Admin: 07/05/19 10:48 Dose: 125 mls/hr Documented by: Review of Systems Constitutional: no weight loss, no weight gain Ears, nose, mouth and throat: no ear pain, no ear discharge Cardiovascular: no chest pain, no orthopnea, no palpitations Respiratory: no cough, no cough with sputum Gastrointestinal: no abdominal pain, no nausea, no vomiting Rectal: no pain, no incontinence Musculoskeletal: no neck stiffness, no neck pain Integumentary: no deferred, no rash, no pruritis Neurological: no head injury, no transient paralysis Psychiatric: no anxiety, no memory loss Endocrine: no cold intolerance, no heat intolerance Exam - Vital Signs Vital signs: Vital Signs Temp Pulse Resp BP Pulse Ox 98.3 F 89 16 184/106 99 07/05/19 08:05 07/05/19 08:05 07/05/19 08:05 07/05/19 08:05 07/05/19 08:05 - General Appearance General appearance: well-developed, well-nourished EENT: ATNC, PERRL Neck: Present: neck supple Respiratory: Clear to Ascultation Heart: regular, S1S2 Gastrointestinal: Present: normal, normoactive bowel sounds Integumentary: no rash Neurologic: no focal deficit, alert and oriented x3, CN 3-12 intact Musculoskeletal: Present: deferred Psychiatric: mood/affect appropriate Results - Lab Results 07/05/19 09:35 07/05/19 09:35 Most recent lab results Calcium 8.7 mg/dL (8.4-10.2) 07/05/19 09:35 - Image Kidney/bladder ultrasound: other (duplex ultrasound showed occluded left AV fistula) Assessment and Plan - Patient Problems (1) Dialysis AV fistula malfunction Current Visit: Yes Status: Acute Plan to address problem: fistula malfunction Appreciates interventional radiology consultation plan for fistulogram in the a.m. (2) End-stage renal disease needing dialysis Current Visit: Yes Status: Acute Plan to address problem: end-stage renal disease we'll initiate dialysis once access is declotted (3) Hypoglycemia Current Visit: Yes Status: Acute Plan to address problem: hypoglycemia has receivedglucose improved monitor fingersticks (4) HTN (hypertension) Current Visit: No Status: Chronic Qualifiers: Plan to address problem: hypertension uncontrolled ensure medications
[2019-07-05 19:50] LABS: Hepatitis B Surface Antigen Non-Reactive (Negative); Hepatitis C Virus Antibody Non-Reactive (NonReactive)
[2019-07-05] MEDS ORDERED: ACETAMINOPHEN 325 MG TAB PO PRN ×2 (21:09→21:24)
[2019-07-05] MEDS ORDERED: hydrALAZINE 20 MG/1 ML INJ IV ONE (21:15)
[2019-07-05] MEDS ORDERED: METOCLOPRAMIDE 10 MG/2 ML INJ IV PRN ×2 (21:24→21:35)
[2019-07-05] MEDS ORDERED: ONDANSETRON 4 MG/2 ML INJ IV PRN (21:24)
[2019-07-05] MEDS: amLODIPine 5 MG TAB PO SCH (22:31)
[2019-07-05] MEDS: FAMOTIDINE 10 MG TAB PO SCH (22:31)
[2019-07-05] MEDS: hydrALAZINE 25 MG TAB PO SCH (22:31)
[2019-07-05] MEDS: APIXABAN 5 MG TAB PO SCH (22:32)
[2019-07-05] MEDS: carvediloL 25 MG TAB PO SCH (22:32)
[2019-07-05] MEDS: MIRTAZAPINE 15 MG TAB PO SCH (22:32)
[2019-07-05] MEDS: INSULIN LISPRO 100 UNIT/ML SUB-Q SCH (22:32)
[2019-07-05] MEDS: AMIODARONE 200 MG TAB PO SCH (22:52)
[2019-07-06] MEDS: DEXTROSE 10% IN WATER 1,000 ML IV SCH (01:33)
[2019-07-06] MEDS: hydrALAZINE 25 MG TAB PO SCH ×3 (06:59→22:24)
[2019-07-06] MEDS: INSULIN LISPRO 100 UNIT/ML SUB-Q SCH ×4 (08:28→22:27)
[2019-07-06 08:35] LABS: Basophils # (Auto) 0.1 K/mm3 (0.0-0.1); Eosinophils # (Auto) 0.1 K/mm3 (0.0-0.4); Eosinophils % (Auto) 2.8 % (0.0-4.3); Hematocrit 30.3 % (35.5-45.6); Hemoglobin 9.6 gm/dl (11.8-15.2); Lymphocytes # (Auto) 1.1 K/mm3 (1.2-5.4); Lymphocytes % (Auto) 20.1 % (13.4-35.0); Mean Corpuscular HGB Conc 32 % (32-34); Mean Corpuscular Volume 92 fl (84-94); Monocytes # (Auto) 0.6 K/mm3 (0.0-0.8); Monocytes % (Auto) 12.1 % (0.0-7.3); Platelet Count 252 K/mm3 (140-440); Red Cell Distribution Width 16.5 % (13.2-15.2)
[2019-07-06 08:58] LABS: Calcium 8.5 mg/dL (8.4-10.2)
[2019-07-06] MEDS: FAMOTIDINE 10 MG TAB PO SCH ×2 (10:00→22:23)
[2019-07-06] MEDS ORDERED: ceFAZolin/Water 2 GM/20 ML 2 GM/20 ML SYRINGE IV ONE (10:15)
[2019-07-06] MEDS ORDERED: SODIUM CHLORIDE 0.9% 500 ML 500 ML ONE (10:15)
[2019-07-06] MEDS ORDERED: HEPARIN/NS 5000 UNIT/500ML 1,000 ML IR ONE (10:15)
[2019-07-06] MEDS ORDERED: LIDOCAINE (2%) 20 MG/1 ML VIAL 20 ML MDV INFILTRATI ONE (10:15)
[2019-07-06] MEDS: fentaNYL 100 MCG/2 ML INJ ONE ×4 (10:45→13:04)
[2019-07-06] MEDS: MIDAZOLAM 2 MG/2 ML INJ ONE ×5 (10:45→13:04)
[2019-07-06] MEDS: HEPARIN 10,000 UNITS/10 ML VIAL ONE ×6 (10:52→13:15)
[2019-07-06] MEDS ORDERED: WATER FOR INJ Sterile (PF) 10 ML ONE (10:52)
[2019-07-06] MEDS ORDERED: ALTEPLASE 2 MG INJ ONE ×2 (10:52→11:41)
[2019-07-06] MEDS ORDERED: HEPARIN/NS 5000 UNIT/500ML 500 ML IR ONE (13:00)
[2019-07-06] MEDS ORDERED: LIDOCAINE 1%/EPINEPHRINE 1:100,000 VIAL (20 ML) INFILTRATI ONE (13:01)
--- NOTE | 2019-07-06 13:59 | Operative Report ---
Operative Report Operative Report: Exam: 1. Ultrasound-guided evaluation of the arterial inflow 2. Ultrasound-guided access of the peripheral basilic vein towards the venous outflow 3. Fistulogram 4. Infusion of 4 mg of TPA throughout the basilic vein 5. Angioplasty of the basilic vein with a 8 mm x 10 cm angioplasty balloon, and 7 mm x 4 cm angiosculpt balloon 6. Stenting of the central basilic vein with an 8 mm x 5 cm Viabahn stent-graft with postdilatation with an 8 mm x 4 cm conquest angioplasty balloon 7. Trerotola mechanical thrombectomy of the basilic vein AV fistula, cabin cleaner mechanical thrombectomy of the basilic vein AV fistula 8. Direct infusion of 2 mg of TPA with ultrasound-guided puncture of the basilic vein 9. Angioplasty of the peripheral basilic vein with a 12 mm x 60 mm angioplasty balloon 10. Rhina thrombectomy of the peripheral basilic vein 11. Ultrasound-guided puncture of the right internal jugular vein 12. Fluoroscopic-guided placement of a right internal jugular tunneled 23 cm tip to cuff hemodialysis catheter. INDICATION: THROMBOSED LEFT ARM AV FISTULA WITH END-STAGE RENAL DISEASE. DATE: 07/06/2019 MEDICATIONS: Please refer to nursing documentation for complete list of medications and heparin administration. VERSED AND FENTANYL TITRATED TO MODERATE SEDATION. THE PATIENT WAS MONITORED UNDER CONTINUOUS CARDIOPULMONARY MONITORING THROUGHOUT THE CASE. COMPLICATIONS: NONE IMMEDIATE POLITICAL SCIENCE CHAIR: LALITA ALONZO MD PROCEDURE: The procedure was discussed with the patient and the risks, benefits, and alternatives were discussed with the patient. Informed consent was obtained. The patient was transported into the angiography suite in stable condition and placed on the angiographic table. The left arm was assessed under real-time ultrasound which demonstrated a thrombosed left arm AV fistula. The patient was prepped and draped in a sterile fashion. Lidocaine was used to anesthetize the skin. Ultrasound was used to evaluate the arterial anastomosis which was patent. The first few centimeters of the arterial inflow are patent. Under ultrasound guidance, the AV fistula was pun ctured with the needle pointing towards the venous limb within part of the patent portion of the fistula. 0.018 inch wire was advanced through the needle and this was exchanged for a transitional dilator. The inner dilator and wire were removed and a 0.035 inch Armstrong wire was advanced through the transitional dilator. The dilator was exchanged for a 7 Macedonian short sheath. Angled catheter was advanced over the wire and the wire was advanced into the inferior vena cava under fluoroscopic guidance. Then the wire was removed and the Angled catheter was used to perform a pullback venogram. Digital subtraction venography was performed in the left brachiocephalic vein which demonstrated no central obstruction to flow. The catheter was pulled back until clot was encountered. 4 mg of TPA were infused through the length of the clot to the sheath as the arterial anastomosis was manually compressed. Catheter was exchanged for an 8 mm x 10 cm balloon and the basilic vein was sequentially venoplasty. Trerotola thrombectomy device was used multiple times through the venous limb. Renewable [employer] Technician thrombectomy device was then used. Intermittent Rhina thrombectomy was performed with intermittent angioplasty with 8 mm x 10 cm angioplasty balloon and 12 mm x 6 cm angioplasty balloon. I also injected 2 mg of tPA directly into some of the thrombus using a micropuncture needle. During this process, there was debulking of the thrombus which was initially occlusive throughout the AV graft, and at the end, only partially occlusive predominantly involving the central basilic vein. There was a strong pulse and a weak thrill which was restored. All the wires were removed. 4-0 Vicryl sutures were used to close the fistula access sites. Dermabond was applied. Pressure was held until hemostasis was achieved. The risks, benefits, and alternatives were discussed and informed consent was obtained. The patient was transported to the angiography suite in satisfactory/stable condition and was transported onto the angiography table. The patient's [ ] internal jugular vein was assessed with ultrasound and determined to be patent prior to procedure. The patient was prepped and draped in a sterile fashion. The puncture site was anesthetized. Under sonographic guidance, the right internal jugular vein was punctured with a 21-gauge micropuncture needle and a 0.018 inch wire was advanced into the inferior vena cava. The micropuncture needle was exchanged for a transitional dilator and the wire was retracted into the right atrium to iraida intravascular distance. The wire and inner dilator were removed. 0.035 inch wire was advanced through the transitional dilator into the inferior vena cava. A suitable exit site was identified on the patient's chest inferior and lateral to the venotomy. The site was anesthetized with local anesthetic and the track was anesthetized. Dermatotomy was made. The PermCath was attached to the tunneling device and tunneled between the dermatotomy to the venotomy. Over the 0.035 inch wire, serial dilatation was performed with ultimate placement of a peel-away sheath. The catheter was advanced through the peel- away sheath after the wire was removed and positioned centrally under fluoroscopic guidance. The peel-away sheath was removed. 4-0 Vicryl suture was used to close the venotomy and Dermabond was then applied. 2-0 Ethilon suture was used to secure the catheter at the dermatotomy. The catheter was charged with heparin 1000 units per mL of space. Biopatch and sterile dressing applied. The patient was transferred from the angiography suite back to the floor in stable condition. The patient was then transferred to dialysis. FINDINGS: Please see the procedure note for the findings. IMPRESSION: 1. Successful pharmacomechanical thrombectomy of the thrombosed left AV fistula with stenting of the peripheral dialysis access with angioplasty. 2. Successful ultrasound and fluoroscopically guided placement of a right internal jugular tunneled cuffed hemodialysis catheter. PLAN: Will evaluate and may need open revision in the next few days. Permcath use in the interim.
--- NOTE | 2019-07-06 16:08 | History and Physical Report ---
History of Present Illness Date of examination: 07/05/19 Date of admission: 07/05/19 12:10 Chief complaint: Hypoglycemia History of present illness: Patient is 58 years old male with history of end-stage renal disease on hemodialysis. Patient brought to the emergency room from dialysis center for hypoglycemia. Patient stated that when they started checking for dialysis the found that his left arm fistula is clotted and he was about to discharge home when he passed out. Dialysis staff check his blood sugar and it was 30. Patient stated that he ate breakfast last and he took his 10 units of NovoLog after he ate. Upon arrival to the ER patient's blood sugar is 46 patient given apple juice and peanut butter and jelly. Patient is alert and oriented 3 in no acute distress and answering all questions appropriately. Past Medical History Previous Medical History?: Yes Hypertension: Yes Congestive Heart Failure: Yes Diabetes: Yes (Type 2 insulin dependent) GERD: Yes Renal Disease: Yes (MWF Hemodialysis) Additional medical history: afib Surgical History Past Surgical History?: Yes Additional Surgical History: Right chest permacath, retinal detachment repair, LUE fistula Social History Smoking Status: Unknown if ever smoked Substance Use Type: None Family History Htn Medications Home Medications: Home Medications Medication Instructions Recorded Confirmed Last Taken Type Apixaban [Eliquis] 5 mg PO BID 07/01/18 05/08/19 07/04/19 History cloNIDine-TTS PATCH [Catapres-Tts 1 patch TD Q7D 07/01/18 05/08/19 07/02/19 History 0.1MG Patch] Amiodarone [Cordarone 200 MG TAB] 200 mg PO DAILY #30 tablet 07/03/18 05/08/19 07/04/19 Rx Pravastatin [Pravachol (Nf)] 40 mg PO QHS #30 tablet 07/03/18 05/08/19 07/04/19 Rx hydrALAZINE [Apresoline TAB] 25 mg PO Q8HR #90 tab 07/03/18 05/08/19 07/04/19 Rx lisinopriL [Zestril TAB] 20 mg PO QDAY #30 tablet 07/03/18 05/08/19 07/04/19 Rx Insulin Aspart (Nf) [NovoLOG 100 10 unit SQ AC 07/31/18 07/05/19 07/04/19 History UNITS/ML VIAL] Insulin Glargine [Lantus VIAL] 30 units SQ QHS #1 vial 07/31/18 07/05/19 07/04/19 Rx amLODIPine 5 mg PO QDAY #30 tablet 07/31/18 05/08/19 07/04/19 Rx Clopidogrel [Plavix] 75 mg PO QDAY #30 tablet 05/11/19 07/04/19 Rx Pantoprazole [Protonix TAB] 20 mg PO QDAY #30 tablet. 05/11/19 07/04/19 Rx Acetaminophen [Acetaminophen TAB] 650 mg PO Q4H PRN tablet 05/17/19 07/05/19 Unknown Rx levoFLOXacin [Levaquin TAB] 500 mg PO Q48H #3 tablet 05/17/19 Unknown Rx Iron Sucrose [Venofer] 50 mg IV MO 07/05/19 07/05/19 Unknown History Lidocain2.5%/Prilocai2.5% [Emla] 1 applic TP PRN 07/05/19 07/05/19 07/02/19 History Mirtazapine [Remeron 15mg TAB] 15 mg PO QDAY 07/05/19 07/05/19 07/04/19 History Sevelamer Carbonate [Renvela] 800 mg PO TIDWM 07/05/19 07/05/19 Unknown History carvediloL [Coreg] 25 mg PO BID 07/05/19 07/05/19 07/04/19 History Review of Systems ROS: Stated complaint: LOW BLOOD SUGAR Other details as noted in HPI Comment: All other systems reviewed and negative Constitutional: denies: chills, fever Respiratory: denies: cough, shortness of breath, SOB with exertion, SOB at rest Cardiovascular: denies: chest pain, palpitations Gastrointestinal: denies: abdominal pain, nausea, vomiting Musculoskeletal: denies: back pain Neurological: denies: headache, weakness, numbness, paresthesias, confusion, abnormal gait Past History Past Medical History: No medical history, diabetes, ESRD, GERD, hypertension, hy perlipidemia Past Surgical History: Other (AV Fistula l arm) Social history: no significant social history, lives with family, full code Family history: hypertension Medications and Allergies Allergies Allergy/AdvReac Type Severity Reaction Status Date / Time piroxicam Allergy Unknown Verified 05/11/19 08:34 Home Medications Medication Instructions Recorded Confirmed Last Taken Type Pravastatin [Pravachol (Nf)] 40 mg PO QHS #30 tablet 07/03/18 07/05/19 07/04/19 Rx Insulin Aspart (Nf) [NovoLOG 100 10 unit SQ AC 07/31/18 07/05/19 07/04/19 History UNITS/ML VIAL] Insulin Glargine [Lantus VIAL] 30 units SQ QHS #1 vial 07/31/18 07/05/19 07/04/19 Rx Clopidogrel [Plavix] 75 mg PO QDAY #30 tablet 05/11/19 07/05/19 07/04/19 Rx Pantoprazole [Protonix TAB] 20 mg PO QDAY #30 tablet. 05/11/19 07/05/19 07/04/19 Rx Acetaminophen [Acetaminophen TAB] 650 mg PO Q4H PRN tablet 05/17/19 07/05/19 Unknown Rx Iron Sucrose [Venofer] 50 mg IV MO 07/05/19 07/05/19 Unknown History Lidocain2.5%/Prilocai2.5% [Emla] 1 applic TP PRN 07/05/19 07/05/19 07/02/19 History Mirtazapine [Remeron 15mg TAB] 15 mg PO QDAY 07/05/19 07/05/19 07/04/19 History Sevelamer Carbonate [Renvela] 800 mg PO TIDWM 07/05/19 07/05/19 Unknown History Amiodarone [Cordarone 200 MG TAB] 200 mg PO DAILY #30 tablet 07/11/19 Unknown Rx Apixaban [Eliquis] 5 mg PO BID #60 tab 07/11/19 Unknown Rx Aspirin EC [Halfprin EC] 81 mg PO QDAY #30 tablet 07/11/19 Unknown Rx Famotidine [Pepcid] 10 mg PO BID tablet 07/11/19 Unknown Rx Lispro Insulin [HumaLOG] 0 unit SUB-Q ACHS units 07/11/19 Unknown Rx amLODIPine 5 mg PO QDAY #30 tablet 07/11/19 Unknown Rx carvediloL [Coreg] 25 mg PO BID #60 tab 07/11/19 Unknown Rx cloNIDine-TTS PATCH [Catapres-Tts 1 patch TD Q7D #4 patch 07/11/19 Unknown Rx 0.1MG Patch] hydrALAZINE [Apresoline TAB] 25 mg PO Q8HR #90 tab 07/11/19 Unknown Rx lisinopriL [Zestril TAB] 20 mg PO QDAY #30 tablet 07/11/19 Unknown Rx oxyCODONE /ACETAMINOPHEN [Percocet 1 tab PO Q4HR #12 tab 07/11/19 Unknown Rx 5/325] Active Meds: Active Medications Acetaminophen (Tylenol) 650 mg PO Q4H PRN PRN Reason: Pain MILD(1-3)/Fever >100.5/PEREZ Amiodarone HCl (Cordarone) 200 mg PO DAILY [facility] Last Admin: 07/05/19 22:52 Dose: 200 mg Documented by: Amlodipine Besylate (Amlodipine) 5 mg PO QDAY [facility] Last Admin: 07/05/19 22:31 Dose: 5 mg Documented by: Apixaban (Eliquis) 5 mg PO BID [facility]; Protocol Last Admin: 07/05/19 22:32 Dose: 5 mg Documented by: Carvedilol (Coreg) 25 mg PO BID [facility] Last Admin: 07/05/19 22:32 Dose: 25 mg Documented by: Clonidine HCl (Catapres-Tts Patch) 0.1 mg TD Fr [facility] Famotidine (Pepcid) 10 mg PO BID [facility] Last Admin: 07/05/19 22:31 Dose: 10 mg Documented by: Hydralazine HCl (Apresoline) 25 mg PO Q8HR [facility] Last Admin: 07/06/19 06:59 Dose: Not Given Documented by: Hydromorphone HCl (Dilaudid) 0.5 mg IV Q3H PRN PRN Reason: Pain , Severe (7-10) Dextrose (D10w) 1,000 mls @ 125 mls/hr IV DIRECT [facility] Last Admin: 07/06/19 01:33 Dose: 125 mls/hr Documented by: Insulin Human Lispro (Humalog) 0 unit SUB-Q ACHS [facility]; Protocol Last Admin: 07/06/19 08:28 Dose: 8 unit Documented by: Lisinopril (Zestril) 20 mg PO QDAY [facility] Metoclopramide HCl (Reglan) 2.5 mg IV Q6H PRN PRN Reason: Nausea And Vomiting Mirtazapine (Remeron) 15 mg PO QDAY@2200 [facility] Last Admin: 07/05/19 22:32 Dose: 15 mg Documented by: Ondansetron HCl (Zofran) 4 mg IV Q8H PRN PRN Reason: Nausea And Vomiting Oxycodone/Acetaminophen (Percocet 5/325) 1 tab PO Q6H PRN PRN Reason: Pain, Moderate (4-6) Sodium Chloride (Sodium Chloride Flush Syringe 10 Ml) 10 ml IV BID [facility] Last Admin: 07/05/19 22:33 Dose: 10 ml Documented by: Sodium Chloride (Sodium Chloride Flush Syringe 10 Ml) 10 ml IV PRN PRN PRN Reason: LINE FLUSH Exam - Constitutional Vitals: Temp Pulse Resp BP Pulse Ox 98.0 F 82 20 137/76 96 07/06/19 05:18 07/06/19 08:36 07/06/19 08:36 07/06/19 05:18 07/06/19 05:18 General appearance: Present: no acute distress, well-nourished - EENT Eyes: Present: PERRL ENT: hearing intact, clear oral mucosa - Neck Neck: Present: supple, normal ROM - Respiratory Respiratory effort: normal Respiratory: bilateral: CTA - Cardiovascular Heart rate: 78 Rhythm: regular Heart Sounds: Present: S1 & S2. Absent: rub, click - Extremities Extremities: no ischemia, pulses intact, pulses symmetrical, No edema Peripheral Pulses: within normal limits - Abdominal General gastrointestinal: Present: soft, non-tender, non-distended, normal bowel sounds Male genitourinary: Present: normal - Integumentary Integumentary: Present: clear, warm, dry - Musculoskeletal Musculoskeletal: gait normal, strength equal bilaterally - Psychiatric Psychiatric: appropriate mood/affect, intact judgment & insight - Neurologic Neurologic: CNII-XII intact, moves all extremities - Allied Health Allied health notes reviewed: nursing, case management Results - Labs CBC & Chem 7: 07/06/19 07:59 07/09/19 06:33 Labs: Laboratory Last Values WBC 5.3 K/mm3 (4.5-11.0) 07/06/19 07:59 RBC 3.30 M/mm3 (3.65-5.03) L 07/06/19 07:59 Hgb 9.6 gm/dl (11.8-15.2) L 07/06/19 07:59 Hct 30.3 % (35.5-45.6) L 07/06/19 07:59 MCV 92 fl (84-94) 07/06/19 07:59 MCH 29 pg (28-32) 07/06/19 07:59 MCHC 32 % (32-34) 07/06/19 07:59 RDW 16.5 % (13.2-15.2) H 07/06/19 07:59 Plt Count 252 K/mm3 (140-440) 07/06/19 07:59 Lymph % (Auto) 20.1 % (13.4-35.0) 07/06/19 07:59 Churchill % (Auto) 12.1 % (0.0-7.3) H 07/06/19 07:59 Eos % (Auto) 2.8 % (0.0-4.3) 07/06/19 07:59 Baso % (Auto) 1.0 % (0.0-1.8) 07/06/19 07:59 Lymph # 1.1 K/mm3 (1.2-5.4) L 07/06/19 07:59 Churchill # 0.6 K/mm3 (0.0-0.8) 07/06/19 07:59 Eos # 0.1 K/mm3 (0.0-0.4) 07/06/19 07:59 Baso # 0.1 K/mm3 (0.0-0.1) 07/06/19 07:59 Seg Neutrophils % 64.0 % (40.0-70.0) 07/06/19 07:59 Seg Neutrophils # 3.4 K/mm3 (1.8-7.7) 07/06/19 07:59 PT 13.9 Sec. (12.2-14.9) 07/05/19 09:35 INR 1.06 (0.87-1.13) 07/05/19 09:35 Sodium 135 mmol/L (137-145) L 07/06/19 07:59 Potassium 4.4 mmol/L (3.6-5.0) 07/06/19 07:59 Chloride 97.9 mmol/L (98-107) L 07/06/19 07:59 Carbon Dioxide 19 mmol/L (22-30) L 07/06/19 07:59 Anion Gap 23 mmol/L 07/06/19 07:59 BUN 60 mg/dL (9-20) H 07/06/19 07:59 Creatinine 10.3 mg/dL (0.8-1.5) H 07/06/19 07:59 Estimated GFR 6 ml/min 07/06/19 07:59 BUN/Creatinine Ratio 6 % 07/06/19 07:59 Glucose 411 mg/dL (75-100) H 07/06/19 07:59 POC Glucose 258 (70-105) H 07/06/19 10:03 Hemoglobin A1c 6.7 % (4-6) H 07/06/19 07:59 Calcium 8.5 mg/dL (8.4-10.2) 07/06/19 07:59 Total Bilirubin 0.20 mg/dL (0.1-1.2) 07/06/19 07:59 AST 9 units/L (5-40) 07/06/19 07:59 ALT 6 units/L (7-56) L 07/06/19 07:59 Alkaline Phosphatase 96 units/L (35-129) 07/06/19 07:59 Total Protein 7.3 g/dL (6.3-8.2) 07/06/19 07:59 Albumin 3.0 g/dL (3.9-5) L 07/06/19 07:59 Albumin/Globulin Ratio 0.7 % 07/06/19 07:59 Hepatitis A IgM Ab Non-reactive (NonReactive) 07/05/19 18:52 Hep Bs Antigen Non-reactive (Negative) 07/05/19 18:52 Hep B Core IgM Ab Non-reactive (NonReactive) 07/05/19 18:52 Hepatitis C Antibody Non-reactive (NonReactive) 07/05/19 18:52 - Imaging and Cardiology EKG: report reviewed Assessment and Plan Advance Directives: Yes (FC) VTE prophylaxis?: Chemical Plan of care discussed with patient/family: Yes - Patient Problems (1) End-stage renal disease needing dialysis Status: Acute Plan to address problem: Nephrology consult for emergent HD (2) Dialysis AV fistula malfunction Status: Acute Qualifiers: Encounter type: initial encounter Qualified Code(s): T82.590A - Other mechanical complication of surgically created arteriovenous fistula, initial encounter Plan to address problem: Vascular surgery consulted (3) Hypoglycemia Status: Acute Plan to address problem: Corrected (4) Hyperkalemia Status: Acute Plan to address problem: Anti Hyperkalemia cocktail given (5) HLD (hyperlipidemia) Status: Chronic Qualifiers: Hyperlipidemia type: mixed hyperlipidemia Qualified Code(s): E78.2 - Mixed hyperlipidemia Plan to address problem: Cont statins (6) HTN (hypertension) Status: Chronic Qualifiers: Plan to address problem: Cont antihypertensives (7) DVT prophylaxis Status: Acute Plan to address problem: On Heparin
--- NOTE | 2019-07-06 17:20 | Event Note ---
Date: 07/06/19 Plan will be for operative AV graft revision tomorrow. Nothing by mouth after midnight except sips of water with metastases.
--- NOTE | 2019-07-06 17:47 | Progress Note ---
Assessment and Plan - Patient Problems (1) Dialysis AV fistula malfunction Current Visit: Yes Status: Acute Plan to address problem: fistula malfunction Appreciates interventional radiology consultation Status post fistulogram Has right IJ PermCath unable to declot access (2) End-stage renal disease needing dialysis Current Visit: Yes Status: Acute Plan to address problem: end-stage renal disease we'll initiate dialysis Has right IJ PermCath (3) Hypoglycemia Current Visit: Yes Status: Acute Plan to address problem: hypoglycemia has receivedglucose improved monitor fingersticks (4) HTN (hypertension) Current Visit: No Status: Chronic Qualifiers: Plan to address problem: hypertension uncontrolled ensure medications Subjective Interval history: 58-year-old gentleman with medical history significant for Hypertension end- stage renal disease on hemodialysisN friday AT [facility] A LEFT av FISTULA ADMITTED WITH COMPLAINTS OF HYPOGLYCEMIa And clotted AV access I attest I saw the patient on dialysis Dialysis access was unable to be declotted by vascular surgery Status post PermCath placement Objective - Vital Signs Vital signs: Vital Signs - 12hr 07/06/19 07/06/19 07/06/19 08:36 14:10 14:15 Temperature Pulse Rate 75 72 Pulse Rate [ 82 Right Radial] Respiratory 20 Rate Blood Pressure 148/84 152/92 07/06/19 07/06/19 07/06/19 14:30 14:45 15:00 Temperature Pulse Rate 72 75 73 Pulse Rate [ Right Radial] Respiratory Rate Blood Pressure 124/72 131/75 121/71 07/06/19 07/06/19 07/06/19 15:15 15:30 15:45 Temperature Pulse Rate 67 68 68 Pulse Rate [ Right Radial] Respiratory Rate Blood Pressure 105/49 110/67 94/61 07/06/19 07/06/19 07/06/19 16:00 16:06 16:15 Temperature 98.2 F Pulse Rate 79 75 79 Pulse Rate [ Right Radial] Respiratory 18 Rate Blood Pressure 131/69 158/88 131/69 07/06/19 07/06/19 16:30 16:45 Temperature Pulse Rate 69 70 Pulse Rate [ Right Radial] Respiratory Rate Blood Pressure 137/79 126/73 - General Appearance General appearance: well-developed, well-nourished EENT: ATNC, PERRL Neck: no JVD Respiratory: Present: Clear to Ascultation Cardiology: regular, S1S2 Gastrointestinal: normal, normoactive bowel sounds Integumentary: no rash Neurologic: alert and oriented x3, CN 3-12 intact Musculoskeletal: deferred Psychiatric: mood/affect appropriate - Lab 07/06/19 07:59 07/06/19 07:59 Most recent lab results Calcium 8.5 mg/dL (8.4-10.2) 07/06/19 07:59 - Imaging Chest x-ray: image reviewed (I reviewed chest x-ray) Medications & Allergies - Medications Allergies/Adverse Reactions: Allergies piroxicam Allergy (Verified 05/11/19 08:34) Unknown Home Medications: Home Medications Medication Instructions Recorded Confirmed Last Taken Type Apixaban [Eliquis] 5 mg PO BID 07/01/18 07/05/19 07/04/19 History cloNIDine-TTS PATCH [Catapres-Tts 1 patch TD Q7D 07/01/18 07/05/19 07/02/19 History 0.1MG Patch] Amiodarone [Cordarone 200 MG TAB] 200 mg PO DAILY #30 tablet 07/03/18 07/05/19 07/04/19 Rx Pravastatin [Pravachol (Nf)] 40 mg PO QHS #30 tablet 07/03/18 07/05/19 07/04/19 Rx hydrALAZINE [Apresoline TAB] 25 mg PO Q8HR #90 tab 07/03/18 07/05/19 07/04/19 Rx lisinopriL [Zestril TAB] 20 mg PO QDAY #30 tablet 07/03/18 07/05/19 07/04/19 Rx Insulin Aspart (Nf) [NovoLOG 100 10 unit SQ AC 07/31/18 07/05/19 07/04/19 History UNITS/ML VIAL] Insulin Glargine [Lantus VIAL] 30 units SQ QHS #1 vial 07/31/18 07/05/19 07/04/19 Rx amLODIPine 5 mg PO QDAY #30 tablet 07/31/18 07/05/19 07/04/19 Rx Clopidogrel [Plavix] 75 mg PO QDAY #30 tablet 05/11/19 07/05/19 07/04/19 Rx Pantoprazole [Protonix TAB] 20 mg PO QDAY #30 tablet. 05/11/19 07/05/1907/04/20 Rx Acetaminophen [Acetaminophen TAB] 650 mg PO Q4H PRN tablet 05/17/19 07/05/19 Unknown Rx levoFLOXacin [Levaquin TAB] 500 mg PO Q48H #3 tablet 05/17/19 07/05/19 Unknown Rx Iron Sucrose [Venofer] 50 mg IV MO 07/05/19 07/05/19 Unknown History Lidocain2.5%/Prilocai2.5% [Emla] 1 applic TP PRN 07/05/19 07/05/19 07/02/19 History Mirtazapine [Remeron 15mg TAB] 15 mg PO QDAY 07/05/19 07/05/19 07/04/19 History Sevelamer Carbonate [Renvela] 800 mg PO TIDWM 07/05/19 07/05/19 Unknown History carvediloL [Coreg] 25 mg PO BID 07/05/19 07/05/19 07/04/19 History Active Medications: Generic Name Dose Route Start Last Admin Trade Name Freq PRN Reason Stop Dose Admin Acetaminophen 650 mg 07/05/19 21:09 Tylenol PO Q4H PRN Pain MILD(1-3)/Fever >100.5/PEREZ Amiodarone HCl 200 mg 07/05/19 22:00 07/05/19 22:52 Cordarone PO 200 mg DAILY RICH Administration Amlodipine Besylate 5 mg 07/05/19 22:00 07/05/19 22:31 Amlodipine PO 5 mg QDAY RICH Administration Apixaban 5 mg 07/05/19 22:00 07/05/19 22:32 Eliquis PO 5 mg BID RICH Administration Protocol Carvedilol 25 mg 07/05/19 22:00 07/05/19 22:32 Coreg PO 25 mg BID RICH Administration Clonidine HCl 0.1 mg 07/09/19 10:00 Catapres-Tts Patch TD Fr RICH Famotidine 10 mg 07/05/19 22:00 07/05/19 22:31 Pepcid PO 10 mg BID RICH Administration Hydralazine HCl 25 mg 07/05/19 22:00 07/06/19 06:59 Apresoline PO Not Given Q8HR RICH Hydromorphone HCl 0.5 mg 07/05/19 21:24 Dilaudid IV Q3H PRN Pain , Severe (7-10) Dextrose 1,000 mls @ 125 mls/hr 07/05/19 10:00 07/06/19 01:33 D10w IV 125 mls/hr DIRECT RICH Administration Insulin Human Lispro 0 unit 07/05/19 22:00 07/06/19 08:28 Humalog SUB-Q 8 unit ACHS RICH Administration Protocol Lisinopril 20 mg 07/06/19 10:00 Zestril PO QDAY RICH Metoclopramide HCl 2.5 mg 07/05/19 21:35 Reglan IV Q6H PRN Nausea And Vomiting Mirtazapine 15 mg 07/05/19 22:00 07/05/19 22:32 Remeron PO 15 mg QDAY@2200 RICH Administration Ondansetron HCl 4 mg 07/05/19 21:24 Zofran IV Q8H PRN Nausea And Vomiting Oxycodone/Acetaminophen 1 tab 07/05/19 21:24 Percocet 5/325 PO Q6H PRN Pain, Moderate (4-6) Sodium Chloride 10 ml 07/05/19 22:00 07/05/19 22:33 Sodium Chloride Flush Syringe 10 Ml IV 10 ml BID RICH Administration Sodium Chloride 10 ml 07/05/19 21:24 Sodium Chloride Flush Syringe 10 Ml IV PRN PRN LINE FLUSH
[2019-07-06] MEDS: LISINOPRIL 20 MG TAB PO SCH (20:13)
[2019-07-06] MEDS: carvediloL 25 MG TAB PO SCH ×2 (20:13→22:38)
[2019-07-06] MEDS: APIXABAN 5 MG TAB PO SCH ×3 (20:14→22:36)
[2019-07-06] MEDS: amLODIPine 5 MG TAB PO SCH (20:14)
[2019-07-06] MEDS: AMIODARONE 200 MG TAB PO SCH (20:14)
[2019-07-06] MEDS: MIRTAZAPINE 15 MG TAB PO SCH (22:23)
[2019-07-07] MEDS: hydrALAZINE 25 MG TAB PO SCH ×3 (05:46→21:49)
[2019-07-07] MEDS: INSULIN LISPRO 100 UNIT/ML SUB-Q SCH ×3 (09:20→17:20)
[2019-07-07] MEDS: AMIODARONE 200 MG TAB PO SCH (09:22)
[2019-07-07] MEDS: amLODIPine 5 MG TAB PO SCH (09:22)
[2019-07-07] MEDS: carvediloL 25 MG TAB PO SCH ×2 (09:22→21:48)
[2019-07-07 09:23] LABS: Calcium 8.7 mg/dL (8.4-10.2)
[2019-07-07] MEDS: FAMOTIDINE 10 MG TAB PO SCH ×2 (09:23→21:48)
[2019-07-07] MEDS: APIXABAN 5 MG TAB PO SCH ×2 (09:23→21:49)
[2019-07-07] MEDS: DEXTROSE 10% IN WATER 1,000 ML IV SCH (10:12)
[2019-07-07] MEDS ORDERED: SODIUM CHLORIDE 0.9% 1000 ML 1,000 ML IV SCH (11:45)
[2019-07-07] MEDS ORDERED: MIDAZOLAM 2 MG/2 ML INJ IV ONE (12:17)
--- NOTE | 2019-07-07 12:24 | Anesthesia Day of Surgery ---
Anesthesia Day of Surgery - Day of Surgery Patient Examined: Yes Patient H&P Reviewed: Yes Patient is NPO: Yes
--- NOTE | 2019-07-07 12:24 | Anesthesia Consultation ---
Anesthesia Consult and Med Hx Date of service: 07/07/19 - Airway Anesthetic Teeth Evaluation: Good ROM Head & Neck: Adequate Mental/Hyoid Distance: Adequate Mallampati Class: Class II Intubation Access Assessment: Good - Pulmonary Exam CTA: Yes - Cardiac Exam Cardiac Exam: RRR - Pre-Operative Health Status ASA Pre-Surgery Classification: ASA3 Proposed Anesthetic Plan: General - Pulmonary Hx Smoking: Yes Hx Asthma: No COPD: No Hx Pneumonia: Yes - Cardiovascular System Hx Hypertension: Yes Hx Heart Attack/AMI: No Hx Pacemaker: No Hx Internal Defibrillator: No - Central Nervous System Hx Seizures: No Hx Psychiatric Problems: No - Endocrine Hx Renal Disease: Yes (MWF Hemodialysis) Hx End Stage Renal Disease: Yes Hx Liver Disease: No - Hematic Hx Anemia: Yes Hx Sickle Cell Disease: No - Other Systems Hx Cancer: No
[2019-07-07] MEDS: LISINOPRIL 20 MG TAB PO SCH (14:25)
--- NOTE | 2019-07-07 18:12 | Progress Note ---
Assessment and Plan (1) End-stage renal disease needing dialysis Status: Acute Plan to address problem: Nephrology consult for emergent HD (2) Dialysis AV fistula malfunction Status: Acute Qualifiers: Encounter type: initial encounter Qualified Code(s): T82.590A - Other mechanical complication of surgically created arteriovenous fistula, initial encounter Plan to address problem: Vascular surgery consulted (3) Hypoglycemia Status: Acute Plan to address problem: Corrected (4) Hyperkalemia Status: Acute Plan to address problem: Anti Hyperkalemia cocktail given (5) HLD (hyperlipidemia) Status: Chronic Qualifiers: Hyperlipidemia type: mixed hyperlipidemia Qualified Code(s): E78.2 - Mixed hyperlipidemia Plan to address problem: Cont statins (6) HTN (hypertension) Status: Chronic Qualifiers: Plan to address problem: Cont antihypertensives (7) DVT prophylaxis Status: Acute Plan to address problem: On Heparin Subjective Date of service: 07/07/19 Principal diagnosis: Hyperkalemia,ESRD,AV fistula malfunction Interval history: Sx better Patient is 58 years old male with history of end-stage renal disease on hemodialysis. Patient brought to the emergency room from dialysis center for hypoglycemia. Patient stated that when they started checking for dialysis the found that his left arm fistula is clotted and he was about to discharge home when he passed out. Dialysis staff check his blood sugar and it was 30. Patient stated that he ate breakfast last and he took his 10 units of NovoLog after he ate. Upon arrival to the ER patient's blood sugar is 46 patient given apple juice and peanut butter and jelly. Patient is alert and oriented 3 in no acute distress and answering all questions appropriately. Objective - Constitutional Vitals: Vital Signs - 12hr 07/07/19 07/07/19 07/07/19 06:41 09:22 13:50 Temperature 97.9 F Pulse Rate 81 79 76 Respiratory 18 16 Rate Blood Pressure 152/82 144/79 137/76 O2 Sat by Pulse 98 99 Oximetry 07/07/19 07/07/19 14:25 16:39 Temperature 98.5 F Pulse Rate 76 78 Respiratory 20 Rate Blood Pressure 137/76 126/74 O2 Sat by Pulse 98 Oximetry General appearance: Present: no acute distress, well-nourished - EENT Eyes: PERRL, EOM intact ENT: hearing intact, clear oral mucosa Ears: bilateral: normal - Neck Neck: supple, normal ROM - Respiratory Respiratory effort: normal Respiratory: bilateral: CTA - Breasts Breasts: normal - Cardiovascular Heart rate: 78 Rhythm: regular Heart Sounds: Present: S1 & S2. Absent: gallop, rub Extremities: pulses intact, No edema, normal color, Full ROM - Gastrointestinal General gastrointestinal: Present: soft, non-tender, non-distended, normal bowel sounds - Genitourinary Male genitourinary: normal - Integumentary Integumentary: clear, warm, dry - Musculoskeletal Musculoskeletal: 1, strength equal bilaterally - Neurologic Neurologic: moves all extremities - Psychiatric Psychiatric: memory intact, appropriate mood/affect, intact judgment & insight - Labs CBC & Chem 7: 07/06/19 07:59 07/09/19 06:33 Labs: Abnormal lab results 07/06/19 07/07/19 07/07/19 Range/Units 22:04 08:15 08:47 Sodium 135 L (137-145) mmol/L Carbon Dioxide 20 L (22-30) mmol/L BUN 36 H (9-20) mg/dL Creatinine 7.6 H (0.8-1.5) mg/dL Glucose 170 H (75-100) mg/dL POC Glucose 215 H 166 H (70-105) 07/07/19 Range/Units 16:52 Sodium (137-145) mmol/L Carbon Dioxide (22-30) mmol/L BUN (9-20) mg/dL Creatinine (0.8-1.5) mg/dL Glucose (75-100) mg/dL POC Glucose 178 H (70-105)
[2019-07-07] MEDS: MIRTAZAPINE 15 MG TAB PO SCH (21:49)
--- NOTE | 2019-07-07 22:20 | Event Note ---
Date: 07/07/19 Scheduled for OR for AV graft revision today, but due to OR schedule, had to be cancelled and rescheduled for friday. NPO after MN on friday.
[2019-07-08] MEDS: INSULIN LISPRO 100 UNIT/ML SUB-Q SCH ×5 (01:31→22:20)
[2019-07-08] MEDS: hydrALAZINE 25 MG TAB PO SCH ×3 (06:07→22:14)
[2019-07-08] MEDS: HYDROmorphone 1 MG/1 ML INJ IV PRN ×2 (06:08→16:07)
[2019-07-08] MEDS ORDERED: SODIUM CHLORIDE*PRIMING MACHINE ONLY FOR DIALYSIS MC ONE (13:47)
--- NOTE | 2019-07-08 14:03 | Progress Note ---
Assessment and Plan - Patient Problems (1) Dialysis AV fistula malfunction Current Visit: Yes Status: Acute Plan to address problem: fistula malfunction Appreciates interventional radiology consultation Status post fistulogram Has right IJ PermCath unable to declot access (2) End-stage renal disease needing dialysis Current Visit: Yes Status: Acute Plan to address problem: end-stage renal disease continue dialysis Has right IJ PermCath (3) Hypoglycemia Current Visit: Yes Status: Acute Plan to address problem: hypoglycemia resolved monitor fingersticks (4) HTN (hypertension) Current Visit: No Status: Chronic Qualifiers: Plan to address problem: hypertension uncontrolled ensure medications Subjective Interval history: 58-year-old gentleman with medical history significant for Hypertension end- stage renal disease on hemodialysisN friday AT [facility] A LEFT av FISTULA ADMITTED WITH COMPLAINTS OF HYPOGLYCEMIa And clotted AV access I attest I saw the patient on dialysis Plan for Declot procedure by vascular surgery tomorrow. Status post PermCath placement Objective - Vital Signs Vital signs: Vital Signs - 12hr 07/08/19 07/08/19 07/08/19 05:55 06:07 09:30 Temperature 98.3 F 98.3 F Pulse Rate 74 74 72 Respiratory 20 18 Rate Blood Pressure 157/86 154/76 137/79 O2 Sat by Pulse 96 Oximetry 07/08/19 07/08/19 07/08/19 09:45 10:00 10:15 Temperature Pulse Rate 71 72 72 Respiratory Rate Blood Pressure 128/69 113/67 123/70 O2 Sat by Pulse Oximetry 07/08/19 07/08/19 07/08/19 10:30 10:45 11:00 Temperature Pulse Rate 72 72 72 Respiratory Rate Blood Pressure 131/74 143/76 133/75 O2 Sat by Pulse Oximetry 07/08/19 07/08/19 07/08/19 11:15 11:30 11:45 Temperature Pulse Rate 73 72 72 Respiratory Rate Blood Pressure 151/79 151/82 149/81 O2 Sat by Pulse Oximetry 07/08/19 07/08/19 07/08/19 12:00 12:15 12:30 Temperature Pulse Rate 72 72 72 Respiratory Rate Blood Pressure 158/86 163/91 162/91 O2 Sat by Pulse Oximetry 07/08/19 07/08/19 12:45 13:00 Temperature Pulse Rate 75 74 Respiratory Rate Blood Pressure 164/89 169/90 O2 Sat by Pulse Oximetry - General Appearance General appearance: well-developed, well-nourished EENT: ATNC, PERRL Neck: no JVD Respiratory: Present: Clear to Ascultation Cardiology: regular, S1S2 Gastrointestinal: normal, normoactive bowel sounds Integumentary: no rash Neurologic: no focal deficit, alert and oriented x3 Psychiatric: mood/affect appropriate - Lab 07/06/19 07:59 07/07/19 08:47 Most recent lab results Calcium 8.7 mg/dL (8.4-10.2) 07/07/19 08:47 Medications & Allergies - Medications Allergies/Adverse Reactions: Allergies piroxicam Allergy (Verified 05/11/19 08:34) Unknown Home Medications: Home Medications Medication Instructions Recorded Confirmed Last Taken Type Apixaban [Eliquis] 5 mg PO BID 07/01/18 07/05/19 07/04/19 History cloNIDine-TTS PATCH [Catapres-Tts 1 patch TD Q7D 07/01/18 07/05/19 07/02/19 History 0.1MG Patch] Amiodarone [Cordarone 200 MG TAB] 200 mg PO DAILY #30 tablet 07/03/18 07/05/19 07/04/19 Rx Pravastatin [Pravachol (Nf)] 40 mg PO QHS #30 tablet 07/03/18 07/05/19 07/04/19 Rx hydrALAZINE [Apresoline TAB] 25 mg PO Q8HR #90 tab 07/03/18 07/05/19 07/04/19 Rx lisinopriL [Zestril TAB] 20 mg PO QDAY #30 tablet 07/03/18 07/05/19 07/04/19 Rx Insulin Aspart (Nf) [NovoLOG 100 10 unit SQ AC 07/31/18 07/05/19 07/04/19 History UNITS/ML VIAL] Insulin Glargine [Lantus VIAL] 30 units SQ QHS #1 vial 07/31/18 07/05/19 07/04/19 Rx amLODIPine 5 mg PO QDAY #30 tablet 07/31/18 07/05/19 07/04/19 Rx Clopidogrel [Plavix] 75 mg PO QDAY #30 tablet 05/11/19 07/05/19 07/04/19 Rx Pantoprazole [Protonix TAB] 20 mg PO QDAY #30 tablet. 05/11/19 07/05/19 07/04/19 Rx Acetaminophen [Acetaminophen TAB] 650 mg PO Q4H PRN tablet 05/17/19 07/05/19 Unknown Rx levoFLOXacin [Levaquin TAB] 500 mg PO Q48H #3 tablet 05/17/19 07/05/19 Unknown Rx Iron Sucrose [Venofer] 50 mg IV MO 07/05/19 07/05/19 Unknown History Lidocain2.5%/Prilocai2.5% [Emla] 1 applic TP PRN 07/05/19 07/05/19 07/02/19 History Mirtazapine [Remeron 15mg TAB] 15 mg PO QDAY 07/05/19 07/05/19 07/04/19 History Sevelamer Carbonate [Renvela] 800 mg PO TIDWM 07/05/19 07/05/19 Unknown History carvediloL [Coreg] 25 mg PO BID 07/05/19 07/05/19 07/04/19 History Active Medications: Generic Name Dose Route Start Last Admin Trade Name Freq PRN Reason Stop Dose Admin Acetaminophen 650 mg 07/05/19 21:09 Tylenol PO Q4H PRN Pain MILD(1-3)/Fever >100.5/PEREZ Amiodarone HCl 200 mg 07/05/19 22:00 07/07/19 09:22 Cordarone PO 200 mg DAILY RICH Administration Amlodipine Besylate 5 mg 07/05/19 22:00 07/07/19 09:22 Amlodipine PO 5 mg QDAY RICH Administration Apixaban 5 mg 07/05/19 22:00 07/07/19 21:49 Eliquis PO Not Given BID RICH Protocol Aspirin 81 mg 07/08/19 10:00 Halfprin Ec PO QDAY RICH Carvedilol 25 mg 07/05/19 22:00 07/07/19 21:48 Coreg PO 25 mg BID RICH Administration Clonidine HCl 0.1 mg 07/09/19 10:00 Catapres-Tts Patch TD Fr RICH Famotidine 10 mg 07/05/19 22:00 07/07/19 21:48 Pepcid PO 10 mg BID RICH Administration Hydralazine HCl 25 mg 07/05/19 22:00 07/08/19 06:07 Apresoline PO 25 mg Q8HR RICH Administration Hydromorphone HCl 0.5 mg 07/05/19 21:24 07/08/19 06:08 Dilaudid IV 0.5 mg Q3H PRN Administration Pain , Severe (7-10) Dextrose 1,000 mls @ 125 mls/hr 07/05/19 10:00 07/07/19 10:12 D10w IV 125 mls/hr DIRECT RICH Administration Insulin Human Lispro 0 unit 07/05/19 22:00 07/08/19 12:12 Humalog SUB-Q Not Given ACHS [facility] Protocol Lisinopril 20 mg 07/06/19 10:00 07/07/19 14:25 Zestril PO 20 mg QDAY RICH Administration Metoclopramide HCl 2.5 mg 07/05/19 21:35 Reglan IV Q6H PRN Nausea And Vomiting Mirtazapine 15 mg 07/05/19 22:00 07/07/19 21:49 Remeron PO 15 mg QDAY@2200 RICH Administration Ondansetron HCl 4 mg 07/05/19 21:24 Zofran IV Q8H PRN Nausea And Vomiting Oxycodone/Acetaminophen 1 tab 07/05/19 21:24 Percocet 5/325 PO Q6H PRN Pain, Moderate (4-6) Sodium Chloride 10 ml 07/05/19 22:00 07/08/19 02:37 Sodium Chloride Flush Syringe 10 Ml IV 10 ml BID RICH Administration Sodium Chloride 10 ml 07/05/19 21:24 Sodium Chloride Flush Syringe 10 Ml IV PRN PRN LINE FLUSH
[2019-07-08] MEDS: carvediloL 25 MG TAB PO SCH ×2 (15:42→22:14)
[2019-07-08] MEDS: FAMOTIDINE 10 MG TAB PO SCH ×2 (15:43→22:14)
[2019-07-08] MEDS: ASPIRIN EC 81 MG TAB PO SCH (15:43)
[2019-07-08] MEDS: APIXABAN 5 MG TAB PO SCH ×2 (15:43→22:17)
[2019-07-08] MEDS: LISINOPRIL 20 MG TAB PO SCH (15:44)
[2019-07-08] MEDS: amLODIPine 5 MG TAB PO SCH (16:12)
[2019-07-08] MEDS: AMIODARONE 200 MG TAB PO SCH (16:13)
[2019-07-08] MEDS: oxyCODONE /ACETAMINOPHEN 5-325MG TAB PO PRN (22:14)
[2019-07-08] MEDS: MIRTAZAPINE 15 MG TAB PO SCH (22:16)
[2019-07-09] MEDS: hydrALAZINE 25 MG TAB PO SCH ×3 (05:57→23:22)
[2019-07-09 07:10] LABS: Calcium 9.2 mg/dL (8.4-10.2)
[2019-07-09] MEDS: INSULIN LISPRO 100 UNIT/ML SUB-Q SCH ×4 (07:26→23:20)
[2019-07-09] MEDS ORDERED: SODIUM CHLORIDE P/F VIAL 10 ML 10 ML ONE (07:29)
[2019-07-09] MEDS ORDERED: BUPIVACAINE/PF (0.5%) 5 MG/1 ML 30 ML VIAL INFILTRATI ONE ×2 (07:29→09:57)
[2019-07-09] MEDS ORDERED: LIDOCAINE (1%) 10 MG/1 ML VIAL 20 ML MDV ONE (07:29)
[2019-07-09] MEDS ORDERED: HEPARIN 10,000 UNITS/10 ML VIAL ONE (07:29)
[2019-07-09] MEDS ORDERED: rifAMPin 600 MG VIAL ONE (07:30)
[2019-07-09] MEDS ORDERED: SODIUM CHLORIDE 0.9% 250ML 250 ML ONE (07:31)
[2019-07-09] MEDS ORDERED: SODIUM CHLORIDE 0.45% 500 ML IV ONE (07:31)
[2019-07-09] MEDS ORDERED: fentaNYL 100 MCG/2 ML INJ IV PRN (07:42)
--- NOTE | 2019-07-09 07:42 | Anesthesia Day of Surgery ---
Anesthesia Day of Surgery - Day of Surgery Patient Examined: Yes Patient H&P Reviewed: Yes Patient is NPO: Yes
[2019-07-09] MEDS ORDERED: GELATIN SPONGE SIZE 100 TP ONE (07:44)
[2019-07-09] MEDS ORDERED: THROMBIN (RECOMBINANT) 5,000 UNIT VIAL TP ONE (07:44)
[2019-07-09] MEDS ORDERED: SODIUM CHLORIDE 0.9% 1000 ML 1,000 ML ONE (07:54)
[2019-07-09] MEDS ORDERED: BACTERIOSTATIC SODIUM CHLORIDE 0.9% 30 ML VIAL INFILTRATI ONE (07:55)
[2019-07-09] MEDS ORDERED: PROPOFOL 200 MG/20 ML VIAL IV ONE (07:56)
[2019-07-09] MEDS ORDERED: dexAMETHasone 20 MG/5 ML VIAL ONE (07:58)
[2019-07-09] MEDS ORDERED: ONDANSETRON 4 MG/2 ML INJ ONE (07:58)
[2019-07-09] MEDS ORDERED: GLYCOPYRROLATE 0.4 MG/2 ML INJ ONE (07:58)
[2019-07-09] MEDS ORDERED: LIDOCAINE MPF (2%) 20 MG/1 ML VIAL 5 ML ONE (07:58)
[2019-07-09] MEDS ORDERED: SODIUM CHLORIDE 0.9% 1000 ML 1,000 ML IV SCH (08:00)
[2019-07-09] MEDS ORDERED: ceFAZolin/STERILE WATER 2 GM/20 ML SYRINGE IV NR (08:25)
[2019-07-09] MEDS ORDERED: ceFAZolin/Water 2 GM/20 ML 2 GM/20 ML SYRINGE IV NR (09:00)
[2019-07-09] MEDS ORDERED: SODIUM CHLORIDE 0.9% IRR 1,500 ML BOTTLE IR ONE (09:57)
[2019-07-09] MEDS ORDERED: rifAMPin 600 MG VIAL IV ONE (09:57)
[2019-07-09] MEDS ORDERED: SODIUM CHLORIDE 0.9% IRR 1,000 ML BOTTLE IR ONE (09:57)
[2019-07-09] MEDS ORDERED: LIDOCAINE (1%) 10 MG/1 ML VIAL 20 ML MDV INFILTRATI ONE (09:57)
[2019-07-09] MEDS ORDERED: HEPARIN 10,000 UNITS/10 ML VIAL IR ONE (09:57)
[2019-07-09] MEDS ORDERED: cloNIDine TTS 0.1 MG/24 HR PATCH TD SCH (10:00)
--- NOTE | 2019-07-09 11:00 | Progress Note ---
Assessment and Plan Assessment and plan: AV fistula malfunction. Interventional radiology to perform AV graft revision today. ESRD. Continue hemodialysis per nephrology. Hypertension. Resume antihypertensive medications. Metabolic encephalopathy. Resolved. Etiology secondary to hypoglycemia. Hypoglycemia. Resolved. History Interval history: No new issues overnight. Hospitalist Physical - Constitutional Vitals: Temp Pulse Resp BP Pulse Ox 99.3 F 78 20 131/79 98 07/09/19 07:35 07/09/19 07:35 07/09/19 07:35 07/09/19 07:35 07/09/19 07:35 General appearance: Present: no acute distress, well-nourished - EENT Eyes: Present: PERRL, EOM intact ENT: hearing intact, clear oral mucosa, dentition normal - Neck Neck: Present: supple, normal ROM - Respiratory Respiratory effort: normal Respiratory: bilateral: CTA - Cardiovascular Rhythm: regular Heart Sounds: Present: S1 & S2. Absent: gallop, rub - Extremities Extremities: no ischemia, No edema, Full ROM - Abdominal General gastrointestinal: soft, non-tender, non-distended, normal bowel sounds - Integumentary Integumentary: Present: clear, warm, dry - Neurologic Neurologic: CNII-XII intact, moves all extremities Results - Labs CBC & Chem 7: 07/06/19 07:59 07/09/19 06:33 Labs: Laboratory Last Values WBC 5.3 K/mm3 (4.5-11.0) 07/06/19 07:59 RBC 3.30 M/mm3 (3.65-5.03) L 07/06/19 07:59 Hgb 9.6 gm/dl (11.8-15.2) L 07/06/19 07:59 Hct 30.3 % (35.5-45.6) L 07/06/19 07:59 MCV 92 fl (84-94) 07/06/19 07:59 MCH 29 pg (28-32) 07/06/19 07:59 MCHC 32 % (32-34) 07/06/19 07:59 RDW 16.5 % (13.2-15.2) H 07/06/19 07:59 Plt Count 252 K/mm3 (140-440) 07/06/19 07:59 Lymph % (Auto) 20.1 % (13.4-35.0) 07/06/19 07:59 [place] % (Auto) 12.1 % (0.0-7.3) H 07/06/19 07:59 Eos % (Auto) 2.8 % (0.0-4.3) 07/06/19 07:59 Baso % (Auto) 1.0 % (0.0-1.8) 07/06/19 07:59 Lymph # 1.1 K/mm3 (1.2-5.4) L 07/06/19 07:59 [place] # 0.6 K/mm3 (0.0-0.8) 07/06/19 07:59 Eos # 0.1 K/mm3 (0.0-0.4) 07/06/19 07:59 Baso # 0.1 K/mm3 (0.0-0.1) 07/06/19 07:59 Seg Neutrophils % 64.0 % (40.0-70.0) 07/06/19 07:59 Seg Neutrophils # 3.4 K/mm3 (1.8-7.7) 07/06/19 07:59 PT 13.9 Sec. (12.2-14.9) 07/05/19 09:35 INR 1.06 (0.87-1.13) 07/05/19 09:35 Sodium 135 mmol/L (137-145) L 07/09/19 06:33 Potassium 4.4 mmol/L (3.6-5.0) 07/09/19 06:33 Chloride 97.5 mmol/L (98-107) L 07/09/19 06:33 Carbon Dioxide 24 mmol/L (22-30) 07/09/19 06:33 Anion Gap 18 mmol/L 07/09/19 06:33 BUN 28 mg/dL (9-20) H 07/09/19 06:33 Creatinine 7.1 mg/dL (0.8-1.5) H 07/09/19 06:33 Estimated GFR 10 ml/min 07/09/19 06:33 BUN/Creatinine Ratio 4 % 07/09/19 06:33 Glucose 293 mg/dL (75-100) H 07/09/19 06:33 POC Glucose 267 (70-105) H 07/09/19 08:20 Hemoglobin A1c 6.7 % (4-6) H 07/06/19 07:59 Calcium 9.2 mg/dL (8.4-10.2) 07/09/19 06:33 Total Bilirubin 0.20 mg/dL (0.1-1.2) 07/06/19 07:59 AST 9 units/L (5-40) 07/06/19 07:59 ALT 6 units/L (7-56) L 07/06/19 07:59 Alkaline Phosphatase 96 units/L (35-129) 07/06/19 07:59 Total Protein 7.3 g/dL (6.3-8.2) 07/06/19 07:59 Albumin 3.0 g/dL (3.9-5) L 07/06/19 07:59 Albumin/Globulin Ratio 0.7 % 07/06/19 07:59 Hepatitis A IgM Ab Non-reactive (NonReactive) 07/05/19 18:52 Hep Bs Antigen Non-reactive (Negative) 07/05/19 18:52 Hep B Core IgM Ab Non-reactive (NonReactive) 07/05/19 18:52 Hepatitis C Antibody Non-reactive (NonReactive) 07/05/19 18:52 Active Medications - Current Medications Current Medications: Generic Name Dose Route Start Last Admin Trade Name Freq PRN Reason Stop Dose Admin Acetaminophen 650 mg 07/05/19 21:09 Tylenol PO Q4H PRN Pain MILD(1-3)/Fever >100.5/PEREZ Amiodarone HCl 200 mg 07/05/19 22:00 07/08/19 16:13 Cordarone PO 200 mg DAILY RICH Administration Amlodipine Besylate 5 mg 07/05/19 22:00 07/08/19 16:12 Amlodipine PO 5 mg QDAY RICH Administration Apixaban 5 mg 07/05/19 22:00 07/08/19 22:17 Eliquis PO Not Given BID [facility] Protocol Aspirin 81 mg 07/08/19 10:00 07/08/19 15:43 Halfprin Ec PO Not Given QDAY RICH Carvedilol 25 mg 07/05/19 22:00 07/08/19 22:14 Coreg PO 25 mg BID RICH Administration Clonidine HCl 0.1 mg 07/09/19 10:00 Catapres-Tts Patch TD Fr RICH Famotidine 10 mg 07/05/19 22:00 07/08/19 22:14 Pepcid PO 10 mg BID RICH Administration Fentanyl 50 mcg 07/09/19 07:42 Sublimaze IV 07/09/19 23:00 Q5MIN PRN Pain , Severe (7-10) Hydralazine HCl 25 mg 07/05/19 22:00 07/09/19 05:57 Apresoline PO 25 mg Q8HR RICH Administration Hydromorphone HCl 0.5 mg 07/05/19 21:24 07/08/19 16:07 Dilaudid IV 0.5 mg Q3H PRN Administration Pain , Severe (7-10) Dextrose 1,000 mls @ 125 mls/hr 07/05/19 10:00 07/07/19 10:12 D10w IV 125 mls/hr DIRECT RICH Administration Sodium Chloride 1,000 mls @ 42 mls/hr 07/09/19 08:00 07/09/19 08:05 Nacl 0.9% 1000 Ml IV 42 mls/hr DIRECT RICH Administration Cefazolin Sodium 2 gm in 20 mls @ 80 mls/hr 07/09/19 09:00 Ancef/Sterile Water 2 Gm/20 Ml IV 07/09/19 18:00 PREOP NR Insulin Human Lispro 0 unit 07/05/19 22:00 07/09/19 07:26 Humalog SUB-Q 6 unit ACHS RICH Administration Protocol Lisinopril 20 mg 07/06/19 10:00 07/08/19 15:44 Zestril PO Not Given QDAY RICH Metoclopramide HCl 2.5 mg 07/05/19 21:35 Reglan IV Q6H PRN Nausea And Vomiting Mirtazapine 15 mg 07/05/19 22:00 07/08/19 22:16 Remeron PO 15 mg QDAY@2200 RICH Administration Ondansetron HCl 4 mg 07/05/19 21:24 Zofran IV Q8H PRN Nausea And Vomiting Oxycodone/Acetaminophen 1 tab 07/05/19 21:24 07/08/19 22:14 Percocet 5/325 PO 1 tab Q6H PRN Administration Pain, Moderate (4-6) Sodium Chloride 10 ml 07/05/19 22:00 07/08/19 22:16 Sodium Chloride Flush Syringe 10 Ml IV 10 ml BID RICH Administration Sodium Chloride 10 ml 07/05/19 21:24 Sodium Chloride Flush Syringe 10 Ml IV PRN PRN LINE FLUSH Nutrition/Malnutrition Assess - Dietary Evaluation Nutrition/Malnutrition Findings: Nutrition Notes Start: 07/06/19 14:11 Freq: Status: Active Protocol: Document 07/07/19 11:25 ILYA (Rec: 07/07/19 11:36 ILYA [id number]) Co-Sign 07/07/19 11:25 LP Nutrition Notes Initial or Follow up Assessment Current Diagnosis CKD (stage V CKD),Diabetes, Hypertension,Hyperlipidemia Other Pertinent Diagnosis On HD, Left toe ulcer Current Diet NPO Labs/Tests BUN 36 Cr 7.6 BG 170 Hgb A1C 6.7 Pertinent Medications Reviewed Height 5 ft 11 in Weight 83 kg Usual Body Weight 82.7 kg [place] Body Weight (kg) 78.18 BMI 25.4 Subjective/Other Information F/U for assessment. Pt stated that he hasn't had wt loss, but fluctuates sometimes. [employer] pt ate three meals a day. Pt ate 0% of breakfast due to being NPO for surgery. Pt was NPO yesterday as well. Pt reported being hungry and wants to eat. Offered pt Romel due to left toe ulcer and he accepted. Noted no muscle or fat depletion. Burn Absent Trauma Absent GI Symptoms None Current % PO Negligible Minimum of two criteria No physical signs of malnutrition #1 Nutrition Diagnosis Increased nutrient needs ( specify in comment below) Comments: Protein Etiology Wound healing As Evidenced by Signs and Symptoms Left toe ulcer Is patient on ventilator? No Is Patient Ambulatory and/or Out of Bed No REE-([facility]-confined to bed) 2017.032 Calculation Used for Recommendations [facility] Additional Notes Protein: 100-125 (1.2-1.5g/kg) Fluid: 4893-3355 ml or per MD Nutrition Intervention Change Diet Order: Advance diet when medically feasible Add Supplement/Snack (indicate name/kcal Romel BID once diet advances /protein ) Provides kCal: 190 Provides Protein (gm) 5 Goal #1 Diet advancement Goal #2 Meet at least 75% of energy and protein needs via PO and ONS intakes Goal #3 Wound healing Anticipated Discharge Needs: Renal/consistent CHO diet Follow-Up By: 07/09/19 Additional Comments F/U for diet advancement, and PO and ONS tolerance
--- NOTE | 2019-07-09 11:22 | Operative Report ---
Operative Report Operative Report: Date of Procedure: 07/09/2019 Pre-operative Diagnosis: Complications of Dialysis Access Post-operative Diagnosis: Same Procedure(s): 1. Revision with Excision of Pseudoaneurysm, Open Thrombectomy with 4 Rhina Of the Venous Outflow and Arterial Inflow, And Repair with Interposition 7 mm Bovine Artegraft Of Left Arm AV Fistula Surgeon: Issac Coley M.D. Slot Attendant: None Anesthesia: General Endotracheal Anesthesia EBL: 150 ml Counts: Correct Complications: None Condition: Stable Findings: Successful revision of left arm AV fistula with palpable thrill at the completion of the case. Specimen: Left arm AV fistula with pseudoaneurysm Indication: The patient is a 58 year old male with a history of End-Stage Renal Disease who has a left arm arteriovenous fistula that has a large pseudoaneurysm that has too much thrombus burden to undergo a successful percutaneous thrombectomy. He is in need of an open thrombectomy with revision with an interposition graft. He was given the risk, benefits, and alternative procedures and consented to the procedure. Description of Procedure: The patient was brought to the operating room and laid in supine position. After timeout was performed general endotracheal anesthesia was administered and the patient's left arm was prepped and draped in normal sterile fashion. A 10 blade was used to make an incision centered over the pseudoaneurysm and extended from the normal caliber venous outflow portion of the fistula to the normal caliber and flow portion of the fistula. Sharp dissection was used to carry the incision down to the arterial inflow, which had occluded, and the fistula was dissected circumferentially and controlled with vessel loop. I then dissected the entire pseudoaneurysm circumferentially and then carried the dissection towards the venous outflow was was dissected circumferentially and controlled with a vessel loop. A Viabahn Stent Graft had been placed in a stenotic area of the venous outflow and the plan was to sew the venous portion of the interposition graft to the stent graft. I resected the pseudoaneurysm from the venous outflow as well as the arterial inflow and passed this off as specimen. I then used a Chani-Wick tunneler to tunnel along the lateral portion of the incision and pulled a 7 mm Bovine Artegraft through the tunnel. I infused with heparinized saline to ensure that it had not kinked or twisted. I then passed a 4 Rhina through the arterial inflow and put out a significant amount of thrombus and made several passes into the was no additional thrombus and there was adequate arterial inflow. I flushed with heparinized saline and then used a DeBakey clamp to clamp the fistula.
[2019-07-09] MEDS: amLODIPine 5 MG TAB PO SCH (12:14)
[2019-07-09] MEDS: AMIODARONE 200 MG TAB PO SCH (12:14)
[2019-07-09] MEDS: carvediloL 25 MG TAB PO SCH ×2 (12:14→23:21)
[2019-07-09] MEDS: APIXABAN 5 MG TAB PO SCH ×2 (12:15→23:23)
[2019-07-09] MEDS: LISINOPRIL 20 MG TAB PO SCH (12:15)
[2019-07-09] MEDS: FAMOTIDINE 10 MG TAB PO SCH ×2 (12:16→23:23)
[2019-07-09] MEDS: oxyCODONE /ACETAMINOPHEN 5-325MG TAB PO PRN (12:16)
[2019-07-09] MEDS: ASPIRIN EC 81 MG TAB PO SCH (12:16)
--- NOTE | 2019-07-09 15:26 | Progress Note ---
Assessment and Plan - Patient Problems (1) Dialysis AV fistula malfunction Current Visit: Yes Status: Acute Plan to address problem: fistula malfunction Appreciates interventional radiology consultation Status post fistulogram Has right IJ PermCath which is being used for now s/p open thrombectomy and AV Graft placement on 07/09 , WILL NOT USE UNTIL OKAY PER SURGEON. (2) End-stage renal disease needing dialysis Current Visit: Yes Status: Acute Plan to address problem: end-stage renal disease continue dialysis Has right IJ PermCath (3) Hypoglycemia Current Visit: Yes Status: Acute Plan to address problem: hypoglycemia resolved monitor fingersticks (4) HTN (hypertension) Current Visit: No Status: Chronic Qualifiers: Plan to address problem: hypertension uncontrolled continue medications Subjective Interval history: 58-year-old gentleman with medical history significant for Hypertension end- stage renal disease on hemodialysisN friday AT [facility] A LEFT av FISTULA ADMITTED WITH COMPLAINTS OF HYPOGLYCEMIa And clotted AV access Patient seen today , usually on MWF however currently on TTS while inpatient Repeat Dialysis in am. Denies any shortness of breath. s/p revision of AVF with open thrombectomy and AV Graft placement Also has PermCath placement, Will continue to use Perm cath for dialysis until AVG is deemed okay for use per Surgeon. Objective - Vital Signs Vital signs: Vital Signs - 12hr 07/09/19 07/09/19 07/09/19 05:23 07:35 10:54 Temperature 98.4 F 99.3 F 99.2 F Pulse Rate 99 H 78 73 Respiratory 20 20 17 Rate Blood Pressure 166/79 131/79 133/73 O2 Sat by Pulse 97 98 97 Oximetry 07/09/19 07/09/19 07/09/19 10:59 11:04 11:09 Temperature Pulse Rate 75 75 74 Respiratory 12 12 14 Rate Blood Pressure 136/75 132/78 126/71 O2 Sat by Pulse 96 96 96 Oximetry 07/09/19 07/09/19 07/09/19 11:39 12:14 12:15 Temperature 98.7 F Pulse Rate 76 76 76 Respiratory 18 Rate Blood Pressure 146/77 146/77 146/77 O2 Sat by Pulse 96 Oximetry 07/09/19 07/09/19 12:16 14:06 Temperature Pulse Rate 76 72 Respiratory Rate Blood Pressure 146/77 99/54 O2 Sat by Pulse Oximetry - General Appearance General appearance: well-developed, well-nourished EENT: ATNC, PERRL Neck: no JVD Respiratory: Present: Clear to Ascultation Cardiology: regular, S1S2 Gastrointestinal: normal, normoactive bowel sounds Integumentary: no rash, rash, warm and dry Neurologic: alert and oriented x3, CN 3-12 intact Psychiatric: mood/affect appropriate - Lab 07/06/19 07:59 07/09/19 06:33 Most recent lab results Calcium 9.2 mg/dL (8.4-10.2) 07/09/19 06:33 - Imaging Chest x-ray: image reviewed (CXR reviewed without pulmonary edema. ) Medications & Allergies - Medications Allergies/Adverse Reactions: Allergies piroxicam Allergy (Verified 05/11/19 08:34) Unknown Home Medications: Home Medications Medication Instructions Recorded Confirmed Last Taken Type Apixaban [Eliquis] 5 mg PO BID 07/01/18 07/05/19 07/04/19 History cloNIDine-TTS PATCH [Catapres-Tts 1 patch TD Q7D 07/01/18 07/05/19 07/02/19 History 0.1MG Patch] Amiodarone [Cordarone 200 MG TAB] 200 mg PO DAILY #30 tablet 07/03/18 07/05/19 07/04/19 Rx Pravastatin [Pravachol (Nf)] 40 mg PO QHS #30 tablet 07/03/18 07/05/19 07/04/19 Rx hydrALAZINE [Apresoline TAB] 25 mg PO Q8HR #90 tab 07/03/18 07/05/19 07/04/19 Rx lisinopriL [Zestril TAB] 20 mg PO QDAY #30 tablet 07/03/18 07/05/19 07/04/19 Rx Insulin Aspart (Nf) [NovoLOG 100 10 unit SQ AC 07/31/18 07/05/19 07/04/19 History UNITS/ML VIAL] Insulin Glargine [Lantus VIAL] 30 units SQ QHS #1 vial 07/31/18 07/05/19 07/04/19 Rx amLODIPine 5 mg PO QDAY #30 tablet 07/31/18 07/05/19 07/04/19 Rx Clopidogrel [Plavix] 75 mg PO QDAY #30 tablet 05/11/19 07/05/19 07/04/19 Rx Pantoprazole [Protonix TAB] 20 mg PO QDAY #30 tablet. 05/11/19 07/05/19 07/04/19 Rx Acetaminophen [Acetaminophen TAB] 650 mg PO Q4H PRN tablet 05/17/19 07/05/19 Unknown Rx levoFLOXacin [Levaquin TAB] 500 mg PO Q48H #3 tablet 05/17/19 07/05/19 Unknown Rx Iron Sucrose [Venofer] 50 mg IV MO 07/05/19 07/05/19 Unknown History Lidocain2.5%/Prilocai2.5% [Emla] 1 applic TP PRN 07/05/19 07/05/19 07/02/19 History Mirtazapine [Remeron 15mg TAB] 15 mg PO QDAY 07/05/19 07/05/19 07/04/19 History Sevelamer Carbonate [Renvela] 800 mg PO TIDWM 07/05/19 07/05/19 Unknown History carvediloL [Coreg] 25 mg PO BID 07/05/19 07/05/19 07/04/19 History Active Medications: Generic Name Dose Route Start Last Admin Trade Name Freq PRN Reason Stop Dose Admin Acetaminophen 650 mg 07/05/19 21:09 Tylenol PO Q4H PRN Pain MILD(1-3)/Fever >100.5/PEREZ Amiodarone HCl 200 mg 07/05/19 22:00 07/09/19 12:14 Cordarone PO 200 mg DAILY RICH Administration Amlodipine Besylate 5 mg 07/05/19 22:00 07/09/19 12:14 Amlodipine PO 5 mg QDAY RICH Administration Apixaban 5 mg 07/05/19 22:00 07/09/19 12:15 Eliquis PO 5 mg BID RICH Administration Protocol Aspirin 81 mg 07/08/19 10:00 07/09/19 12:16 Halfprin Ec PO 81 mg QDAY RICH Administration Carvedilol 25 mg 07/05/19 22:00 07/09/19 12:14 Coreg PO 25 mg BID RCIH Administration Clonidine HCl 0.1 mg 07/09/19 10:00 07/09/19 12:16 Catapres-Tts Patch TD 0.1 mg Fr RICH Administration Famotidine 10 mg 07/05/19 22:00 07/09/19 12:16 Pepcid PO 10 mg BID RICH Administration Fentanyl 50 mcg 07/09/19 07:42 Sublimaze IV 07/09/19 23:00 Q5MIN PRN Pain , Severe (7-10) Hydralazine HCl 25 mg 07/05/19 22:00 07/09/19 14:06 Apresoline PO Not Given Q8HR RICH Hydromorphone HCl 0.5 mg 07/05/19 21:24 07/08/19 16:07 Dilaudid IV 0.5 mg Q3H PRN Administration Pain , Severe (7-10) Dextrose 1,000 mls @ 125 mls/hr 07/05/19 10:00 07/07/19 10:12 D10w IV 125 mls/hr DIRECT RICH Administration Sodium Chloride 1,000 mls @ 42 mls/hr 07/09/19 08:00 07/09/19 08:05 Nacl 0.9% 1000 Ml IV 42 mls/hr DIRECT RICH Administration Cefazolin Sodium 2 gm in 20 mls @ 80 mls/hr 07/09/19 09:00 Ancef/Sterile Water 2 Gm/20 Ml IV 07/09/19 18:00 PREOP NR Insulin Human Lispro 0 unit 07/05/19 22:00 07/09/19 12:27 Humalog SUB-Q 2 unit ACHS RICH Administration Protocol Lisinopril 20 mg 07/06/19 10:00 07/09/19 12:15 Zestril PO 20 mg QDAY RICH Administration Metoclopramide HCl 2.5 mg 07/05/19 21:35 Reglan IV Q6H PRN Nausea And Vomiting Mirtazapine 15 mg 07/05/19 22:00 07/08/19 22:16 Remeron PO 15 mg QDAY@2200 RICH Administration Ondansetron HCl 4 mg 07/05/19 21:24 Zofran IV Q8H PRN Nausea And Vomiting Oxycodone/Acetaminophen 1 tab 07/05/19 21:24 07/09/19 12:16 Percocet 5/325 PO 1 tab Q6H PRN Administration Pain, Moderate (4-6) Sodium Chloride 10 ml 07/05/19 22:00 07/09/19 12:26 Sodium Chloride Flush Syringe 10 Ml IV 10 ml BID RICH Administration Sodium Chloride 10 ml 07/05/19 21:24 Sodium Chloride Flush Syringe 10 Ml IV PRN PRN LINE FLUSH
[2019-07-09] MEDS: MIRTAZAPINE 15 MG TAB PO SCH (23:23)
[2019-07-10] MEDS: HYDROmorphone 1 MG/1 ML INJ IV PRN ×2 (05:08→20:04)
[2019-07-10] MEDS: hydrALAZINE 25 MG TAB PO SCH ×3 (05:10→21:28)
[2019-07-10] MEDS: INSULIN LISPRO 100 UNIT/ML SUB-Q SCH ×4 (08:56→21:26)
[2019-07-10] MEDS: APIXABAN 5 MG TAB PO SCH ×2 (10:25→21:27)
[2019-07-10] MEDS: ASPIRIN EC 81 MG TAB PO SCH (10:25)
[2019-07-10] MEDS: FAMOTIDINE 10 MG TAB PO SCH ×2 (10:25→21:27)
[2019-07-10] MEDS: LISINOPRIL 20 MG TAB PO SCH (10:28)
[2019-07-10] MEDS: AMIODARONE 200 MG TAB PO SCH (10:29)
[2019-07-10] MEDS: amLODIPine 5 MG TAB PO SCH (10:29)
[2019-07-10] MEDS: carvediloL 25 MG TAB PO SCH ×2 (10:29→21:27)
--- NOTE | 2019-07-10 12:13 | Progress Note ---
Assessment and Plan Assessment and plan: AV fistula malfunction. Interventional radiology to perform AV graft revision today. ESRD. Continue hemodialysis per nephrology. Hypertension. Resume antihypertensive medications. Metabolic encephalopathy. Resolved. Etiology secondary to hypoglycemia. Hypoglycemia. Resolved. BG is now running in the high 300 400 range. We will stop D5 W. History Interval history: No new issues overnight. Hospitalist Physical - Constitutional Vitals: Temp Pulse Resp BP Pulse Ox 98.8 F 96 H 18 104/61 95 07/10/19 10:30 07/10/19 10:30 07/10/19 10:30 07/10/19 10:29 07/10/19 10:30 General appearance: Present: no acute distress, well-nourished - EENT Eyes: Present: PERRL, EOM intact ENT: hearing intact, clear oral mucosa, dentition normal - Neck Neck: Present: supple, normal ROM - Respiratory Respiratory effort: normal Respiratory: bilateral: CTA - Cardiovascular Rhythm: regular Heart Sounds: Present: S1 & S2. Absent: gallop, rub - Extremities Extremities: no ischemia, No edema, Full ROM - Abdominal General gastrointestinal: soft, non-tender, non-distended, normal bowel sounds - Integumentary Integumentary: Present: clear, warm, dry - Neurologic Neurologic: CNII-XII intact, moves all extremities Results - Labs CBC & Chem 7: 07/06/19 07:59 07/09/19 06:33 Labs: Laboratory Last Values WBC 5.3 K/mm3 (4.5-11.0) 07/06/19 07:59 RBC 3.30 M/mm3 (3.65-5.03) L 07/06/19 07:59 Hgb 9.6 gm/dl (11.8-15.2) L 07/06/19 07:59 Hct 30.3 % (35.5-45.6) L 07/06/19 07:59 MCV 92 fl (84-94) 07/06/19 07:59 MCH 29 pg (28-32) 07/06/19 07:59 MCHC 32 % (32-34) 07/06/19 07:59 RDW 16.5 % (13.2-15.2) H 07/06/19 07:59 Plt Count 252 K/mm3 (140-440) 07/06/19 07:59 Lymph % (Auto) 20.1 % (13.4-35.0) 07/06/19 07:59 [place] % (Auto) 12.1 % (0.0-7.3) H 07/06/19 07:59 Eos % (Auto) 2.8 % (0.0-4.3) 07/06/19 07:59 Baso % (Auto) 1.0 % (0.0-1.8) 07/06/19 07:59 Lymph # 1.1 K/mm3 (1.2-5.4) L 07/06/19 07:59 [place] # 0.6 K/mm3 (0.0-0.8) 07/06/19 07:59 Eos # 0.1 K/mm3 (0.0-0.4) 07/06/19 07:59 Baso # 0.1 K/mm3 (0.0-0.1) 07/06/19 07:59 Seg Neutrophils % 64.0 % (40.0-70.0) 07/06/19 07:59 Seg Neutrophils # 3.4 K/mm3 (1.8-7.7) 07/06/19 07:59 PT 13.9 Sec. (12.2-14.9) 07/05/19 09:35 INR 1.06 (0.87-1.13) 07/05/19 09:35 Sodium 135 mmol/L (137-145) L 07/09/19 06:33 Potassium 4.4 mmol/L (3.6-5.0) 07/09/19 06:33 Chloride 97.5 mmol/L (98-107) L 07/09/19 06:33 Carbon Dioxide 24 mmol/L (22-30) 07/09/19 06:33 Anion Gap 18 mmol/L 07/09/19 06:33 BUN 28 mg/dL (9-20) H 07/09/19 06:33 Creatinine 7.1 mg/dL (0.8-1.5) H 07/09/19 06:33 Estimated GFR 10 ml/min 07/09/19 06:33 BUN/Creatinine Ratio 4 % 07/09/19 06:33 Glucose 293 mg/dL (75-100) H 07/09/19 06:33 POC Glucose 401 (70-105) H 07/10/19 07:56 Hemoglobin A1c 6.7 % (4-6) H 07/06/19 07:59 Calcium 9.2 mg/dL (8.4-10.2) 07/09/19 06:33 Total Bilirubin 0.20 mg/dL (0.1-1.2) 07/06/19 07:59 AST 9 units/L (5-40) 07/06/19 07:59 ALT 6 units/L (7-56) L 07/06/19 07:59 Alkaline Phosphatase 96 units/L (35-129) 07/06/19 07:59 Total Protein 7.3 g/dL (6.3-8.2) 07/06/19 07:59 Albumin 3.0 g/dL (3.9-5) L 07/06/19 07:59 Albumin/Globulin Ratio 0.7 % 07/06/19 07:59 Hepatitis A IgM Ab Non-reactive (NonReactive) 07/05/19 18:52 Hep Bs Antigen Non-reactive (Negative) 07/05/19 18:52 Hep B Core IgM Ab Non-reactive (NonReactive) 07/05/19 18:52 Hepatitis C Antibody Non-reactive (NonReactive) 07/05/19 18:52 Active Medications - Current Medications Current Medications: Generic Name Dose Route Start Last Admin Trade Name Freq PRN Reason Stop Dose Admin Acetaminophen 650 mg 07/05/19 21:09 Tylenol PO Q4H PRN Pain MILD(1-3)/Fever >100.5/PEREZ Amiodarone HCl 200 mg 07/05/19 22:00 07/10/19 10:29 Cordarone PO Not Given DAILY [facility] Amlodipine Besylate 5 mg 07/05/19 22:00 07/10/19 10:29 Amlodipine PO Not Given QDAY RICH Apixaban 5 mg 07/05/19 22:00 07/10/19 10:25 Eliquis PO 5 mg BID RICH Administration Protocol Aspirin 81 mg 07/08/19 10:00 07/10/19 10:25 Halfprin Ec PO 81 mg QDAY RICH Administration Carvedilol 25 mg 07/05/19 22:00 07/10/19 10:29 Coreg PO Not Given BID [facility] Clonidine HCl 0.1 mg 07/09/19 10:00 07/09/19 12:16 Catapres-Tts Patch TD 0.1 mg Fr RICH Administration Famotidine 10 mg 07/05/19 22:00 07/10/19 10:25 Pepcid PO 10 mg BID RICH Administration Hydralazine HCl 25 mg 07/05/19 22:00 07/10/19 05:10 Apresoline PO 25 mg Q8HR RICH Administration Hydromorphone HCl 0.5 mg 07/05/19 21:24 07/10/19 05:08 Dilaudid IV 0.5 mg Q3H PRN Administration Pain , Severe (7-10) Dextrose 1,000 mls @ 125 mls/hr 07/05/19 10:00 07/07/19 10:12 D10w IV 125 mls/hr DIRECT RICH Administration Sodium Chloride 1,000 mls @ 42 mls/hr 07/09/19 08:00 07/09/19 08:05 Nacl 0.9% 1000 Ml IV 42 mls/hr DIRECT RICH Administration Insulin Human Lispro 0 unit 07/05/19 22:00 07/10/19 08:56 Humalog SUB-Q 8 unit ACHS RICH Administration Protocol Lisinopril 20 mg 07/06/19 10:00 07/10/19 10:28 Zestril PO Not Given QDAY RICH Metoclopramide HCl 2.5 mg 07/05/19 21:35 Reglan IV Q6H PRN Nausea And Vomiting Mirtazapine 15 mg 07/05/19 22:00 07/09/19 23:23 Remeron PO 15 mg QDAY@2200 RICH Administration Ondansetron HCl 4 mg 07/05/19 21:24 Zofran IV Q8H PRN Nausea And Vomiting Oxycodone/Acetaminophen 1 tab 07/05/19 21:24 07/09/19 12:16 Percocet 5/325 PO 1 tab Q6H PRN Administration Pain, Moderate (4-6) Sodium Chloride 10 ml 07/05/19 22:00 07/09/19 23:24 Sodium Chloride Flush Syringe 10 Ml IV 10 ml BID RICH Administration Sodium Chloride 10 ml 07/05/19 21:24 Sodium Chloride Flush Syringe 10 Ml IV PRN PRN LINE FLUSH Nutrition/Malnutrition Assess - Dietary Evaluation Nutrition/Malnutrition Findings: Nutrition Notes Start: 07/06/19 14:11 Freq: Status: Active Protocol: Document 07/09/19 12:59 ILYA (Rec: 07/09/19 13:00 ILYA [id number]) Co-Sign 07/09/19 12:59 LP Nutrition Notes Initial or Follow up Brief Note Current Diagnosis CKD (stage V CKD),Diabetes, Hypertension,Hyperlipidemia Other Pertinent Diagnosis On HD, Left toe ulcer Current Diet NPO Subjective/Other Information F/U for diet advancement. PO and ONS intakes. Pt was not in room and still NPO. Nutrition Intervention Anticipated Discharge Needs: Renal/consistent CHO diet Follow-Up By: 07/12/19 Additional Comments F/U for diet advancement and PO and ONS tolerance
--- NOTE | 2019-07-10 15:39 | Progress Note ---
Assessment and Plan 58-year-old male with left upper extremity thrombosed AV graft status post revision with interposition graft. Graft has good thrill. Do not use graft until cleared by vascular in 2 weeks! Use PermCath in the interim. Follow-up with [facility] vascular [place] this . Okay for discharge from vascular perspective. Subjective Date of service: 07/10/19 Interval history: Good thrill in left upper extremity AV graft. Successful salvage with revision with interposition graft and open thrombectomy. Patient is cleared for discharge from vascular perspective. Objective - Constitutional Vitals: Vital Signs - 12hr 07/10/19 07/10/19 07/10/19 04:13 05:10 10:24 Temperature 98.7 F Pulse Rate 78 107 H Respiratory 16 Rate Blood Pressure 153/84 153/84 104/61 O2 Sat by Pulse 98 Oximetry 07/10/19 07/10/19 07/10/19 10:28 10:29 10:30 Temperature 98.8 F Pulse Rate 96 H Respiratory 18 Rate Blood Pressure 104/61 104/61 O2 Sat by Pulse 95 Oximetry General appearance: Present: no acute distress - EENT ENT: hearing intact - Respiratory Respiratory effort: normal Extremities: abnormal (left upper extremity incision clean, dry, and intact with thrill of AV graft) - Psychiatric Psychiatric: appropriate mood/affect, cooperative - Labs CBC & Chem 7: 07/06/19 07:59 07/09/19 06:33 Labs: Abnormal lab results 07/09/19 07/09/19 07/10/19 Range/Units 16:37 21:36 07:56 POC Glucose 327 H 374 H 401 H (70-105) 07/10/19 Range/Units 12:41 POC Glucose 403 H (70-105) Medications & Allergies - Medications Allergies/Adverse Reactions: Allergies piroxicam Allergy (Verified 05/11/19 08:34) Unknown Home Medications: Home Medications Medication Instructions Recorded Confirmed Last Taken Type Apixaban [Eliquis] 5 mg PO BID 07/01/18 07/05/19 07/04/19 History cloNIDine-TTS PATCH [Catapres-Tts 1 patch TD Q7D 07/01/18 07/05/19 07/02/19 History 0.1MG Patch] Amiodarone [Cordarone 200 MG TAB] 200 mg PO DAILY #30 tablet 0107/05/19 07/04/19 Rx Pravastatin [Pravachol (Nf)] 40 mg PO QHS #30 tablet 07/03/18 07/05/19 07/04/19 Rx hydrALAZINE [Apresoline TAB] 25 mg PO Q8HR #90 tab 07/03/18 07/05/19 07/04/19 Rx lisinopriL [Zestril TAB] 20 mg PO QDAY #30 tablet 07/03/18 07/05/19 07/04/19 Rx Insulin Aspart (Nf) [NovoLOG 100 10 unit SQ AC 07/31/18 07/05/19 07/04/19 History UNITS/ML VIAL] Insulin Glargine [Lantus VIAL] 30 units SQ QHS #1 vial 07/31/18 07/05/19 07/04/19 Rx amLODIPine 5 mg PO QDAY #30 tablet 07/31/18 07/05/19 07/04/19 Rx Clopidogrel [Plavix] 75 mg PO QDAY #30 tablet 05/11/19 07/05/19 07/04/19 Rx Pantoprazole [Protonix TAB] 20 mg PO QDAY #30 tablet. 05/11/19 07/05/19 07/04/19 Rx Acetaminophen [Acetaminophen TAB] 650 mg PO Q4H PRN tablet 05/17/19 07/05/19 Unknown Rx levoFLOXacin [Levaquin TAB] 500 mg PO Q48H #3 tablet 05/17/19 07/05/19 Unknown Rx Iron Sucrose [Venofer] 50 mg IV MO 07/05/19 07/05/19 Unknown History Lidocain2.5%/Prilocai2.5% [Emla] 1 applic TP PRN 07/05/19 07/05/19 07/02/19 Hi story Mirtazapine [Remeron 15mg TAB] 15 mg PO QDAY 07/05/19 07/05/19 07/04/19 History Sevelamer Carbonate [Renvela] 800 mg PO TIDWM 07/05/19 07/05/19 Unknown History carvediloL [Coreg] 25 mg PO BID 07/05/19 07/05/19 07/04/19 History Active Medications: Generic Name Dose Route Start Last Admin Trade Name Freq PRN Reason Stop Dose Admin Acetaminophen 650 mg 07/05/19 21:09 Tylenol PO Q4H PRN Pain MILD(1-3)/Fever >100.5/PEREZ Amiodarone HCl 200 mg 07/05/19 22:00 07/10/19 10:29 Cordarone PO Not Given DAILY [facility] Amlodipine Besylate 5 mg 07/05/19 22:00 07/10/19 10:29 Amlodipine PO Not Given QDAY RICH Apixaban 5 mg 07/05/19 22:00 07/10/19 10:25 Eliquis PO 5 mg BID RICH Administration Protocol Aspirin 81 mg 07/08/19 10:00 07/10/19 10:25 Halfprin Ec PO 81 mg QDAY RICH Administration Carvedilol 25 mg 07/05/19 22:00 07/10/19 10:29 Coreg PO Not Given BID [facility] Clonidine HCl 0.1 mg 07/09/19 10:00 07/09/19 12:16 Catapres-Tts Patch TD 0.1 mg Fr RICH Administration Famotidine 10 mg 07/05/19 22:00 07/10/19 10:25 Pepcid PO 10 mg BID RICH Administration Hydralazine HCl 25 mg 07/05/19 22:00 07/10/19 05:10 Apresoline PO 25 mg Q8HR RICH Administration Hydromorphone HCl 0.5 mg 07/05/19 21:24 07/10/19 05:08 Dilaudid IV 0.5 mg Q3H PRN Administration Pain , Severe (7-10) Sodium Chloride 1,000 mls @ 42 mls/hr 07/09/19 08:00 07/09/19 08:05 Nacl 0.9% 1000 Ml IV 42 mls/hr DIRECT RICH Administration Insulin Human Lispro 0 unit 07/05/19 22:00 07/10/19 13:01 Humalog SUB-Q 8 unit ACHS RICH Administration Protocol Lisinopril 20 mg 07/06/19 10:00 07/10/19 10:28 Zestril PO Not Given QDAY [facility] Metoclopramide HCl 2.5 mg 07/05/19 21:35 Reglan IV Q6H PRN Nausea And Vomiting Mirtazapine 15 mg 07/05/19 22:00 07/09/19 23:23 Remeron PO 15 mg QDAY@2200 RICH Administration Ondansetron HCl 4 mg 07/05/19 21:24 Zofran IV Q8H PRN Nausea And Vomiting Oxycodone/Acetaminophen 1 tab 07/05/19 21:24 07/09/19 12:16 Percocet 5/325 PO 1 tab Q6H PRN Administration Pain, Moderate (4-6) Sodium Chloride 10 ml 07/05/19 22:00 07/10/19 12:59 Sodium Chloride Flush Syringe 10 Ml IV Not Given BID [facility] Sodium Chloride 10 ml 07/05/19 21:24 Sodium Chloride Flush Syringe 10 Ml IV PRN PRN LINE FLUSH
--- NOTE | 2019-07-10 18:30 | Progress Note ---
Assessment and Plan Impression: * End stage renal disease * Malfunctioning AVF --s/p revision, excision of pseudoaneurysm, open thrombectomy, repair w/ AVG (Jul 09) * Hypertension * Type II DM * Peripheral artery disease * Secondary hyperparathyroidism * Anemia secondary to ESRD Plan: * Hemodialysis today via permcath * Resume MWF schedule next week * UF as tolerated * Epogen TIW prn * Renal diet * Dose medications for renal function Subjective Date of service: 07/10/19 Interval history: Patient seen on dialysis. He has no complaints Objective - Vital Signs Vital signs: Vital Signs - 12hr 07/10/19 07/10/19 07/10/19 10:24 10:28 10:29 Temperature Pulse Rate Respiratory Rate Blood Pressure 104/61 104/61 104/61 O2 Sat by Pulse Oximetry 07/10/19 07/10/19 07/10/19 10:30 15:00 15:15 Temperature 98.8 F 98.8 F Pulse Rate 96 H 79 78 Respiratory 18 18 Rate Blood Pressure 130/72 110/64 O2 Sat by Pulse 95 Oximetry 07/10/19 07/10/19 07/10/19 15:30 15:45 16:00 Temperature Pulse Rate 78 78 80 Respiratory Rate Blood Pressure 125/65 128/62 135/73 O2 Sat by Pulse Oximetry 07/10/19 07/10/19 07/10/19 16:15 16:30 16:45 Temperature Pulse Rate 78 77 78 Respiratory Rate Blood Pressure 136/74 120/74 120/69 O2 Sat by Pulse Oximetry - General Appearance General appearance: well-developed, well-nourished EENT: ATNC Respiratory: Present: Clear to Ascultation Cardiology: regular, S1S2 Gastrointestinal: normal Integumentary: warm and dry Neurologic: no focal deficit, alert and oriented x3 Psychiatric: cooperative, other (pleasant) - Lab 07/06/19 07:59 07/09/19 06:33 Most recent lab results Calcium 9.2 mg/dL (8.4-10.2) 07/09/19 06:33 Medications & Allergies - Medications Allergies/Adverse Reactions: Allergies piroxicam Allergy (Verified 05/11/19 08:34) Unknown Home Medications: Home Medications Medication Instructions Recorded Confirmed Last Taken Type Apixaban [Eliquis] 5 mg PO BID 07/01/18 07/05/1920 History cloNIDine-TTS PATCH [Catapres-Tts 1 patch TD Q7D 07/01/18 07/05/19 07/02/19 History 0.1MG Patch] Amiodarone [Cordarone 200 MG TAB] 200 mg PO DAILY #30 tablet 07/03/18 07/05/19 07/04/19 Rx Pravastatin [Pravachol (Nf)] 40 mg PO QHS #30 tablet 07/03/18 07/05/19 07/04/19 Rx hydrALAZINE [Apresoline TAB] 25 mg PO Q8HR #90 tab 07/03/18 07/05/19 07/04/19 Rx lisinopriL [Zestril TAB] 20 mg PO QDAY #30 tablet 07/03/18 07/05/19 07/04/19 Rx Insulin Aspart (Nf) [NovoLOG 100 10 unit SQ AC 07/31/18 07/05/19 07/04/19 History UNITS/ML VIAL] Insulin Glargine [Lantus VIAL] 30 units SQ QHS #1 vial 07/31/18 07/05/19 07/04/19 Rx amLODIPine 5 mg PO QDAY #30 tablet 07/31/18 07/05/19 07/04/19 Rx Clopidogrel [Plavix] 75 mg PO QDAY #30 tablet 05/11/19 07/05/19 07/04/19 Rx Pantoprazole [Protonix TAB] 20 mg PO QDAY #30 tablet. 05/11/19 07/05/19 07/04/19 Rx Acetaminophen [Acetaminophen TAB] 650 mg PO Q4H PRN tablet 05/17/19 07/05/19 Unknown Rx levoFLOXacin [Levaquin TAB] 500 mg PO Q48H #3 tablet 05/17/19 07/05/19 Unknown Rx Iron Sucrose [Venofer] 50 mg IV MO 07/05/19 07/05/19 Unknown History Lidocain2.5%/Prilocai2.5% [Emla] 1 applic TP PRN 07/05/19 07/05/19 07/02/19 His tory Mirtazapine [Remeron 15mg TAB] 15 mg PO QDAY 07/05/19 07/05/19 07/04/19 History Sevelamer Carbonate [Renvela] 800 mg PO TIDWM 07/05/19 07/05/19 Unknown History carvediloL [Coreg] 25 mg PO BID 07/05/19 07/05/19 07/04/19 History Active Medications: Generic Name Dose Route Start Last Admin Trade Name Freq PRN Reason Stop Dose Admin Acetaminophen 650 mg 07/05/19 21:09 Tylenol PO Q4H PRN Pain MILD(1-3)/Fever >100.5/PEREZ Amiodarone HCl 200 mg 07/05/19 22:00 07/10/19 10:29 Cordarone PO Not Given DAILY RICH Amlodipine Besylate 5 mg 07/05/19 22:00 07/10/19 10:29 Amlodipine PO Not Given QDAY RICH Apixaban 5 mg 07/05/19 22:00 07/10/19 10:25 Eliquis PO 5 mg BID RICH Administration Protocol Aspirin 81 mg 07/08/19 10:00 07/10/19 10:25 Halfprin Ec PO 81 mg QDAY RICH Administration Carvedilol 25 mg 07/05/19 22:00 07/10/19 10:29 Coreg PO Not Given BID RICH Clonidine HCl 0.1 mg 07/09/19 10:00 07/09/19 12:16 Catapres-Tts Patch TD 0.1 mg Fr RICH Administration Famotidine 10 mg 07/05/19 22:00 07/10/19 10:25 Pepcid PO 10 mg BID RICH Administration Hydralazine HCl 25 mg 07/05/19 22:00 07/10/19 14:22 Apresoline PO Not Given Q8HR RICH Hydromorphone HCl 0.5 mg 07/05/19 21:24 07/10/19 05:08 Dilaudid IV 0.5 mg Q3H PRN Administration Pain , Severe (7-10) Sodium Chloride 1,000 mls @ 42 mls/hr 07/09/19 08:00 07/09/19 08:05 Nacl 0.9% 1000 Ml IV 42 mls/hr DIRECT RICH Administration Insulin Human Lispro 0 unit 07/05/19 22:00 07/10/19 16:30 Humalog SUB-Q Not Given ACHS [facility] Protocol Lisinopril 20 mg 07/06/19 10:00 07/10/19 10:28 Zestril PO Not Given QDAY RICH Metoclopramide HCl 2.5 mg 07/05/19 21:35 Reglan IV Q6H PRN Nausea And Vomiting Mirtazapine 15 mg 07/05/19 22:00 07/09/19 23:23 Remeron PO 15 mg QDAY@2200 RICH Administration Ondansetron HCl 4 mg 07/05/19 21:24 Zofran IV Q8H PRN Nausea And Vomiting Oxycodone/Acetaminophen 1 tab 07/05/19 21:24 07/09/19 12:16 Percocet 5/325 PO 1 tab Q6H PRN Administration Pain, Moderate (4-6) Sodium Chloride 10 ml 07/05/19 22:00 07/10/19 12:59 Sodium Chloride Flush Syringe 10 Ml IV Not Given BID RICH Sodium Chloride 10 ml 07/05/19 21:24 Sodium Chloride Flush Syringe 10 Ml IV PRN PRN LINE FLUSH
[2019-07-10] MEDS: MIRTAZAPINE 15 MG TAB PO SCH (21:27)
[2019-07-11] MEDS: hydrALAZINE 25 MG TAB PO SCH (06:22)
[2019-07-11] MEDS: HYDROmorphone 1 MG/1 ML INJ IV PRN (07:56)
[2019-07-11] MEDS: INSULIN LISPRO 100 UNIT/ML SUB-Q SCH (08:33)
--- NOTE | 2019-07-11 09:34 | Discharge Summary ---
Providers - Providers Date of Admission: 07/06/19 16:24 Date of discharge: 07/11/19 Attending physician: YANI CORDERO 07/05/19 11:39 Consult to Physician [CONS] Stat Comment: contacted @ 11:18- [facility] Consulting Provider: MARYLIN WALLS Physician Instructions: Reason For Exam: end-stage renal disease needing dialysis 07/05/19 11:42 Consult to Physician [CONS] Stat Comment: Dr. Walls spoke to Dr. Montejo @ 12:05- [facility] Consulting Provider: LALITA ALONZO Physician Instructions: Reason For Exam: clotted dialysis access, AV fistula 07/06/19 03:11 Consult to Wound/ET Nurse [CONS] Routine Reason For Exam: wound eval [facility] Reason for admission: hypoglycemia Condition: Stable Hospital course: Patient is 58 years old male with history of end-stage renal disease on hemodialysis. Patient brought to the emergency room from dialysis center for hypoglycemia. Patient stated that when they started checking for dialysis the found that his left arm fistula was clotted and he was about to discharge home when he passed out. Dialysis staff check his blood sugar and it was 30. Patient stated that he ate breakfast last and he took his 10 units of NovoLog after he ate. Upon arrival to the ER patient's blood sugar is 46 patient given apple juice and peanut butter and jelly. The patient received D5 IV fluids with resolution of the hypoglycemia. Vascular surgery evaluated the patient with regards to his access. Patient was noted to have a thrombosed left arm AV fistula. Patient had a successful pharmacomechanical thrombectomy of the thrombosed left AV fistula with stenting of the peripheral dialysis access with angioplasty. Patient also had permacath placed in the right IJ. Patient was seen by nephrology and resumed hemodialysis eventually back to his schedule at discharge this upcoming week of Friday. Vascular surgery cleared the patient for discharge and will follow up with the revision of aVF in a couple weeks. Patient will continue with hemodialysis through the PermCath for now. Dedicated discharge 35 minutes. Disposition: TO HOME OR SELFCARE Time spent for discharge: 35 - Discharge Diagnoses (1) Metabolic encephalopathy Status: Acute (2) Dialysis AV fistula malfunction Status: Acute (3) Dialysis catheter clot or failure Status: Acute (4) End-stage renal disease needing dialysis Status: Acute (5) Hypoglycemia Status: Acute (6) Diabetes Status: Acute (7) HLD (hyperlipidemia) Status: Chronic Qualifiers: Hyperlipidemia type: mixed hyperlipidemia Qualified Code(s): E78.2 - Mixed hyperlipidemia (8) HTN (hypertension) Status: Chronic Qualifiers: (9) Paroxysmal atrial fibrillation Status: Chronic Core Measure Documentation - Palliative Care Palliative Care/ Comfort Measures: Not Applicable - Core Measures Any of the following diagnoses?: none Exam - Constitutional Vitals: Temp Pulse Resp BP Pulse Ox 97.7 F 87 18 132/71 96 07/10/19 22:47 07/11/19 06:22 07/10/19 22:47 07/11/19 06:22 07/10/19 22:47 General appearance: Present: no acute distress, well-nourished - EENT Eyes: Present: PERRL ENT: hearing intact, clear oral mucosa - Neck Neck: Present: supple, normal ROM - Respiratory Respiratory effort: normal Respiratory: bilateral: CTA - Cardiovascular Heart Sounds: Present: S1 & S2. Absent: rub, click - Extremities Extremities: pulses symmetrical, No edema Peripheral Pulses: within normal limits - Abdominal General gastrointestinal: Present: soft, non-tender, non-distended, normal bowel sounds Male genitourinary: Present: normal - Integumentary Integumentary: Present: clear, warm, dry - Musculoskeletal Musculoskeletal: gait normal, strength equal bilaterally - Psychiatric Psychiatric: appropriate mood/affect, intact judgment & insight - Neurologic Neurologic: CNII-XII intact, moves all extremities Plan Activity: advance as tolerated Weight Bearing Status: Weight Bear as Tolerated Diet: diabetic, renal Follow up with: RAIZA HOPKINS MD [Primary Care Provider] - 3-5 Days Prescriptions: amLODIPine 5 mg PO QDAY #30 tablet hydrALAZINE [Apresoline TAB] 25 mg PO Q8HR #90 tab cloNIDine-TTS PATCH [Catapres-Tts 0.1MG Patch] 1 patch TD Q7D #4 patch Amiodarone [Cordarone 200 MG TAB] 200 mg PO DAILY #30 tablet carvediloL [Coreg] 25 mg PO BID #60 tab Apixaban [Eliquis] 5 mg PO BID #60 tab Aspirin EC [Halfprin EC] 81 mg PO QDAY #30 tablet lisinopriL [Zestril TAB] 20 mg PO QDAY #30 tablet
[2019-07-11] MEDS: FAMOTIDINE 10 MG TAB PO SCH (09:44)
[2019-07-11] MEDS: APIXABAN 5 MG TAB PO SCH (09:45)
[2019-07-11] MEDS: AMIODARONE 200 MG TAB PO SCH (09:45)
[2019-07-11] MEDS: ASPIRIN EC 81 MG TAB PO SCH (09:46)
[2019-07-11 09:50] VITALS: BP 95/63
[2019-07-11] MEDS: amLODIPine 5 MG TAB PO SCH (09:57)
[2019-07-11] MEDS: LISINOPRIL 20 MG TAB PO SCH (09:58)
[2019-07-11] MEDS: carvediloL 25 MG TAB PO SCH (09:58)
--- NOTE | 2019-07-13 08:46 | Progress Note ---
Assessment and Plan - Patient Problems (1) End-stage renal disease needing dialysis Status: Acute Plan to address problem: Nephrology consult for emergent HD (2) Dialysis AV fistula malfunction Status: Acute Qualifiers: Encounter type: initial encounter Qualified Code(s): T82.590A - Other mechanical complication of surgically created arteriovenous fistula, initial encounter Plan to address problem: Vascular surgery consulted (3) Hypoglycemia Status: Acute Plan to address problem: Corrected (4) Hyperkalemia Status: Acute Plan to address problem: Anti Hyperkalemia cocktail given (5) HLD (hyperlipidemia) Status: Chronic Qualifiers: Hyperlipidemia type: mixed hyperlipidemia Qualified Code(s): E78.2 - Mixed hyperlipidemia Plan to address problem: Cont statins (6) HTN (hypertension) Status: Chronic Qualifiers: Plan to address problem: Cont antihypertensives (7) DVT prophylaxis Status: Acute Plan to address problem: On Heparin Subjective Date of service: 07/06/19 Principal diagnosis: ESRD,Volume overload,AV Fistula malfunction Interval history: Sx better Objective - Constitutional General appearance: Present: no acute distress, well-nourished - EENT Eyes: PERRL, EOM intact ENT: hearing intact, clear oral mucosa Ears: bilateral: normal - Neck Neck: supple, normal ROM - Respiratory Respiratory effort: normal Respiratory: bilateral: CTA - Breasts Breasts: normal - Cardiovascular Rhythm: regular Heart Sounds: Present: S1 & S2. Absent: gallop, rub Extremities: pulses intact, No edema, normal color, Full ROM - Gastrointestinal General gastrointestinal: Present: soft, non-tender, non-distended, normal bowel sounds - Genitourinary Male genitourinary: normal - Integumentary Integumentary: clear, warm, dry - Musculoskeletal Musculoskeletal: 1, strength equal bilaterally - Neurologic Neurologic: moves all extremities - Psychiatric Psychiatric: memory intact, appropriate mood/affect, intact judgment & insight - Labs CBC & Chem 7: 07/06/19 07:59 07/09/19 06:33
--- NOTE | 2019-07-13 08:48 | Progress Note ---
Assessment and Plan - Patient Problems (1) End-stage renal disease needing dialysis Status: Acute Plan to address problem: Nephrology consult for emergent HD (2) Dialysis AV fistula malfunction Status: Acute Qualifiers: Encounter type: initial encounter Qualified Code(s): T82.590A - Other mechanical complication of surgically created arteriovenous fistula, initial encounter Plan to address problem: Vascular surgery consulted (3) Hypoglycemia Status: Acute Plan to address problem: Corrected (4) Hyperkalemia Status: Acute Plan to address problem: Anti Hyperkalemia cocktail given (5) HLD (hyperlipidemia) Status: Chronic Qualifiers: Hyperlipidemia type: mixed hyperlipidemia Qualified Code(s): E78.2 - Mixed hyperlipidemia Plan to address problem: Cont statins (6) HTN (hypertension) Status: Chronic Qualifiers: Plan to address problem: Cont antihypertensives (7) DVT prophylaxis Status: Acute Plan to address problem: On Heparin Subjective Date of service: 07/07/19 Principal diagnosis: ESRD,Volume overload,AV Fistula malfunction Interval history: Sx better Patient is 58 years old male with history of end-stage renal disease on hemodialysis. Patient brought to the emergency room from dialysis center for hypoglycemia. Patient stated that when they started checking for dialysis the found that his left arm fistula is clotted and he was about to discharge home when he passed out. Dialysis staff check his blood sugar and it was 30. Patien t stated that he ate breakfast last and he took his 10 units of NovoLog after he ate. Upon arrival to the ER patient's blood sugar is 46 patient given apple juice and peanut butter and jelly. Patient is alert and oriented 3 in no acute distress and answering all questions appropriately. Objective - Constitutional General appearance: Present: no acute distress, well-nourished - EENT Eyes: PERRL, EOM intact ENT: hearing intact, clear oral mucosa Ears: bilateral: normal - Neck Neck: supple, normal ROM - Respiratory Respiratory effort: normal Respiratory: bilateral: CTA - Breasts Breasts: normal - Cardiovascular Heart rate: 78 Rhythm: regular Heart Sounds: Present: S1 & S2. Absent: gallop, rub Extremities: no ischemia, pulses intact, No edema, normal color, Full ROM - Gastrointestinal General gastrointestinal: Present: soft, non-tender, non-distended, normal bowel sounds - Genitourinary Male genitourinary: normal - Integumentary Integumentary: clear, warm, dry - Musculoskeletal Musculoskeletal: 1, strength equal bilaterally - Neurologic Neurologic: moves all extremities - Psychiatric Psychiatric: memory intact, appropriate mood/affect, intact judgment & insight - Allied health notes Allied health notes reviewed: nursing - Labs CBC & Chem 7: 07/06/19 07:59 07/09/19 06:33
== END 2019-07-11 11:50 | DRG 252 ==
LOC: ED 08:03 → INTOOBSV 12:10 → 3A 12:10 → OBSVTOIN 07-06 16:24
PROVIDERS: ADMIT Internal Medicine; ATTEND Hospitalist
PROC: 057C3DZ Dilation of Left Basilic Vein with Intraluminal Device, Percutaneous Approach (ICD-10-PCS; principal; 2019-07-06)
PROC: B51NYZZ Fluoroscopy of Left Upper Extremity Veins using Other Contrast (ICD-10-PCS; 2019-07-06)
PROC: 05CC3ZZ Extirpation of Matter from Left Basilic Vein, Percutaneous Approach (ICD-10-PCS; 2019-07-06)
PROC: 057C0ZZ Dilation of Left Basilic Vein, Open Approach (ICD-10-PCS; 2019-07-06)
PROC: 05CC0ZZ Extirpation of Matter from Left Basilic Vein, Open Approach (ICD-10-PCS; 2019-07-06)
PROC: 3E04317 Introduction of Other Thrombolytic into Central Vein, Percutaneous Approach (ICD-10-PCS; 2019-07-06)
PROC: 0JH63XZ Insertion of Tunneled Vascular Access Device into Chest Subcutaneous Tissue and Fascia, Percutaneous Approach (ICD-10-PCS; 2019-07-06)
PROC: 02H633Z Insertion of Infusion Device into Right Atrium, Percutaneous Approach (ICD-10-PCS; 2019-07-06)
PROC: B548ZZA Ultrasonography of Superior Vena Cava, Guidance (ICD-10-PCS; 2019-07-06)
PROC: 5A1D70Z Performance of Urinary Filtration, Intermittent, Less than 6 Hours Per Day (ICD-10-PCS; 2019-07-06)
PROC: 5A1D70Z Performance of Urinary Filtration, Intermittent, Less than 6 Hours Per Day (ICD-10-PCS; 2019-07-08)
PROC: 03C80ZZ Extirpation of Matter from Left Brachial Artery, Open Approach (ICD-10-PCS; 2019-07-09)
PROC: 03WY0KZ Revision of Nonautologous Tissue Substitute in Upper Artery, Open Approach (ICD-10-PCS; 2019-07-09)
PROC: 5A1D70Z Performance of Urinary Filtration, Intermittent, Less than 6 Hours Per Day (ICD-10-PCS; 2019-07-10)
DX: T82.868A Thrombosis due to vascular prosthetic devices, implants and grafts, initial encounter (principal); N18.6 End stage renal disease; G93.41 Metabolic encephalopathy; T82.590A Other mechanical complication of surgically created arteriovenous fistula, initial encounter; I13.2 Hypertensive heart and chronic kidney disease with heart failure and with stage 5 chronic kidney disease, or end stage renal disease; N25.81 Secondary hyperparathyroidism of renal origin; Y83.8 Other surgical procedures as the cause of abnormal reaction of the patient, or of later complication, without mention of misadventure at the time of the procedure; Y92.89 Other specified places as the place of occurrence of the external cause; E11.22 Type 2 diabetes mellitus with diabetic chronic kidney disease; K21.9 Gastro-esophageal reflux disease without esophagitis; E11.649 Type 2 diabetes mellitus with hypoglycemia without coma; I50.9 Heart failure, unspecified; E78.2 Mixed hyperlipidemia; E87.5 Hyperkalemia; E11.51 Type 2 diabetes mellitus with diabetic peripheral angiopathy without gangrene; D63.1 Anemia in chronic kidney disease; I48.0 Paroxysmal atrial fibrillation; Z79.4 Long term (current) use of insulin; Z99.2 Dependence on renal dialysis; I72.8 Aneurysm of other specified arteries
CPT/HCPCS: 36415; 36558; 36906; 77001; 80048; 80053; 80074; 82962; 83036; 85025; 85610; 88304; 88311; 93990; G0378; A4649; C1725; C1750; C1757; C1768; C1769; C1874; C1887; C1894; J0360; J0690; J1100; J1170; J1644; J1815; J2250; J2405; J2704; J2997; J3010; J3490; J7030; J7040; J7050; Q9967

== ENCOUNTER 2019-07-23 13:49 | Outpatient (CLI) | payer MEDICARE ==
[~2019-07-23 13:49] MED LIST: BUPIVACAINE/PF (0.5%) 5 MG/1 ML 30 ML VIAL INFILTRATI ONE; HEPARIN 10,000 UNITS/10 ML VIAL ONE; LIDOCAINE (1%) 10 MG/1 ML VIAL 20 ML MDV ONE; SODIUM CHLORIDE 0.9% 500 ML 500 ML ONE; SODIUM CHLORIDE P/F VIAL 10 ML 0 ML ONE; hydrALAZINE 20 MG/1 ML INJ ONE; rifAMPin 600 MG VIAL ONE
[2019-07-23] MEDS ORDERED: LIDOCAINE (4%) 40 MG/ML TOPICAL SOLN 50 ML BOTTLE TP ONE (13:50)
== END 2019-07-23 13:50 | disposition home or self-care (01) ==
LOC: WOUND 13:49
PROVIDERS: ATTEND Surgery
DX: E11.621 Type 2 diabetes mellitus with foot ulcer (principal); L97.522 Non-pressure chronic ulcer of other part of left foot with fat layer exposed; E11.622 Type 2 diabetes mellitus with other skin ulcer; L97.223 Non-pressure chronic ulcer of left calf with necrosis of muscle; E11.22 Type 2 diabetes mellitus with diabetic chronic kidney disease; I12.0 Hypertensive chronic kidney disease with stage 5 chronic kidney disease or end stage renal disease; N18.6 End stage renal disease; E11.51 Type 2 diabetes mellitus with diabetic peripheral angiopathy without gangrene; I11.0 Hypertensive heart disease with heart failure; I50.9 Heart failure, unspecified; E78.5 Hyperlipidemia, unspecified; I48.0 Paroxysmal atrial fibrillation; Z87.891 Personal history of nicotine dependence; Z99.2 Dependence on renal dialysis
CPT/HCPCS: 87075; 87076; 87116; 87186; J0360; J1644; J3490; J7040

== ENCOUNTER 2019-07-26 14:33 | Outpatient (CLI) | payer MEDICARE | END 2019-07-26 14:34 | disposition home or self-care (01) | LOC: WOUND 14:33 | PROVIDERS: ATTEND Surgery | DX: E11.621 Type 2 diabetes mellitus with foot ulcer (principal); L97.522 Non-pressure chronic ulcer of other part of left foot with fat layer exposed; E11.622 Type 2 diabetes mellitus with other skin ulcer; L97.223 Non-pressure chronic ulcer of left calf with necrosis of muscle; E11.22 Type 2 diabetes mellitus with diabetic chronic kidney disease; I12.0 Hypertensive chronic kidney disease with stage 5 chronic kidney disease or end stage renal disease; N18.6 End stage renal disease; E11.51 Type 2 diabetes mellitus with diabetic peripheral angiopathy without gangrene; I11.0 Hypertensive heart disease with heart failure; I50.9 Heart failure, unspecified; E78.5 Hyperlipidemia, unspecified; I48.0 Paroxysmal atrial fibrillation; Z87.891 Personal history of nicotine dependence; Z99.2 Dependence on renal dialysis | CPT/HCPCS: 82962; G0277; 99183 ==

== ENCOUNTER 2019-07-27 15:17 | Outpatient (CLI) | payer MEDICARE | END 2019-07-27 15:18 | disposition home or self-care (01) | LOC: WOUND 15:17 | PROVIDERS: ATTEND Surgery | DX: E11.621 Type 2 diabetes mellitus with foot ulcer (principal); L97.522 Non-pressure chronic ulcer of other part of left foot with fat layer exposed; E11.622 Type 2 diabetes mellitus with other skin ulcer; L97.223 Non-pressure chronic ulcer of left calf with necrosis of muscle; E11.22 Type 2 diabetes mellitus with diabetic chronic kidney disease; I12.0 Hypertensive chronic kidney disease with stage 5 chronic kidney disease or end stage renal disease; N18.6 End stage renal disease; E11.51 Type 2 diabetes mellitus with diabetic peripheral angiopathy without gangrene; I11.0 Hypertensive heart disease with heart failure; I50.9 Heart failure, unspecified; E78.5 Hyperlipidemia, unspecified; I48.0 Paroxysmal atrial fibrillation; Z87.891 Personal history of nicotine dependence; Z99.2 Dependence on renal dialysis | CPT/HCPCS: 82962 ==

== ENCOUNTER 2019-07-28 14:48 | Outpatient (CLI) | payer MEDICARE | END 2019-07-28 14:49 | disposition home or self-care (01) | LOC: WOUND 14:48 | PROVIDERS: ATTEND Internal Medicine | DX: E11.621 Type 2 diabetes mellitus with foot ulcer (principal); L97.522 Non-pressure chronic ulcer of other part of left foot with fat layer exposed; E11.622 Type 2 diabetes mellitus with other skin ulcer; L97.223 Non-pressure chronic ulcer of left calf with necrosis of muscle; E11.22 Type 2 diabetes mellitus with diabetic chronic kidney disease; I12.0 Hypertensive chronic kidney disease with stage 5 chronic kidney disease or end stage renal disease; N18.6 End stage renal disease; E11.51 Type 2 diabetes mellitus with diabetic peripheral angiopathy without gangrene; I11.0 Hypertensive heart disease with heart failure; I50.9 Heart failure, unspecified; I48.0 Paroxysmal atrial fibrillation; E78.5 Hyperlipidemia, unspecified; Z87.891 Personal history of nicotine dependence; Z99.2 Dependence on renal dialysis | CPT/HCPCS: 82962; G0277; 99183 ==

== ENCOUNTER 2019-07-30 13:47 | Outpatient (CLI) | payer MEDICARE ==
[2019-07-30] MEDS ORDERED: LIDOCAINE (4%) 40 MG/ML TOPICAL SOLN 50 ML BOTTLE TP ONE (14:49)
== END 2019-07-30 13:48 | disposition home or self-care (01) ==
LOC: WOUND 13:47
PROVIDERS: ATTEND Surgery
DX: E11.621 Type 2 diabetes mellitus with foot ulcer (principal); L97.522 Non-pressure chronic ulcer of other part of left foot with fat layer exposed; E11.622 Type 2 diabetes mellitus with other skin ulcer; L97.223 Non-pressure chronic ulcer of left calf with necrosis of muscle; E11.22 Type 2 diabetes mellitus with diabetic chronic kidney disease; I12.0 Hypertensive chronic kidney disease with stage 5 chronic kidney disease or end stage renal disease; N18.6 End stage renal disease; E11.51 Type 2 diabetes mellitus with diabetic peripheral angiopathy without gangrene; I11.0 Hypertensive heart disease with heart failure; I50.9 Heart failure, unspecified; I48.0 Paroxysmal atrial fibrillation; E78.5 Hyperlipidemia, unspecified; Z87.891 Personal history of nicotine dependence; Z99.2 Dependence on renal dialysis
CPT/HCPCS: 11042; 82962; G0277; 99183

== ENCOUNTER 2019-07-31 16:41 | Emergency (ER) | payer MEDICARE ==
--- NOTE | 2019-07-31 16:54 | Event Note ---
ED Screening Note ED Screening Note: Mr. Gaines has hx of ESRD on HD, IDDM presents with generalized weakness, fever and foot ulcer. This initial assessment/diagnostic orders/clinical plan/treatment(s) is/are subject to change based on patients health status, clinical progression and re- assessment by fellow clinical providers in the ED. Further treatment and workup at subsequent clinical providers discretion. Patient/guardian urged not to elope from the ED as their condition may be serious if not clinically assessed and managed. Initial orders include:
[2019-07-31 17:13] LABS: Hematocrit 24.6 % (35.5-45.6); Hemoglobin 7.7 gm/dl (11.8-15.2); Mean Corpuscular HGB Conc 31 % (32-34); Mean Corpuscular Volume 88 fl (84-94); Platelet Count 354 K/mm3 (140-440); Red Blood Count 2.79 M/mm3 (3.65-5.03); Red Cell Distribution Width 16.9 % (13.2-15.2)
--- NOTE | 2019-07-31 17:35 | XRay Report ---
CHEST 2 VIEWS INDICATION / CLINICAL INFORMATION: Weakness. COMPARISON: 07/01/19 FINDINGS: SUPPORT DEVICES: Right PermCath is in place with the tip projecting over the superior vena cava. HEART / MEDIASTINUM: No significant abnormality. LUNGS / PLEURA: No significant pulmonary or pleural abnormality. No pneumothorax. ADDITIONAL FINDINGS: No significant additional findings. IMPRESSION: 1. No acute findings. Signer Name: Taylor Nolasco MD Signed: 07/31/2019 5:31 PM Workstation Name: [id number]
[2019-07-31 17:36] LABS: Albumin 2.8 g/dL (3.9-5); Calcium 9.2 mg/dL (8.4-10.2)
[2019-07-31 18:15] LABS: Total Cells Counted 100
[2019-07-31 18:16] LABS: Anisocytosis 1+; Eosinophils % (Manual) 0 % (0.0-4.3); Hypochromasia Few
[2019-07-31 18:17] LABS: Platelet Estimate Consistent w Auto; Stomatocytes Few; Target Cells Rare
[2019-07-31] MEDS ORDERED: ACETAMINOPHEN 325 MG TAB PO ONE (20:45)
--- NOTE | 2019-07-31 20:45 | Emergency Department Report ---
ED General Adult HPI - General Chief complaint: Weakness Stated complaint: WEAKNESS/FEVER Time Seen by Provider: 07/31/19 20:11 Source: patient, EMS ( EMS documentation not available at time of chart dictation ), RN notes reviewed, old records reviewed Mode of arrival: Wheelchair Limitations: Other (Patient is blind) - History of Present Illness Initial comments: Patient is a 58-year-old gentleman. Nephrology: Dr Samuels Wound care: Dr Falcon/Dr Langley Vascular surgery: Dr Crain Past medical history: End-stage renal disease on hemodialysis, legally blind, hypertension, on systemic anticoagulation, Eliquis, chronic left-sided foot ulcer. Patient reports that he is getting antibiotics for left-sided foot wound and hemodialysis The patient is a 60-year-old gentleman who was at dialysis today, complaining of generalized weakness. The patient denies physical pain. Positive dry cough. No headache, neck pain, chest pain, abdominal pain, no new or different shortness of breath. He is not sure what the color of his bowel movements are. He denies irritative and obstructive urinary symptoms. He is asking to eat and to drink at this time. -: Gradual Consistency: intermittent Improves with: none Worsens with: none - Related Data Home Medications Medication Instructions Recorded Confirmed Last Taken Insulin Aspart (Nf) [NovoLOG 100 10 unit SQ AC 07/31/18 07/05/19 07/04/19 UNITS/ML VIAL] Iron Sucrose [Venofer] 50 mg IV MO 07/05/19 07/05/19 Unknown Lidocain2.5%/Prilocai2.5% [Emla] 1 applic TP PRN 07/05/19 07/05/19 07/02/19 Mirtazapine [Remeron 15mg TAB] 15 mg PO QDAY 07/05/19 07/05/19 07/04/19 Sevelamer Carbonate [Renvela] 800 mg PO TIDWM 07/05/19 07/05/19 Unknown Previous Rx's Medication Instructions Recorded Last Taken Type Pravastatin [Pravachol (Nf)] 40 mg PO QHS #30 tablet 07/03/18 07/04/19 Rx Insulin Glargine [Lantus VIAL] 30 units SQ QHS #1 vial 07/31/18 07/04/19 Rx Clopidogrel [Plavix] 75 mg PO QDAY #30 tablet 05/11/19 07/04/19 Rx Pantoprazole [Protonix TAB] 20 mg PO QDAY #30 tablet. 05/11/19 07/04/19 Rx Acetaminophen [Acetaminophen TAB] 650 mg PO Q4H PRN tablet 05/17/19 Unknown Rx Amiodarone [Cordarone 200 MG TAB] 200 mg PO DAILY #30 tablet 07/11/19 Unknown Rx Apixaban [Eliquis] 5 mg PO BID #60 tab 07/11/19 Unknown Rx Aspirin EC [Halfprin EC] 81 mg PO QDAY #30 tablet 07/11/19 Unknown Rx Famotidine [Pepcid] 10 mg PO BID tablet 07/11/19 Unknown Rx Lispro Insulin [HumaLOG] 0 unit SUB-Q ACHS units 07/11/19 Unknown Rx amLODIPine 5 mg PO QDAY #30 tablet 07/11/19 Unknown Rx carvediloL [Coreg] 25 mg PO BID #60 tab 07/11/19 Unknown Rx cloNIDine-TTS PATCH [Catapres-Tts 1 patch TD Q7D #4 patch 07/11/19 Unknown Rx 0.1MG Patch] hydrALAZINE [Apresoline TAB] 25 mg PO Q8HR #90 tab 07/11/19 Unknown Rx lisinopriL [Zestril TAB] 20 mg PO QDAY #30 tablet 07/11/19 Unknown Rx oxyCODONE /ACETAMINOPHEN [Percocet 1 tab PO Q4HR #12 tab 07/11/19 Unknown Rx 5/325] Allergies Allergy/AdvReac Type Severity Reaction Status Date / Time piroxicam Allergy Unknown Verified 05/11/19 08:34 ED Review of Systems ROS: Stated complaint: WEAKNESS/FEVER Other details as noted in HPI Constitutional: malaise, weakness Eyes: denies: eye discharge ENT: denies: congestion Respiratory: denies: shortness of breath, wheezing Cardiovascular: denies: chest pain Gastrointestinal: denies: abdominal pain, vomiting, hematemesis, melena, hematochezia Genitourinary: denies: dysuria Musculoskeletal: myalgia Skin: rash, lesions Neurological: weakness Hematological/Lymphatic: denies: easy bleeding ED Past Medical Hx - Past Medical History Previous Medical History?: Yes Hx Hypertension: Yes Hx CVA: No Hx Heart Attack/AMI: No Hx Congestive Heart Failure: Yes Hx Diabetes: Yes (Type 2 insulin dependent) Hx Deep Vein Thrombosis: No Hx Pulmonary Embolism: No Hx GERD: Yes Hx Liver Disease: No Hx Renal Disease: Yes (MWF Hemodialysis) Hx Sickle Cell Disease: No Hx Arthritis: No Hx Headaches / Migraines: No Hx Seizures: No Hx Kidney Stones: No Hx Psychiatric Treatment: No Hx Asthma: No Hx COPD: No Hx Tuberculosis: No Hx Dementia: No Hx HIV: No Additional medical history: afib - Surgical History Past Surgical History?: Yes Hx Coronary Stent: No Hx Open Heart Surgery: No Hx Pacemaker: No Hx Internal Defibrillator: No Hx Cholecystectomy: No Hx Appendectomy: No Hx Breast Surgery: No Additional Surgical History: Right chest permacath, retinal detachment repair, LUE fistula - Social History Smoking Status: Never Smoker Substance Use Type: Alcohol, Prescribed - Medications Home Medications: Home Medications Medication Instructions Recorded Confirmed Last Taken Type Pravastatin [Pravachol (Nf)] 40 mg PO QHS #30 tablet 07/03/18 07/05/19 07/04/19 Rx Insulin Aspart (Nf) [NovoLOG 100 10 unit SQ AC 07/31/18 07/05/19 07/04/19 History UNITS/ML VIAL] Insulin Glargine [Lantus VIAL] 30 units SQ QHS #1 vial 07/31/18 07/05/19 07/04/19 Rx Clopidogrel [Plavix] 75 mg PO QDAY #30 tablet 05/11/19 07/05/19 07/04/19 Rx Pantoprazole [Protonix TAB] 20 mg PO QDAY #30 tablet. 05/11/19 07/05/19 07/04/19 Rx Acetaminophen [Acetaminophen TAB] 650 mg PO Q4H PRN tablet 05/17/19 07/05/19 Unknown Rx Iron Sucrose [Venofer] 50 mg IV MO 07/05/19 07/05/19 Unknown History Lidocain2.5%/Prilocai2.5% [Emla] 1 applic TP PRN 07/05/19 07/05/19 07/02/19 History Mirtazapine [Remeron 15mg TAB] 15 mg PO QDAY 07/05/19 07/05/19 07/04/19 History Sevelamer Carbonate [Renvela] 800 mg PO TIDWM 07/05/19 07/05/19 Unknown History Amiodarone [Cordarone 200 MG TAB] 200 mg PO DAILY #30 tablet 07/11/19 Unknown Rx Apixaban [Eliquis] 5 mg PO BID #60 tab 07/11/19 Unknown Rx Aspirin EC [Halfprin EC] 81 mg PO QDAY #30 tablet 07/11/19 Unknown Rx Famotidine [Pepcid] 10 mg PO BID tablet 07/11/19 Unknown Rx Lispro Insulin [HumaLOG] 0 unit SUB-Q ACHS units 07/11/19 Unknown Rx amLODIPine 5 mg PO QDAY #30 tablet 07/11/19 Unknown Rx carvediloL [Coreg] 25 mg PO BID #60 tab 07/11/19 Unknown Rx cloNIDine-TTS PATCH [Catapres-Tts 1 patch TD Q7D #4 patch 07/11/19 Unknown Rx 0.1MG Patch] hydrALAZINE [Apresoline TAB] 25 mg PO Q8HR #90 tab 07/11/19 Unknown Rx lisinopriL [Zestril TAB] 20 mg PO QDAY #30 tablet 07/11/19 Unknown Rx oxyCODONE /ACETAMINOPHEN [Percocet 1 tab PO Q4HR #12 tab 07/11/19 Unknown Rx 5/325] ED Physical Exam - General General appearance: alert, in no apparent distress - Head Head exam: Present: atraumatic, normocephalic - Eye Eye exam: Present: normal appearance, EOMI. Absent: nystagmus - ENT ENT exam: Present: normal exam, normal orophraynx, mucous membranes moist, normal external ear exam - Neck Neck exam: Present: normal inspection, full ROM. Absent: tenderness, meningismus - Respiratory Respiratory exam: Present: normal lung sounds bilaterally. Absent: respiratory distress - Cardiovascular Cardiovascular Exam: Present: regular rate, normal rhythm, normal heart sounds, other (There is no redness, pus or streaking over the right sided dialysis catheter). Absent: bradycardia, tachycardia, irregular rhythm, systolic murmur, diastolic murmur, rubs, gallop - GI/Abdominal GI/Abdominal exam: Present: soft, normal bowel sounds. Absent: distended, tenderness, guarding, rebound, rigid, pulsatile mass - Rectal Rectal exam: Present: normal inspection, normal rectal tone, heme (-) stool, other (Chaperoned by nurse Americo Mays). Absent: heme (+) stool, black stool, bloody stool, fecal impaction - Extremities Exam Extremities exam: Present: full ROM, other (2+ pulses noted in the bilateral upper and lower extremities. There is no palpable cord. negative Homans sign. Muscular compartments are soft. The pelvis is stable.). Absent: normal inspection (There is a left upper extremity fistula noted, without redness, pus or streaking. A chronic appearing wound, with dry necrotic tissue noted on left lateral foot. There is no redness, pus or streaking. The compartments are soft. There is a left distal medial lower extremity skin abrasion, and there is a chronic appearing wound to the left great toe.), calf tenderness - Back Exam Back exam: Present: normal inspection. Absent: tenderness, CVA tenderness (R), CVA tenderness (L), paraspinal tenderness, vertebral tenderness - Neurological Exam Neurological exam: Present: alert, other (There is no facial droop. The tongue is midline. Extraocular movements are intact bilaterally. There is 5 out of 5 strength in bilateral upper and lower extremities. Sensation is intact to light touch bilateral upper and lower extremities. ). Absent: motor sensory deficit - Psychiatric Psychiatric exam: Present: normal affect, normal mood - Skin Skin exam: Present: warm, dry, intact, normal color. Absent: rash ED Course Vital Signs 07/31/19 07/31/19 07/31/19 16:44 16:48 20:09 Temperature 100 F H 100.3 F H Pulse Rate 88 89 Respiratory 20 16 Rate Blood Pressure 110/61 O2 Sat by Pulse 100 98 93 Oximetry 07/31/19 07/31/19 07/31/19 20:16 20:30 20:46 Temperature Pulse Rate 84 87 85 Respiratory 14 17 15 Rate Blood Pressure 155/78 155/78 155/78 O2 Sat by Pulse 100 100 99 Oximetry 07/31/19 07/31/19 07/31/19 20:56 21:00 21:16 Temperature 98.1 F Pulse Rate 86 80 Respiratory 12 16 Rate Blood Pressure 143/70 143/70 O2 Sat by Pulse 91 100 Oximetry 07/31/19 07/31/19 07/31/19 21:30 21:46 22:00 Temperature Pulse Rate 82 87 78 Respiratory 12 11 L 15 Rate Blood Pressure 143/70 143/70 153/79 O2 Sat by Pulse 100 100 100 Oximetry 07/31/19 07/31/19 22:16 22:30 Temperature Pulse Rate 77 76 Respiratory 15 15 Rate Blood Pressure 153/79 153/79 O2 Sat by Pulse 100 100 Oximetry ED Medical Decision Making - Lab Data Result diagrams: 07/31/19 17:00 07/31/19 17:00 Vital Signs 07/31/19 07/31/19 07/31/19 16:44 16:48 20:09 Temperature 100 F H 100.3 F H Pulse Rate 88 89 Respiratory 20 16 Rate Blood Pressure 110/61 O2 Sat by Pulse 100 98 93 Oximetry 07/31/19 07/31/19 07/31/19 20:16 20:30 20:46 Temperature Pulse Rate 84 87 85 Respiratory 14 17 15 Rate Blood Pressure 155/78 155/78 155/78 O2 Sat by Pulse 100 100 99 Oximetry 07/31/19 07/31/19 07/31/19 20:56 21:00 21:16 Temperature 98.1 F Pulse Rate 86 80 Respiratory 12 16 Rate Blood Pressure 143/70 143/70 O2 Sat by Pulse 91 100 Oximetry 07/31/19 07/31/19 07/31/19 21:30 21:46 22:00 Temperature Pulse Rate 82 87 78 Respiratory 12 11 L 15 Rate Blood Pressure 143/70 143/70 153/79 O2 Sat by Pulse 100 100 100 Oximetry Lab Results 07/31/19 07/31/19 07/31/19 Range/Units 17:00 17:00 17:00 WBC 16.9 H (4.5-11.0) K/mm3 RBC 2.79 L (3.65-5.03) M/mm3 Hgb 7.7 L (11.8-15.2) gm/dl Hct 24.6 L (35.5-45.6) % MCV 88 (84-94) fl MCH 28 (28-32) pg MCHC 31 L (32-34) % RDW 16.9 H (13.2-15.2) % Plt Count 354 (140-440) K/mm3 Add Manual Diff Complete Total Counted 100 Seg Neuts % (Manual) 87.0 H (40.0-70.0) % Band Neutrophils % 0 % Lymphocytes % (Manual) 8.0 L (13.4-35.0) % Reactive Lymphs % (Man) 0 % Monocytes % (Manual) 3.0 (0.0-7.3) % Eosinophils % (Manual) 0 (0.0-4.3) % Basophils % (Manual) 1.0 (0.0-1.8) % Metamyelocytes % 1.0 % Myelocytes % 0 % Promyelocytes % 0 % Blast Cells % 0 % Nucleated RBC % Not Reportable Seg Neutrophils # Man 14.7 H (1.8-7.7) K/mm3 Band Neutrophils # 0.0 K/mm3 Lymphocytes # (Manual) 1.4 (1.2-5.4) K/mm3 Abs React Lymphs (Man) 0.0 K/mm3 Monocytes # (Manual) 0.5 (0.0-0.8) K/mm3 Eosinophils # (Manual) 0.0 (0.0-0.4) K/mm3 Basophils # (Manual) 0.2 H (0.0-0.1) K/mm3 Metamyelocytes # 0.2 K/mm3 Myelocytes # 0.0 K/mm3 Promyelocytes # 0.0 K/mm3 Blast Cells # 0.0 K/mm3 WBC Morphology Not Reportable Hypersegmented Neuts Not Reportable Hyposegmented Neuts Not Reportable Hypogranular Neuts Not Reportable Smudge Cells Not Reportable Toxic Granulation Not Reportable Toxic Vacuolation Not Reportable Dohle Bodies Not Reportable Pelger-Huet Anomaly Not Reportable Pita Rods Not Reportable Platelet Estimate Consistent w auto Clumped Platelets Not Reportable Plt Clumps, EDTA Not Reportable Large Platelets Not Reportable Giant Platelets Not Reportable Platelet Satelliting Not Reportable Plt Morphology Comment Not Reportable RBC Morphology Not Reportable Dimorphic RBCs Not Reportable Polychromasia Few Hypochromasia Few Poikilocytosis Not Reportable Anisocytosis 1+ Microcytosis Not Reportable Macrocytosis Not Reportable Spherocytes Not Reportable Pappenheimer Bodies Not Reportable Sickle Cells Not Reportable Target Cells Rare Tear Drop Cells Not Reportable Ovalocytes Not Reportable Stomatocytes Few Helmet Cells Not Reportable Salgado-[place] Bodies Not Reportable Elberta Rings Not Reportable Azalea Cells Not Reportable Bite Cells Not Reportable Crenated Cell Not Reportable Elliptocytes Not Reportable Acanthocytes (Spur) Not Reportable Rouleaux Not Reportable Hemoglobin C Crystals Not Reportable Schistocytes Not Reportable Malaria parasites Not Reportable Tushar Bodies Not Reportable Hem Pathologist Commnt No Sodium 139 (137-145) mmol/L Potassium 3.8 (3.6-5.0) mmol/L Chloride 96.8 L (98-107) mmol/L Carbon Dioxide 23 (22-30) mmol/L Anion Gap 23 mmol/L BUN 18 (9-20) mg/dL Creatinine 5.9 H (0.8-1.5) mg/dL Estimated GFR 12 ml/min BUN/Creatinine Ratio 3 % Glucose 107 H (75-100) mg/dL Calcium 9.2 (8.4-10.2) mg/dL Magnesium 2.10 (1.7-2.3) mg/dL Total Bilirubin 0.40 (0.1-1.2) mg/dL AST 43 H (5-40) units/L ALT 22 (7-56) units/L Alkaline Phosphatase 115 (35-129) units/L Total Creatine Kinase 185 H (55-170) units/L Total Protein 8.7 H (6.3-8.2) g/dL Albumin 2.8 L (3.9-5) g/dL Albumin/Globulin Ratio 0.5 % Influenza A (Rapid) (Negative) Influenza B (Rapid) (Negative) 07/31/19 Range/Units Unknown WBC (4.5-11.0) K/mm3 RBC (3.65-5.03) M/mm3 Hgb (11.8-15.2) gm/dl Hct (35.5-45.6) % MCV (84-94) fl MCH (28-32) pg MCHC (32-34) % RDW (13.2-15.2) % Plt Count (140-440) K/mm3 Add Manual Diff Total Counted Seg Neuts % (Manual) (40.0-70.0) % Band Neutrophils % % Lymphocytes % (Manual) (13.4-35.0) % Reactive Lymphs % (Man) % Monocytes % (Manual) (0.0-7.3) % Eosinophils % (Manual) (0.0-4.3) % Basophils % (Manual) (0.0-1.8) % Metamyelocytes % % Myelocytes % % Promyelocytes % % Blast Cells % % Nucleated RBC % Seg Neutrophils # Man (1.8-7.7) K/mm3 Band Neutrophils # K/mm3 Lymphocytes # (Manual) (1.2-5.4) K/mm3 Abs React Lymphs (Man) K/mm3 Monocytes # (Manual) (0.0-0.8) K/mm3 Eosinophils # (Manual) (0.0-0.4) K/mm3 Basophils # (Manual) (0.0-0.1) K/mm3 Metamyelocytes # K/mm3 Myelocytes # K/mm3 Promyelocytes # K/mm3 Blast Cells # K/mm3 WBC Morphology Hypersegmented Neuts Hyposegmented Neuts Hypogranular Neuts Smudge Cells Toxic Granulation Toxic Vacuolation Dohle Bodies Pelger-Huet Anomaly Pita Rods Platelet Estimate Clumped Platelets Plt Clumps, EDTA Large Platelets Giant Platelets Platelet Satelliting Plt Morphology Comment RBC Morphology Dimorphic RBCs Polychromasia Hypochromasia Poikilocytosis Anisocytosis Microcytosis Macrocytosis Spherocytes Pappenheimer Bodies Sickle Cells Target Cells Tear Drop Cells Ovalocytes Stomatocytes Helmet Cells Salgado-[place] Bodies Elberta Rings Azalea Cells Bite Cells Crenated Cell Elliptocytes Acanthocytes (Spur) Rouleaux Hemoglobin C Crystals Schistocytes Malaria parasites Tushar Bodies Hem Pathologist Commnt Sodium (137-145) mmol/L Potassium (3.6-5.0) mmol/L Chloride (98-107) mmol/L Carbon Dioxide (22-30) mmol/L Anion Gap mmol/L BUN (9-20) mg/dL Creatinine (0.8-1.5) mg/dL Estimated GFR ml/min BUN/Creatinine Ratio % Glucose (75-100) mg/dL Calcium (8.4-10.2) mg/dL Magnesium (1.7-2.3) mg/dL Total Bilirubin (0.1-1.2) mg/dL AST (5-40) units/L ALT (7-56) units/L Alkaline Phosphatase (35-129) units/L Total Creatine Kinase (55-170) units/L Total Protein (6.3-8.2) g/dL Albumin (3.9-5) g/dL Albumin/Globulin Ratio % Influenza A (Rapid) Negative (Negative) Influenza B (Rapid) Negative (Negative) - EKG Data -: EKG Interpreted by Nc EKG shows normal: sinus rhythm Rate: normal - EKG Data Interpretation: unchanged when compared t (07/2018) 07/31/19 22:55 Sinus rhythm. 80 bpm. QTC prolonged, left axis deviation, left anterior fascicular block, poor R wave progression. The EKG is abnormal. There is no endorsement of chest pain. It is not consistent with a STEMI. - Radiology Data Radiology results: report reviewed, image reviewed Print Report Referring Physician: AMERICA JOHN Patient Name: ALE BENAVIDES JR Date of : 1960 Sex: Male Report Date: 2019-07-31 Report Status: Finalized Findings [facility] [address] [place] [address] XRay Report Signed Patient: ALE BENAVIDES JR MR#: [id number] : 1960 Acct:[id number] Age/Sex: 58 / M ADM Date: 07/31/19 Loc: ED Attending Dr: Ordering Physician: America Nichols MD Date of Service: 07/31/19 Procedure(s): XR chest routine 2V Accession Number(s): [id number] cc: America Nichols MD Fluoro Time In Minutes: CHEST 2 VIEWS INDICATION / CLINICAL INFORMATION: Weakness. COMPARISON: 07/01/19 FINDINGS: SUPPORT DEVICES: Right PermCath is in place with the tip projecting over the superior vena cava. HEART / MEDIASTINUM: No significant abnormality. LUNGS / PLEURA: No significant pulmonary or pleural abnormality. No pneumothorax. ADDITIONAL FINDINGS: No significant additional findings. IMPRESSION: 1. No acute findings. Signer Name: Taylor Nolasco MD Signed: 07/31/2019 5:31 PM Workstation Name: [id number] Transcribed By: DT Dictated By: Conor Nolasco MD Electronically Authentica dewey By: Conor Nolasco MD Signed Date/Time: 07/31/191730 DD/ 29 - Medical Decision Making Differential diagnosis, including but not limited to: Deconditioning, pneumonia, urinary tract infection, azotemia, uremia, hyperkalemia, anemia of chronic illness, chronic left-sided foot wounds Assessment and plan: 58-year-old gentleman who has chronic appearing wound to left lateral foot, is documented to be following with outpatient wound care, and reports he is receiving IV antibiotic infusion at dialysis, with a complaint of generalized weakness and malaise. Low-grade temperature has resolved, he is otherwise afebrile with reassuring vital signs. Pulses are obtained on bilateral upper and lower extremities, and also present on his left foot through Doppler interrogation, at the dorsalis pedis distribution. Screening laboratory studies are reviewed and appreciated. Blood cultures were ordered prior to my personal evaluation. At this point in time, the patient does not appear to have an acute decompensation of his chronic medical conditions that would require admission to the hospital or hospitalization. He is suitable to continue his outpatient management. Guaiac negative on rectal examination. Critical care attestation.: If time is entered above; I have spent that time in minutes in the direct care of this critically ill patient, excluding procedure time. ED Disposition Clinical Impression: ESRD (end stage renal disease) on dialysis Diabetic foot ulcer Qualifiers: Diabetic foot ulcer location: unspecified part of foot Diabetes mellitus type: other specified (including DARLENE) Laterality: left Non-pressure ulcer stage: with other severity Qualified Code(s): E13.621 - Other specified diabetes mellitus with foot ulcer Is pt being admited?: No Does the pt Need Aspirin: No Condition: Stable Additional Instructions: Cultures were sent today, and results will be available in the next 3 to 5 days. Please have your primary care doctor, application security specialist, or rack washer contact medical records department to obtain culture results. Continue current outpatient medications. Continue outpatient hemodialysis antibiotics. Follow- up with your rack washer, primary care doctor or application security specialist within the next 3 to 5 days. Return to the emergency room right away with new, worsened or different symptoms, or symptoms not present on the initial emergency room evaluation. Referrals: RAIZA HOPKINS MD [Primary Care Provider] - 3-5 Days GEORGE LANGLEY MD [Staff Physician] - 3-5 Days MARYLIN WALLS MD [Staff Physician] - 3-5 Days
[2019-07-31 22:44] LABS: Bacteria,Urine 1+ /HPF (Negative); Bilirubin,Urine NEG (Negative); Blood,Urine SM (Negative); Color,Urine Amber (Yellow); Urobilinogen,Urine < 2.0 mg/dL (<2.0)
[2019-08-01 02:14] VITALS: BP 132/75
== END 2019-08-01 02:15 | disposition home or self-care (01) ==
LOC: ED 16:41
DX: I13.2 Hypertensive heart and chronic kidney disease with heart failure and with stage 5 chronic kidney disease, or end stage renal disease (principal); E11.22 Type 2 diabetes mellitus with diabetic chronic kidney disease; E11.621 Type 2 diabetes mellitus with foot ulcer; N18.6 End stage renal disease; I50.9 Heart failure, unspecified; K21.9 Gastro-esophageal reflux disease without esophagitis; I48.91 Unspecified atrial fibrillation; Z99.2 Dependence on renal dialysis; Z79.4 Long term (current) use of insulin; Z88.6 Allergy status to analgesic agent; Z79.899 Other long term (current) drug therapy; Z98.890 Other specified postprocedural states
CPT/HCPCS: 36415; 71046; 80053; 81001; 82271; 82550; 83735; 85007; 85025; 87040; 87400; 93005; 93010